=== PATIENT | male | born 1960 | race African-American/Black ===

== ENCOUNTER 2016-08-13 09:54 | Observation (INO) ==
[2016-08-13] MEDS ORDERED: NITROGLYCERIN 2% OINT 1 INCH/GM PACK TOP STA (10:11)
[2016-08-13] MEDS ORDERED: ASPIRIN 325 MG TABLET PO STA (10:11)
[2016-08-13] MEDS ORDERED: METOPROLOL TARTRATE 25 MG TABLET PO STA (10:11)
[2016-08-13] MEDS ORDERED: ONDANSETRON 4 MG/2 ML VIAL IV STA ×2 (10:11→11:43)
[2016-08-13] MEDS ORDERED: ALUM/MAG/SIMETH/LIDO VISC 1:1 30 ML BOTTLE PO STA (10:11)
[2016-08-13] MEDS ORDERED: METOCLOPRAMIDE 10 MG/2 ML VIAL IV STA (10:11)
--- NOTE | 2016-08-13 10:18 | Emergency Department Note ---
Arrival - Arrival Chief Complaint: Chest Pain Stated Complaint: CHEST PAIN, SOB ED Nursing Triage Note: reports pain in center of chest that radiates down left arm that started this morning about 0800 after he had an echo and was headed home. reports feels sob and dizzy. reports has also had some heartburn. Mode of Arrival: Ambulatory Limitations: No Limitations Source: Patient Time Seen by Provider: 08/13/16 10:11 - History of Present Illness HPI Narrative: This 55-year-old black male with extensive coronary artery disease with WI and stents, presents after having an echo this morning per his medical biller Dr. Grajeda when on the way home he began to have central chest pain that radiated down his left arm. This was associated with shortness of breath and dizziness as well as some low-grade nausea and significant heartburn and water brash symptoms. He states he still has some slight nausea and minimal pain. Currently he appears medically stable and in no acute distress. Onset (ago): hour(s) (Onset of pain 2 hours ago) Allergies/Adverse Reactions: Allergies Allergy/AdvReac Type Severity Reaction Status Date / Time Iodinated Contrast Media - AdvReac ITCHING Verified 10/28/14 12:31 Oral and [Iodinated Contrast Media - IV Dye] Sulfa (Sulfonamide AdvReac ITCHING Verified 10/28/14 12:30 Antibiotics) sulfamethoxazole AdvReac ITCHING Verified 10/28/14 12:30 [From Bactrim] trimethoprim [From Bactrim] AdvReac ITCHING Verified 10/28/14 12:30 Home Medications: Home Medications Medication Instructions Recorded Confirmed Type Aspirin [Ecotrin] 81 mg PO DAILY 10/28/14 10/28/14 History Atorvastatin [Lipitor] 40 mg PO BEDTIME 10/28/14 10/28/14 History HYDROcodone/ACETAMIN 10-325 [Battiest 1 tablet PO Q6H 10/28/14 10/28/14 History 10-325] Isosorbide Mononitrate [Isosorbide 30 mg PO DAILY 10/28/14 10/28/14 History Mononitrate ER] Isosorbide Mononitrate [Isosorbide 60 mg PO DAILY 10/28/14 10/28/14 History Mononitrate ER] Losartan [Cozaar] 25 mg PO DAILY 10/28/14 10/28/14 History Metoprolol Tartrate 25 mg PO BID 10/28/14 10/28/14 History Pantoprazole Tab [Protonix Tab] 40 mg PO BID 10/28/14 10/28/14 History Prasugrel [Effient] 10 mg PO DIRECTED 10/28/14 10/28/14 History Promethazine Tab [Phenergan Tab] 25 mg PO Q6H PRN 10/28/14 10/28/14 History Review of System - Review of System 12 point system: reviewed and no additional remarkable complaints except as stated - Review of System Constitutional: Present: as per HPI Respiratory: Present: as per HPI Cardiovascular: Present: as per HPI Gastrointestinal: Present: as per HPI Medical,Surgical,& Family Hx - Medical History Cardio: History of: CAD (June 2012: PCI-proximal RCA with CHIQUI. Repeat [facility] June 2012 - stent open ) Neurology: No history of: Seizures, TIA Endocrine: History of: Dyslipidemia No history of: Diabetes Mellitus (NIDDM) Gastrointestinal: History of: GI Problems (1 month ago - BRB from rectum once. On toilet paper) - Surgical History Cardiac Surgeries: Sugical HX of: Cardiac Catheterization (STENT July 01, 2012 - STEMI with PCI-proximal RCA. Repeat [facility] stent patent) Thoracic Surgeries: Patient denies;: Organ Transplant Neurologic Surgeries: Patient denies: Neurologic Surgery - Family History Family History: Reports;: Family Diabetes (MOTHER, SISTERSx2), Family Heart Disease (MOTHER, FATHER), Family Hypertension (MOTHER, FATHER) - Social History Smoking Status: Light tobacco smoker Exam Physical Examination: GENERAL: Well developed, well nourished black male in no acute distress. HEENT: Normocephalic. No trauma. Moist mucous membranes. EOMI. PERRLA. ENT NML NECK: Supple. No adenopathy. CARDIAC: Regular. No murmurs. Heart rate 72 CHEST: Clear to auscultation. No respiratory distress. O2 sat 99% ABDOMEN: Soft. Nontender. Active bowel sounds. EXTREMITIES: No trauma. Normal ROM. No pedal edema. SKIN: No diaphoresis. No rash. NEURO: Alert. Neuro intact. No focal deficits. Vital Signs: Vital Signs Temperature 98.6 F 08/13/16 10:11 Pulse Rate 67 08/13/16 10:45 Respiratory Rate 24 08/13/16 10:45 Blood Pressure 143/81 08/13/16 10:45 O2 Sat by Pulse Oximetry 100 08/13/16 10:45 Course - Reevaluation(s) Reevaluation #1: As patient continues to have chest pain we will seek admission. - Consultations Consultation #1: Discussed with Dr. Sauceda who will admit for further evaluation treatment. Results - Labs CBC & BMP: 08/13/16 10:21 08/13/16 10:21 Labs: I reviewed the laboratory noted the negative cardiac's - Impressions EKG: Sinus rhythm at 88 with normal [place] interval and QRS duration. Lateral and inferior ST flattening with T inversion consistent with ischemia. No acute injury pattern noted. - Diagnostic Findings Procedure: Chest x-ray: image reviewed by me, report reviewed by me (Normal chest) Disposition Clinical Impression: Angina, Coronary artery disease/s/p stents Case discussed with: patient, patient's family Disposition: Still a Patient Condition: Guarded Time of Disposition: 12:06
[2016-08-13 10:38] LABS: Basophils % 0.2 % (0.0-0.8); Eosinophils # 0.1 10*3/uL (0.0-0.87); Eosinophils % 1.3 % (0.00-10.9); Hematocrit 42.1 VOL% (42.0-52.0); Immature Granulocytes % 0.4 %; Immature Granulocytes Absolute 0.02 #; Lymphocytes # 1.8 10*3/uL (1.4-4.0); Lymphocytes % 40.1 % (21.2-54.2); Mean Corpuscular HGB Conc 33.3 GM/DL (32-36); Mean Corpuscular Hemoglobin 24 PG (27-34); Mean Corpuscular Volume 72.6 FL (87-102); Mean Platelet Volume 10.7 FL (9.6-12.0); Monocytes # 0.6 10*3/uL (0.11-0.8); Monocytes % 13.4 % (1.7-12.7); Neutrophils % 44.6 % (38.7-73.9); Platelet Count 230 T/CUMM (130-400); Red Cell Distribution Width 14.7 % (9.3-17.3); White Blood Count 4.5 T/CUMM (4-12)
[2016-08-13 10:40] LABS: Apearance,Urine CLEAR (Clear); Bilirubin,Urine Negative (Negative); Blood, Urine Negative (Negative); Glucose,Urine (UA) Negative (Negative); Ketones,Urine Negative (Negative); Mucus,Urine Occasional /LPF (Occasional); Nitrite,Urine Negative (Negative); Protein,Urine Negative; RBC,Urine 1 /HPF (0-4); Urine Color Yellow (Yellow); Urine Specific Gravity 1.014 (1.001-1.035); Urine Urobilinogen < 2.0 EU/DL (0.2-1.0); WBC,Urine <1 /HPF (0-6)
[2016-08-13 10:47] LABS: PT Patient Result 10.7 SECS; Partial Thromboplastin Time 28.7 SECS (0-40)
[2016-08-13] MEDS ORDERED: NITROGLYCERIN 2% OINT 1 INCH/GM PACK TOP ONE (10:47)
[2016-08-13] MEDS ORDERED: METOCLOPRAMIDE 10 MG/2 ML VIAL ONE (10:47)
[2016-08-13] MEDS ORDERED: METOPROLOL TARTRATE 25 MG TABLET ONE (10:47)
[2016-08-13] MEDS ORDERED: ONDANSETRON 4 MG/2 ML VIAL ONE ×2 (10:48→11:43)
[2016-08-13] MEDS ORDERED: ALUM/MAG/SIMETH/LIDO VISC 1:1 30 ML BOTTLE PO ONE (10:48)
[2016-08-13] MEDS ORDERED: ASPIRIN 325 MG TABLET ONE (10:48)
[2016-08-13 11:08] LABS: Barbiturates Screen,Urine Negative (Negative); Benzodiazepines Screen,Urine Negative (Negative); Cannabinoid Screen,Urine Negative (Negative); Opiate Screen,Urine Negative (Negative); Phencyclidine Screen,Urine Negative (Negative)
[2016-08-13 11:12] LABS: Alanine Aminotransferase 29 U/L (16-61); Albumin 3.7 G/DL (3.4-5.0); Alkaline Phosphatase 97 U/L (45-117); Aspartate Amino Transferase 16 U/L (0-37); Bilirubin,Total < 0.39 MG/DL (0.2-1.0); Blood Urea Nitrogen 11 MG/DL (7-18); Calcium 9.1 MG/DL (8.5-10.1); Glucose 79 MG/DL (74-106); Osmolality,Calculated 272.7 MOS/KG (273-304); Potassium 4.5 MMOL/L (3.5-5.1); Sodium 138 MMOL/L (136-145); Total Protein 7.2 G/DL (6.4-8.3); Troponin I Only < 0.015 NG/ML (0.00-0.045)
[2016-08-13] MEDS ORDERED: ACETAMINOPHEN 325 MG TABLET ONE (11:43)
[2016-08-13] MEDS ORDERED: ACETAMINOPHEN 325 MG TABLET PO ONE (11:43)
[2016-08-13] MEDS ORDERED: MORPHINE 2 MG/1 ML SYRINGE IV STA (11:43)
[2016-08-13] MEDS ORDERED: MORPHINE 2 MG/1 ML SYRINGE ONE (11:44)
--- NOTE | 2016-08-13 11:49 | XRay Report ---
XR chest 2V Indication: Chest pain. Comparison: Chest x-ray 10/28/2014 Technique: PA and lateral chest x-ray was performed. Findings: Heart size, mediastinal contour, and hilar structures demonstrate no significant abnormalities. The lung parenchyma is clear. Bones and soft tissues demonstrate no significant abnormalities. Impression: 1. No active cardiopulmonary disease. 08/13/2016 11:47 AM PROCEDURE INTERPRETED AT [facility] DEPARTMENT OF RADIOLOGY Final Report Signed by: Dr. Damion Montgomery
--- NOTE | 2016-08-13 13:22 | Cardiology History & Physical ---
Assessment and Plan - Time spent with patient Time spent with patient: Greater than 30 minutes (due to assessment, plan, and documentation) Time spent discussing smoking cessation with patient: 3 to 10 minutes (1) Chest pain Status: Acute Assessment and plan: See plan of care listed below. Current Visit: No (2) Coronary artery disease Status: Chronic Assessment and plan: See plan of care listed below. Current Visit: No (3) Hypertension Status: Chronic Assessment and plan: See plan of care listed below. Current Visit: No (4) Hyperlipidemia Status: Chronic Assessment and plan: See plan of care listed below. Current Visit: No (5) Tobacco use Status: Chronic Assessment and plan: See plan of care listed below. 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 Mr. Amato is a 55 year old male with a history of coronary artery disease (non-STEMI requiring PCI to RCA with resolute integrity June 2012) . He also has a history of hypertension, hyperlipidemia, and tobacco use. His most recent heart catheterization was 03/29/14 demonstrating patent stent. He has a history of post-cath rash suspected to be secondary to IV contrast or possibly Plavix. Additional history includes gastritis, esophagitis, and abnormal CT of the chest. Echocardiogram on 08/13/16 revealed EF 55%, grade 1 diastolic dysfunction, mild LVH, mildly increased left atrial diameter, mild TR. He presented to the emergency room today with complaints of chest pain ongoing for the past week. He was seen in clinic by Dr. Grajeda yesterday for the same complaints. He describes this as a sharp midsternal/epigastric pain that lasts approximately 4-5 minutes and goes away on its own. He has been having this pain for approximately 1 week. He reports it radiates down his left arm. It is nonreproducible with movement, palpation, or deep breath. There is no association with rest or exertion. He has associated symptoms of shortness of breath and dizziness. His left arm pain occurs with his chest pain and radiates further down his arm, not the shoulder pain he had before (which he was cathed for). He also complains of frequent heartburn despite using a PPI. He reports whenever he gets up to do something such as yard work and exerts himself, he develops a burning sensation in his chest. He reports it will resolve with rest but then come back later at rest. Sometimes this worsens with his eating, and sometimes he avoids eating because of this. Upon arrival, he was noted to have negative cardiac biomarkers. EKG shows sinus rhythm, with moderate T-wave abnormality inferolaterally. After discussing with Dr. Knapp, will admit Mr. Amato to cardiology service and keep him n.p.o. for nuclear stress testing this afternoon. ASSESSMENT/PLAN: 1. CHEST PAIN - Will admit patient to cardiology service and keep him n.p.o. for nuclear stress testing this afternoon. Will continue to cycle cardiac biomarkers and EKGs. 2. CORONARY ARTERY DISEASE - He has a history of coronary artery disease (non- STEMI requiring PCI to RCA with resolute integrity June 2012). His most recent heart catheterization was 03/29/14 demonstrating patent stent. He has a history of post-cath rash suspected to be secondary to IV contrast or possibly Plavix. 3. HYPERTENSION - Currently well controlled. We will continue to monitor and adjust medications accordingly. 4. HYPERLIPIDEMIA - Continue lipid-lowering agent. Will recheck lipid panel in a.m. 5. TOBACCO USE - Spent greater than 5 minutes discussing the harmful effects of tobacco use and urged him to quit smoking. Home Medications Medication Instructions Recorded Confirmed Type Aspirin [Ecotrin] 81 mg PO DAILY 10/28/14 08/13/16 History Losartan [Cozaar] 25 mg PO DAILY 10/28/14 08/13/16 History Carvedilol [Coreg] 6.25 mg PO BID 08/13/16 08/13/16 History Omeprazole [Prilosec] 20 mg PO DAILY 08/13/16 08/13/16 History Allergies Allergy/AdvReac Type Severity Reaction Status Date / Time Iodinated Contrast Media - AdvReac ITCHING Verified 10/28/14 12:31 Oral and [Iodinated Contrast Media - IV Dye] Sulfa (Sulfonamide AdvReac ITCHING Verified 10/28/14 12:30 Antibiotics) sulfamethoxazole AdvReac ITCHING Verified 10/28/14 12:30 [From Bactrim] trimethoprim [From Bactrim] AdvReac ITCHING Verified 10/28/14 12:30 Review of systems: - Constitutional: Present: As per HPI. Absent: anorexia, chills, daytime sleepiness, excessive sweating, fever(s), frequent falls, headache(s), increased appetite, lethargy, malaise, night sweats, stops breathing during sleep, weakness, weight gain, weight loss, fatigue. - EENT Eyes: Present: As per HPI. Absent: blurry vision, diplopia, loss of vision Ears: Present: As per HPI. Absent: decreased hearing, ear discharge, ear pain Nose, mouth and throat: Present: As per HPI. Absent: dysphagia, epistaxis, headache(s), hoarseness, lip swelling, nasal congestion, neck mass, neck pain, sinus pressure, sore throat, throat swelling, tongue swelling, vertigo - Cardiovascular: Present: chest pain at rest, chest pain with activity, dyspnea , dyspnea on exertion, as per HPI. Absent: edema, claudication, diaphoresis, radiating jaw, neck or arm pain, lightheadedness, orthopnea, palpitations, PND - Respiratory: Present: as per HPI. Absent: dyspnea, dyspnea on exertion, cough , hemoptysis, wheezing, snoring, pain on inspiration - Gastrointestinal: Present: heartburn,As per HPI. Absent: abdominal pain, bloating, change in bowel habits, constipation, diarrhea, hematemesis, hematochezia, loose stools, melena, nausea, vomiting - Genitourinary: Present: As per HPI. Absent: difficulty urinating, dysuria, flank pain, hematuria, nocturia, urinary frequency, urinary incontinence - Musculoskeletal: Present: As per HPI. Absent: arthralgias, back pain, joint swelling, limited range of motion, muscle cramps, muscle weakness, myalgias - Neurological: Present: dizziness, As per HPI. Absent: abnormal gait, abnormal speech, behavioral changes, confusion, convulsions, disequilibrium, focal weakness, frequent falls, headache(s), memory loss, numbness, paresthesias, radicular pain, syncope, tremor(s) - Psychiatric: Present: As per HPI. Absent: anxiety, confusion, depression, panic attacks - Endocrine: Present: As per HPI. Absent: cold intolerance, fatigue, heat intolerance, polydipsia, polyphagia - Hematologic/Lymphatic: Present: As per HPI. Absent: easy bleeding, easy bruising, lymphadenopathy Medical,Surgical,& Family Hx - Medical History Cardio: History of: CAD (June 2012: PCI-proximal RCA with CHIQUI. Repeat [facility] June 2012 - stent open ), Hypertension, ID Neurology: No history of: Seizures, TIA Endocrine: History of: Dyslipidemia No history of: Diabetes Mellitus (NIDDM) Gastrointestinal: History of: GERD, GI Problems (1 month ago - BRB from rectum once. On toilet paper) - Surgical History Cardiac Surgeries: Sugical HX of: Cardiac Catheterization (STENT July 01, 2012 - STEMI with PCI-proximal RCA. Repeat [facility] stent patent) Thoracic Surgeries: Patient denies;: Organ Transplant Neurologic Surgeries: Patient denies: Neurologic Surgery - Family History Family History: Reports;: Family Diabetes (MOTHER, SISTERSx2), Family Heart Disease (MOTHER, FATHER), Family Hypertension (MOTHER, FATHER) - Social History Smoking Status: Light tobacco smoker Frequency of Alcohol Use: None Type of Drug Use: None Marital Status: Single Lives With:: Alone Functional capacity: independent ambulation Cardiology Physical Exam - Constitutional Vitals: Vital Signs Temp Pulse Resp BP Pulse Ox 98.6 F 55 L 26 H 115/77 100 08/13/16 10:11 08/13/16 13:00 08/13/16 13:00 08/13/16 13:00 08/13/16 13:00 Intake and Output 08/12/16 08/13/16 08/13/16 22:59 06:59 14:59 Other: Weight 176 lb Patient Weight 08/14/16 06:59 Weight 176 lb Exam: General appearance: Pleasant and cooperative. Overweight, no acute distress. - Head Head exam: Present: normal inspection, normocephalic, atraumatic. Absent: hematoma, laceration - Eye Eye exam: Present: EOMI. Absent: conjunctival injection, nystagmus, periorbital swelling, scleral icterus, laceration to eyelids Pupils: Present: PERRL. Absent: constricted, dilated, fixed, irregular, unequal - ENT ENT exam: Present: normal exam, normal external ear exam - Neck Neck exam: Present: normal inspection. Absent: lymphadenopathy, meningismus, tenderness, thyromegaly - Respiratory Respiratory exam: Present: clear to auscultation bilaterally. Absent: accessory muscle use, chest wall tenderness - Cardiovascular Cardiovascular exam: Present: regular rate and rhythm. Absent: carotid bruit, gallop, JVD, rubs, murmur - GI/Abdominal GI/Abdominal exam: Present: normal bowel sounds, soft. Absent: distended, firm , guarding, hernia, mass, tenderness, rebound. - Extremities Exam Extremities exam: Present: normal inspection, normal capillary refill. Upper extremity pulses 2+. Lower extremity pulses 2+. Absent: calf tenderness, edema -Musculoskeletal Exam Musculoskeletal: Present: No Fluid Collection, No Pain, Normal Range of Motion - Back Exam Back exam: Present: normal inspection. Absent: muscle spasm, vertebral tenderness - Neurological Exam Neurological exam: Present: alert, oriented X3, grossly intact without resting or essential tremor - Psychiatric Psychiatric exam: Present: normal affect, normal mood - Skin Skin exam: Present: normal color, warm, dry, intact. Absent: cyanosis, diaphoretic, rash, urticaria Result/EKG - Labs CBC & BMP: 08/13/16 10:21 08/13/16 10:21 Lab Results: I have reviewed the past 24 hour labs Labs: Laboratory Results - last 24 hr 08/13/16 08/13/16 08/13/16 10:11 10:21 10:21 WBC RBC Hgb Hct MCV MCH MCHC RDW Plt Count MPV Neut % (Auto) Lymph % (Auto) Ware % (Auto) Eos % (Auto) Baso % (Auto) Neut # (Auto) Lymph # (Auto) Ware # (Auto) Eos # (Auto) Baso # (Auto) Immature Gran % Nucleated RBC % Immature Gran # Nucleated RBCs # INR 1.0 PT Patient/Control Mix 10.7 Circ Anticoag PTT 28.7 Sodium 138 Potassium 4.5 Chloride 105 Carbon Dioxide 24 Anion Gap 13.5 BUN 11 Creatinine 0.80 GFR Calculation 126 BUN/Creatinine Ratio 13.00 Glucose 79 Calculated Osmolality 272.7 L Calcium 9.1 Total Bilirubin < 0.39 AST 16 ALT 29 Alkaline Phosphatase 97 Total Creatine Kinase 175 CK-MB (CK-2) 2.0 Troponin I < 0.015 B-Natriuretic Peptide Total Protein 7.2 Albumin 3.7 Globulin 3.5 Albumin/Globulin Ratio 1.0 L Lipase 210.0 Urine Color Yellow Urine Appearance Clear Urine pH 6.0 Ur Specific [place] 1.014 Urine Protein Negative Urine Glucose (UA) Negative Urine Ketones Negative Urine Blood Negative Urine Nitrate Negative Urine Bilirubin Negative Urine Urobilinogen < 2.0 H Urine Leukocytes Negative Urine RBC 1 Urine WBC <1 Urine Mucus Occasional Ur Culture Indicated? Not indicated Urine Opiates Screen Ur Barbiturates Screen Ur Phencyclidine Scrn U Amphetamine/Methamph U Benzodiazepines Scrn U Cocaine Metab Screen U Cannabinoids Screen 08/13/16 08/13/16 08/13/16 10:21 10:21 10:21 WBC 4.5 RBC 5.80 H Hgb 14.0 Hct 42.1 MCV 72.6 L MCH 24 L MCHC 33.3 RDW 14.7 Plt Count 230 MPV 10.7 Neut % (Auto) 44.6 Lymph % (Auto) 40.1 Ware % (Auto) 13.4 H Eos % (Auto) 1.3 Baso % (Auto) 0.2 Neut # (Auto) 2.0 Lymph # (Auto) 1.8 Ware # (Auto) 0.6 Eos # (Auto) 0.1 Baso # (Auto) 0.0 Immature Gran % 0.4 Nucleated RBC % 0.0 Immature Gran # 0.02 Nucleated RBCs # 0.00 INR PT Patient/Control Mix Circ Anticoag PTT Sodium Potassium Chloride Carbon Dioxide Anion Gap BUN Creatinine GFR Calculation BUN/Creatinine Ratio Glucose Calculated Osmolality Calcium Total Bilirubin AST ALT Alkaline Phosphatase Total Creatine Kinase CK-MB (CK-2) Troponin I B-Natriuretic Peptide 22 Total Protein Albumin Globulin Albumin/Globulin Ratio Lipase Urine Color Urine Appearance Urine pH Ur Specific [place] Urine Protein Urine Glucose (UA) Urine Ketones Urine Blood Urine Nitrate Urine Bilirubin Urine Urobilinogen Urine Leukocytes Urine RBC Urine WBC Urine Mucus Ur Culture Indicated? Urine Opiates Screen Negative Ur Barbiturates Screen Negative Ur Phencyclidine Scrn Negative U Amphetamine/Methamph Negative U Benzodiazepines Scrn Negative U Cocaine Metab Screen Negative U Cannabinoids Screen Negative 08/13/16 10:21 WBC RBC Hgb Hct MCV MCH MCHC RDW Plt Count MPV Neut % (Auto) Lymph % (Auto) Ware % (Auto) Eos % (Auto) Baso % (Auto) Neut # (Auto) Lymph # (Auto) Ware # (Auto) Eos # (Auto) Baso # (Auto) Immature Gran % Nucleated RBC % Immature Gran # Nucleated RBCs # INR PT Patient/Control Mix Circ Anticoag PTT Sodium Potassium Chloride Carbon Dioxide Anion Gap BUN Creatinine GFR Calculation BUN/Creatinine Ratio Glucose Calculated Osmolality Calcium Total Bilirubin AST ALT Alkaline Phosphatase Total Creatine Kinase CK-MB (CK-2) Troponin I < 0.015 B-Natriuretic Peptide Total Protein Albumin Globulin Albumin/Globulin Ratio Lipase Urine Color Urine Appearance Urine pH Ur Specific [place] Urine Protein Urine Glucose (UA) Urine Ketones Urine Blood Urine Nitrate Urine Bilirubin Urine Urobilinogen Urine Leukocytes Urine RBC Urine WBC Urine Mucus Ur Culture Indicated? Urine Opiates Screen Ur Barbiturates Screen Ur Phencyclidine Scrn U Amphetamine/Methamph U Benzodiazepines Scrn U Cocaine Metab Screen U Cannabinoids Screen - EKG EKG results: interpreted by me, sinus rhythm
--- NOTE | 2016-08-13 15:08 | Event Note ---
Mr. Amato presented with chest pain and AKBAR and underwent nuclear stress testing. In stage II of Devyn protocol, patient had moderate dyspnea and extreme fatigue. He was transitioned to Lexiscan for completion. At completion of test, pt had a burning sensation in his chest, dizziness, dyspnea, and fatigue. Patient had inferolateral T-wave inversion on initial EKG. No significant EKG changes were noted. Blood pressure responded appropriately. Patient now to nuclear medicine for final scan. Dr. Knapp to read, interpret, and advise.
[2016-08-13] MEDS ORDERED: REGADENOSON 0.4 MG/5 ML SYRINGE IV ONE (16:56)
[2016-08-13] MEDS: ALUMINUM/MAGNES/SIMETH MAX STR 30 ML UDCUP PO PRN (20:43)
[2016-08-13] MEDS: CARVEDILOL 6.25 MG TABLET PO SCH (20:43)
--- NOTE | 2016-08-13 20:57 | Nuclear Medicine Report ---
EXERCISE STRESS TEST TEST WAS INTERPRETED BY: Dr. Pascual Knapp. INDICATION: Shortness of breath, chest tightness. PROCEDURE: At rest, 10 mCi of 99-technetium with sestamibi was injected and rest images were obtained. The patient then exercised according to the Devyn Treadmill Stress Protocol. Due to inability to reach peak heart rate, at peak stress, 0.4 mg IV Lexiscan was injected, then 50 mCi of 99-technetium with sestamibi was injected and post stress images were obtained. FINDINGS: At rest, sinus bradycardia 53 beats per minute, blood pressure 116/ 52 mmHg. There are inferior Q waves with T-wave inversion in II, III, aVF, V5 and V6. The patient exercised for 6 minutes 9 seconds on the treadmill, achieving the peak heart rate of 106 beats per minute, 65% of the maximum, age- predicted heart rate, at 5.8 METs. The blood pressure melvin to 120/80 mmHg. There was no significant change in the repolarization at this test compared to baseline. The patient had dyspnea on exertion and dizziness, chest burning and fatigue. Gated and perfusion at rest and post-stress images were reviewed. There are motion artifacts on both sets of images. At rest, the end-diastolic volume is 160 cc, the end-systolic volume is 60 cc, the calculated ejection fraction of 51%. There is decreased thickening of the posterior segment, with normal thickening in the remaining areas. The average volume was 66 cc at rest increased to 78 cc post stress. Perfusion images show a moderate sized area in the posterior/mid inferior region of moderate to severe decreased activity both at rest and post stress, suggestive of old myocardial disease. In addition, there is a small area of moderately decreased activity post stress, which is only mildly decreased at rest, suggestive of myocardial ischemia. CONCLUSION: 1. CLINICALLY AND ELECTRICALLY INCONCLUSIVE EXERCISE STRESS TEST, POOR EXERCISE TOLERANCE. YUNG TREADMILL TEST SCORE IS 2. 2. NORMAL LEFT VENTRICULAR SIZE, PRESERVED LEFT VENTRICULAR EJECTION FRACTION OF 51%, WITH POSTERIOR WALL HYPOKINESIS. MYOCARDIAL ISCHEMIA IN THE INFERIOR/ APICAL REGION. 3. THERE IS TRANSIENT LEFT VENTRICULAR DILATATION AT STRESS. THIS FINDING IS NONSPECIFIC, CAN IMPLY DECONDITIONING OR GLOBAL ISCHEMIA. 4. THIS IS A MODERATE RISK TEST. Procedure performed and interpreted at [facility] Department of Radiology. [facility]
[2016-08-14 05:49] LABS: Basophils % 0.2 % (0.0-0.8); Eosinophils # 0.1 10*3/uL (0.0-0.87); Eosinophils % 1.6 % (0.00-10.9); Hematocrit 41.1 VOL% (42.0-52.0); Hemoglobin 13.2 GM/DL (14.0-18.0); Immature Granulocytes % 0.4 %; Immature Granulocytes Absolute 0.02 #; Lymphocytes # 2.6 10*3/uL (1.4-4.0); Lymphocytes % 45.7 % (21.2-54.2); Mean Corpuscular HGB Conc 32.1 GM/DL (32-36); Mean Corpuscular Hemoglobin 24 PG (27-34); Mean Corpuscular Volume 73.4 FL (87-102); Mean Platelet Volume 11.6 FL (9.6-12.0); Monocytes # 0.7 10*3/uL (0.11-0.8); Monocytes % 11.6 % (1.7-12.7); Neutrophils # 2.3 10*3/uL (1.4-7.4); Neutrophils % 40.5 % (38.7-73.9); Platelet Count 231 T/CUMM (130-400); Red Cell Distribution Width 14.7 % (9.3-17.3); White Blood Count 5.6 T/CUMM (4-12)
[2016-08-14 06:21] LABS: Magnesium 2.4 MG/DL (1.8-2.4); Osmolality,Calculated 277.5 MOS/KG (273-304); Potassium 4.5 MMOL/L (3.5-5.1); Risk Ratio 7.5; VLDL CHOLESTEROL 81.8 MG/DL
--- NOTE | 2016-08-14 07:08 | EKG Report ---
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
[2016-08-14] MEDS: ASPIRIN EC 81 MG TABLET PO SCH (08:54)
[2016-08-14] MEDS: ISOSORBIDE MONONITRATE 30 MG TABLET PO SCH (08:54)
[2016-08-14] MEDS: LOSARTAN 25 MG TABLET PO SCH (08:54)
[2016-08-14] MEDS: CARVEDILOL 6.25 MG TABLET PO SCH ×2 (08:54→22:50)
[2016-08-14] MEDS: PANTOPRAZOLE 40 MG TABLET PO SCH (08:54)
[2016-08-14] MEDS ORDERED: NITROGLYCERIN SL 0.4 MG TABLET SL PRN (11:28)
--- NOTE | 2016-08-14 11:32 | Cardiology Progress Note ---
Assessment and Plan (1) Unstable angina pectoris Status: Acute Assessment and plan: 55-year-old black male, history of CAD, RCA PCI, presenting with chest/LUE discomfort, atypical for angina, however, similar to her prior symptoms with CAD. Also has intermittent abdominal discomfort, not responding to PPI. Normal cardiac biomarkers. Stress test suggestive of mild ischemia in the inferior/apical region. 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 -Aspirin, Coreg, statin. BP, HR well controlled -Started Imdur 30 mg daily. Add NTG prn -Keep on telemetry -Presentation is not typical for ACS, UA, however, her prior symptoms when he had severe CAD prior to PCI, were also atypical. Stress test was quite inconclusive. I am going to obtain interventional consult, he may be a candidate for invasive evaluation. -No evidence of myocardial injury. I would hold off full anticoagulation and dual antiplatelets at this time -If symptoms are not due CAD, we can pursue GI evaluation later on. 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 Stress test was inconclusive. He may have some mild ischemia, in the area that was intervened upon years ago. Exam (Progress Note) - Constitutional Vitals: Period Temp Pulse Resp BP Sys/Webster Pulse Ox Last 24 Hr 96.9 F-98 F 52-69 15-26 102-133/61-92 95-100 General appearance: no acute distress, over weight - Head Head exam: Present: normal inspection, normocephalic - Eye Eye exam: Absent: conjunctival injection, scleral icterus Pupils: Absent: dilated - ENT ENT exam: Present: normal external ear exam - Neck Neck exam: Present: normal inspection - Respiratory Respiratory exam: Present: clear to auscultation bilaterally. Absent: chest wall tenderness - Cardiovascular Cardiovascular exam: Present: regular rate and rhythm. Absent: JVD, systolic murmur - GI/Abdominal GI/Abdominal exam: Present: normal bowel sounds. Absent: distended - Extremities Exam Extremities exam: Present: normal inspection, normal capillary refill. Absent: edema - Back Exam Back exam: Present: normal inspection - Neurological Exam Neurological exam: Present: alert, oriented X3 - Psychiatric Psychiatric exam: Present: normal affect, normal mood - Skin Skin exam: Present: normal color, warm. Absent: cyanosis Result/EKG - Labs CBC & BMP: 08/14/16 04:33 08/14/16 04:33 Lab Results: I have reviewed the past 24 hour labs Labs: Laboratory Results - last 24 hr 08/14/16 08/14/16 04:33 04:33 WBC 5.6 RBC 5.60 H Hgb 13.2 L Hct 41.1 L MCV 73.4 L MCH 24 L MCHC 32.1 RDW 14.7 Plt Count 231 MPV 11.6 Neut % (Auto) 40.5 Lymph % (Auto) 45.7 [place] % (Auto) 11.6 Eos % (Auto) 1.6 Baso % (Auto) 0.2 Neut # (Auto) 2.3 Lymph # (Auto) 2.6 [place] # (Auto) 0.7 Eos # (Auto) 0.1 Baso # (Auto) 0.0 Immature Gran % 0.4 Nucleated RBC % 0.0 Immature Gran # 0.02 Nucleated RBCs # 0.00 Sodium 139 Potassium 4.5 Chloride 103 Carbon Dioxide 29 Anion Gap 11.5 BUN 14 Creatinine 0.90 GFR Calculation 119 BUN/Creatinine Ratio 15.00 Glucose 93 Calculated Osmolality 277.5 Calcium 9.0 Magnesium 2.4 Triglycerides 409 H Cholesterol 240 H LDL Cholesterol 130.0 VLDL Cholesterol 81.8 HDL Cholesterol 32 L Heart Disease Risk Ratio 7.50 - EKG EKG results: interpreted by me
--- NOTE | 2016-08-14 17:55 | Event Note ---
The chart was reviewed. I discussed the heart cath with the patient and his girlfriend. They are okay with proceeding on Tuesday. It will be for around 10: 30 AM or so. I will premedicate for his history of contrast reaction. Thank you for this interventional consult.
[2016-08-14] MEDS ORDERED: FAMOTIDINE 20 MG TABLET PO SCH (17:58)
[2016-08-14] MEDS: ENOXAPARIN 40 MG/0.4 ML SYRINGE SUBCUT SCH (18:27)
[2016-08-14] MEDS: FAMOTIDINE 20 MG TABLET PO SCH (18:27)
[2016-08-14] MEDS: ROSUVASTATIN 10 MG TABLET PO SCH (22:49)
[2016-08-14] MEDS: ALUMINUM/MAGNES/SIMETH MAX STR 30 ML UDCUP PO PRN (22:50)
[2016-08-15 05:57] LABS: Basophils % 0.6 % (0.0-0.8); Eosinophils # 0.1 10*3/uL (0.0-0.87); Eosinophils % 1.8 % (0.00-10.9); Hematocrit 40.4 VOL% (42.0-52.0); Hemoglobin 13.3 GM/DL (14.0-18.0); Immature Granulocytes % 0.2 %; Immature Granulocytes Absolute 0.01 #; Lymphocytes # 2.6 10*3/uL (1.4-4.0); Mean Corpuscular HGB Conc 32.9 GM/DL (32-36); Mean Corpuscular Hemoglobin 24 PG (27-34); Mean Corpuscular Volume 72.9 FL (87-102); Mean Platelet Volume 11.2 FL (9.6-12.0); Monocytes # 0.6 10*3/uL (0.11-0.8); Monocytes % 12.9 % (1.7-12.7); Neutrophils # 1.5 10*3/uL (1.4-7.4); Neutrophils % 30.5 % (38.7-73.9); Platelet Count 220 T/CUMM (130-400); Red Blood Count 5.54 MC/CUMM (3.8-5.5); Red Cell Distribution Width 14.5 % (9.3-17.3); White Blood Count 4.9 T/CUMM (4-12)
[2016-08-15 06:27] LABS: Calcium 8.7 MG/DL (8.5-10.1); Magnesium 2.5 MG/DL (1.8-2.4); Osmolality,Calculated 274.7 MOS/KG (273-304); Potassium 4.4 MMOL/L (3.5-5.1)
[2016-08-15 07:54] LABS: Band Neutrophils 1 % (0-10); Eosinophils 3 % (0-10); Hypochromasia Slight; Lymphocytes 59 % (20-55); Platelet Estimate Adequate; Segmented Neutrophils 28 % (50-85); Total Cells Counted 100
[2016-08-15] MEDS: ISOSORBIDE MONONITRATE 30 MG TABLET PO SCH (08:47)
[2016-08-15] MEDS: CARVEDILOL 6.25 MG TABLET PO SCH ×2 (08:47→22:08)
[2016-08-15] MEDS: FAMOTIDINE 20 MG TABLET PO SCH ×2 (08:47→22:08)
[2016-08-15] MEDS: ASPIRIN EC 81 MG TABLET PO SCH (08:47)
[2016-08-15] MEDS: LOSARTAN 25 MG TABLET PO SCH (08:47)
[2016-08-15] MEDS: PANTOPRAZOLE 40 MG TABLET PO SCH (08:47)
[2016-08-15] MEDS ORDERED: MORPHINE 2 MG/1 ML SYRINGE IV PRN (10:05)
[2016-08-15] MEDS ORDERED: ALUM/MAG/SIMETH/LIDO VISC 1:1 30 ML BOTTLE PO ONE (10:05)
[2016-08-15] MEDS ORDERED: LORATADINE 10 MG TABLET PO SCH ×2 (10:05→17:57)
[2016-08-15] MEDS ORDERED: ASPIRIN CHEW 81 MG TABLET PO ONE ×2 (10:05→17:56)
[2016-08-15] MEDS: LORATADINE 10 MG TABLET PO SCH (10:56)
--- NOTE | 2016-08-15 11:58 | Cardiology Progress Note ---
Assessment and Plan (1) Unstable angina pectoris Status: Acute Assessment and plan: 55-year-old black male, history of CAD, RCA PCI, presenting with chest/LUE discomfort, atypical for angina, however, similar to her prior symptoms with CAD. Also has intermittent abdominal discomfort, not responding to PPI. Normal cardiac biomarkers. Stress test suggestive of mild ischemia in the inferior/apical region. 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 -Aspirin, Coreg, statin. BP, HR well controlled -Cont Imdur 30 mg daily. NTG prn -Keep on telemetry -Presentation is not typical for ACS, UA, however, her prior symptoms when he had severe CAD prior to PCI, were also atypical. Stress test was quite inconclusive. Appreciate interventional input, plan for cardiac catheterization tomorrow. -No evidence of myocardial injury. I would hold off full anticoagulation and dual antiplatelets at this time -If symptoms are not due CAD, we can pursue GI evaluation later on. 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 Cardiac biomarkers were negative, EKG does not show new changes. Blood pressure , heart rate well controlled. Exam (Progress Note) - Constitutional Vitals: Period Temp Pulse Resp BP Sys/Webster Pulse Ox Last 24 Hr 97 F-98 F 63-71 16-20 101-130/56-60 97-99 General appearance: no acute distress, over weight - Head Head exam: Present: normal inspection, normocephalic - Eye Eye exam: Absent: conjunctival injection, scleral icterus Pupils: Absent: dilated - ENT ENT exam: Present: normal external ear exam - Neck Neck exam: Present: normal inspection - Respiratory Respiratory exam: Present: clear to auscultation bilaterally. Absent: wheezes - Cardiovascular Cardiovascular exam: Present: regular rate and rhythm. Absent: JVD - GI/Abdominal GI/Abdominal exam: Present: normal bowel sounds. Absent: distended - Extremities Exam Extremities exam: Present: normal inspection, normal capillary refill. Absent: edema - Back Exam Back exam: Present: normal inspection - Neurological Exam Neurological exam: Present: alert, oriented X3 - Psychiatric Psychiatric exam: Present: normal affect, normal mood - Skin Skin exam: Present: normal color, warm. Absent: cyanosis Result/EKG - Labs CBC & BMP: 08/15/16 04:28 08/15/16 04:28 Lab Results: I have reviewed the past 24 hour labs Labs: Laboratory Results - last 24 hr 08/15/16 08/15/16 04:28 04:28 WBC 4.9 RBC 5.54 H Hgb 13.3 L Hct 40.4 L MCV 72.9 L MCH 24 L MCHC 32.9 RDW 14.5 Plt Count 220 MPV 11.2 Neut % (Auto) 30.5 L Lymph % (Auto) 54.0 [place] % (Auto) 12.9 H Eos % (Auto) 1.8 Baso % (Auto) 0.6 Neut # (Auto) 1.5 Lymph # (Auto) 2.6 [place] # (Auto) 0.6 Eos # (Auto) 0.1 Baso # (Auto) 0.0 Total Counted 100 Immature Gran % 0.2 Nucleated RBC % 0.0 Immature Gran # 0.01 Segmented Neutrophils 28 L Band Neutrophils 1 Lymphocytes 59 H Monocytes 9 Eosinophils 3 Nucleated RBCs # 0.00 Platelet Estimate Adequate Hypochromasia Slight Sodium 138 Potassium 4.4 Chloride 103 Carbon Dioxide 26 Anion Gap 13.4 BUN 13 Creatinine 0.80 GFR Calculation 125 BUN/Creatinine Ratio 16.00 Glucose 99 Calculated Osmolality 274.7 Calcium 8.7 Magnesium 2.5 H - EKG EKG results: interpreted by me
[2016-08-15] MEDS: ENOXAPARIN 40 MG/0.4 ML SYRINGE SUBCUT SCH (18:34)
--- NOTE | 2016-08-15 18:34 | History and Physical Update ---
Sedation H&P Update - History and Physical H&P was reviewed, the patient examined and there: are no changes in the patients condition since last H&P was completed. - Dictation Physical: refer to H&P completed by admitting physician (I'm pretreating for a history of contrast reaction.) - Physical Exam Mental Status: alert and oriented Heart: regular rate and rhythm Lung: clear to auscultation Abdomen: within normal limits Vitals: within normal limits - Sedation Plan for Sedation: minimal Patient Consent: Procedure disscussed with patient and patinet has consented., Risks and benefits were discussed with patient,including infection,, bleeding, injury to surrounding structures, seizure, temporary nerve, Patient understands and accepts potential risks/benefits and agrees to, proceed. ASA Class: II Airway Assessment: Class III: Soft palate, base of uvula visible
[2016-08-15] MEDS: predniSONE 50 MG TABLET PO SCH ×2 (18:35→22:07)
[2016-08-15] MEDS ORDERED: DIAZEPAM 5 MG TABLET PO ONE (21:02)
[2016-08-15] MEDS ORDERED: diphenhydrAMINE CAP 25 MG CAPSULE PO ONE (21:02)
[2016-08-15] MEDS ORDERED: MAGNESIUM SULF RIDER 2 GM in PREMIX 1 EACH IV PRN (21:02)
[2016-08-15] MEDS ORDERED: POTASSIUM CHLORIDE RIDER 10 MEQ in PREMIX 1 EACH IV PRN (21:02)
[2016-08-15] MEDS: ROSUVASTATIN 10 MG TABLET PO SCH (22:07)
[2016-08-15] MEDS: SODIUM CHLORIDE 0.9% 1,000 ML IV SCH (23:06)
[2016-08-15] MEDS ORDERED: ZALEPLON 5 MG CAPSULE PO ONE (23:16)
[2016-08-16 05:45] LABS: Hematocrit 43.4 VOL% (42.0-52.0); Immature Granulocytes % 0.5 %; Immature Granulocytes Absolute 0.02 #; Lymphocytes # 0.8 10*3/uL (1.4-4.0); Mean Corpuscular HGB Conc 32.3 GM/DL (32-36); Mean Corpuscular Hemoglobin 24 PG (27-34); Mean Corpuscular Volume 73.2 FL (87-102); Mean Platelet Volume 11.2 FL (9.6-12.0); Monocytes # 0.1 10*3/uL (0.11-0.8); Monocytes % 2.1 % (1.7-12.7); Neutrophils # 2.8 10*3/uL (1.4-7.4); Neutrophils % 75.4 % (38.7-73.9); Platelet Count 237 T/CUMM (130-400); Red Blood Count 5.93 MC/CUMM (3.8-5.5); Red Cell Distribution Width 14.3 % (9.3-17.3); White Blood Count 3.7 T/CUMM (4-12)
[2016-08-16 06:15] LABS: Calcium 9.2 MG/DL (8.5-10.1); Osmolality,Calculated 273.1 MOS/KG (273-304); Potassium 4.5 MMOL/L (3.5-5.1)
[2016-08-16 06:35] LABS: Calcium 9.5 MG/DL (8.5-10.1); Magnesium 2.2 MG/DL (1.8-2.4); Osmolality,Calculated 273.1 MOS/KG (273-304); Potassium 4.5 MMOL/L (3.5-5.1)
[2016-08-16] MEDS ORDERED: DIAZEPAM 5 MG TABLET ONE (08:04)
[2016-08-16] MEDS ORDERED: diphenhydrAMINE CAP 25 MG CAPSULE ONE (08:05)
[2016-08-16] MEDS: FAMOTIDINE 20 MG TABLET PO SCH ×2 (08:06→21:20)
[2016-08-16] MEDS: PANTOPRAZOLE 40 MG TABLET PO SCH (08:07)
[2016-08-16] MEDS: ISOSORBIDE MONONITRATE 30 MG TABLET PO SCH (08:07)
[2016-08-16] MEDS: LORATADINE 10 MG TABLET PO SCH (08:07)
[2016-08-16] MEDS: predniSONE 50 MG TABLET PO SCH ×2 (08:07→13:14)
[2016-08-16] MEDS: CARVEDILOL 6.25 MG TABLET PO SCH ×2 (08:07→21:18)
[2016-08-16] MEDS: ASPIRIN EC 81 MG TABLET PO SCH (08:08)
[2016-08-16] MEDS: LOSARTAN 25 MG TABLET PO SCH (08:08)
[2016-08-16] MEDS: SODIUM CHLORIDE 0.9% 1,000 ML IV SCH (08:09)
[2016-08-16] MEDS ORDERED: diphenhydrAMINE CAP 25 MG CAPSULE PO ONE (08:32)
[2016-08-16] MEDS ORDERED: DIAZEPAM 5 MG TABLET PO ONE (08:33)
[2016-08-16] MEDS ORDERED: HEPARIN 5,000 UNIT/1 ML VIAL ONE (08:56)
[2016-08-16] MEDS ORDERED: MEPERIDINE 25 MG/1 ML VIAL ONE (08:56)
[2016-08-16] MEDS ORDERED: MIDAZOLAM 2 MG/2 ML VIAL ONE (08:56)
[2016-08-16] MEDS ORDERED: LIDOCAINE 1% 20 ML VIAL ONE (08:56)
--- NOTE | 2016-08-16 09:58 | Operative Note ---
Date of procedure: 08/16/16 Procedure Preformed: Left heart cath Coronary angiography Left ventriculography Angiogram of the right femoral artery--via follow-through from the LV gram Angio-Seal of the right femoral artery-successful Surgeon / Physician: Roddy Ramirez Sql Consultant: Veronica Lira Post-op diagnosis: same (Progressive chest pain, concerning for angina, known coronary disease, history of prior coronary stent, smoker) Findings: Impression: No significant coronary disease in major vessels -multiple areas of moderate disease throughout all 3 vessels Widely patent right coronary stent Mild global left ventricular systolic dysfunction, overall ejection fraction 45% Inferobasal severe hypokinesis and inferior hypokinesis Moderate elevation of LVEDP, 20 mmHg Angiogram the right femoral artery-via follow-through from the LV gram Angio-Seal of the right femoral artery-successful Plan/recommendations: Based on this study, the patient's chest pain, happening at rest, is almost certainly not due to CAD. There is a small RV marginal with possibly significant narrowing in the ostium, but that may be a Mach effect. Whatever the case, it is for medical therapy. I will defer to Dr. Sauceda and right the [facility] team as to whether further GI or muscle skeletal evaluation or therapy is needed or reassurance with follow-up. I will asked the patient about stopping his cigarette smoking. The patient will have risk factors optimized. The patient will be on antiplatelet medications to include aspirin indefinitely possibly and Plavix or Brilinta. Follow-up will be scheduled. Addenda: I saw the patient post-cath. the groin puncture site and distal pulse are stable. vital signs are stable and the patient will be observed closely overnight. Specimens: none sent Estimated blood loss: minimal Condition: stable Anesthesia: local, conscious sedation Disposition: floor
--- NOTE | 2016-08-16 10:08 | Cardiology Operative Report ---
Date of Procedure:: 08/16/16 Post-op diagnosis: same (Progressive chest pain, concerning for angina, known coronary disease, history of prior coronary stent, smoker) Procedure: Immediate Operative Note Patient Name: Brad Amato Date of : 1960 Patient Status: Observation Attending Provider: Pascual Knapp Date: 08/16/16 09:50 Initialization Date: 08/16/16 09:50 Date of procedure: 08/16/16 Procedure Preformed: Left heart cath Coronary angiography Left ventriculography Angiogram of the right femoral artery--via follow-through from the LV gram Angio-Seal of the right femoral artery-successful Surgeon / Physician: Roddy Ramirez Prize Coordinator: Veronica Lira Post-op diagnosis: same (Progressive chest pain, concerning for angina, known coronary disease, history of prior coronary stent, smoker) procedure: The patient was prepped and draped in usual manner. Entered the right femoral artery via the Seldinger technique. I used a sheath and then used a JL4 and engaged left coronary. Multiple views were taken. I then exchanged for a JR4. Multiple views of the right coronary were taken. I then exchanged for an angled pigtail. I crossed the valve. Left ventricular end-diastolic pressures measured. Left ventriculography was done. Left ventricle pullback was done. The catheters were then removed from the patient. Angiogram of the right femoral artery was done either from the follow-through from the LV gram or a separate injection in the right femoral artery. Angio-Seal was done and it was successful. Please see the cath data sheets for the details of catheters used. Complications: None Hemodynamic data: LVEDP was 40 mmHg. Angiographic data: The left main coronary was large and had minimal luminal irregularities. The left anterior descending artery was 9large and had minimal luminal regularities within it. The first and second diagonal has some disease. The first diagonal, there was a transient narrowing. The breasts could because some of thez The left circumflex system was moderate to large The right coronary artery was large in size, dominant vessel with the PDA. AYALA left ventriculography revealed normal global/regional left ventricular systolic function. Overall ejection fraction was at least 55%. There is no significant mitral regurgitation. Angiogram of the right femoral artery revealed the puncture site to be in a large vessel, above the bifurcation. It was suitable for Angio-Seal. Impression: No significant coronary disease in major vessels -multiple areas of moderate disease throughout all 3 vessels Widely patent right coronary stent Mild global left ventricular systolic dysfunction, overall ejection fraction 45% Inferobasal severe hypokinesis and inferior hypokinesis Moderate elevation of LVEDP, 20 mmHg Angiogram the right femoral artery-via follow-through from the LV gram Angio-Seal of the right femoral artery-successful Plan/recommendations: Based on this study, the patient's chest pain, happening at rest, is almost certainly not due to CAD. There is a small RV marginal with possibly significant narrowing in the ostium, but that may be a Mach effect. Whatever the case, it is for medical therapy. I will defer to Dr. Sauceda and right the [facility] team as to whether further GI or muscle skeletal evaluation or therapy is needed or reassurance with follow-up. I will asked the patient about stopping his cigarette smoking. The patient will have risk factors optimized. The patient will be on antiplatelet medications to include aspirin indefinitely possibly and Plavix or Brilinta. Follow-up will be scheduled. Addenda: I saw the patient post-cath. the groin puncture site and distal pulse are stable. vital signs are stable and the patient will be observed closely overnight. Specimens: none sent Estimated blood loss: minimal Condition: stable Anesthesia: local, conscious sedation Disposition: floor Additional CC's: Kate Grajeda Anesthesia: local, minimal conscious sedation Surgeon / Physician: Roddy Ramirez Estimated blood loss: minimal Specimens: none sent Condition: stable Disposition: floor
[2016-08-16] MEDS ORDERED: NAPROXEN 250 MG TABLET PO ONE (10:11)
[2016-08-16] MEDS: traMADol 50 MG TABLET PO SCH ×2 (11:46→21:19)
[2016-08-16] MEDS: GABAPENTIN 100 MG CAPSULE PO SCH ×3 (11:46→21:18)
[2016-08-16] MEDS: ACETAMINOPHEN 325 MG TABLET PO SCH ×2 (11:47→21:19)
[2016-08-16] MEDS: diphenhydrAMINE CAP 25 MG CAPSULE PO PRN ×2 (14:39→21:19)
[2016-08-16] MEDS: ROSUVASTATIN 10 MG TABLET PO SCH (21:19)
[2016-08-16] MEDS ORDERED: HydrOXYzine PAMOATE 25 MG CAPSULE PO ONE (22:33)
[2016-08-16] MEDS ORDERED: hydrOXYzine HCL 25 MG TABLET PO ONE (22:39)
[2016-08-17] MEDS: diphenhydrAMINE CAP 25 MG CAPSULE PO PRN ×2 (03:11→09:18)
[2016-08-17 05:54] LABS: Basophils % 0.1 % (0.0-0.8); Hematocrit 41.2 VOL% (42.0-52.0); Hemoglobin 13.5 GM/DL (14.0-18.0); Immature Granulocytes % 0.5 %; Immature Granulocytes Absolute 0.09 #; Lymphocytes # 2.6 10*3/uL (1.4-4.0); Lymphocytes % 13.8 % (21.2-54.2); Mean Corpuscular HGB Conc 32.8 GM/DL (32-36); Mean Corpuscular Hemoglobin 24 PG (27-34); Mean Corpuscular Volume 72.8 FL (87-102); Mean Platelet Volume 11.3 FL (9.6-12.0); Monocytes # 1.5 10*3/uL (0.11-0.8); Monocytes % 7.8 % (1.7-12.7); Neutrophils # 14.7 10*3/uL (1.4-7.4); Neutrophils % 77.8 % (38.7-73.9); Platelet Count 232 T/CUMM (130-400); Red Blood Count 5.66 MC/CUMM (3.8-5.5); Red Cell Distribution Width 14.6 % (9.3-17.3); White Blood Count 18.8 T/CUMM (4-12)
[2016-08-17 06:25] LABS: Calcium 8.7 MG/DL (8.5-10.1); Osmolality,Calculated 274.7 MOS/KG (273-304); Potassium 4.3 MMOL/L (3.5-5.1)
[2016-08-17 06:28] LABS: Calcium 9.3 MG/DL (8.5-10.1); Magnesium 2.2 MG/DL (1.8-2.4); Osmolality,Calculated 272.8 MOS/KG (273-304); Potassium 4.2 MMOL/L (3.5-5.1)
[2016-08-17] MEDS: ACETAMINOPHEN 325 MG TABLET PO SCH (09:16)
[2016-08-17] MEDS: CARVEDILOL 6.25 MG TABLET PO SCH (09:17)
[2016-08-17] MEDS: ISOSORBIDE MONONITRATE 30 MG TABLET PO SCH (09:17)
[2016-08-17] MEDS: LOSARTAN 25 MG TABLET PO SCH (09:18)
[2016-08-17] MEDS: traMADol 50 MG TABLET PO SCH (09:18)
[2016-08-17] MEDS: ASPIRIN EC 81 MG TABLET PO SCH (09:19)
[2016-08-17] MEDS: FAMOTIDINE 20 MG TABLET PO SCH (09:19)
[2016-08-17] MEDS: GABAPENTIN 100 MG CAPSULE PO SCH (09:19)
[2016-08-17] MEDS: PANTOPRAZOLE 40 MG TABLET PO SCH (09:19)
[2016-08-17] MEDS: LORATADINE 10 MG TABLET PO SCH (09:20)
[2016-08-17 11:57] VITALS: BP 141/71
--- NOTE | 2016-08-17 11:57 | Discharge Summary ---
Hospital Course - Hospital Course Hospital Course: Service Line Layer: Dr. Grajeda Mr. Amato is a 55 year old male with a history of coronary artery disease (non-STEMI requiring PCI to RCA with resolute integrity June 2012) . He also has a history of hypertension, hyperlipidemia, and tobacco use. His most recent heart catheterization was 03/29/14 demonstrating patent stent. He has a history of post-cath rash suspected to be secondary to IV contrast or possibly Plavix. Additional history includes gastritis, esophagitis, and abnormal CT of the chest. Echo on 08/13/16 revealed EF 55%, grade 1 diastolic dysfunction, mild LVH, mildly increased left atrial diameter, mild TR. Patient presented to [facility] with complaints of atypical chest pain. He underwent nuclear cardiac stress test which was inconclusive. Subsequently, after being premedicated for contrast reaction, patient underwent heart catheterization August 16, [address] Roddy Ramirez with the following impressions and recommendations noted: Impression: No significant coronary disease in major vessels -multiple areas of moderate disease throughout all 3 vessels Widely patent right coronary stent Mild global left ventricular systolic dysfunction, overall ejection fraction 45% Inferobasal severe hypokinesis and inferior hypokinesis Moderate elevation of LVEDP, 20 mmHg Angiogram the right femoral artery-via follow-through from the LV gram Angio-Seal of the right femoral artery-successful Recommendations: Based on this study, the patient's chest pain, happening at rest, is almost certainly not due to CAD. There is a small RV marginal with possibly significant narrowing in the ostium which is for medical therapy. The patient will have risk factors optimized. The patient will be on antiplatelet medications to include aspirin indefinitely. Follow-up will be scheduled. Post catheterization patient was transported back to the telemetry unit in stable condition. He tolerated procedure well without major complications. Even after being premedicated for his contrast reaction, he developed itching. He was treated appropriately and this has now resolved. White blood cell count is elevated which is thought to be secondary to steroid therapy. Patient will be discharged home with Pepcid and Claritin in order to complete his treatment of IV dye allergy. Blood pressure has been suboptimally controlled. Therefore , his medication regimen was adjusted this hospitalization. Blood pressure now stable. Patient also had a component of chest wall pain. He will be discharged home on gabapentin and tramadol for treatment of his musculoskeletal pain. Right groin is soft without bleeding, hematoma and bruit. Distal pulses 2+. Patient has ambulated around the room without difficulty. Right groin has remained stable post ambulation. Right groin precautions have been reviewed with the patient. He verbalizes understanding. Patient was given the option between inpatient or outpatient GI evaluation for his noncardiac chest pain as his symptoms have improved. He has opted for outpatient evaluation. He will be given an appointment with Dr. Solorzano within 1 week. He will be discharged home with Protonix and Mylanta. He will also be given an appointment with Dr. Grajeda in approximately 2 weeks with EKG. He is anxious for discharge home. Having felt that he has met maximal medical therapy, he will be discharged home in stable condition. 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 Solorzano for evaluation of noncardiac chest pain.) Kate Grajeda MD [Physician] - 2 Weeks (Patient will need appointment with Dr. Griffith in 2 weeks with EKG.) Discharge Plan - Discharge Data Disposition: Disch To Home/Self Care Condition at Discharge: Stable Discharge Diet: heart healthy Activity: no lifting (Avoid heavy lifting and squatting 1 week), other (Post cath expectations) Hygiene: other (Post cath expectations) Weight Bearing at Discharge: other (Post cath expectations) Driving: other (Post cath expectations) Contact your physician if you experience:: fever over 101, Difficulty voiding, Redness or swelling, Nausea/Vomiting, Shortness of breath, Bleeding, pain uncontrolled by pain medications - Discharge Medications New Famotidine Tab [Pepcid Tab] 20 mg PO BID #6 tablet Gabapentin Cap/Tab [Neurontin Cap/Tab] 100 mg PO TID #90 capsule Loratadine Tab [Claritin Tab] 10 mg PO DAILY #1 tablet Losartan [Cozaar] 50 mg PO DAILY #30 tablet Nitroglycerin Sl Tab [Nitrostat] 0.4 mg SL Q5M PRN #1 bottle PRN Reason: Chest Pain Pantoprazole Tab [Protonix Tab] 40 mg PO BID #60 tablet traMADol TAB [Ultram] 50 mg PO BID tablet Alum/Mag/Simeth Max Str Liquid [Mylanta Max Strength Liquid] 30 ml PO Q4H PRN #1 bottle PRN Reason: Dyspepsia Isosorbide Mononitrate [Imdur] 30 mg PO DAILY #30 tablet Rosuvastatin [Crestor] 10 mg PO BEDTIME #30 tablet Continue Aspirin [Ecotrin] 81 mg PO DAILY Carvedilol [Coreg] 6.25 mg PO BID Discontinued Losartan [Cozaar] 25 mg PO DAILY Omeprazole [Prilosec] 20 mg PO DAILY - Follow Up or Referral Follow Up: Kate Grajeda MD [Physician] - 2 Weeks (Patient will need appointment with Dr. Griffith in 2 weeks with EKG.) Vik Solorzano MD [Physician] - 1 Week (Please get patient first available appointment with Dr. Solorzano for evaluation of noncardiac chest pain.) - Forms/Instructions Instructions: Coronary Artery Disease (GEN), Left Heart Catheterization (DC), How to Stop Smoking (GEN), Heart Healthy Diet (GEN), Cigarette Smoking and Your Health (GEN) Exam - Constitutional Vitals: Period Temp Pulse Resp BP Sys/Webster Pulse Ox Last 24 Hr 97 F-97.9 F 62-111 18-22 118-161/64-93 96-99 Exam: General: Appears well with no apparent distress. Pleasant and cooperative. Appears comfortable. HEENT: PERRL, normocephalic, atraumatic. Mucous membranes moist. No jaundice noted. Conjunctiva moist and clear, sclerae anicteric Neck: No JVD/HJR, no thyromegaly or lymphadenopathy noted. No carotid bruit appreciated Cardiac: Regular rate and rhythm. No murmur rub or gallop. Lungs: Clear to auscultation without accessory muscle use to assist the respiratory pattern. Not requiring oxygen. Abdomen: Soft, bowel sounds normoactive. Nontender and nondistended. No abdominal bruit or thrill noted. No masses noted. Extremities: No clubbing, cyanosis noted. No edema noted. Upper extremity pulses 2+. Lower extremity pulses 2+. Capillary refill less than 3 seconds. Right groin is soft without bleeding, hematoma and bruit. Distal pulses present. Skin: No unusual lesions or rashes. No skin breakdown appreciated. Neuro: Awake, alert and oriented 3. Moves all extremities well without hemiparesis or paralysis. No essential tremor is appreciated. Discharge Results Labs on day of discharge: Labs from last 24 hours 08/17/16 08/17/16 08/17/16 05:10 05:10 05:10 WBC 18.8 H D RBC 5.66 H Hgb 13.5 L Hct 41.2 L MCV 72.8 L MCH 24 L MCHC 32.8 RDW 14.6 Plt Count 232 MPV 11.3 Neut % (Auto) 77.8 H Lymph % (Auto) 13.8 L [place] % (Auto) 7.8 Eos % (Auto) 0.0 Baso % (Auto) 0.1 Neut # (Auto) 14.7 H Lymph # (Auto) 2.6 [place] # (Auto) 1.5 H Eos # (Auto) 0.0 Baso # (Auto) 0.0 Immature Gran % 0.5 Nucleated RBC % 0.0 Immature Gran # 0.09 Nucleated RBCs # 0.00 Sodium 137 138 Potassium 4.2 4.3 Chloride 103 103 Carbon Dioxide 26 25 Anion Gap 12.2 14.3 BUN 12 12 Creatinine 0.80 0.80 GFR Calculation 125 125 BUN/Creatinine Ratio 15.00 15.00 Glucose 96 98 Calculated Osmolality 272.8 L 274.7 Calcium 9.3 8.7 Magnesium 2.2 - Imaging and Cardiology Cardiology Procedure: report reviewed by me DS: Provider Date of admission: 08/13/16 17:01 Primary care physician: . No PCP Attending physician on admission: Pascual Knapp MD Consults: 08/16/16 10:12 Consult to Cardiac Rehabilitation [CONS] Routine Reason for Cardiac Rehabilitation: Risk Factor Modification Home Exercise Program/Kenny Appt Out Pt Cardiac Rehab Smoking Cessation Tube Knitter Discharging clinician: Irasema Bradshaw NP Expected date of discharge: 08/17/16
[2016-08-18] MEDS ORDERED: LOSARTAN 50 MG TABLET PO SCH (09:00)
== END 2016-08-17 15:57 | disposition home or self-care (01) ==
LOC: N.EDINP 09:54 → N.ED 09:54 → N.TELEN 19:25
PROVIDERS: ADMIT Internal Medicine Clinical Cardiac Electrophysiology; ATTEND Internal Medicine Clinical Cardiac Electrophysiology
PROC: CLCCHCL (ICD-10-PCS; 2016-08-16 09:15)

== ENCOUNTER 2016-10-24 12:03 | Inpatient (IN) ==
[2016-10-24] MEDS ORDERED: MORPHINE 2 MG/1 ML SYRINGE IV PRN (12:15)
[2016-10-24] MEDS ORDERED: ONDANSETRON 4 MG/2 ML VIAL IV PRN (12:15)
[2016-10-24] MEDS ORDERED: ENOXAPARIN 100 MG/ML SYRINGE SUBCUT STA (12:15)
[2016-10-24] MEDS ORDERED: ASPIRIN 325 MG TABLET PO STA (12:15)
[2016-10-24] MEDS ORDERED: NITROGLYCERIN SL 0.4 MG TABLET SL PRN (12:19)
[2016-10-24] MEDS ORDERED: NITROGLYCERIN 2% OINT 1 INCH/GM PACK TOP STA (12:19)
--- NOTE | 2016-10-24 12:19 | EKG Report ---
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
--- NOTE | 2016-10-24 12:29 | Emergency Department Note ---
Allyssa Westbrook Mantricia, am scribing for, and in the presence of, Luiz Cordero MD 12:25. Consuelo Westbrook James D, MD, personally performed the services described in this documentation, ascribed by Jeny Spivey in my presence, and it is both accurate and complete . Arrival - Arrival Chief Complaint: Chest Pain Stated Complaint: chest pain ED Nursing Triage Note: reports started having chest pain in center of chest that radiates down left arm and into left jaw that started last night when he laid down. had similar episode last week. reports diaphoresis last night when pain started. Mode of Arrival: Ambulatory Limitations: No Limitations Source: Patient - History of Present Illness HPI Narrative: Pt is a 55 y/o black male ambulating to ED with c/o chest pain that onset last night. He states that he was laying down when he felt the sharp pain in the left side of his chest. Pt reports that he became diaphoretic and SOB when the pain hit him. He also confirms radiation of the pain on the left side of his neck and down his left arm. The pain worsened this morning, which prompted pt to come to ED. Pt states that the sharp pain is present during exam. He also reports that he has noticed small amounts of blood in his bowel but not large amounts. Pt has a cardiovascular PMHx of [place] and stent placement in 2014. His taffy puller is Dr. Grajeda. At time of exam, pt's heart rate is 76 with a blood pressure of 144/82. He admits to smoking occasionally. No other complaints were reported to ED. Onset (ago): hour(s) Consistency: constant Severity: moderate Allergies/Adverse Reactions: Allergies Allergy/AdvReac Type Severity Reaction Status Date / Time zaleplon [From Sonata] Allergy ITCHING Verified 08/16/16 08:26 Iodinated Contrast Media - AdvReac ITCHING Verified 10/28/14 12:31 Oral and [Iodinated Contrast Media - IV Dye] Sulfa (Sulfonamide AdvReac ITCHING Verified 10/28/14 12:30 Antibiotics) sulfamethoxazole AdvReac ITCHING Verified 10/28/14 12:30 [From Bactrim] trimethoprim [From Bactrim] AdvReac ITCHING Verified 10/28/14 12:30 Home Medications: Home Medications Medication Instructions Recorded Confirmed Type Aspirin [Ecotrin] 81 mg PO DAILY 10/28/14 10/24/16 History Carvedilol [Coreg] 6.25 mg PO BID 08/13/16 10/24/16 History Alum/Mag/Simeth Max Str Liquid 30 ml PO Q4H PRN #1 bottle 08/17/16 10/24/16 Rx [Mylanta Max Strength Liquid] Gabapentin Cap/Tab [Neurontin 100 mg PO TID #90 capsule 08/17/16 10/24/16 Rx Cap/Tab] Isosorbide Mononitrate [Imdur] 30 mg PO DAILY #30 tablet 08/17/16 10/24/16 Rx Losartan [Cozaar] 50 mg PO DAILY #30 tablet 08/17/16 10/24/16 Rx Nitroglycerin Sl Tab [Nitrostat] 0.4 mg SL Q5M PRN #1 bottle 08/17/16 10/24/16 Rx Pantoprazole Tab [Protonix Tab] 40 mg PO BID #60 tablet 08/17/16 10/24/16 Rx Rosuvastatin [Crestor] 10 mg PO BEDTIME #30 tablet 08/17/16 10/24/16 Rx traMADol TAB [Ultram] 50 mg PO BID tablet 08/17/16 10/24/16 Rx Review of System - Review of System Constitutional: Present: diaphoresis. Absent: chills Head/Ears/Nose/Throat: Absent: earache Respiratory: Absent: cough Cardiovascular: Present: chest pain Gastrointestinal: Absent: abdominal pain, nausea, vomiting, diarrhea Medical,Surgical,& Family Hx - Medical History Cardio: History of: CAD (June 2012: PCI-proximal RCA with CHIQUI. Repeat [facility] June 2012 - stent open ), Hypertension, [place] Neurology: No history of: Seizures, TIA Endocrine: History of: Dyslipidemia No history of: Diabetes Mellitus (NIDDM) Gastrointestinal: History of: GERD, GI Problems (1 month ago - BRB from rectum once. On toilet paper) - Surgical History Cardiac Surgeries: Sugical HX of: Cardiac Catheterization (STENT July 01, 2012 - STEMI with PCI-proximal RCA. Repeat [facility] stent patent) Thoracic Surgeries: Patient denies;: Organ Transplant Neurologic Surgeries: Patient denies: Neurologic Surgery - Family History Family History: Reports;: Family Diabetes (MOTHER, SISTERSx2), Family Heart Disease (MOTHER, FATHER), Family Hypertension (MOTHER, FATHER) - Social History Smoking Status: Light tobacco smoker Exam Vital Signs: Vital Signs Temperature 97.1 F L 10/24/16 12:08 Pulse Rate 78 10/24/16 12:08 Respiratory Rate 20 10/24/16 12:08 Blood Pressure 139/74 10/24/16 12:08 O2 Sat by Pulse Oximetry 99 10/24/16 12:08 Course - Consultations Consultation #1: Discussed with hospitalist. Patient will be admitted to their service. Time: 13:06 Results - Labs CBC & BMP: 10/24/16 12:23 10/24/16 12:23 Lab Results: I have reviewed the patients labs Labs: Laboratory Tests 10/24/16 12:23 Troponin I < 0.015 - EKG EKG results: interpreted by ERMD - Impressions EKG: Normal sinus rhythm with a rate of 69, T-wave inversion laterally. - Diagnostic Findings Procedure: Chest x-ray: image reviewed by me (No infiltrates, no pleural effusions.) Disposition Clinical Impression: Chest pain, Coronary artery disease Case discussed with: patient Disposition: Still a Patient Condition: Stable Time of Disposition: 13:06
[2016-10-24] MEDS ORDERED: ENOXAPARIN 80 MG/0.8 ML SYRINGE SUBCUT ONE (12:31)
[2016-10-24] MEDS ORDERED: ASPIRIN 325 MG TABLET ONE (12:31)
[2016-10-24] MEDS ORDERED: NITROGLYCERIN 2% OINT 1 INCH/GM PACK TOP ONE (12:31)
[2016-10-24 12:34] LABS: Basophils % 0.2 % (0.0-0.8); Eosinophils # 0.1 10*3/uL (0.0-0.87); Hematocrit 41.1 VOL% (42.0-52.0); Hemoglobin 13.6 GM/DL (14.0-18.0); Immature Granulocytes % 0.2 %; Immature Granulocytes Absolute 0.01 #; Lymphocytes # 2.6 10*3/uL (1.4-4.0); Lymphocytes % 50.4 % (21.2-54.2); Mean Corpuscular HGB Conc 33.1 GM/DL (32-36); Mean Corpuscular Hemoglobin 24 PG (27-34); Mean Corpuscular Volume 73.1 FL (87-102); Mean Platelet Volume 10.4 FL (9.6-12.0); Monocytes # 0.6 10*3/uL (0.11-0.8); Monocytes % 11.5 % (1.7-12.7); Neutrophils # 1.9 10*3/uL (1.4-7.4); Neutrophils % 36.7 % (38.7-73.9); Platelet Count 212 T/CUMM (130-400); Red Blood Count 5.62 MC/CUMM (3.8-5.5); Red Cell Distribution Width 14.6 % (9.3-17.3); White Blood Count 5.1 T/CUMM (4-12)
[2016-10-24] MEDS ORDERED: MORPHINE 2 MG/1 ML SYRINGE ONE (12:34)
[2016-10-24] MEDS ORDERED: ONDANSETRON 4 MG/2 ML VIAL ONE (12:34)
[2016-10-24] MEDS ORDERED: NITROGLYCERIN SL 0.4 MG TABLET SL ONE (12:35)
--- NOTE | 2016-10-24 12:41 | XRay Report ---
Portable chest. Indication: Chest pain. Comparison: August 13, 2016. The heart and mediastinal contours are unremarkable. The pulmonary vasculature is normal. There is no consolidation, pneumothorax, or pleural effusion. The osseous structures are unremarkable. Impression: No abnormality is seen. PROCEDURE INTERPRETED AT [facility] DEPARTMENT OF RADIOLOGY Final Report Signed by: Dr. Irasema Pichardo
[2016-10-24 12:44] LABS: Partial Thromboplastin Time 30.5 SECS (0-40)
[2016-10-24 12:55] LABS: Albumin 3.9 G/DL (3.4-5.0); Bilirubin,Total 0.4 MG/DL (0.2-1.0); Calcium 9.2 MG/DL (8.5-10.1); Osmolality,Calculated 283.1 MOS/KG (273-304); Potassium 3.7 MMOL/L (3.5-5.1); Total Protein 7.3 G/DL (6.4-8.3)
[2016-10-24 13:47] LABS: Hypochromasia Slight; Microcytosis 1+; Platelet Estimate Normal
--- NOTE | 2016-10-24 14:33 | Hospitalist History & Physical ---
Assessment and Plan (1) Chest pain Status: Acute Assessment and plan: Admit to monitored bed. Serial ekgs and troponins. Consult cardiology. Order echo. Supplemental O2. Current Visit: Yes (2) Coronary artery disease Status: Chronic Assessment and plan: Chronic. Current Visit: Yes (3) Hyperlipidemia Status: Chronic Assessment and plan: Restart home meds. Current Visit: No (4) Hypertension Status: Chronic Assessment and plan: Restart home meds. Monitor. Current Visit: No (5) Tobacco use Status: Chronic Assessment and plan: Smoking cessation offered. Current Visit: Yes History of Present Illness Chief complaint: Chest pain History of present illness: Mr. Amato is a 55 year old male with a history of GERD, hypertension, diabetes , CAD, [place] with stent placement presents to the ED with chest pain. Patient states that the chest pain he had an onset of yesterday around 3 PM. Patient states that the time he was working in his yard. He stated that he also had accompanying shortness of breath associated with chest pain. Later the patient stated he went to lay down around 7 and the pain returned. He describes the pain as sharp and located in the mid sternal area. He reported that the pain radiated down his arm and into his neck. Pt. states that the pain worsened this morning. Pt. reports that he had a heart attack in 2012 and this feeling is similar. 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 Grajeda. On evaluation in the ED, patient's cardiac enzymes are negative. EKG showed t-wave inversion. Pt's case has been discussed with ER physician and Dr. Barth. Pt will be admitted to the hospitalist service for further evaluation and treatment. Home Medications Medication Instructions Recorded Confirmed Type Aspirin [Ecotrin] 81 mg PO DAILY 10/28/14 10/24/16 History Carvedilol [Coreg] 6.25 mg PO BID 08/13/16 10/24/16 History Alum/Mag/Simeth Max Str Liquid 30 ml PO Q4H PRN #1 bottle 08/17/16 10/24/16 Rx [Mylanta Max Strength Liquid] Gabapentin Cap/Tab [Neurontin 100 mg PO TID #90 capsule 08/17/16 10/24/16 Rx Cap/Tab] Isosorbide Mononitrate [Imdur] 30 mg PO DAILY #30 tablet 08/17/16 10/24/16 Rx Losartan [Cozaar] 50 mg PO DAILY #30 tablet 08/17/16 10/24/16 Rx Nitroglycerin Sl Tab [Nitrostat] 0.4 mg SL Q5M PRN #1 bottle 08/17/16 10/24/16 Rx Pantoprazole Tab [Protonix Tab] 40 mg PO BID #60 tablet 08/17/16 10/24/16 Rx Rosuvastatin [Crestor] 10 mg PO BEDTIME #30 tablet 08/17/16 10/24/16 Rx traMADol TAB [Ultram] 50 mg PO BID tablet 08/17/16 10/24/16 Rx Allergies Allergy/AdvReac Type Severity Reaction Status Date / Time zaleplon [From Sonata] Allergy ITCHING Verified 08/16/16 08:26 Iodinated Contrast Media - AdvReac ITCHING Verified 10/28/14 12:31 Oral and [Iodinated Contrast Media - IV Dye] Sulfa (Sulfonamide AdvReac ITCHING Verified 10/28/14 12:30 Antibiotics) sulfamethoxazole AdvReac ITCHING Verified 10/28/14 12:30 [From Bactrim] trimethoprim [From Bactrim] AdvReac ITCHING Verified 10/28/14 12:30 Medical,Surgical,& Family Hx - Medical History Cardio: History of: CAD (June 2012: PCI-proximal RCA with CHIQUI. Repeat [facility] June 2012 - stent open ), Hypertension, [place] Neurology: No history of: Seizures, TIA Endocrine: History of: Dyslipidemia No history of: Diabetes Mellitus (NIDDM) Gastrointestinal: History of: GERD, GI Problems (1 month ago - BRB from rectum once. On toilet paper) - Surgical History Cardiac Surgeries: Sugical HX of: Cardiac Catheterization (STENT July 01, 2012 - STEMI with PCI-proximal RCA. Repeat [facility] stent patent) Thoracic Surgeries: Patient denies;: Organ Transplant Neurologic Surgeries: Patient denies: Neurologic Surgery - Family History Family History: Reports;: Family Diabetes (MOTHER, SISTERSx2), Family Heart Disease (MOTHER, FATHER), Family Hypertension (MOTHER, FATHER), Family Stroke - Social History Smoking Status: Light tobacco smoker Time spent discussing smoking cessation with patient: 3 to 10 minutes Frequency of Alcohol Use: None Type of Drug Use: None Marital Status: Single Lives With:: Parent Functional capacity: independent ambulation 12 point system: reviewed and no additional remarkable complaints except as stated Exam - Constitutional Vitals: Period Temp Pulse Resp BP Sys/Webster Pulse Ox Last 24 Hr 97.1 F 78 16-20 139/74 99 General appearance: normal weight, no acute distress - Head Head exam: Present: normal inspection, normocephalic - Eye Eye exam: Present: EOMI Pupils: Present: LEYDA - ENT ENT exam: Present: normal exam - Neck Neck exam: Present: normal inspection - Respiratory Respiratory exam: Present: clear to auscultation bilaterally. Absent: wheezes - Cardiovascular Cardiovascular exam: Present: regular rate and rhythm - GI/Abdominal GI/Abdominal exam: Present: normal bowel sounds, soft. Absent: tenderness - Extremities Exam Extremities exam: Present: normal capillary refill, full ROM. Absent: edema - Neurological Exam Neurological exam: Present: alert, oriented X3 - Psychiatric Psychiatric exam: Present: normal affect, normal mood - Skin Skin exam: Present: normal color, warm, dry Results - Labs CBC & BMP: 10/24/16 12:23 10/24/16 12:23 Lab Results: I have reviewed the past 24 hour labs
--- NOTE | 2016-10-24 15:11 | EKG Report ---
Stationary ECG Study [facility] ER Test Date: 10/24/2016 3:09:59 PM Pat Name: SIMON SIMON Department: Room: EDWAIT Gender: M Purchase Price Analyst: : 1960 Requested by: Luiz Caal Order Number: [id number] Reading MD: SHO BRADLEY Intervals [place] Rate: 53 P: 50 SC: 146 QRS: 71 QRSD: 86 T: -42 QT: 432 QTc: 414 Interpretive Statements SINUS BRADYCARDIA POSSIBLE RIGHT VENTRICULAR CONDUCTION DELAY PROBABLE INFERIOR MYOCARDIAL INFARCTION, OF INDETERMINATE AGE MODERATE T-WAVE ABNORMALITY, CONSIDER LATERAL ISCHEMIA Electronically Signed On 10-24-16 18:23:05 CDT by SHO BRADLEY [email or web address]
[2016-10-24] MEDS: GABAPENTIN 100 MG CAPSULE PO SCH ×2 (17:19→21:06)
--- NOTE | 2016-10-24 17:42 | EKG Report ---
Stationary ECG Study [facility] Test Date: 10/24/2016 5:41 PM Pat Name: SIMON SIMON Department: Room: 286 Gender: M Client Application Support Specialist: : 1960 Requested by: Luiz Caal Order Number: [id number] Reading MD: SHO BRADLEY Intervals [place] Rate: 55 P: 44 [place]: 153 QRS: 62 QRSD: 84 T: -47 QT: 417 QTc: 407 Interpretive Statements SINUS RHYTHM LEFT VENTRICULAR HYPERTROPHY AND ST-T CHANGE PROBABLE INFERIOR MYOCARDIAL INFARCTION, OF INDETERMINATE AGE Electronically Signed On 10-24-16 18:24:30 CDT by SHO BRADLEY [email or web address]
[2016-10-24] MEDS ORDERED: ROSUVASTATIN 10 MG TABLET PO SCH (21:00)
[2016-10-24] MEDS: CARVEDILOL 6.25 MG TABLET PO SCH (21:06)
[2016-10-24] MEDS: PANTOPRAZOLE 40 MG TABLET PO SCH (21:06)
[2016-10-25 06:44] LABS: Troponin I Only < 0.015 NG/ML (0.00-0.045)
--- NOTE | 2016-10-25 09:25 | Cardiology Consult Note ---
Assessment and Plan - Time spent with patient Time spent with patient: Greater than 30 minutes (1) Atypical chest pain Status: Acute Assessment and plan: SEE PLAN OF CARE LISTED BELOW. Current Visit: No (2) Coronary artery disease Status: Chronic Assessment and plan: SEE PLAN OF CARE LISTED BELOW. Current Visit: Yes (3) Tobacco use Status: Chronic Assessment and plan: SEE PLAN OF CARE LISTED BELOW. 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 Current Visit: No (5) Dyslipidemia Status: Chronic Assessment and plan: SEE PLAN OF CARE LISTED BELOW. Current Visit: Yes (6) Hypertension Status: Chronic Assessment and plan: SEE PLAN OF CARE LISTED BELOW. Current Visit: No (7) Anemia Status: Acute Assessment and plan: SEE PLAN OF CARE LISTED BELOW. 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 Amato is a 55 year old male with a history of coronary artery disease (non-STEMI requiring PCI to RCA June 2012). He also has a history of hypertension, hyperlipidemia, family history of premature CAD (father, mother and brother) and tobacco abuse. Echocardiogram on 08/13/16 revealed EF 55 % grade 1 diastolic dysfunction, mild LVH, mildly increased left atrial diameter and mild TR. Nuclear stress test, 08/13/16, revealed moderate risk and was inconclusive. Therefore patient underwent LHC per Dr. Ramirez 08/16/16 demonstrating widely patent right coronary stent, moderate coronary disease, ejection fraction 45%. Small RV marginal with possible significant stenosis in the ostium was treated medically. He was referred to GI for outpatient evaluation post discharge. However, he reports he has not had this referral/ appointment yet. He has a history of post-cath rash suspected to be secondary to IV contrast or possibly Plavix. Additional history includes gastritis, esophagitis, gout, PUD and abnormal CT of the chest. patient was last seen in the cardiology clinic August 25, 2016. Patient presented to [facility] yesterday evening with complaints of atypical chest pain. He describes this pain as a sharp/burning pain located midsternally. This onset Tuesday night while lying in bed. He did experience some radiation to his left arm. This only lasted a couple of minutes and resolved on its own. He then drifted to sleep. Tuesday morning when he awoke he continued to be chest pain-free. However, several hours later he did develop the same sharp/burning pain in his midsternal area that radiated to his neck and left arm which began while he was sitting on the couch watching television. Associated with shortness of breath, nausea diaphoresis. No exertional component. No association with meals. Worse with deep breath. No associated abdominal pain. His discomfort is actually made better with walking. His discomfort continued. After approximately 3 hours, he felt that he should be further evaluated in the emergency department. In the ER, he received morphine and nitroglycerin. He reports that this did not resolve his pain. It did make it slightly better. Patient has been admitted under hospital medicine's service. Housed in the telemetry unit. Cardiology has been consulted to further evaluate his atypical chest pain. Patient seen and examined on the telemetry unit. He is currently without complaints of chest pain, heaviness or tightness. He has ruled out for ME with negative cardiac biomarkers 4. EKG is abnormal and reveals T-wave inversion in leads II, III, aVF, V5 and V6. Lateral ischemia could be considered. Now chest pain-free. Negative cardiac markers 4. Abnormal EKG demonstrating worsening T-wave inversion in leads II, III, aVF, V5 and V6. He did receive therapeutic dose of Lovenox in the emergency department. Continue beta-blockade , nitrates, aspirin and ARB. Just recently underwent heart catheterization was 08/16/16 demonstrating patent RCA stent and moderate coronary disease. At this point, we will keep him n.p.o. further discuss with Dr. Graham regarding the need for further cardiac workup, invasive versus noninvasive. Preserved EF per echocardiogram August 13, 2016, 55%. Further plan and addendum to follow. IMPRESSION AND PLAN: 1. ATYPICAL CHEST PAIN - Patient's chest pain is atypical in nature. Sounds GI. Patient does have history of gastritis and esophagitis. Has not followed up for outpatient GI evaluation as instructed. Continue PPI. Now chest pain- free. Negative cardiac markers 4. Abnormal EKG demonstrating T-wave inversion in leads II, III, aVF, V5 and V6. Patient has chronic ST deviation and T-wave abnormality in these leads. Cycle EKGs. He did receive therapeutic dose of Lovenox in the emergency department. Continue beta-blockade, nitrates, aspirin and ARB. At this point, we will keep him n.p.o. further discuss with Dr. Graham regarding the need for further cardiac workup, invasive versus noninvasive. Further plan and addendum to follow. 2. CORONARY ARTERY DISEASE - He has a history of coronary artery disease (non- STEMI requiring PCI to RCA with resolute integrity June 2012). His most recent heart catheterization was 08/16/16 demonstrating patent RCA stent and moderate coronary disease. He has a history of post-cath rash suspected to be secondary to IV contrast or possibly Plavix. Preserved EF per echocardiogram August 13, 2016 , 55%. 3. HYPERTENSION - Currently well controlled. We will continue to monitor and adjust medications accordingly. 4. HYPERLIPIDEMIA - Continue lipid-lowering agent. Will recheck lipid panel in a.m. 5. TOBACCO USE - Spent greater than 5 minutes discussing the harmful effects of tobacco use and urged him to quit smoking. 6. ANEMIA - Daily CBC. Anemia profile check stools for occult blood. History of gastritis and esophagitis. Continue PPI. Consider GI consultation. CC: Devyn Gonzalez MD - Home Medications and Allergies Home Medications: Home Medications Medication Instructions Recorded Confirmed Type Aspirin [Ecotrin] 81 mg PO DAILY 10/28/14 10/24/16 History Carvedilol [Coreg] 6.25 mg PO BID 08/13/16 10/24/16 History Alum/Mag/Simeth Max Str Liquid 30 ml PO Q4H PRN #1 bottle 08/17/16 10/24/16 Rx [Mylanta Max Strength Liquid] Gabapentin Cap/Tab [Neurontin 100 mg PO TID #90 capsule 08/17/16 10/24/16 Rx Cap/Tab] Isosorbide Mononitrate [Imdur] 30 mg PO DAILY #30 tablet 08/17/16 10/24/16 Rx Losartan [Cozaar] 50 mg PO DAILY #30 tablet 08/17/16 10/24/16 Rx Nitroglycerin Sl Tab [Nitrostat] 0.4 mg SL Q5M PRN #1 bottle 08/17/16 10/24/16 Rx Pantoprazole Tab [Protonix Tab] 40 mg PO BID #60 tablet 08/17/16 10/24/16 Rx Rosuvastatin [Crestor] 10 mg PO BEDTIME #30 tablet 08/17/16 10/24/16 Rx traMADol TAB [Ultram] 50 mg PO BID tablet 08/17/16 10/24/16 Rx Allergies/Adverse Reactions: Allergies Allergy/AdvReac Type Severity Reaction Status Date / Time zaleplon [From Sonata] Allergy ITCHING Verified 08/16/16 08:26 Iodinated Contrast Media - AdvReac ITCHING Verified 10/28/14 12:31 Oral and [Iodinated Contrast Media - IV Dye] Sulfa (Sulfonamide AdvReac ITCHING Verified 10/28/14 12:30 Antibiotics) sulfamethoxazole AdvReac ITCHING Verified 10/28/14 12:30 [From Bactrim] trimethoprim [From Bactrim] AdvReac ITCHING Verified 10/28/14 12:30 - Constitutional Constitutional: Present: as per HPI, fatigue, malaise, weakness. Absent: chills , fever(s), frequent falls, headache(s), weight gain, weight loss - Cardiovascular Cardiovascular: Present: as per HPI, chest pain at rest, diaphoresis, dyspnea, dyspnea on exertion, radiating jaw, neck or arm pain. Absent: edema, lightheadedness, orthopnea, palpitations, PND - Respiratory Respiratory: Present: as per HPI, cough, dyspnea, dyspnea on exertion, pain on inspiration. Absent: hemoptysis, wheezing, snoring, change in phlegm color - Gastrointestinal Gastrointestinal: Present: as per HPI, heartburn, nausea. Absent: abdominal pain, change in bowel habits, coffee ground emesis, cramping, hematemesis, melena, vomiting - Neurological Neurological: Present: as per HPI. Absent: abnormal gait, abnormal speech, behavioral changes, dizziness, focal weakness, frequent falls, syncope Medical,Surgical,& Family Hx - Medical History Cardio: History of: CAD (June 2012: PCI-proximal RCA with CHIQUI. Repeat [facility] June 2012 - stent open ), Hypertension, ME Neurology: No history of: Seizures, TIA Endocrine: History of: Dyslipidemia No history of: Diabetes Mellitus (NIDDM) Rheumatology: History of;: Gout Gastrointestinal: History of: GERD, GI Problems (Gastritis, esophagitis) Musculoskeletal: History of: Back/Neck Problems, Musculoskeletal Problems ( carpul tunnel) - Surgical History Cardiac Surgeries: Sugical HX of: Cardiac Catheterization (STENT July 01, 2012 - STEMI with PCI-proximal RCA. Repeat LHC stent patent) Thoracic Surgeries: Patient denies;: Organ Transplant Neurologic Surgeries: Patient denies: Neurologic Surgery - Family History Family History: Reports;: Family Cancer (mother-colon), Family Diabetes (MOTHER , SISTERSx2), Family Heart Disease (MOTHER, FATHER), Family Hypertension (MOTHER , FATHER), Family Stroke (sister) - Social History Smoking Status: Light tobacco smoker Frequency of Alcohol Use: None Type of Drug Use: None Marital Status: Single Lives With:: Alone Functional capacity: independent ambulation Physical Examination Vital Signs Temp Pulse Resp BP Pulse Ox 97.1 F L 78 20 139/74 99 10/24/16 12:08 10/24/16 12:08 10/24/16 12:08 10/24/16 12:08 10/24/16 12:08 Exam: General: Appears well with no apparent distress. Pleasant and cooperative. Appears comfortable. HEENT: PERRL, normocephalic, atraumatic. Mucous membranes moist. No jaundice noted. Conjunctiva moist and clear, sclerae anicteric Neck: No JVD/HJR, no thyromegaly or lymphadenopathy noted. No carotid bruit appreciated Cardiac: Regular rate and rhythm. No murmur rub or gallop. Lungs: Clear to auscultation without accessory muscle use to assist the respiratory pattern. Not requiring oxygen. Abdomen: Soft, bowel sounds normoactive. Nontender and nondistended. No abdominal bruit or thrill noted. No masses noted. Extremities: No clubbing, cyanosis noted. No edema noted. Upper and lower extremity pulses 2+. Capillary refill less than 3 seconds. Skin: No unusual lesions or rashes. No skin breakdown appreciated. Neuro: Awake, alert and oriented 3. Moves all extremities well without hemiparesis or paralysis. No essential tremor is appreciated. Result/EKG - Labs CBC & BMP: 10/25/16 05:49 10/24/16 12:23 Lab Results: I have reviewed the past 24 hour labs Labs: Laboratory Results - last 24 hr 10/24/16 10/24/16 10/24/16 12:15 12:23 12:23 WBC 5.1 RBC 5.62 H Hgb 13.6 L Hct 41.1 L MCV 73.1 L MCH 24 L MCHC 33.1 RDW 14.6 Plt Count 212 MPV 10.4 Neut % (Auto) 36.7 L Lymph % (Auto) 50.4 Menard % (Auto) 11.5 Eos % (Auto) 1.0 Baso % (Auto) 0.2 Neut # (Auto) 1.9 Lymph # (Auto) 2.6 [place]ard # (Auto) 0.6 Eos # (Auto) 0.1 Baso # (Auto) 0.0 Immature Gran % 0.2 Nucleated RBC % 0.0 Immature Gran # 0.01 Nucleated RBCs # 0.00 Platelet Estimate Normal Immature Plt Fraction 0.0 Hypochromasia Slight Microcytosis 1+ INR 1.0 PT Patient/Control Mix 11.0 Circ Anticoag PTT 30.5 Sodium 142 Potassium 3.7 Chloride 108 H Carbon Dioxide 26 Anion Gap 11.7 BUN 14 Creatinine 0.80 GFR Calculation 130 BUN/Creatinine Ratio 17.00 Glucose 97 Calculated Osmolality 283.1 Calcium 9.2 Magnesium 2.0 Total Bilirubin 0.40 AST 20 ALT 41 Alkaline Phosphatase 97 Total Creatine Kinase CK-MB (CK-2) Troponin I Total Protein 7.3 Albumin 3.9 Globulin 3.4 Albumin/Globulin Ratio 1.1 10/24/16 10/24/16 10/24/16 12:23 15:03 18:10 WBC RBC Hgb Hct MCV MCH MCHC RDW Plt Count MPV Neut % (Auto) Lymph % (Auto) Menard % (Auto) Eos % (Auto) Baso % (Auto) Neut # (Auto) Lymph # (Auto) Menard # (Auto) Eos # (Auto) Baso # (Auto) Immature Gran % Nucleated RBC % Immature Gran # Nucleated RBCs # Platelet Estimate Immature Plt Fraction Hypochromasia Microcytosis INR PT Patient/Control Mix Circ Anticoag PTT Sodium Potassium Chloride Carbon Dioxide Anion Gap BUN Creatinine GFR Calculation BUN/Creatinine Ratio Glucose Calculated Osmolality Calcium Magnesium Total Bilirubin AST ALT Alkaline Phosphatase Total Creatine Kinase CK-MB (CK-2) Troponin I < 0.015 < 0.015 < 0.015 Total Protein Albumin Globulin Albumin/Globulin Ratio 10/25/16 05:49 WBC RBC Hgb Hct MCV MCH MCHC RDW Plt Count MPV Neut % (Auto) Lymph % (Auto) [place]ard % (Auto) Eos % (Auto) Baso % (Auto) Neut # (Auto) Lymph # (Auto) [place]ard # (Auto) Eos # (Auto) Baso # (Auto) Immature Gran % Nucleated RBC % Immature Gran # Nucleated RBCs # Platelet Estimate Immature Plt Fraction Hypochromasia Microcytosis INR PT Patient/Control Mix Circ Anticoag PTT Sodium Potassium Chloride Carbon Dioxide Anion Gap BUN Creatinine GFR Calculation BUN/Creatinine Ratio Glucose Calculated Osmolality Calcium Magnesium Total Bilirubin AST ALT Alkaline Phosphatase Total Creatine Kinase 163 CK-MB (CK-2) 1.5 Troponin I < 0.015 Total Protein Albumin Globulin Albumin/Globulin Ratio
[2016-10-25 09:54] LABS: Basophils % 0.4 % (0.0-0.8); Eosinophils # 0.1 10*3/uL (0.0-0.87); Eosinophils % 1.7 % (0.00-10.9); Hematocrit 40.9 VOL% (42.0-52.0); Hemoglobin 13.3 GM/DL (14.0-18.0); Immature Granulocytes % 0.2 %; Immature Granulocytes Absolute 0.01 #; Lymphocytes # 2.5 10*3/uL (1.4-4.0); Lymphocytes % 51.6 % (21.2-54.2); Mean Corpuscular HGB Conc 32.5 GM/DL (32-36); Mean Corpuscular Hemoglobin 24 PG (27-34); Mean Platelet Volume 11.8 FL (9.6-12.0); Monocytes # 0.7 10*3/uL (0.11-0.8); Monocytes % 13.7 % (1.7-12.7); Neutrophils # 1.6 10*3/uL (1.4-7.4); Neutrophils % 32.4 % (38.7-73.9); Platelet Count 201 T/CUMM (130-400); Red Blood Count 5.53 MC/CUMM (3.8-5.5); Red Cell Distribution Width 14.9 % (9.3-17.3); White Blood Count 4.8 T/CUMM (4-12)
[2016-10-25 10:34] LABS: Folate 15.1 NG/ML (5.4-24.0); Vitamin B12 282 PG/ML (211-911)
[2016-10-25 10:55] LABS: Eosinophils 2 % (0-10); Hypochromasia 1+; Lymphocytes 61 % (20-55); Microcytosis 1+; Segmented Neutrophils 30 % (50-85); Total Cells Counted 100
[2016-10-25 10:56] LABS: Platelet Estimate Normal
[2016-10-25 11:04] LABS: Sedimentation Rate-Westergren 19 MM/HR (0-20)
--- NOTE | 2016-10-25 12:19 | EKG Report ---
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
--- NOTE | 2016-10-25 12:45 | Hospitalist Progress Note ---
Assessment and Plan (1) Chest pain Status: Acute Assessment and plan: Await final cardiology recommendations. Current Visit: No (2) Coronary artery disease Status: Chronic Current Visit: No (3) Hypertension Status: Chronic Current Visit: No Hospitalist: Subjective Interval history: Mr. Huff is admitted to the hospital with chest discomfort. He has a history of coronary artery disease and previous ejection fraction of 55%. The patient states that he began having a smothering feeling in his chest about 3 days prior to hospitalization. The patient states the residual smothering discomfort remains. The patient's symptom is mild to moderate, continuous, and worsens with exertion. Exam - Constitutional Vitals: Period Temp Pulse Resp BP Sys/[place] Pulse Ox Last 24 Hr 97 F-98.3 F 52-67 10-20 94-158/52-88 94-100 Exam: Constitutional System: Mild distress. No tremulousness. Head: Normocephalic, atraumatic. Ears, Nose and Throat System: No evidence of Otitis or Mastoiditis. No epistaxis or discharge Eyes System: Pupils equal, round, and reactive. Extraocular muscles intact. Neck: Supple, without adenopathy, No jugular venous distention. No thyromegaly , neck mass, or prior surgery apparent. Respiratory System: Chest clear to auscultation. Cardiovascular System: Heart with regular rate and rhythm. No murmur. GI System: Abdomen soft, nontender. Normo active bowel sounds present. Musculoskeletal System: limbs with no pedal edema. Full distal pulses. Neurological System: No discernable sensory deficit. No aphasia Psychiatric System: Conversation is rational Results - Labs CBC & BMP: 10/25/16 05:49 10/24/16 12:23 Lab Results: I have reviewed the past 24 hour labs
--- NOTE | 2016-10-25 16:35 | EKG Report ---
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
[2016-10-25] MEDS: CARVEDILOL 6.25 MG TABLET PO SCH ×2 (17:42→22:14)
[2016-10-25] MEDS: PANTOPRAZOLE 40 MG TABLET PO SCH ×2 (17:42→22:14)
[2016-10-25] MEDS: GABAPENTIN 100 MG CAPSULE PO SCH ×3 (17:42→22:15)
--- NOTE | 2016-10-25 17:52 | ECHO Report ---
Brad Amato Exam Date: 10/25/2016 14:01 Referring Physician: Technologist: roshni Goodwin ARDMS, RVT Age: 55 Ht (in): 69 Wt (lb): 176 Gender: M Exam Location: [facility] Echo Indications: Essential (primary) hypertension, Chest pain, unspecified, Hyperlipidemia, Tobacco abuse BP: 132 / 72 HR: 58 Rhythm: Sinus Technical Quality: average IMPRESSIONS Left ventricular ejection fraction is estimated at 60 %. No RWMA Grade 2 diastolic dysfunction. Tricuspid regurgitation velocities suggest a RVSP of 22 mmHg plus the right atrial pressure. Trace pulmonary valve regurgitation. MEASUREMENTS (Male / Female) Normal Values 2D ECHO LV Diastolic Diameter PLAX 4.2 cm 4.2 - 5.9 / 3.9 - 5.3 cm LV Systolic Diameter PLAX 2.8 cm LV Fractional Shortening PLAX 33.0 % IVS Diastolic Thickness 1.3 cm 0.6 - 1.0 / 0.6 - 0.9 cm LVPW Diastolic Thickness 1.3 cm 0.6 - 1.0 / 0.6 - 0.9 cm RV Internal Dim ED PLAX 2.5 cm Aortic Root Diameter 3.4 cm LA Systolic Diameter LX 4.2 cm 3.0 - 4.0 / 2.7 - 3.8 cm DOPPLER TR Peak Velocity 236.0 cm/s TR Peak Gradient 22.3 mmHg FINDINGS Left Ventricle Normal left ventricular cavity size. Mild left ventricular hypertrophy. Left ventricular ejection fraction is estimated at 60 %. Grade 2 diastolic dysfunction. Right Ventricle The right ventricle is normal in size and function. Right Atrium The right atrium is mildly enlarged. Left Atrium The left atrium is mildly enlarged. Mitral Valve Morphologically normal mitral valve without significant stenosis or prolapse. There is no mitral regurgitation. Aortic Valve Morphologically normal aortic valve without significant sclerosis or stenosis. There is no aortic regurgitation. Tricuspid Valve Morphologically normal tricuspid valve. Trace tricuspid valve regurgitation. Tricuspid regurgitation velocities suggest a RVSP of 22 mmHg plus the right atrial pressure.. Pulmonic Valve Morphologically normal pulmonic valve. Trace pulmonary valve regurgitation. Pericardium Normal pericardium without effusion. Aorta Normal ascending aorta dimension. Gracia Danielson (Electronically Signed) Final Date: 25 October 2016 17:51
[2016-10-25] MEDS: LOSARTAN 50 MG TABLET PO SCH (17:57)
[2016-10-25] MEDS: ASPIRIN EC 81 MG TABLET PO SCH (17:57)
[2016-10-25] MEDS: ONDANSETRON 4 MG/2 ML VIAL IV PRN ×2 (17:57→22:16)
[2016-10-25] MEDS: ISOSORBIDE MONONITRATE 30 MG TABLET PO SCH (18:00)
[2016-10-25] MEDS: ROSUVASTATIN 20 MG TABLET PO SCH (22:14)
[2016-10-26 06:03] LABS: Basophils % 0.2 % (0.0-0.8); Eosinophils # 0.1 10*3/uL (0.0-0.87); Eosinophils % 1.2 % (0.00-10.9); Hematocrit 40.3 VOL% (42.0-52.0); Hemoglobin 13.2 GM/DL (14.0-18.0); Immature Granulocytes % 0.2 %; Immature Granulocytes Absolute 0.01 #; Lymphocytes # 2.3 10*3/uL (1.4-4.0); Mean Corpuscular HGB Conc 32.8 GM/DL (32-36); Mean Corpuscular Hemoglobin 24 PG (27-34); Mean Corpuscular Volume 73.1 FL (87-102); Mean Platelet Volume 10.8 FL (9.6-12.0); Monocytes # 0.6 10*3/uL (0.11-0.8); Monocytes % 11.2 % (1.7-12.7); Neutrophils # 2.1 10*3/uL (1.4-7.4); Neutrophils % 41.2 % (38.7-73.9); Platelet Count 206 T/CUMM (130-400); Red Blood Count 5.51 MC/CUMM (3.8-5.5); Red Cell Distribution Width 14.6 % (9.3-17.3)
[2016-10-26 06:31] LABS: Calcium 8.6 MG/DL (8.5-10.1); Magnesium 2.2 MG/DL (1.8-2.4); Osmolality,Calculated 280.4 MOS/KG (273-304); Potassium 4.2 MMOL/L (3.5-5.1)
[2016-10-26 06:34] LABS: Risk Ratio 4.57
[2016-10-26] MEDS: ONDANSETRON 4 MG/2 ML VIAL IV PRN ×3 (06:54→22:08)
[2016-10-26 06:55] LABS: Hemoglobin A1 (Alkaline) 97.5 % (96.5-98.5); Hemoglobin A2 (Alkaline) 2.5 % (1.5-3.5)
[2016-10-26] MEDS: PANTOPRAZOLE 40 MG TABLET PO SCH ×2 (09:21→21:57)
[2016-10-26] MEDS: LOSARTAN 50 MG TABLET PO SCH (09:21)
[2016-10-26] MEDS: CARVEDILOL 6.25 MG TABLET PO SCH ×2 (09:21→21:55)
[2016-10-26] MEDS: ASPIRIN EC 81 MG TABLET PO SCH (09:22)
[2016-10-26] MEDS: ISOSORBIDE MONONITRATE 30 MG TABLET PO SCH (09:22)
[2016-10-26] MEDS: GABAPENTIN 100 MG CAPSULE PO SCH ×3 (09:22→21:56)
--- NOTE | 2016-10-26 10:55 | Cardiology Progress Note ---
Assessment and Plan (1) Atypical chest pain Status: Acute Assessment and plan: SEE PLAN OF CARE LISTED BELOW. Current Visit: No (2) Coronary artery disease Status: Chronic Assessment and plan: SEE PLAN OF CARE LISTED BELOW. Current Visit: Yes (3) Tobacco use Status: Chronic Assessment and plan: SEE PLAN OF CARE LISTED BELOW. 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 Current Visit: No (5) Dyslipidemia Status: Chronic Assessment and plan: SEE PLAN OF CARE LISTED BELOW. Current Visit: Yes (6) Hypertension Status: Chronic Assessment and plan: SEE PLAN OF CARE LISTED BELOW. Current Visit: No (7) Anemia Status: Acute Assessment and plan: SEE PLAN OF CARE LISTED BELOW. Current Visit: Yes (8) Dyspnea on exertion Status: Chronic Assessment and plan: SEE PLAN OF CARE LISTED BELOW. Current Visit: Yes (9) Diastolic dysfunction Status: Chronic Assessment and plan: SEE PLAN OF CARE LISTED BELOW. 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 Amato is a 55 year old male with a history of coronary artery disease (non-STEMI requiring PCI to RCA June 2012). He also has a history of hypertension, hyperlipidemia, family history of premature CAD (father, mother and brother) and tobacco abuse. Echocardiogram on 08/13/16 revealed EF 55 % grade 1 diastolic dysfunction, mild LVH. Nuclear stress test, 08/13/16, revealed moderate risk and was inconclusive. Therefore patient underwent LHC per Dr. Ramirez 08/16/16 demonstrating widely patent right coronary stent, moderate coronary disease, ejection fraction 45%. Small RV marginal with possible significant stenosis in the ostium was treated medically. He was referred to GI for outpatient evaluation post discharge. However, he reports he has not had this referral/appointment yet. He has a history of post-cath rash suspected to be secondary to IV contrast or possibly Plavix. Additional history includes gastritis, esophagitis, gout, and PUD. Patient presented to [facility] yesterday evening with complaints of atypical chest pain. Patient ruled out for myocardial infarction with negative cardiac biomarkers 4. EKG without changes when compared to previous report EKGs. At this point, it is not felt that patient needs further cardiac workup as he just recently underwent cardiac catheterization August 16, 2016 which showed widely patent RCA stent and intermediate circumflex disease. Echocardiogram was performed this admission which revealed preserved ejection fraction of 60%. No regional wall motion abnormality. Patient's chest pain is atypical in nature. Sounds GI. GI evaluation could be considered. 2016 Patient seen and examined on the telemetry unit. He reports that he did have recurrent chest pain last night while lying down in bed. He describes it as a burning type pain. Only lasted a couple of minutes. EKG unchanged. He has ruled out for MA. Chest pain is very atypical and does not sound cardiac. Could consider GI evaluation. Defer this to hospital medicine. Hemodynamically stable. Labs reviewed. Lipid panel reveals LDL of 96. Statin increased to high intensity. Continue beta-blockade, nitrates, statin, aspirin and ARB for risk stratification. No further recommendations at this time. Will discuss with Dr. Graham and await his additional recommendations. IMPRESSION AND PLAN: 1. ATYPICAL CHEST PAIN - Ruled out for myocardial infarction with negative cardiac biomarkers 4. EKG without changes when compared to previous recorded EKGs. At this point, it is not felt that patient needs further cardiac workup as he just recently underwent cardiac catheterization August 16, 2016 which showed widely patent RCA stent and intermediate circumflex disease. Echocardiogram was performed this admission which revealed preserved ejection fraction of 60%. No regional wall motion abnormality. Atypical in nature. Sounds GI. Patient does have history of gastritis and esophagitis. Has not followed up for outpatient GI evaluation as instructed. Continue PPI. Consider GI evaluation. Defer to hospital medicine. Continue beta-blockade, nitrates, statin, aspirin and ARB for risk stratification. 2. CORONARY ARTERY DISEASE - He has a history of coronary artery disease (non- STEMI requiring PCI to RCA with resolute integrity June 2012). His most recent heart catheterization was 08/16/16 demonstrating patent RCA stent and moderate coronary disease. He has a history of post-cath rash suspected to be secondary to IV contrast or possibly Plavix. Preserved EF per echocardiogram, 60% 3. HYPERTENSION - Currently well controlled. We will continue to monitor and adjust medications accordingly. 4. HYPERLIPIDEMIA - Lipid panel reviewed. LDL 96. Statin increased to high intensity dosage. 5. TOBACCO USE - Spent greater than 5 minutes discussing the harmful effects of tobacco use and urged him to quit smoking. 6. ANEMIA - Stable. Daily CBC. History of gastritis and esophagitis. Continue PPI. Consider GI consultation. 7. DYSPNEA ON EXERTION - This is chronic. Negative d-dimer. Most likely related to COPD from his many years of smoking. Normal LV function, 60% 8. DIASTOLIC DYSFUNCTION - Echocardiogram reveals grade 2 diastolic dysfunction. No overt heart failure. Exam (Progress Note) - Constitutional Vitals: Period Temp Pulse Resp BP Sys/Webster Pulse Ox Last 24 Hr 96.7 F-97.7 F 52-62 12-20 112-158/58-79 97-99 Exam: General: Appears well with no apparent distress. Pleasant and cooperative. Appears comfortable. HEENT: PERRL, normocephalic, atraumatic. Mucous membranes moist. No jaundice noted. Conjunctiva moist and clear, sclerae anicteric Neck: No JVD/HJR, no thyromegaly or lymphadenopathy noted. No carotid bruit appreciated Cardiac: Regular rate and rhythm. No murmur rub or gallop. Lungs: Clear to auscultation without accessory muscle use to assist the respiratory pattern. Not requiring oxygen. Abdomen: Soft, bowel sounds normoactive. Nontender and nondistended. No abdominal bruit or thrill noted. No masses noted. Extremities: No clubbing, cyanosis noted. No edema noted. Upper and lower extremity pulses 2+. Capillary refill less than 3 seconds. Skin: No unusual lesions or rashes. No skin breakdown appreciated. Neuro: Awake, alert and oriented 3. Moves all extremities well without hemiparesis or paralysis. No essential tremor is appreciated. Result/EKG - Labs CBC & BMP: 10/26/16 05:42 10/26/16 05:42 Lab Results: I have reviewed the past 24 hour labs Labs: Laboratory Results - last 24 hr 10/25/16 10/25/16 10/25/16 05:49 05:49 05:49 WBC RBC Hgb Hct MCV MCH MCHC RDW Plt Count MPV Neut % (Auto) Lymph % (Auto) Campbell % (Auto) Eos % (Auto) Baso % (Auto) Neut # (Auto) Lymph # (Auto) Campbell # (Auto) Eos # (Auto) Baso # (Auto) Total Counted 100 Immature Gran % Nucleated RBC % Immature Gran # Segmented Neutrophils 30 L Lymphocytes 61 H Monocytes 7 Eosinophils 2 Nucleated RBCs # Anemia Panel Interp See comment Platelet Estimate Normal Immature Plt Fraction Hypochromasia 1+ Microcytosis 1+ Morphology Comment ESR Westergren 19 Hemoglobin A1 97.5 Hemoglobin A2 2.5 Hemoglobin C Not Reportable Hemoglobin D Not Reportable Hemoglobin E Not Reportable Hemoglobin F (ELP) Not Reportable Hemoglobin G Not Reportable Hemoglobin S Not Reportable Hgb ELP Interp See comment D-Dimer, Quantitative Sodium Potassium Chloride Carbon Dioxide Anion Gap BUN Creatinine GFR Calculation BUN/Creatinine Ratio Glucose Calculated Osmolality Calcium Magnesium Triglycerides Cholesterol LDL Cholesterol VLDL Cholesterol HDL Cholesterol Heart Disease Risk Ratio BRAULIO (IgG-AHG) Negative BRAULIO, Polyspecific Negative 10/25/16 10/26/16 10/26/16 10:50 05:42 05:42 WBC 5.0 RBC 5.51 H Hgb 13.2 L Hct 40.3 L MCV 73.1 L MCH 24 L MCHC 32.8 RDW 14.6 Plt Count 206 MPV 10.8 Neut % (Auto) 41.2 Lymph % (Auto) 46.0 Campbell % (Auto) 11.2 Eos % (Auto) 1.2 Baso % (Auto) 0.2 Neut # (Auto) 2.1 Lymph # (Auto) 2.3 Campbell # (Auto) 0.6 Eos # (Auto) 0.1 Baso # (Auto) 0.0 Total Counted Immature Gran % 0.2 Nucleated RBC % 0.0 Immature Gran # 0.01 Segmented Neutrophils Lymphocytes Monocytes Eosinophils Nucleated RBCs # 0.00 Anemia Panel Interp Platelet Estimate Immature Plt Fraction 0.0 Hypochromasia Microcytosis Morphology Comment ESR Westergren Hemoglobin A1 Hemoglobin A2 Hemoglobin C Hemoglobin D Hemoglobin E Hemoglobin F (ELP) Hemoglobin G Hemoglobin S Hgb ELP Interp D-Dimer, Quantitative <= 0.5 Sodium 140 Potassium 4.2 Chloride 108 H Carbon Dioxide 27 Anion Gap 9.2 BUN 17 Creatinine 0.90 GFR Calculation 121 BUN/Creatinine Ratio 18.00 Glucose 97 Calculated Osmolality 280.4 Calcium 8.6 Magnesium 2.2 Triglycerides Cholesterol LDL Cholesterol VLDL Cholesterol HDL Cholesterol Heart Disease Risk Ratio BRAULIO (IgG-AHG) BRAULIO, Polyspecific 10/26/16 05:42 WBC RBC Hgb Hct MCV MCH MCHC RDW Plt Count MPV Neut % (Auto) Lymph % (Auto) Campbell % (Auto) Eos % (Auto) Baso % (Auto) Neut # (Auto) Lymph # (Auto) Campbell # (Auto) Eos # (Auto) Baso # (Auto) Total Counted Immature Gran % Nucleated RBC % Immature Gran # Segmented Neutrophils Lymphocytes Monocytes Eosinophils Nucleated RBCs # Anemia Panel Interp Platelet Estimate Immature Plt Fraction Hypochromasia Microcytosis Morphology Comment ESR Westergren Hemoglobin A1 Hemoglobin A2 Hemoglobin C Hemoglobin D Hemoglobin E Hemoglobin F (ELP) Hemoglobin G Hemoglobin S Hgb ELP Interp D-Dimer, Quantitative Sodium Potassium Chloride Carbon Dioxide Anion Gap BUN Creatinine GFR Calculation BUN/Creatinine Ratio Glucose Calculated Osmolality Calcium Magnesium Triglycerides 175 H Cholesterol 160 LDL Cholesterol 96.0 VLDL Cholesterol 35.0 HDL Cholesterol 35 L Heart Disease Risk Ratio 4.57 BRAULIO (IgG-AHG) BRAULIO, Polyspecific
--- NOTE | 2016-10-26 17:25 | Hospitalist Progress Note ---
Assessment and Plan (1) Chest pain Status: Acute Assessment and plan: The patient does not have active coronary disease. I am going to obtain right upper quadrant ultrasound and GI consultation to further evaluate the chest discomfort. Current Visit: No (2) Coronary artery disease Status: Chronic Current Visit: No (3) Hypertension Status: Chronic Current Visit: No Hospitalist: Subjective Interval history: Mr. Huff remains with right upper quadrant crampy discomfort and difficulty with nausea following meals. The patient is concerned that his gallbladder may be the fault. The patient has a previous history of antral gastritis while taking nonsteroidal anti-inflammatory medications. Exam - Constitutional Vitals: Period Temp Pulse Resp BP Sys/Webster Pulse Ox Last 24 Hr 96.3 F-97.7 F 55-62 12-20 112-127/58-70 95-99 Exam: Constitutional System: Mild distress. No tremulousness. Head: Normocephalic, atraumatic. Ears, Nose and Throat System: No evidence of Otitis or Mastoiditis. No epistaxis or discharge Eyes System: Pupils equal, round, and reactive. Extraocular muscles intact. Neck: Supple, without adenopathy, No jugular venous distention. No thyromegaly , neck mass, or prior surgery apparent. Respiratory System: Chest clear to auscultation. Cardiovascular System: Heart with regular rate and rhythm. No murmur. GI System: Abdomen soft, nontender. Normo active bowel sounds present. Musculoskeletal System: limbs with no pedal edema. Full distal pulses. Neurological System: No discernable sensory deficit. No aphasia Psychiatric System: Conversation is rational Results - Labs CBC & BMP: 10/26/16 05:42 10/26/16 05:42 Lab Results: I have reviewed the past 24 hour labs
[2016-10-26] MEDS: ROSUVASTATIN 20 MG TABLET PO SCH (21:56)
[2016-10-27 06:08] LABS: Basophils % 0.2 % (0.0-0.8); Eosinophils # 0.1 10*3/uL (0.0-0.87); Eosinophils % 1.8 % (0.00-10.9); Hematocrit 40.8 VOL% (42.0-52.0); Hemoglobin 13.5 GM/DL (14.0-18.0); Immature Granulocytes % 0.4 %; Immature Granulocytes Absolute 0.02 #; Lymphocytes # 2.2 10*3/uL (1.4-4.0); Lymphocytes % 43.4 % (21.2-54.2); Mean Corpuscular HGB Conc 33.1 GM/DL (32-36); Mean Corpuscular Hemoglobin 24 PG (27-34); Mean Corpuscular Volume 72.7 FL (87-102); Mean Platelet Volume 11.2 FL (9.6-12.0); Monocytes # 0.6 10*3/uL (0.11-0.8); Neutrophils # 2.1 10*3/uL (1.4-7.4); Neutrophils % 42.2 % (38.7-73.9); Platelet Count 188 T/CUMM (130-400); Red Blood Count 5.61 MC/CUMM (3.8-5.5); Red Cell Distribution Width 14.6 % (9.3-17.3)
[2016-10-27 06:39] LABS: Magnesium 2.2 MG/DL (1.8-2.4); Osmolality,Calculated 280.4 MOS/KG (273-304)
--- NOTE | 2016-10-27 08:29 | Ultrasound Report ---
Right upper quadrant ultrasound Indication: Abdominal Pain Comparison: 30 October 2014 Findings: The liver is normal in size and echogenicity. The gallbladder is fluid-filled without evidence of stones or sludge. The gallbladder wall thickness is 1.6 mm . The common bile duct measures 5.0 mm. The visualized portion of the pancreas appear within normal limits The right kidney is normal in size and echogenicity and measures 10.1 cm . No free fluid or free air seen. Impression: No evidence of abnormality demonstrated. Ultrasound images stored and captured. PROCEDURE INTERPRETED AT [facility] DEPARTMENT OF RADIOLOGY Final Report Signed by: Dr. Mike Parikh
--- NOTE | 2016-10-27 08:51 | Gastrointestinal Consult Note ---
Assessment and Plan (1) Right upper quadrant abdominal pain Status: Acute Assessment and plan: This patient has previous ultrasounds sort of stones or sludge, this recent ultrasound confirms this. HIDA scan is being done at this time to look for evidence of decreased gallbladder ejection fraction that might be consistent with chronic cholecystitis. Patient may need his gallbladder resected if he continues to have nausea and pain. We will be performing upper endoscopy to look for evidence of duodenitis and to do a dilation of the esophagus in addition for evaluation for retained food and fluid that might be consistent with gastroparesis. He will not be rebiopsied as the patient's last biopsies failed to show Helicobacter pylori back in 2014. He is unlikely to develop Helicobacter pylori in the interim. Current Visit: Yes (2) Gastritis Status: Acute Assessment and plan: Discovered on this patient's upper endoscopy with erosions on 10/30/14. Biopsies were reportedly obtained --I cannot seem to find the pathology report and calling out pathology they do not have a specimen on record. This may have been not obtained due to the Eliquis being used at the time. I will make sure to obtain a specimen tomorrow. Again the main reason for performing the endoscopy is to help dilate the patient as he was never dilated previously and look for gastroparesis and see why it is that he is having recurrent symptoms while on Protonix twice daily. Current Visit: Yes (3) Dysphagia, pharyngoesophageal Status: Acute Assessment and plan: Again will perform dilation tomorrow to 57 Belgian by single pass Savary dilator given the symptoms he was previously having back in October of 2014 and since then. Current Visit: Yes (4) Bloating symptom Status: Acute Assessment and plan: The patient is having some bloating symptoms and early satiety, this is certainly suspicious for gastroparesis. He did have some retained fluid on his previous upper endoscopy done back in 2014, we may need to perform gastric emptying study to document this further in the hospital stay depending on findings at upper endoscopy tomorrow. Current Visit: Yes History of Present Illness Chief complaint: Epigastric/right upper quadrant pain, atypical chest pain. History of present illness: Mr. Amato is a 55 year old male who is known to me from previous GI workup done back in 10/30/14 when the patient was admitted but ended up having treatment for his coronary artery disease including Effient which was preventing us from doing a esophageal dilation. It is likely that he had esophageal spasm. Upper endoscopy at that time did not appear to demonstrate any further stricturing or esophagitis to account for the patient's atypical chest pain he did have some retained fluid in the stomach suspicious for gastroparesis. We decided to put him on Protonix and see later if he had further evidence of gastroparesis but to my knowledge she has never had a gastric emptying study. Patient has done well in the interim after discontinuing his Mobic that he had been taking and being on Protonix. He is referred again with dysphagia and food getting stuck in his mid to lower esophagus as well as some epigastric and some prominent right upper quadrant pain. He is being worked up for gallbladder disease as he previously had had a gallbladder ultrasound back in 2014 and is now having another one done today as well as a HIDA scan. He is mildly nauseous and does have some GI sounding atypical type chest pain which is burning in nature. He also has some early satiety and may have a component of gastroparesis as well. We will arrange for repeat upper endoscopy tomorrow and dilation off aspirin. Gallbladder ultrasound shows no sludge or stones, common bile duct is 5 mm in size and gallbladder wall thickness is normal at 1.6 mm. We are checking to see what his gallbladder ejection fraction is with HIDA scan with CCK at this time. He is continued to take his pantoprazole 40 mg twice daily since his last visit, 2 years ago. Home Medications Medication Instructions Recorded Confirmed Type Aspirin [Ecotrin] 81 mg PO DAILY 10/28/14 10/24/16 History Carvedilol [Coreg] 6.25 mg PO BID 08/13/16 10/24/16 History Alum/Mag/Simeth Max Str Liquid 30 ml PO Q4H PRN #1 bottle 08/17/16 10/24/16 Rx [Mylanta Max Strength Liquid] Gabapentin Cap/Tab [Neurontin 100 mg PO TID #90 capsule 08/17/16 10/24/16 Rx Cap/Tab] Isosorbide Mononitrate [Imdur] 30 mg PO DAILY #30 tablet 08/17/16 10/24/16 Rx Losartan [Cozaar] 50 mg PO DAILY #30 tablet 08/17/16 10/24/16 Rx Nitroglycerin Sl Tab [Nitrostat] 0.4 mg SL Q5M PRN #1 bottle 08/17/16 10/24/16 Rx Pantoprazole Tab [Protonix Tab] 40 mg PO BID #60 tablet 08/17/16 10/24/16 Rx Rosuvastatin [Crestor] 10 mg PO BEDTIME #30 tablet 08/17/16 10/24/16 Rx traMADol TAB [Ultram] 50 mg PO BID tablet 08/17/16 10/24/16 Rx Allergies Allergy/AdvReac Type Severity Reaction Status Date / Time zaleplon [From Sonata] Allergy ITCHING Verified 08/16/16 08:26 Iodinated Contrast Media - AdvReac ITCHING Verified 10/28/14 12:31 Oral and [Iodinated Contrast Media - IV Dye] Sulfa (Sulfonamide AdvReac ITCHING Verified 10/28/14 12:30 Antibiotics) sulfamethoxazole AdvReac ITCHING Verified 10/28/14 12:30 [From Bactrim] trimethoprim [From Bactrim] AdvReac ITCHING Verified 10/28/14 12:30 Medical,Surgical,& Family Hx - Medical History Cardio: History of: CAD (June 2012: PCI-proximal RCA with CHIQUI. Repeat [facility] June 2012 - stent open ), Hypertension, [place] Neurology: No history of: Seizures, TIA Endocrine: History of: Dyslipidemia No history of: Diabetes Mellitus (NIDDM) Rheumatology: History of;: Gout Gastrointestinal: History of: GERD, GI Problems (Gastritis, esophagitis) Musculoskeletal: History of: Back/Neck Problems, Musculoskeletal Problems ( carpul tunnel) - Surgical History Cardiac Surgeries: Sugical HX of: Cardiac Catheterization (STENT July 01, 2012 - STEMI with PCI-proximal RCA. Repeat [facility] stent patent) Thoracic Surgeries: Patient denies;: Organ Transplant Neurologic Surgeries: Patient denies: Neurologic Surgery Abdominal Surgeries: Surgical HX of: EGD - Family History Family History: Reports;: Family Cancer (mother-colon), Family Diabetes (MOTHER , SISTERSx2), Family Heart Disease (MOTHER, FATHER), Family Hypertension (MOTHER , FATHER), Family Stroke (sister) - Social History Smoking Status: Light tobacco smoker Frequency of Alcohol Use: None Type of Drug Use: None Review of systems: Constitutional: Denies fever, chills, but positive for nausea, and vomiting Eyes: Denies dry eyes, and scleral icterus HENT: Occasional headaches Cardiovascular: Admits to some but no acute chest pain and claudication Respiratory: Denies shortness of breath, wheezing, and difficulty breathing, denies cough Gastrointestinal: As noted in the HPI Genitourinary: Denies dysuria and hematuria Neurologic: Denies vision loss, and loss of sensation Musculoskeletal: Denies joint swelling, but does have some joint stiffness, and muscular weakness Psychiatric: Denies depression and josé symptoms Heme-Lymph: Denies easy bruising, lymph node enlargement or tenderness, night sweats, excessive bleeding Allergies-immunologic: Denies pruritus and rhinorrhea Exam - Constitutional Vitals: Period Temp Pulse Resp BP Sys/Webster Pulse Ox Last 24 Hr 96.3 F-98.1 F 56-68 18-20 109-128/52-70 95-99 General appearance: mild distress - Head Head exam: Present: normocephalic - Eye Eye exam: Present: EOMI Pupils: Present: LEYDA - ENT ENT exam: Present: normal oropharynx - Neck Neck exam: Present: normal inspection. Absent: thyromegaly - Respiratory Respiratory exam: Present: clear to auscultation bilaterally. Absent: rales, rhonchi, wheezes - Cardiovascular Cardiovascular exam: Present: regular rate and rhythm - GI/Abdominal GI/Abdominal exam: Present: normal bowel sounds, tenderness (Mild to moderate in the epigastric and right upper quadrant), soft. Absent: distended, guarding , rebound - Extremities Exam Extremities exam: Absent: edema - Neurological Exam Neurological exam: Present: alert, oriented X3, CN II-XII intact. Absent: motor sensory deficit - Psychiatric Psychiatric exam: Present: normal affect, normal mood - Skin Skin exam: Present: warm Results - Labs CBC & BMP: 10/27/16 05:47 10/27/16 05:47
--- NOTE | 2016-10-27 09:29 | Nuclear Medicine Report ---
NM hepatobiliary Indication: Right upper quadrant pain Comparison: None Radiopharmaceutical: 5 mCi technetium 99m Choletec IV. Technique: Anterior dynamic images were acquired over the upper abdomen for a period of 1 hour following intravenous administration of the radiopharmaceutical. Subsequently, 8 ounces of Ensure was administered orally with additional images of the upper abdomen acquired for 30 minutes. Gallbladder ejection fraction was calculated. Findings: Review of the images demonstrate prompt clearance of the radiopharmaceutical from the blood pool into the liver parenchyma. There is prompt progression of the isotope from the liver into the intrahepatic biliary ducts, common bile duct, and the gallbladder. Radiotracer is noted in the small bowel at the end of 60 minutes. Following administration of the gallbladder stimulating substance, calculated gallbladder ejection fraction was 82 % (normal > 35%). There was further radiotracer accumulation in the small bowel. IMPRESSION: Unremarkable nuclear medicine hepatobiliary imaging study. PROCEDURE INTERPRETED AT [facility] DEPARTMENT OF RADIOLOGY Final Report Signed by: Dr Neil Hopper
[2016-10-27] MEDS: ONDANSETRON 4 MG/2 ML VIAL IV PRN ×2 (09:58→20:14)
[2016-10-27] MEDS: GABAPENTIN 100 MG CAPSULE PO SCH ×3 (09:58→20:14)
[2016-10-27] MEDS: LOSARTAN 50 MG TABLET PO SCH (09:58)
[2016-10-27] MEDS: CARVEDILOL 6.25 MG TABLET PO SCH ×2 (09:58→20:14)
[2016-10-27] MEDS: PANTOPRAZOLE 40 MG TABLET PO SCH ×2 (09:58→20:14)
[2016-10-27] MEDS: ISOSORBIDE MONONITRATE 30 MG TABLET PO SCH (09:58)
--- NOTE | 2016-10-27 14:32 | Hospitalist Progress Note ---
Assessment and Plan (1) Chest pain Status: Acute Assessment and plan: The patient does not have active coronary disease. Gallbladder ultrasound and hepatobiliary scan seen within normal limits. I am going to add [place] for abdominal pain. Current Visit: No (2) Coronary artery disease Status: Chronic Current Visit: No (3) Hypertension Status: Chronic Current Visit: No Hospitalist: Subjective Interval history: The patient was admitted to hospital with epigastric and right upper quadrant pain. Gallbladder ultrasound revealed minor abnormalities. Hepatobiliary scan reveals normal ejection fraction. The patient continues with abdominal pain boring to the back. [place] seems to help some. Exam - Constitutional Vitals: Period Temp Pulse Resp BP Sys/Webster Pulse Ox Last 24 Hr 97.2 F-98.1 F 58-68 18-20 109-135/52-98 95-100 Exam: Constitutional System: Mild distress. No tremulousness. Head: Normocephalic, atraumatic. Ears, Nose and Throat System: No evidence of Otitis or Mastoiditis. No epistaxis or discharge Eyes System: Pupils equal, round, and reactive. Extraocular muscles intact. Neck: Supple, without adenopathy, No jugular venous distention. No thyromegaly , neck mass, or prior surgery apparent. Respiratory System: Chest clear to auscultation. Cardiovascular System: Heart with regular rate and rhythm. No murmur. GI System: Abdomen soft, nontender. Normo active bowel sounds present. Musculoskeletal System: limbs with no pedal edema. Full distal pulses. Neurological System: No discernable sensory deficit. No aphasia Psychiatric System: Conversation is rational Results - Labs CBC & BMP: 10/27/16 05:47 10/27/16 05:47 Lab Results: I have reviewed the past 24 hour labs
[2016-10-27] MEDS: ROSUVASTATIN 20 MG TABLET PO SCH (20:14)
[2016-10-28 05:56] LABS: Basophils % 0.4 % (0.0-0.8); Eosinophils # 0.1 10*3/uL (0.0-0.87); Eosinophils % 1.8 % (0.00-10.9); Hematocrit 40.4 VOL% (42.0-52.0); Hemoglobin 13.3 GM/DL (14.0-18.0); Immature Granulocytes % 0.2 %; Immature Granulocytes Absolute 0.01 #; Lymphocytes # 3.1 10*3/uL (1.4-4.0); Lymphocytes % 55.3 % (21.2-54.2); Mean Corpuscular HGB Conc 32.9 GM/DL (32-36); Mean Corpuscular Hemoglobin 24 PG (27-34); Mean Corpuscular Volume 73.2 FL (87-102); Mean Platelet Volume 10.6 FL (9.6-12.0); Monocytes # 0.7 10*3/uL (0.11-0.8); Monocytes % 11.8 % (1.7-12.7); Neutrophils # 1.7 10*3/uL (1.4-7.4); Neutrophils % 30.5 % (38.7-73.9); Platelet Count 196 T/CUMM (130-400); Red Blood Count 5.52 MC/CUMM (3.8-5.5); Red Cell Distribution Width 14.4 % (9.3-17.3); White Blood Count 5.5 T/CUMM (4-12)
[2016-10-28 06:34] LABS: Calcium 8.9 MG/DL (8.5-10.1); Osmolality,Calculated 280.3 MOS/KG (273-304); Potassium 4.2 MMOL/L (3.5-5.1)
[2016-10-28 06:41] LABS: Eosinophils 1 % (0-10); Giant Platelets Few; Hypochromasia 1+; Lymphocytes 63 % (20-55); Ovalocytes Slight; Platelet Estimate Normal; Segmented Neutrophils 29 % (50-85); Total Cells Counted 100
[2016-10-28 06:42] LABS: Microcytosis Slight
[2016-10-28] MEDS ORDERED: PROPOFOL 200 MG/20 ML VIAL IV ONE (08:10)
[2016-10-28] MEDS ORDERED: LIDOCAINE 2% 5 ML VIAL ONE (08:10)
--- NOTE | 2016-10-28 08:32 | Operative Note ---
Date of procedure: 10/28/16 Pre-op diagnosis: Right upper quadrant pain, bloating, dysphagia, epigastric pain Post-op diagnosis: other (This is a patient who has a history of dysphagia, epigastric and right upper quadrant pain who had some linear gastritis on upper endoscopy, no gross evidence of stricturing was dilated to 57 Polish by single pass Savary dilator to see if this will help out with his symptoms of dysphagia. Biopsies are pending in the stomach to see if Helicobacter pylori is present, duodenum appeared relatively normal. Ultrasound and HIDA scan are negative with a gallbladder ejection fraction of 82%.) Procedure: PROCEDURE: Esophagogastroduodenoscopy (EGD) with cold biopsy for pathology and dilation to 57 Polish by single pass Savary dilator REFERRING PHYSICIAN: Devyn Gonzalez MD INDICATIONS: Dysphagia, GERD, bloating, right upper quadrant pain with a negative HIDA scan and negative ultrasound the prior H&P was reviewed and interrim changes are as noted: No change from GI consultation yesterday ENDOSCOPIST: Vik Solorzano MD ENDOSCOPE: Olympus Video 100 System upper endoscope ASA CLASS: 3 EXAM: CV: regular rate and rhythm respiratory: Clear without wheezes abdominal: active bowel sounds MEDICATION: Per nursing anesthesia protocol, see their notes PROCEDURE: After discussion of the potential risks and benefits of upper endoscopy, the informed consent was obtained. The patient was then placed in the left lateral decubitus position where sedation was achieved as noted above. Esophageal intubation was performed without difficulty, and the endoscope was advanced through the esophagus, stomach and duodenum. A slow withdrawal was then performed with retroflexion in the stomach for careful inspection of the incisura angularis, fundus and cardia. The scope was then returned to a neutral position and withdrawn through the esophagus. The patient tolerated the procedure well and without complication. BIOPSIES: Gastric antrum/body PHOTOGRAPHS: Obtained FINDINGS: Hypopharynx and Larynx: Normal Esohagoscopy Upper and middle thirds: Normal Lower third normal Esophogastric junctions: No gross evidence of esophagitis or Lazar's, the esophagus was stretched to 57 Polish by single pass Savary dilator at the end of the case Gastroscopy: Cardia/Fundus: 1 cm hiatal hernia Body: Mild linear gastritis, biopsy Antrum and pylorus mild linear gastritis with a few erosions, biopsy, wire advanced into the fundus in order to support Savary dilation noted above. Duodenoscopy: Bulb normal Second and third portions: Normal IMPRESSION: This is a patient who has a history of dysphagia, epigastric and right upper quadrant pain who had some linear gastritis on upper endoscopy, no gross evidence of stricturing was dilated to 57 Polish by single pass Savary dilator to see if this will help out with his symptoms of dysphagia. Biopsies are pending in the stomach to see if Helicobacter pylori is present, duodenum appeared relatively normal. Ultrasound and HIDA scan are negative with a gallbladder ejection fraction of 82%. RECOMMENDATIONS: Follow up for biopsy results in 1-2 weeks by phone [phone] Continue anti-gastroesophageal reflux measures (avoid carbonated and acidic beverages, avoid eating within 2 hours of bedtime, avoid tight fitting clothing , and elevate the front bed posts 6 inches prior to sleeping. Continue pantoprazole 40 mg twice daily for the present time, observe swallowing post dilation. Repeat dilation in 6-18 months depending on response to this initial dilation. After month pantoprazole can likely be cut back to once a day prior to supper. Vik Solorzano MD COPY TO: Devyn Gonzalez MD Anesthesia: MAC Surgeon / Physician: Vik Solorzano Estimated blood loss: minimal Specimens: other (Gastric antrum/body) Condition: stable Disposition: post procedure unit ([facility]) Results - Labs CBC & BMP: 10/28/16 05:40 10/28/16 05:40 Discharge Plan - Discharge Medications No Action Aspirin [Ecotrin] 81 mg PO DAILY Carvedilol [Coreg] 6.25 mg PO BID Gabapentin Cap/Tab [Neurontin Cap/Tab] 100 mg PO TID #90 capsule Losartan [Cozaar] 50 mg PO DAILY #30 tablet Nitroglycerin Sl Tab [Nitrostat] 0.4 mg SL Q5M PRN #1 bottle PRN Reason: Chest Pain Pantoprazole Tab [Protonix Tab] 40 mg PO BID #60 tablet traMADol TAB [Ultram] 50 mg PO BID tablet Alum/Mag/Simeth Max Str Liquid [Mylanta Max Strength Liquid] 30 ml PO Q4H PRN #1 bottle PRN Reason: Dyspepsia Isosorbide Mononitrate [Imdur] 30 mg PO DAILY #30 tablet Rosuvastatin [Crestor] 10 mg PO BEDTIME #30 tablet - Follow Up or Referral - Forms/Instructions
--- NOTE | 2016-10-28 08:40 | Gastrointestinal Progress Note ---
Assessment and Plan (1) Right upper quadrant abdominal pain Status: Acute Assessment and plan: This patient has previous ultrasounds sort of stones or sludge, this recent ultrasound confirms this. HIDA scan is being done at this time to look for evidence of decreased gallbladder ejection fraction that might be consistent with chronic cholecystitis. Patient may need his gallbladder resected if he continues to have nausea and pain. We will be performing upper endoscopy to look for evidence of duodenitis and to do a dilation of the esophagus in addition for evaluation for retained food and fluid that might be consistent with gastroparesis. He will not be rebiopsied as the patient's last biopsies failed to show Helicobacter pylori back in 2014. He is unlikely to develop Helicobacter pylori in the interim. 10/28/16--See the segment on epigastric pain. HIDA scan and ultrasound were basically negative for gallbladder disease. The pain is likely due to the linear gastritis in the stomach. This should respond to the pantoprazole twice daily for the next month, biopsies are pending to look for Helicobacter pylori. The patient has been dilated at this point and will see how he swallows. Current Visit: Yes (2) Gastritis Status: Acute Assessment and plan: Discovered on this patient's upper endoscopy with erosions on 10/30/14. Biopsies were reportedly obtained --I cannot seem to find the pathology report and calling out pathology they do not have a specimen on record. This may have been not obtained due to the Eliquis being used at the time. I will make sure to obtain a specimen tomorrow. Again the main reason for performing the endoscopy is to help dilate the patient as he was never dilated previously and look for gastroparesis and see why it is that he is having recurrent symptoms while on Protonix twice daily. 10/28/16--The findings of upper endoscopy are as follows: This is a patient who has a history of dysphagia, epigastric and right upper quadrant pain who had some linear gastritis on upper endoscopy, no gross evidence of stricturing was dilated to 57 Estonian by single pass Savary dilator to see if this will help out with his symptoms of dysphagia. Biopsies are pending in the stomach to see if Helicobacter pylori is present, duodenum appeared relatively normal. Ultrasound and HIDA scan are negative with a gallbladder ejection fraction of 82 %. Current Visit: Yes (3) Dysphagia, pharyngoesophageal Status: Acute Assessment and plan: Again will perform dilation tomorrow to 57 Estonian by single pass Savary dilator given the symptoms he was previously having back in October of 2014 and since then. 10/28/16--As noted above. We will check and see how the patient does with a dilation done today. Current Visit: Yes (4) Bloating symptom Status: Acute Assessment and plan: The patient is having some bloating symptoms and early satiety, this is certainly suspicious for gastroparesis. He did have some retained fluid on his previous upper endoscopy done back in 2014, we may need to perform gastric emptying study to document this further in the hospital stay depending on findings at upper endoscopy tomorrow. 10/28/16--Although there was some previous fluid noted in the patient's stomach on endoscopy none was noted today, if he continues to have problems we may consider a gastric emptying study but without retained food or fluid on today's exam I do not consider this a priority for this admission. Current Visit: Yes Gastroenterology - PN: Subj Interval history: Patient feels slightly better. Less epigastric tenderness. HIDA scan yesterday showed an ejection fraction of 82% and negative ultrasound, this is not gallbladder disease. Exam (Progress Note) - Constitutional Vitals: Period Temp Pulse Resp BP Sys/Webster Pulse Ox Last 24 Hr 97.2 F-98 F 55-66 18-20 113-139/56-98 96-100 General appearance: no acute distress - Head Head exam: Present: normocephalic - Eye Eye exam: Present: EOMI Pupils: Present: LEYDA - Respiratory Respiratory exam: Present: clear to auscultation bilaterally. Absent: rhonchi, wheezes - Cardiovascular Cardiovascular exam: Present: regular rate and rhythm - GI/Abdominal GI/Abdominal exam: Present: normal bowel sounds, tenderness (Mild epigastric tenderness), soft. Absent: ascites, distended, guarding, rebound - Extremities Exam Extremities exam: Absent: edema - Psychiatric Psychiatric exam: Present: normal affect, normal mood Results - Labs CBC & BMP: 10/28/16 05:40 10/28/16 05:40
[2016-10-28] MEDS: PANTOPRAZOLE 40 MG TABLET PO SCH ×2 (11:00→20:45)
[2016-10-28] MEDS: CARVEDILOL 6.25 MG TABLET PO SCH ×2 (11:00→20:45)
[2016-10-28] MEDS: ISOSORBIDE MONONITRATE 30 MG TABLET PO SCH (11:00)
[2016-10-28] MEDS: LOSARTAN 50 MG TABLET PO SCH (11:00)
[2016-10-28] MEDS: GABAPENTIN 100 MG CAPSULE PO SCH ×4 (11:00→23:56)
[2016-10-28] MEDS: ONDANSETRON 4 MG/2 ML VIAL IV PRN ×3 (11:02→20:00)
--- NOTE | 2016-10-28 11:05 | Anesthesia Post-Op ---
Anesthesia Post OP - Post Ansesthetic Evaluation Patient seen in post op: Yes Resp: within normal limits CV: within normal limits Mental: within normal limits Temp: within normal limits [id number]: within normal limits Nausea and Vomiting: within normal limits Pain: within normal limits
--- NOTE | 2016-10-28 14:34 | Hospitalist Progress Note ---
Assessment and Plan (1) Chest pain Status: Acute Assessment and plan: The patient does not have active coronary disease. Gallbladder ultrasound and hepatobiliary scan seen within normal limits. I am going to add [place] for abdominal pain. I anticipate discharge home in the morning on proton pump inhibitor twice daily. Current Visit: No (2) Coronary artery disease Status: Chronic Current Visit: No (3) Hypertension Status: Chronic Current Visit: No Hospitalist: Subjective Interval history: Mr. Huff remains with some abdominal pain. Esophagogastroduodenoscopy with esophageal dilation was well tolerated. The patient continues on antiacid regimen. Exam - Constitutional Vitals: Period Temp Pulse Resp BP Sys/Webster Pulse Ox Last 24 Hr 97 F-98 F 55-67 16-20 113-162/56-87 92-100 Exam: Constitutional System: Mild distress. No tremulousness. Head: Normocephalic, atraumatic. Ears, Nose and Throat System: No evidence of Otitis or Mastoiditis. No epistaxis or discharge Eyes System: Pupils equal, round, and reactive. Extraocular muscles intact. Neck: Supple, without adenopathy, No jugular venous distention. No thyromegaly , neck mass, or prior surgery apparent. Respiratory System: Chest clear to auscultation. Cardiovascular System: Heart with regular rate and rhythm. No murmur. GI System: Abdomen soft, nontender. Normo active bowel sounds present. Musculoskeletal System: limbs with no pedal edema. Full distal pulses. Neurological System: No discernable sensory deficit. No aphasia Psychiatric System: Conversation is rational Results - Labs CBC & BMP: 10/28/16 05:40 10/28/16 05:40 Lab Results: I have reviewed the past 24 hour labs
[2016-10-28] MEDS ORDERED: MAGNESIUM HYDROXIDE SUSP 30 ML UDCUP PO PRN (14:42)
[2016-10-28] MEDS: ROSUVASTATIN 20 MG TABLET PO SCH (20:45)
[2016-10-29] MEDS: ONDANSETRON 4 MG/2 ML VIAL IV PRN (00:02)
[2016-10-29 04:46] LABS: Basophils % 0.3 % (0.0-0.8); Eosinophils # 0.1 10*3/uL (0.0-0.87); Eosinophils % 1.7 % (0.00-10.9); Hematocrit 41.1 VOL% (42.0-52.0); Hemoglobin 13.3 GM/DL (14.0-18.0); Immature Granulocytes % 0.2 %; Immature Granulocytes Absolute 0.01 #; Lymphocytes % 49.5 % (21.2-54.2); Mean Corpuscular HGB Conc 32.4 GM/DL (32-36); Mean Corpuscular Hemoglobin 24 PG (27-34); Mean Corpuscular Volume 74.2 FL (87-102); Mean Platelet Volume 10.9 FL (9.6-12.0); Monocytes # 0.7 10*3/uL (0.11-0.8); Monocytes % 11.5 % (1.7-12.7); Neutrophils # 2.2 10*3/uL (1.4-7.4); Neutrophils % 36.8 % (38.7-73.9); Platelet Count 209 T/CUMM (130-400); Red Blood Count 5.54 MC/CUMM (3.8-5.5); Red Cell Distribution Width 14.6 % (9.3-17.3)
[2016-10-29 05:19] LABS: Calcium 9.1 MG/DL (8.5-10.1); Magnesium 2.3 MG/DL (1.8-2.4); Osmolality,Calculated 275.5 MOS/KG (273-304); Potassium 4.6 MMOL/L (3.5-5.1)
[2016-10-29 05:25] LABS: Band Neutrophils 1 % (0-10); Eosinophils 3 % (0-10); Lymphocytes 48 % (20-55); Platelet Estimate Normal; Segmented Neutrophils 37 % (50-85); Total Cells Counted 100
[2016-10-29] MEDS: LOSARTAN 50 MG TABLET PO SCH (08:14)
[2016-10-29] MEDS: ISOSORBIDE MONONITRATE 30 MG TABLET PO SCH (08:14)
[2016-10-29] MEDS: CARVEDILOL 6.25 MG TABLET PO SCH (08:14)
[2016-10-29] MEDS: GABAPENTIN 100 MG CAPSULE PO SCH (08:14)
[2016-10-29] MEDS: PANTOPRAZOLE 40 MG TABLET PO SCH (08:16)
--- NOTE | 2016-10-29 09:17 | Gastrointestinal Progress Note ---
Assessment and Plan (1) Right upper quadrant abdominal pain Status: Acute Assessment and plan: This patient has previous ultrasounds sort of stones or sludge, this recent ultrasound confirms this. HIDA scan is being done at this time to look for evidence of decreased gallbladder ejection fraction that might be consistent with chronic cholecystitis. Patient may need his gallbladder resected if he continues to have nausea and pain. We will be performing upper endoscopy to look for evidence of duodenitis and to do a dilation of the esophagus in addition for evaluation for retained food and fluid that might be consistent with gastroparesis. He will not be rebiopsied as the patient's last biopsies failed to show Helicobacter pylori back in 2014. He is unlikely to develop Helicobacter pylori in the interim. 10/28/16--See the segment on epigastric pain. HIDA scan and ultrasound were basically negative for gallbladder disease. The pain is likely due to the linear gastritis in the stomach. This should respond to the pantoprazole twice daily for the next month, biopsies are pending to look for Helicobacter pylori. The patient has been dilated at this point and will see how he swallows. 10/29/16--Mild linear gastritis, stable hematocrit--needs to take some pantoprazole twice daily. Prescription written. He can come back to me as an outpatient if desired to further workup is gastroparesis if needed. We will not make him a follow-up appointment yet, he has a copy of my card, to schedule this if desired. Current Visit: Yes (2) Gastritis Status: Acute Assessment and plan: Discovered on this patient's upper endoscopy with erosions on 10/30/14. Biopsies were reportedly obtained --I cannot seem to find the pathology report and calling out pathology they do not have a specimen on record. This may have been not obtained due to the Eliquis being used at the time. I will make sure to obtain a specimen tomorrow. Again the main reason for performing the endoscopy is to help dilate the patient as he was never dilated previously and look for gastroparesis and see why it is that he is having recurrent symptoms while on Protonix twice daily. 10/28/16--The findings of upper endoscopy are as follows: This is a patient who has a history of dysphagia, epigastric and right upper quadrant pain who had some linear gastritis on upper endoscopy, no gross evidence of stricturing was dilated to 57 Jordanian by single pass Savary dilator to see if this will help out with his symptoms of dysphagia. Biopsies are pending in the stomach to see if Helicobacter pylori is present, duodenum appeared relatively normal. Ultrasound and HIDA scan are negative with a gallbladder ejection fraction of 82 %. 10/29/16--As noted above. Current Visit: Yes (3) Dysphagia, pharyngoesophageal Status: Acute Assessment and plan: Again will perform dilation tomorrow to 57 Jordanian by single pass Savary dilator given the symptoms he was previously having back in October of 2014 and since then. 10/28/16--As noted above. We will check and see how the patient does with a dilation done today. 10/29/16--He is doing well with his dilation, no difficulty with swallowing at this point. Ready for discharge in my opinion. Current Visit: Yes (4) Bloating symptom Status: Acute Assessment and plan: The patient is having some bloating symptoms and early satiety, this is certainly suspicious for gastroparesis. He did have some retained fluid on his previous upper endoscopy done back in 2014, we may need to perform gastric emptying study to document this further in the hospital stay depending on findings at upper endoscopy tomorrow. 10/28/16--Although there was some previous fluid noted in the patient's stomach on endoscopy none was noted today, if he continues to have problems we may consider a gastric emptying study but without retained food or fluid on today's exam I do not consider this a priority for this admission. 10/29/16--This will be worked up further as an outpatient if necessary. Current Visit: Yes Gastroenterology - PN: Subj Interval history: Patient does complain of some back pain but when queried about his constipation this seems to be under control and he is not wanting to treat it more aggressively. His reflux seems to be under control as well he is having a little bit of belly pain with bloating that may be underlying gastroparesis but for the present time we are going to hold off on doing a gastric emptying study. We can certainly proceed with this as an outpatient later on if this becomes more of an issue. I did advise him on what to look for (i.e., bloating and early satiety issues). Exam (Progress Note) - Constitutional Vitals: Period Temp Pulse Resp BP Sys/Webster Pulse Ox Last 24 Hr 96.9 F-98.0 F 53-70 17-20 107-162/54-78 95-100 General appearance: no acute distress - Head Head exam: Present: normocephalic, atraumatic - Eye Eye exam: Present: EOMI Pupils: Present: LEYDA - Respiratory Respiratory exam: Present: clear to auscultation bilaterally - Cardiovascular Cardiovascular exam: Present: regular rate and rhythm - GI/Abdominal GI/Abdominal exam: Present: normal bowel sounds, distended, soft. Absent: guarding, tenderness, rebound - Neurological Exam Neurological exam: Present: alert, oriented X3, CN II-XII intact - Psychiatric Psychiatric exam: Present: normal affect, normal mood - Skin Skin exam: Present: warm Results - Labs CBC & BMP: 10/29/16 04:18 10/29/16 04:18
--- NOTE | 2016-10-29 09:17 | Discharge Summary ---
Hospital Course - Hospital Course Hospital Course: The patient was admitted to the hospital with chest discomfort which was atypical. The patient had cardiology consultation and despite his history of coronary artery disease there was no evidence of exacerbation of the obstructive disease. The patient had GI consultation as the pain migrated from the left chest to the right upper quadrant. Gallbladder ultrasound did not reveal any stones or abnormality. A gallbladder emptying study with nuclear medicine revealed normal ejection fraction. Esophagogastroduodenoscopy was utilized to provide a esophageal dilation and inspection of the gastric mucosa. Linear ulcerations were found and Dr. Solorzano recommends a course of treatment with twice daily proton pump inhibitor. The patient then began to complain of some back pain and obstipation symptoms. We are going to treat this with Fleet enema and asked him to have outpatient evaluation of the back complaint. On the date of discharge, chest is clear and abdomen soft. Heart has regular rate and rhythm. Patient medications were reconciled upon admission, and again at the time of discharge. The patient was screened for tobacco use and found to be a occasional smoker. The patient was given 4 minutes of tobacco avoidance education. The patient's medical decsion maker is themself, and when asked, they asked to be Full code. Discharge Time was 32 minutes, including final examination, evaluation and planning, education, reconciliation of medications, writing prescriptions, coordinating care with registered nurse hh case manager, and preparing discharge documentation. Diagnosis - Discharge Diagnosis (1) Chest pain Status: Acute (2) Coronary artery disease Status: Chronic (3) Hypertension Status: Chronic Discharge Plan - Discharge Data Disposition: Disch To Home/Self Care Condition at Discharge: Stable Activity: resume usual activities as tolerated - Discharge Medications New Hydrocodone/Acetaminophen [[place] 10-325 Tablet] 1 each PO BID #24 tablet Continue Aspirin [Ecotrin] 81 mg PO DAILY Carvedilol [Coreg] 6.25 mg PO BID Gabapentin Cap/Tab [Neurontin Cap/Tab] 100 mg PO TID #90 capsule Losartan [Cozaar] 50 mg PO DAILY #30 tablet Nitroglycerin Sl Tab [Nitrostat] 0.4 mg SL Q5M PRN #1 bottle PRN Reason: Chest Pain traMADol TAB [Ultram] 50 mg PO BID tablet Pantoprazole Tab [Protonix Tab] 40 mg PO BID #60 tablet Alum/Mag/Simeth Max Str Liquid [Mylanta Max Strength Liquid] 30 ml PO Q4H PRN #1 bottle PRN Reason: Dyspepsia Isosorbide Mononitrate [Imdur] 30 mg PO DAILY #30 tablet Rosuvastatin [Crestor] 10 mg PO BEDTIME #30 tablet - Follow Up or Referral Follow Up: Your,PCP [Other] - Forms/Instructions Exam - Constitutional Vitals: Period Temp Pulse Resp BP Sys/Webster Pulse Ox Last 24 Hr 96.9 F-98.0 F 53-70 17-20 107-162/54-78 95-100 Discharge Results Procedures and tests throughout hospitalization: Pending Orders 10/25/16 09:42 Occult Blood, Stool Routine Labs on day of discharge: Labs from last 24 hours 10/29/16 10/29/16 04:18 04:18 WBC 6.0 RBC 5.54 H Hgb 13.3 L Hct 41.1 L MCV 74.2 L MCH 24 L MCHC 32.4 RDW 14.6 Plt Count 209 MPV 10.9 Neut % (Auto) 36.8 L Lymph % (Auto) 49.5 [place] % (Auto) 11.5 Eos % (Auto) 1.7 Baso % (Auto) 0.3 Neut # (Auto) 2.2 Lymph # (Auto) 3.0 [place] # (Auto) 0.7 Eos # (Auto) 0.1 Baso # (Auto) 0.0 Total Counted 100 Immature Gran % 0.2 Nucleated RBC % 0.0 Immature Gran # 0.01 Segmented Neutrophils 37 L Band Neutrophils 1 Lymphocytes 48 Monocytes 11 Eosinophils 3 Nucleated RBCs # 0.00 Platelet Estimate Normal Immature Plt Fraction 0.0 Sodium 139 Potassium 4.6 Chloride 104 Carbon Dioxide 31 Anion Gap 8.6 BUN 11 Creatinine 0.90 GFR Calculation 121 BUN/Creatinine Ratio 12.00 Glucose 91 Calculated Osmolality 275.5 Calcium 9.1 Magnesium 2.3 DS: Provider Date of admission: 10/24/16 13:46 Primary care physician: . No PCP Attending physician on admission: Geronimo Barth MD Consults: 10/26/16 17:23 Consult to Physician [CONS] Routine Comment: right upper quadrant pain, history of antral gastr Consulting Provider: Vik Solorzano Person Notified: Ekta Date Notified: 10/27/16 Time Notified: 08:55 10/27/16 08:50 Consult to Anesthesiology [CONS] Routine Consulting Provider: Reason for Anesthesiology: Pre-op Clearance Discharging clinician: Devyn Gonzalez MD
[2016-10-29] MEDS ORDERED: SODIUM PHOSPHATE ENEMA 133 ML BOTTLE RECTAL ONE (09:25)
[2016-10-29 11:40] VITALS: BP 109/56
--- NOTE | 2016-10-29 12:21 | Pathology Report from [facility] ---
[facility] ACCESSION # : [id number] PATIENT NAME : Brad Amato ORDERING DR : Vik Solorzano MD CLINICAL HX: Abdominal pain - Dysphagia POST-OP DX: BRENNON SPECIMEN INFO: BRENNON GROSS DESCRIPTION: The specimen is received in formalin labeled with the patients name and consists of an aggregate of pink-baker mucosal tissue collectively measuring 0.4 x 0.4 cm. Submitted in one cassette. DIAGNOSIS FOR BRAD AMATO: GASTRIC ANTRAL BIOPSY: Mild chronic gastritis. No evidence of malignancy. H. pylori not seen on H&E or special stain with appropriate control. COLLECTED DATE: 10/28/2016 [facility] REPORT DATE: 10/29/2016 ELECTRONICALLY SIGNED BY: Wily Hoffman III, M.D. 10/29/2016 - 9:42:37 MTDTen
== END 2016-10-29 11:52 | disposition home or self-care (01) | DRG 392 ==
LOC: N.EDINP 12:03 → N.ED 12:03 → SUATTDRO 13:46 → OBSVTOIN 13:46 → N.TELEN 16:50
PROVIDERS: ADMIT Internal Medicine Infectious Disease; ATTEND Internal Medicine

== ENCOUNTER 2017-02-09 07:57 | Observation (INO) ==
[2017-02-09] MEDS ORDERED: ENOXAPARIN 100 MG/ML SYRINGE SUBCUT STA (08:17)
[2017-02-09] MEDS ORDERED: NITROGLYCERIN SL 0.4 MG TABLET SL ONE ×2 (08:29→09:34)
[2017-02-09] MEDS ORDERED: ENOXAPARIN 80 MG/0.8 ML SYRINGE SUBCUT ONE (08:29)
[2017-02-09] MEDS: NITROGLYCERIN SL 0.4 MG TABLET SL PRN ×2 (08:30→09:41)
[2017-02-09] MEDS ORDERED: ONDANSETRON 4 MG/2 ML VIAL ONE (08:32)
[2017-02-09] MEDS ORDERED: ONDANSETRON 4 MG/2 ML VIAL IV STA (08:34)
[2017-02-09 08:57] LABS: Basophils % 0.2 % (0.0-0.8); Eosinophils # 0.1 10*3/uL (0.0-0.87); Eosinophils % 1.9 % (0.00-10.9); Hematocrit 41.9 VOL% (42.0-52.0); Hemoglobin 13.2 GM/DL (14.0-18.0); Immature Granulocytes % 0.2 %; Immature Granulocytes Absolute 0.01 #; Lymphocytes # 2.1 10*3/uL (1.4-4.0); Lymphocytes % 45.9 % (21.2-54.2); Mean Corpuscular HGB Conc 31.5 GM/DL (32-36); Mean Corpuscular Hemoglobin 24 PG (27-34); Mean Corpuscular Volume 75.5 FL (87-102); Mean Platelet Volume 11.4 FL (9.6-12.0); Monocytes # 0.5 10*3/uL (0.11-0.8); Monocytes % 10.9 % (1.7-12.7); Neutrophils # 1.9 10*3/uL (1.4-7.4); Neutrophils % 40.9 % (38.7-73.9); Platelet Count 197 T/CUMM (130-400); Red Blood Count 5.55 MC/CUMM (3.8-5.5); Red Cell Distribution Width 14.6 % (9.3-17.3); White Blood Count 4.7 T/CUMM (4-12)
[2017-02-09 09:30] LABS: Albumin 3.9 G/DL (3.4-5.0); Bilirubin,Total 0.7 MG/DL (0.2-1.0); Calcium 9.1 MG/DL (8.5-10.1); Magnesium 1.9 MG/DL (1.8-2.4); Total Protein 7.2 G/DL (6.4-8.3)
[2017-02-09] MEDS ORDERED: ACETAMINOPHEN 500 MG TABLET ONE (09:34)
[2017-02-09] MEDS ORDERED: ACETAMINOPHEN 500 MG TABLET PO STA (09:40)
[2017-02-09] MEDS ORDERED: ALUM/MAG/SIMETH/LIDO VISC 1:1 30 ML BOTTLE PO STA (13:08)
[2017-02-09] MEDS ORDERED: ALUM/MAG/SIMETH/LIDO VISC 1:1 30 ML BOTTLE PO ONE (15:23)
[2017-02-09] MEDS ORDERED: ACETAMINOPHEN 325 MG TABLET PO PRN (16:04)
[2017-02-09] MEDS ORDERED: ONDANSETRON 4 MG/2 ML VIAL IV PRN (16:04)
[2017-02-09] MEDS: PANTOPRAZOLE 40 MG TABLET PO SCH (21:22)
[2017-02-10 03:34] LABS: Basophils % 0.5 % (0.0-0.8); Eosinophils # 0.1 10*3/uL (0.0-0.87); Eosinophils % 2.3 % (0.00-10.9); Hematocrit 39.4 VOL% (42.0-52.0); Hemoglobin 12.8 GM/DL (14.0-18.0); Immature Granulocytes % 0.2 %; Immature Granulocytes Absolute 0.01 #; Lymphocytes # 2.2 10*3/uL (1.4-4.0); Mean Corpuscular HGB Conc 32.5 GM/DL (32-36); Mean Corpuscular Hemoglobin 24 PG (27-34); Mean Corpuscular Volume 74.1 FL (87-102); Monocytes # 0.6 10*3/uL (0.11-0.8); Monocytes % 13.6 % (1.7-12.7); Neutrophils # 1.5 10*3/uL (1.4-7.4); Neutrophils % 33.4 % (38.7-73.9); Platelet Count 188 T/CUMM (130-400); Red Blood Count 5.32 MC/CUMM (3.8-5.5); Red Cell Distribution Width 14.6 % (9.3-17.3); White Blood Count 4.4 T/CUMM (4-12)
[2017-02-10 04:19] LABS: Calcium 8.3 MG/DL (8.5-10.1); Osmolality,Calculated 278.4 MOS/KG (273-304)
[2017-02-10 04:52] LABS: Eosinophils 4 % (0-10); Lymphocytes 67 % (20-55); Segmented Neutrophils 23 % (50-85); Total Cells Counted 100
[2017-02-10 04:54] LABS: Giant Platelets Few; Hypochromasia Slight; Platelet Estimate Normal; Target Cells Few
[2017-02-10] MEDS: PANTOPRAZOLE 40 MG TABLET PO SCH ×2 (09:42→22:07)
[2017-02-10] MEDS: ISOSORBIDE MONONITRATE 30 MG TABLET PO SCH (09:42)
[2017-02-10] MEDS: CARVEDILOL 6.25 MG TABLET PO SCH ×2 (09:42→22:07)
[2017-02-10] MEDS: GABAPENTIN 100 MG CAPSULE PO SCH ×3 (09:42→22:07)
[2017-02-10] MEDS: LOSARTAN 50 MG TABLET PO SCH (09:42)
[2017-02-10] MEDS: ROSUVASTATIN 10 MG TABLET PO SCH (22:07)
[2017-02-11] MEDS ORDERED: LIDOCAINE 2% 5 ML VIAL ONE (10:52)
[2017-02-11] MEDS ORDERED: PROPOFOL 200 MG/20 ML VIAL IV ONE (10:52)
[2017-02-11] MEDS: GABAPENTIN 100 MG CAPSULE PO SCH ×3 (12:13→22:54)
[2017-02-11] MEDS: CARVEDILOL 6.25 MG TABLET PO SCH ×2 (12:13→22:51)
[2017-02-11] MEDS: ISOSORBIDE MONONITRATE 30 MG TABLET PO SCH (12:13)
[2017-02-11] MEDS: LOSARTAN 50 MG TABLET PO SCH (12:13)
[2017-02-11] MEDS: PANTOPRAZOLE 40 MG TABLET PO SCH ×2 (12:13→22:51)
[2017-02-11 13:14] LABS: Blood Urea Nitrogen 12 MG/DL (7-18); Calcium 8.5 MG/DL (8.5-10.1); Glucose 110 MG/DL (74-106); Magnesium 1.9 MG/DL (1.8-2.4); Osmolality,Calculated 283.1 MOS/KG (273-304); Potassium 4.2 MMOL/L (3.5-5.1); Sodium 142 MMOL/L (136-145); Troponin I Only < 0.015 NG/ML (0.00-0.045)
[2017-02-11] MEDS ORDERED: guaiFENesin/DM ER 600-30 MG TABLET PO PRN (19:53)
[2017-02-11] MEDS ORDERED: traMADol 50 MG TABLET PO SCH (21:00)
[2017-02-11] MEDS: ROSUVASTATIN 10 MG TABLET PO SCH (22:54)
[2017-02-12 05:06] LABS: Basophils % 0.4 % (0.0-0.8); Eosinophils # 0.1 10*3/uL (0.0-0.87); Eosinophils % 2.2 % (0.00-10.9); Hematocrit 41.2 VOL% (42.0-52.0); Hemoglobin 13.4 GM/DL (14.0-18.0); Immature Granulocytes % 0.2 %; Immature Granulocytes Absolute 0.01 #; Lymphocytes # 1.8 10*3/uL (1.4-4.0); Lymphocytes % 39.8 % (21.2-54.2); Mean Corpuscular HGB Conc 32.5 GM/DL (32-36); Mean Corpuscular Hemoglobin 24 PG (27-34); Mean Corpuscular Volume 74.1 FL (87-102); Mean Platelet Volume 12.1 FL (9.6-12.0); Monocytes # 0.6 10*3/uL (0.11-0.8); Monocytes % 13.7 % (1.7-12.7); Neutrophils % 43.7 % (38.7-73.9); Platelet Count 200 T/CUMM (130-400); Red Blood Count 5.56 MC/CUMM (3.8-5.5); Red Cell Distribution Width 14.4 % (9.3-17.3); White Blood Count 4.5 T/CUMM (4-12)
[2017-02-12 05:35] LABS: Osmolality,Calculated 277.5 MOS/KG (273-304); Potassium 4.3 MMOL/L (3.5-5.1)
[2017-02-12] MEDS: CARVEDILOL 6.25 MG TABLET PO SCH (09:18)
[2017-02-12] MEDS: LOSARTAN 50 MG TABLET PO SCH (09:18)
[2017-02-12] MEDS: ISOSORBIDE MONONITRATE 30 MG TABLET PO SCH (09:19)
[2017-02-12] MEDS: PANTOPRAZOLE 40 MG TABLET PO SCH (09:19)
[2017-02-12] MEDS: GABAPENTIN 100 MG CAPSULE PO SCH (10:36)
[2017-02-12] MEDS ORDERED: KETOROLAC 30 MG/1 ML VIAL IV ONE (11:13)
[2017-02-12 12:48] VITALS: BP 143/70
== END 2017-02-12 12:30 | disposition home or self-care (01) ==
LOC: N.EDINP 07:57 → N.ED 07:57 → SUATTDRO 11:49 → N.TELEN 17:30
PROVIDERS: ADMIT Internal Medicine; ATTEND Internal Medicine

== ENCOUNTER 2017-02-25 12:42 | Inpatient (IN) ==
[2017-02-25] MEDS ORDERED: ASPIRIN 325 MG TABLET PO STA (16:39)
[2017-02-25] MEDS ORDERED: ENOXAPARIN 100 MG/ML SYRINGE SUBCUT STA (16:39)
[2017-02-25] MEDS ORDERED: NITROGLYCERIN SL 0.4 MG TABLET SL PRN ×2 (16:39→18:49)
[2017-02-25] MEDS ORDERED: ENOXAPARIN 80 MG/0.8 ML SYRINGE SUBCUT ONE (16:47)
[2017-02-25] MEDS ORDERED: ASPIRIN 325 MG TABLET ONE (16:48)
[2017-02-25] MEDS ORDERED: NITROGLYCERIN SL 0.4 MG TABLET SL ONE (16:48)
[2017-02-25 17:04] LABS: Basophils % 0.5 % (0.0-0.8); Eosinophils # 0.1 10*3/uL (0.0-0.87); Eosinophils % 1.4 % (0.00-10.9); Hematocrit 40.1 VOL% (42.0-52.0); Hemoglobin 12.5 GM/DL (14.0-18.0); Immature Granulocytes % 0.2 %; Immature Granulocytes Absolute 0.01 #; Lymphocytes # 2.7 10*3/uL (1.4-4.0); Lymphocytes % 48.1 % (21.2-54.2); Mean Corpuscular HGB Conc 31.2 GM/DL (32-36); Mean Corpuscular Hemoglobin 24 PG (27-34); Mean Corpuscular Volume 76.1 FL (87-102); Mean Platelet Volume 11.3 FL (9.6-12.0); Monocytes # 0.6 10*3/uL (0.11-0.8); Monocytes % 9.9 % (1.7-12.7); Neutrophils # 2.3 10*3/uL (1.4-7.4); Neutrophils % 39.9 % (38.7-73.9); Platelet Count 188 T/CUMM (130-400); Red Blood Count 5.27 MC/CUMM (3.8-5.5); Red Cell Distribution Width 14.5 % (9.3-17.3); White Blood Count 5.7 T/CUMM (4-12)
[2017-02-25 17:27] LABS: Alanine Aminotransferase 37 U/L (16-61); Albumin 3.8 G/DL (3.4-5.0); Alkaline Phosphatase 81 U/L (45-117); Aspartate Amino Transferase 16 U/L (0-37); Bilirubin,Total < 0.39 MG/DL (0.2-1.0); Blood Urea Nitrogen 11 MG/DL (7-18); Calcium 8.6 MG/DL (8.5-10.1); Glucose 86 MG/DL (74-106); Osmolality,Calculated 280.1 MOS/KG (273-304); Potassium 3.5 MMOL/L (3.5-5.1); Sodium 142 MMOL/L (136-145); Total Protein 7.7 G/DL (6.4-8.3)
[2017-02-25] MEDS ORDERED: ONDANSETRON 4 MG/2 ML VIAL IV PRN (18:11)
[2017-02-25] MEDS ORDERED: ACETAMINOPHEN 325 MG TABLET PO PRN (18:11)
[2017-02-25] MEDS ORDERED: MORPHINE 10 MG/1 ML VIAL IV PRN (18:11)
[2017-02-25] MEDS ORDERED: PNEUMOCOCCAL VACCINE (23 VALENT) 0.5 ML VIAL IM ONE (19:00)
[2017-02-25] MEDS: GABAPENTIN 100 MG CAPSULE PO SCH (20:37)
[2017-02-25] MEDS: traZODone 50 MG TABLET PO SCH (20:37)
[2017-02-25] MEDS: CARVEDILOL 6.25 MG TABLET PO SCH (20:37)
[2017-02-25] MEDS: METOPROLOL TARTRATE 25 MG TABLET PO SCH (20:37)
[2017-02-25] MEDS: ROSUVASTATIN 10 MG TABLET PO SCH (20:39)
[2017-02-25 20:52] LABS: PT Patient Result 10.8 SECS
[2017-02-25] MEDS: FLUTICASONE 50 MCG NASAL SPRAY 16 GM BOTTLE BOTH NARES SCH (22:55)
[2017-02-26 06:11] LABS: Basophils % 0.5 % (0.0-0.8); Eosinophils # 0.1 10*3/uL (0.0-0.87); Eosinophils % 2.1 % (0.00-10.9); Hematocrit 39.2 VOL% (42.0-52.0); Hemoglobin 12.3 GM/DL (14.0-18.0); Immature Granulocytes % 0.2 %; Immature Granulocytes Absolute 0.01 #; Lymphocytes # 2.1 10*3/uL (1.4-4.0); Lymphocytes % 49.4 % (21.2-54.2); Mean Corpuscular HGB Conc 31.4 GM/DL (32-36); Mean Corpuscular Hemoglobin 24 PG (27-34); Mean Corpuscular Volume 75.8 FL (87-102); Monocytes # 0.6 10*3/uL (0.11-0.8); Monocytes % 13.5 % (1.7-12.7); Neutrophils # 1.5 10*3/uL (1.4-7.4); Neutrophils % 34.3 % (38.7-73.9); Platelet Count 165 T/CUMM (130-400); Red Blood Count 5.17 MC/CUMM (3.8-5.5); White Blood Count 4.3 T/CUMM (4-12)
[2017-02-26 06:46] LABS: Calcium 8.7 MG/DL (8.5-10.1); Osmolality,Calculated 282.1 MOS/KG (273-304); Potassium 3.9 MMOL/L (3.5-5.1)
[2017-02-26 07:11] LABS: Band Neutrophils 1 % (0-10); Eosinophils 2 % (0-10); Hypochromasia 1+; Lymphocytes 54 % (20-55); Microcytosis 1+; Segmented Neutrophils 35 % (50-85); Total Cells Counted 100
[2017-02-26 07:12] LABS: Platelet Estimate Adequate
[2017-02-26] MEDS: LOSARTAN 50 MG TABLET PO SCH (08:26)
[2017-02-26] MEDS: GABAPENTIN 100 MG CAPSULE PO SCH ×3 (08:26→20:24)
[2017-02-26] MEDS: ISOSORBIDE MONONITRATE 30 MG TABLET PO SCH (08:26)
[2017-02-26] MEDS: CARVEDILOL 6.25 MG TABLET PO SCH ×2 (08:27→16:07)
[2017-02-26] MEDS: PANTOPRAZOLE 40 MG TABLET PO SCH (08:27)
[2017-02-26] MEDS: METOPROLOL TARTRATE 25 MG TABLET PO SCH ×2 (08:27→20:24)
[2017-02-26] MEDS: FLUTICASONE 50 MCG NASAL SPRAY 16 GM BOTTLE BOTH NARES SCH ×2 (08:27→20:24)
[2017-02-26] MEDS: amLODIPine 5 MG TABLET PO SCH (11:25)
[2017-02-26] MEDS: traMADol 50 MG TABLET PO PRN (11:41)
[2017-02-26] MEDS ORDERED: ALUM/MAG/SIMETH/LIDO VISC 1:1 30 ML BOTTLE PO ONE (11:52)
[2017-02-26] MEDS: ENOXAPARIN 40 MG/0.4 ML SYRINGE SUBCUT SCH (16:07)
[2017-02-26] MEDS: ROSUVASTATIN 10 MG TABLET PO SCH (20:24)
[2017-02-26] MEDS: traZODone 50 MG TABLET PO SCH (20:24)
[2017-02-27] MEDS: amLODIPine 5 MG TABLET PO SCH (08:37)
[2017-02-27] MEDS: LOSARTAN 50 MG TABLET PO SCH (08:37)
[2017-02-27] MEDS: ISOSORBIDE MONONITRATE 30 MG TABLET PO SCH (08:37)
[2017-02-27] MEDS: GABAPENTIN 100 MG CAPSULE PO SCH ×3 (08:37→21:30)
[2017-02-27] MEDS: METOPROLOL TARTRATE 25 MG TABLET PO SCH ×2 (08:38→21:30)
[2017-02-27] MEDS: PANTOPRAZOLE 40 MG TABLET PO SCH (08:38)
[2017-02-27] MEDS: traMADol 50 MG TABLET PO PRN ×3 (08:38→21:36)
[2017-02-27] MEDS: CARVEDILOL 6.25 MG TABLET PO SCH ×2 (08:38→16:33)
[2017-02-27] MEDS: FLUTICASONE 50 MCG NASAL SPRAY 16 GM BOTTLE BOTH NARES SCH ×2 (08:40→21:30)
[2017-02-27] MEDS: NICOTINE 14 MG/24 HR PATCH TRANSDERM SCH (11:10)
[2017-02-27] MEDS: ENOXAPARIN 40 MG/0.4 ML SYRINGE SUBCUT SCH (16:33)
[2017-02-27] MEDS: traZODone 50 MG TABLET PO SCH (21:30)
[2017-02-27] MEDS: ROSUVASTATIN 10 MG TABLET PO SCH (21:30)
[2017-02-28] MEDS: traMADol 50 MG TABLET PO PRN (04:46)
[2017-02-28] MEDS: NICOTINE 14 MG/24 HR PATCH TRANSDERM SCH (09:40)
[2017-02-28] MEDS: GABAPENTIN 100 MG CAPSULE PO SCH ×3 (09:41→21:11)
[2017-02-28] MEDS: METOPROLOL TARTRATE 25 MG TABLET PO SCH ×2 (09:41→21:11)
[2017-02-28] MEDS: amLODIPine 5 MG TABLET PO SCH (09:41)
[2017-02-28] MEDS: PANTOPRAZOLE 40 MG TABLET PO SCH (09:41)
[2017-02-28] MEDS: CARVEDILOL 6.25 MG TABLET PO SCH (09:42)
[2017-02-28] MEDS: LOSARTAN 50 MG TABLET PO SCH (09:42)
[2017-02-28] MEDS: FLUTICASONE 50 MCG NASAL SPRAY 16 GM BOTTLE BOTH NARES SCH ×2 (09:42→21:11)
[2017-02-28] MEDS: ISOSORBIDE MONONITRATE 30 MG TABLET PO SCH (09:42)
[2017-02-28] MEDS: FUROSEMIDE 20 MG/2 ML VIAL IV SCH ×2 (11:11→16:07)
[2017-02-28] MEDS ORDERED: ALUM/MAG/SIMETH/LIDO VISC 1:1 30 ML BOTTLE PO ONE (14:30)
[2017-02-28] MEDS: ISOSORBIDE MONONITRATE 60 MG TABLET PO SCH (16:06)
[2017-02-28] MEDS: RANOLAZINE 500 MG TABLET PO SCH ×2 (16:06→21:10)
[2017-02-28] MEDS: ENOXAPARIN 40 MG/0.4 ML SYRINGE SUBCUT SCH (16:07)
[2017-02-28] MEDS: ASPIRIN EC 81 MG TABLET PO SCH (16:07)
[2017-02-28] MEDS: traMADol 50 MG TABLET PO SCH ×2 (16:07→21:11)
[2017-02-28] MEDS ORDERED: MAGNESIUM HYDROXIDE SUSP 30 ML UDCUP PO PRN (20:12)
[2017-02-28] MEDS ORDERED: TICAGRELOR 90 MG TABLET PO SCH (21:00)
[2017-02-28] MEDS ORDERED: DILTIAZEM CD 120 MG CAPSULE PO SCH (21:00)
[2017-02-28] MEDS: ROSUVASTATIN 10 MG TABLET PO SCH (21:10)
[2017-02-28] MEDS: traZODone 50 MG TABLET PO SCH (21:11)
[2017-03-01 04:41] LABS: Basophils % 0.2 % (0.0-0.8); Eosinophils # 0.1 10*3/uL (0.0-0.87); Eosinophils % 1.4 % (0.00-10.9); Hematocrit 38.5 VOL% (42.0-52.0); Hemoglobin 11.9 GM/DL (14.0-18.0); Immature Granulocytes % 0.5 %; Immature Granulocytes Absolute 0.02 #; Lymphocytes % 46.7 % (21.2-54.2); Mean Corpuscular HGB Conc 30.9 GM/DL (32-36); Mean Corpuscular Hemoglobin 24 PG (27-34); Mean Corpuscular Volume 76.2 FL (87-102); Mean Platelet Volume 12.2 FL (9.6-12.0); Monocytes # 0.7 10*3/uL (0.11-0.8); Monocytes % 15.4 % (1.7-12.7); Neutrophils # 1.5 10*3/uL (1.4-7.4); Neutrophils % 35.8 % (38.7-73.9); Platelet Count 174 T/CUMM (130-400); Red Blood Count 5.05 MC/CUMM (3.8-5.5); Red Cell Distribution Width 14.1 % (9.3-17.3); White Blood Count 4.3 T/CUMM (4-12)
[2017-03-01 05:27] LABS: Calcium 8.4 MG/DL (8.5-10.1); Osmolality,Calculated 279.4 MOS/KG (273-304); Potassium 4.3 MMOL/L (3.5-5.1)
[2017-03-01 06:54] LABS: Eosinophils 1 % (0-10); Lymphocytes 52 % (20-55); Platelet Estimate Normal; Segmented Neutrophils 31 % (50-85); Total Cells Counted 100
[2017-03-01 06:55] LABS: Giant Platelets Few; Hypochromasia 1+; Microcytosis Slight
[2017-03-01] MEDS ORDERED: PROPOFOL 200 MG/20 ML VIAL IV ONE (08:26)
[2017-03-01] MEDS ORDERED: LIDOCAINE 2% 5 ML VIAL ONE (08:26)
[2017-03-01] MEDS: FUROSEMIDE 20 MG/2 ML VIAL IV SCH (08:52)
[2017-03-01] MEDS: GABAPENTIN 100 MG CAPSULE PO SCH (08:53)
[2017-03-01] MEDS: RANOLAZINE 500 MG TABLET PO SCH (08:53)
[2017-03-01] MEDS: FLUTICASONE 50 MCG NASAL SPRAY 16 GM BOTTLE BOTH NARES SCH (08:53)
[2017-03-01] MEDS: METOPROLOL TARTRATE 25 MG TABLET PO SCH (08:53)
[2017-03-01] MEDS: traMADol 50 MG TABLET PO SCH (08:53)
[2017-03-01] MEDS: ASPIRIN EC 81 MG TABLET PO SCH (10:38)
[2017-03-01] MEDS: LOSARTAN 50 MG TABLET PO SCH (10:38)
[2017-03-01] MEDS: PANTOPRAZOLE 40 MG TABLET PO SCH (10:38)
[2017-03-01] MEDS: ISOSORBIDE MONONITRATE 60 MG TABLET PO SCH (10:38)
[2017-03-01] MEDS: NICOTINE 14 MG/24 HR PATCH TRANSDERM SCH (10:42)
[2017-03-01 12:19] VITALS: BP 128/66
== END 2017-03-01 14:35 | disposition home or self-care (01) | DRG 313 ==
LOC: N.ED 12:42 → N.EDINP 12:42 → SUATTDRO 17:49 → N.TELES 18:06
PROVIDERS: ADMIT Internal Medicine Infectious Disease; ATTEND Internal Medicine Geriatric Medicine

== ENCOUNTER 2017-04-18 14:14 | Observation (INO) ==
[2017-04-18] MEDS ORDERED: ENOXAPARIN 100 MG/ML SYRINGE SUBCUT STA (14:51)
[2017-04-18] MEDS ORDERED: ENOXAPARIN 100 MG/ML SYRINGE SUBCUT ONE (14:58)
[2017-04-18 15:03] LABS: Basophils % 0.3 % (0.0-0.8); Eosinophils # 0.1 10*3/uL (0.0-0.87); Hematocrit 42.2 VOL% (42.0-52.0); Hemoglobin 13.6 GM/DL (14.0-18.0); Immature Granulocytes % 0.3 %; Immature Granulocytes Absolute 0.02 #; Lymphocytes # 2.7 10*3/uL (1.4-4.0); Lymphocytes % 47.1 % (21.2-54.2); Mean Corpuscular HGB Conc 32.2 GM/DL (32-36); Mean Corpuscular Hemoglobin 24 PG (27-34); Mean Corpuscular Volume 74.2 FL (87-102); Mean Platelet Volume 11.6 FL (9.6-12.0); Monocytes # 0.7 10*3/uL (0.11-0.8); Monocytes % 11.9 % (1.7-12.7); Neutrophils # 2.3 10*3/uL (1.4-7.4); Neutrophils % 39.4 % (38.7-73.9); Platelet Count 231 T/CUMM (130-400); Red Blood Count 5.69 MC/CUMM (3.8-5.5); Red Cell Distribution Width 14.5 % (9.3-17.3); White Blood Count 5.8 T/CUMM (4-12)
[2017-04-18] MEDS ORDERED: NITROGLYCERIN SL 0.4 MG TABLET SL ONE (15:04)
[2017-04-18] MEDS: NITROGLYCERIN SL 0.4 MG TABLET SL PRN ×2 (15:05→15:19)
[2017-04-18 15:16] LABS: Alanine Aminotransferase 43 U/L (16-61); Albumin 3.9 G/DL (3.4-5.0); Alkaline Phosphatase 92 U/L (45-117); Aspartate Amino Transferase 25 U/L (0-37); Bilirubin,Total < 0.39 MG/DL (0.2-1.0); Blood Urea Nitrogen 13 MG/DL (7-18); Calcium 9.1 MG/DL (8.5-10.1); Glucose 75 MG/DL (74-106); Osmolality,Calculated 275.5 MOS/KG (273-304); Potassium 4.1 MMOL/L (3.5-5.1); Sodium 139 MMOL/L (136-145); Total Protein 7.7 G/DL (6.4-8.3)
[2017-04-18] MEDS ORDERED: ACETAMINOPHEN 325 MG TABLET PO PRN (17:35)
[2017-04-18] MEDS ORDERED: MORPHINE 2 MG/1 ML SYRINGE IV PRN (17:35)
[2017-04-18] MEDS ORDERED: ZALEPLON 5 MG CAPSULE PO PRN (17:35)
[2017-04-18] MEDS ORDERED: POTASSIUM CHLORIDE RIDER 10 MEQ in PREMIX 1 EACH IV PRN (17:35)
[2017-04-18] MEDS ORDERED: MAGNESIUM SULF RIDER 2 GM in PREMIX 1 EACH IV PRN (17:35)
[2017-04-18] MEDS ORDERED: DOCUSATE SODIUM 100 MG CAPSULE PO PRN (17:35)
[2017-04-18] MEDS ORDERED: ONDANSETRON 4 MG/2 ML VIAL IV PRN (17:35)
[2017-04-18] MEDS ORDERED: POTASSIUM CHLORIDE 20 MEQ TABLET PO PRN (17:49)
[2017-04-18] MEDS ORDERED: CYCLOBENZAPRINE 10 MG TABLET PO PRN (19:19)
[2017-04-18] MEDS: RANOLAZINE 500 MG TABLET PO SCH (20:06)
[2017-04-18] MEDS: METOPROLOL TARTRATE 25 MG TABLET PO SCH (20:06)
[2017-04-18] MEDS: traZODone 50 MG TABLET PO SCH (20:06)
[2017-04-18] MEDS: ROSUVASTATIN 10 MG TABLET PO SCH (20:06)
[2017-04-18] MEDS: PANTOPRAZOLE 40 MG TABLET PO SCH (20:06)
[2017-04-18] MEDS ORDERED: ENOXAPARIN 40 MG/0.4 ML SYRINGE SUBCUT SCH (21:00)
[2017-04-19 05:02] LABS: Basophils % 0.2 % (0.0-0.8); Eosinophils # 0.1 10*3/uL (0.0-0.87); Eosinophils % 0.9 % (0.00-10.9); Hematocrit 40.6 VOL% (42.0-52.0); Immature Granulocytes % 0.2 %; Immature Granulocytes Absolute 0.01 #; Lymphocytes # 3.2 10*3/uL (1.4-4.0); Lymphocytes % 60.6 % (21.2-54.2); Mean Corpuscular Hemoglobin 24 PG (27-34); Mean Corpuscular Volume 73.3 FL (87-102); Mean Platelet Volume 10.7 FL (9.6-12.0); Monocytes # 0.6 10*3/uL (0.11-0.8); Monocytes % 10.8 % (1.7-12.7); Neutrophils # 1.5 10*3/uL (1.4-7.4); Neutrophils % 27.3 % (38.7-73.9); Platelet Count 212 T/CUMM (130-400); Red Blood Count 5.54 MC/CUMM (3.8-5.5); Red Cell Distribution Width 14.3 % (9.3-17.3); White Blood Count 5.3 T/CUMM (4-12)
[2017-04-19 05:31] LABS: Eosinophils 1 % (0-10); Giant Platelets Few; Hypochromasia 1+; Lymphocytes 66 % (20-55); Microcytosis Slight; Platelet Estimate Adequate; Segmented Neutrophils 26 % (50-85); Total Cells Counted 100
[2017-04-19 05:33] LABS: Calcium 8.7 MG/DL (8.5-10.1); Osmolality,Calculated 281.1 MOS/KG (273-304); Potassium 3.8 MMOL/L (3.5-5.1); Risk Ratio 4.23; VLDL CHOLESTEROL 41.2 MG/DL
[2017-04-19] MEDS ORDERED: PANTOPRAZOLE 40 MG TABLET PO SCH (09:00)
[2017-04-19] MEDS: RANOLAZINE 500 MG TABLET PO SCH ×2 (09:09→20:46)
[2017-04-19] MEDS: METOPROLOL TARTRATE 25 MG TABLET PO SCH (09:10)
[2017-04-19] MEDS: ASPIRIN EC 81 MG TABLET PO SCH (09:10)
[2017-04-19] MEDS: LOSARTAN 50 MG TABLET PO SCH (09:10)
[2017-04-19] MEDS: ISOSORBIDE MONONITRATE 60 MG TABLET PO SCH (09:10)
[2017-04-19] MEDS: PANTOPRAZOLE 40 MG TABLET PO SCH ×2 (09:15→20:47)
[2017-04-19] MEDS: METOPROLOL SUCCINATE XL 25 MG TABLET PO SCH (09:44)
[2017-04-19] MEDS ORDERED: diphenhydrAMINE CAP 25 MG CAPSULE PO ONE (09:45)
[2017-04-19] MEDS ORDERED: MAGNESIUM SULF RIDER 2 GM in PREMIX 1 EACH IV PRN (09:45)
[2017-04-19] MEDS ORDERED: DIAZEPAM 5 MG TABLET PO ONE (09:45)
[2017-04-19] MEDS ORDERED: POTASSIUM CHLORIDE RIDER 10 MEQ in PREMIX 1 EACH IV PRN (09:45)
[2017-04-19] MEDS ORDERED: LIDOCAINE 1% 20 ML VIAL ONE ×3 (10:02→13:09)
[2017-04-19] MEDS ORDERED: HEPARIN/NACL 0.9% 2 UNITS/ML 2,000 ML IV ONE ×2 (10:02→13:09)
[2017-04-19] MEDS: SODIUM CHLORIDE 0.45% 1,000 ML IV SCH ×2 (10:24→23:42)
[2017-04-19] MEDS ORDERED: diphenhydrAMINE 50 MG/1 ML VIAL IV ONE (12:44)
[2017-04-19] MEDS: methylPREDNISolone SOD SUC 40 MG/1 ML VIAL IV SCH (13:01)
[2017-04-19] MEDS ORDERED: MIDAZOLAM 2 MG/2 ML VIAL ONE (13:08)
[2017-04-19] MEDS ORDERED: HYDROmorphone 2 MG/1 ML VIAL ONE (13:08)
[2017-04-19] MEDS ORDERED: FAMOTIDINE 20 MG/2 ML VIAL IV ONE (13:19)
[2017-04-19] MEDS ORDERED: BIVALIRUDIN 250 MG VIAL IV ONE (13:41)
[2017-04-19] MEDS ORDERED: ADENOSINE 90 MG/30 ML VIAL IV ONE (14:00)
[2017-04-19] MEDS ORDERED: TICAGRELOR 90 MG TABLET ONE (14:39)
[2017-04-19] MEDS ORDERED: ZALEPLON 5 MG CAPSULE PO PRN (14:48)
[2017-04-19] MEDS: FAMOTIDINE INJ 40 MG in SODIUM CHLORIDE 0.9% 100 ML IV SCH (15:23)
[2017-04-19] MEDS: ROSUVASTATIN 10 MG TABLET PO SCH (20:46)
[2017-04-19] MEDS: TICAGRELOR 90 MG TABLET PO SCH (20:47)
[2017-04-19] MEDS: traZODone 50 MG TABLET PO SCH (20:47)
[2017-04-19] MEDS: NICOTINE 21 MG/24 HR PATCH TRANSDERM SCH (23:41)
[2017-04-20] MEDS: methylPREDNISolone SOD SUC 40 MG/1 ML VIAL IV SCH ×2 (02:20→14:11)
[2017-04-20] MEDS: FAMOTIDINE INJ 40 MG in SODIUM CHLORIDE 0.9% 100 ML IV SCH ×2 (02:33→14:11)
[2017-04-20 04:55] LABS: Basophils % 0.1 % (0.0-0.8); Eosinophils % 0.1 % (0.00-10.9); Hematocrit 39.2 VOL% (42.0-52.0); Hemoglobin 12.3 GM/DL (14.0-18.0); Immature Granulocytes % 0.6 %; Immature Granulocytes Absolute 0.08 #; Lymphocytes # 0.9 10*3/uL (1.4-4.0); Lymphocytes % 6.3 % (21.2-54.2); Mean Corpuscular HGB Conc 31.4 GM/DL (32-36); Mean Corpuscular Hemoglobin 24 PG (27-34); Mean Corpuscular Volume 74.8 FL (87-102); Mean Platelet Volume 11.3 FL (9.6-12.0); Monocytes # 0.4 10*3/uL (0.11-0.8); Monocytes % 2.6 % (1.7-12.7); Neutrophils # 12.9 10*3/uL (1.4-7.4); Neutrophils % 90.3 % (38.7-73.9); Platelet Count 200 T/CUMM (130-400); Red Blood Count 5.24 MC/CUMM (3.8-5.5); Red Cell Distribution Width 14.4 % (9.3-17.3); White Blood Count 14.3 T/CUMM (4-12)
[2017-04-20 05:31] LABS: Blood Urea Nitrogen 14 MG/DL (7-18); Calcium 8.8 MG/DL (8.5-10.1); Glucose 185 MG/DL (74-106); Osmolality,Calculated 280.7 MOS/KG (273-304); Potassium 4.3 MMOL/L (3.5-5.1); Sodium 138 MMOL/L (136-145)
[2017-04-20 05:42] LABS: Troponin I Only 0.156 NG/ML (0.00-0.045)
[2017-04-20] MEDS: NICOTINE 21 MG/24 HR PATCH TRANSDERM SCH (08:52)
[2017-04-20] MEDS: TICAGRELOR 90 MG TABLET PO SCH (08:53)
[2017-04-20] MEDS: LOSARTAN 50 MG TABLET PO SCH (08:53)
[2017-04-20] MEDS: PANTOPRAZOLE 40 MG TABLET PO SCH ×2 (08:53→21:17)
[2017-04-20] MEDS: METOPROLOL SUCCINATE XL 25 MG TABLET PO SCH (08:53)
[2017-04-20] MEDS: ASPIRIN EC 81 MG TABLET PO SCH (08:53)
[2017-04-20] MEDS: ISOSORBIDE MONONITRATE 60 MG TABLET PO SCH (08:53)
[2017-04-20] MEDS: RANOLAZINE 500 MG TABLET PO SCH ×2 (08:59→21:17)
[2017-04-20] MEDS ORDERED: BISACODYL 5 MG TABLET PO PRN (13:24)
[2017-04-20] MEDS ORDERED: CLOPIDOGREL 300 MG TABLET PO ONE (14:50)
[2017-04-20] MEDS: CETIRIZINE 10 MG TABLET PO SCH (16:58)
[2017-04-20] MEDS: PRASUGREL 10 MG TABLET PO SCH (16:58)
[2017-04-20] MEDS: traZODone 50 MG TABLET PO SCH (21:17)
[2017-04-20] MEDS: ROSUVASTATIN 10 MG TABLET PO SCH (21:17)
[2017-04-21] MEDS ORDERED: LINACLOTIDE 145 MCG CAPSULE PO SCH (07:30)
[2017-04-21] MEDS ORDERED: CLOPIDOGREL 75 MG TABLET PO SCH (09:00)
[2017-04-21] MEDS: PRASUGREL 10 MG TABLET PO SCH (09:08)
[2017-04-21] MEDS: RANOLAZINE 500 MG TABLET PO SCH (09:08)
[2017-04-21] MEDS: LOSARTAN 50 MG TABLET PO SCH (09:08)
[2017-04-21] MEDS: CETIRIZINE 10 MG TABLET PO SCH (09:08)
[2017-04-21] MEDS: ASPIRIN EC 81 MG TABLET PO SCH (09:08)
[2017-04-21] MEDS: PANTOPRAZOLE 40 MG TABLET PO SCH (09:08)
[2017-04-21] MEDS: ISOSORBIDE MONONITRATE 60 MG TABLET PO SCH (09:08)
[2017-04-21] MEDS: NICOTINE 21 MG/24 HR PATCH TRANSDERM SCH (09:09)
[2017-04-21] MEDS ORDERED: SUCRALFATE 1 GM TABLET PO SCH (12:00)
[2017-04-21 12:04] VITALS: BP 147/70
[2017-04-21] MEDS ORDERED: ISOSORBIDE MONONITRATE 60 MG TABLET PO SCH (13:00)
== END 2017-04-21 14:13 | disposition home or self-care (01) ==
LOC: N.ED 14:14 → N.EDINP 14:14 → N.TELES 17:44
PROVIDERS: ADMIT Internal Medicine Cardiovascular Disease; ATTEND Internal Medicine Cardiovascular Disease
PROC: CLCCHCL (ICD-10-PCS; 2017-04-19 11:45)

== ENCOUNTER 2017-08-28 11:06 | Inpatient (IN) ==
[2017-08-28] MEDS ORDERED: NITROGLYCERIN 2% OINT 1 INCH/GM PACK TOP STA (11:38)
[2017-08-28] MEDS ORDERED: ALUM/MAG/SIMETH/LIDO VISC 1:1 30 ML BOTTLE PO STA (11:38)
[2017-08-28] MEDS ORDERED: ASPIRIN 325 MG TABLET PO STA (11:38)
[2017-08-28] MEDS ORDERED: ONDANSETRON 4 MG/2 ML VIAL IV STA (11:38)
[2017-08-28] MEDS ORDERED: MORPHINE 4 MG/1 ML VIAL IV STA (11:38)
[2017-08-28 11:43] LABS: Basophils % 0.4 % (0.0-0.8); Eosinophils # 0.1 10*3/uL (0.0-0.87); Eosinophils % 1.6 % (0.00-10.9); Hematocrit 41.8 VOL% (42.0-52.0); Hemoglobin 13.4 GM/DL (14.0-18.0); Immature Granulocytes % 0.4 %; Immature Granulocytes Absolute 0.02 #; Lymphocytes # 2.3 10*3/uL (1.4-4.0); Lymphocytes % 45.4 % (21.2-54.2); Mean Corpuscular HGB Conc 32.1 GM/DL (32-36); Mean Corpuscular Hemoglobin 24 PG (27-34); Mean Corpuscular Volume 73.9 FL (87-102); Mean Platelet Volume 10.8 FL (9.6-12.0); Monocytes # 0.6 10*3/uL (0.11-0.8); Monocytes % 11.7 % (1.7-12.7); Neutrophils # 2.1 10*3/uL (1.4-7.4); Neutrophils % 40.5 % (38.7-73.9); Platelet Count 194 T/CUMM (130-400); Red Blood Count 5.66 MC/CUMM (3.8-5.5); Red Cell Distribution Width 14.7 % (9.3-17.3); White Blood Count 5.2 T/CUMM (4-12)
[2017-08-28 11:47] LABS: PT Patient Result 10.7 SECS
[2017-08-28 12:20] LABS: Alanine Aminotransferase 35 U/L (16-61); Albumin 3.6 G/DL (3.4-5.0); Alkaline Phosphatase 79 U/L (45-117); Aspartate Amino Transferase 24 U/L (0-37); Bilirubin,Total < 0.39 MG/DL (0.2-1.0); Blood Urea Nitrogen 14 MG/DL (7-18); Calcium 8.9 MG/DL (8.5-10.1); Glucose 103 MG/DL (74-106); Osmolality,Calculated 283.1 MOS/KG (273-304); Potassium 3.9 MMOL/L (3.5-5.1); Sodium 142 MMOL/L (136-145); Total Protein 7.3 G/DL (6.4-8.3)
[2017-08-28] MEDS ORDERED: GLUCAGON 1 MG VIAL IM PRN (14:08)
[2017-08-28] MEDS ORDERED: NITROGLYCERIN SL 0.4 MG TABLET SL PRN (14:08)
[2017-08-28] MEDS ORDERED: POTASSIUM CHLORIDE 20 MEQ TABLET PO PRN (14:08)
[2017-08-28] MEDS ORDERED: MAGNESIUM SULF RIDER 4 GM in PREMIX 1 EACH IV PRN (14:08)
[2017-08-28] MEDS ORDERED: CYCLOBENZAPRINE 10 MG TABLET PO PRN (14:08)
[2017-08-28] MEDS ORDERED: ONDANSETRON 4 MG/2 ML VIAL IV PRN (14:08)
[2017-08-28] MEDS ORDERED: DEXTROSE 50% 25 GM/50 ML VIAL IV PRN (14:08)
[2017-08-28] MEDS ORDERED: MORPHINE 4 MG/1 ML VIAL IV PRN (14:08)
[2017-08-28] MEDS ORDERED: MAGNESIUM SULF RIDER 2 GM in PREMIX 1 EACH IV PRN (14:08)
[2017-08-28] MEDS ORDERED: PNEUMOCOCCAL VACCINE (23 VALENT) 0.5 ML VIAL IM ONE (14:16)
[2017-08-28] MEDS: SODIUM CHLORIDE 0.9% 1,000 ML IV SCH (14:24)
[2017-08-28] MEDS: ENOXAPARIN 80 MG/0.8 ML SYRINGE SUBCUT SCH (14:48)
[2017-08-28] MEDS: INSULIN REGULAR 100 UNIT/ML SUBCUT SCH ×2 (16:19→21:36)
[2017-08-28] MEDS: SUCRALFATE 1 GM TABLET PO SCH (17:10)
[2017-08-28] MEDS: NITROGLYCERIN 2% OINT 1 INCH/GM PACK TOP SCH (17:13)
[2017-08-28] MEDS: RANOLAZINE 500 MG TABLET PO SCH (22:15)
[2017-08-28] MEDS: traZODone 50 MG TABLET PO SCH (22:15)
[2017-08-28] MEDS: ROSUVASTATIN 10 MG TABLET PO SCH (22:15)
[2017-08-28] MEDS: FLUTICASONE 50 MCG NASAL SPRAY 16 GM BOTTLE BOTH NARES SCH (22:15)
[2017-08-28] MEDS: PANTOPRAZOLE 40 MG TABLET PO SCH (22:15)
[2017-08-29] MEDS: NITROGLYCERIN 2% OINT 1 INCH/GM PACK TOP SCH ×4 (00:49→17:46)
[2017-08-29] MEDS: SUCRALFATE 1 GM TABLET PO SCH ×4 (00:49→17:46)
[2017-08-29] MEDS: ENOXAPARIN 80 MG/0.8 ML SYRINGE SUBCUT SCH ×2 (00:49→12:57)
[2017-08-29 04:57] LABS: Basophils % 0.2 % (0.0-0.8); Eosinophils # 0.1 10*3/uL (0.0-0.87); Eosinophils % 1.2 % (0.00-10.9); Hematocrit 40.6 VOL% (42.0-52.0); Immature Granulocytes % 0.2 %; Immature Granulocytes Absolute 0.01 #; Lymphocytes # 2.8 10*3/uL (1.4-4.0); Mean Corpuscular Hemoglobin 23 PG (27-34); Mean Corpuscular Volume 73.2 FL (87-102); Monocytes # 0.6 10*3/uL (0.11-0.8); Monocytes % 13.1 % (1.7-12.7); Neutrophils # 1.3 10*3/uL (1.4-7.4); Neutrophils % 27.3 % (38.7-73.9); Platelet Count 183 T/CUMM (130-400); Red Blood Count 5.55 MC/CUMM (3.8-5.5); White Blood Count 4.8 T/CUMM (4-12)
[2017-08-29 05:17] LABS: Albumin 3.3 G/DL (3.4-5.0); Bilirubin,Total 0.4 MG/DL (0.2-1.0); Osmolality,Calculated 276.5 MOS/KG (273-304); Potassium 3.7 MMOL/L (3.5-5.1); Total Protein 7.1 G/DL (6.4-8.3); VLDL CHOLESTEROL 120.4 MG/DL
[2017-08-29 05:18] LABS: Risk Ratio 5.52
[2017-08-29 05:24] LABS: Lymphocytes 63 % (20-55); Microcytosis 2+; Platelet Estimate Normal; Segmented Neutrophils 37 % (50-85); Total Cells Counted 100
[2017-08-29] MEDS ORDERED: LORATADINE 10 MG TABLET PO ONE (09:00)
[2017-08-29] MEDS ORDERED: PANTOPRAZOLE 40 MG TABLET PO SCH (09:00)
[2017-08-29] MEDS ORDERED: ASPIRIN EC 81 MG TABLET PO SCH (09:00)
[2017-08-29] MEDS: INSULIN REGULAR 100 UNIT/ML SUBCUT SCH ×4 (09:08→21:47)
[2017-08-29] MEDS: LOSARTAN 50 MG TABLET PO SCH (10:52)
[2017-08-29] MEDS: ASPIRIN EC 325 MG TABLET PO SCH ×2 (10:52→15:08)
[2017-08-29] MEDS: FLUTICASONE 50 MCG NASAL SPRAY 16 GM BOTTLE BOTH NARES SCH ×2 (10:52→21:47)
[2017-08-29] MEDS: ISOSORBIDE MONONITRATE 60 MG TABLET PO SCH (10:52)
[2017-08-29] MEDS: PANTOPRAZOLE 40 MG TABLET PO SCH ×2 (10:53→21:47)
[2017-08-29] MEDS: RANOLAZINE 500 MG TABLET PO SCH ×2 (10:53→21:46)
[2017-08-29] MEDS: CLOPIDOGREL 75 MG TABLET PO SCH ×2 (10:53→15:05)
[2017-08-29] MEDS: SODIUM CHLORIDE 0.9% 1,000 ML IV SCH (11:07)
[2017-08-29] MEDS ORDERED: DIAZEPAM 5 MG TABLET PO ONE (14:27)
[2017-08-29] MEDS ORDERED: MAGNESIUM SULF RIDER 2 GM in PREMIX 1 EACH IV PRN (14:27)
[2017-08-29] MEDS ORDERED: POTASSIUM CHLORIDE RIDER 10 MEQ in PREMIX 1 EACH IV PRN (14:27)
[2017-08-29] MEDS ORDERED: diphenhydrAMINE CAP 25 MG CAPSULE PO ONE (14:27)
[2017-08-29] MEDS ORDERED: SODIUM CHLORIDE 0.9% 1,000 ML IV SCH (14:29)
[2017-08-29] MEDS ORDERED: diphenhydrAMINE 50 MG/1 ML VIAL IV ONE (14:55)
[2017-08-29] MEDS ORDERED: FAMOTIDINE 20 MG/2 ML VIAL IV ONE (14:55)
[2017-08-29] MEDS ORDERED: methylPREDNISolone SOD SUC 125 MG/2 ML VIAL IV ONE (15:00)
[2017-08-29] MEDS ORDERED: MIDAZOLAM 2 MG/2 ML VIAL ONE (15:42)
[2017-08-29] MEDS ORDERED: fentaNYL 100 MCG/2 ML VIAL ONE (15:43)
[2017-08-29] MEDS ORDERED: LIDOCAINE 1% 20 ML VIAL ONE (15:46)
[2017-08-29] MEDS ORDERED: FUROSEMIDE 20 MG/2 ML VIAL IV ONE (16:59)
[2017-08-29] MEDS: ACETAMINOPHEN 325 MG TABLET PO SCH ×2 (17:46→21:46)
[2017-08-29] MEDS: GABAPENTIN 100 MG CAPSULE PO SCH ×2 (17:46→21:46)
[2017-08-29] MEDS: ROSUVASTATIN 10 MG TABLET PO SCH (21:46)
[2017-08-29] MEDS: FAMOTIDINE 20 MG TABLET PO SCH (21:46)
[2017-08-29] MEDS: traZODone 50 MG TABLET PO SCH (21:47)
[2017-08-29] MEDS: predniSONE 50 MG TABLET PO SCH (21:53)
[2017-08-30] MEDS: SUCRALFATE 1 GM TABLET PO SCH ×3 (00:45→12:46)
[2017-08-30] MEDS: NITROGLYCERIN 2% OINT 1 INCH/GM PACK TOP SCH ×3 (00:48→12:47)
[2017-08-30 05:41] LABS: Basophils % 0.1 % (0.0-0.8); Hematocrit 41.9 VOL% (42.0-52.0); Hemoglobin 13.7 GM/DL (14.0-18.0); Immature Granulocytes % 0.3 %; Immature Granulocytes Absolute 0.04 #; Lymphocytes % 8.6 % (21.2-54.2); Mean Corpuscular HGB Conc 32.7 GM/DL (32-36); Mean Corpuscular Hemoglobin 24 PG (27-34); Mean Corpuscular Volume 72.4 FL (87-102); Mean Platelet Volume 12.6 FL (9.6-12.0); Monocytes # 0.3 10*3/uL (0.11-0.8); Monocytes % 2.5 % (1.7-12.7); Neutrophils # 10.6 10*3/uL (1.4-7.4); Neutrophils % 88.5 % (38.7-73.9); Platelet Count 196 T/CUMM (130-400); Red Blood Count 5.79 MC/CUMM (3.8-5.5); Red Cell Distribution Width 14.9 % (9.3-17.3)
[2017-08-30 05:59] LABS: Osmolality,Calculated 277.8 MOS/KG (273-304); Potassium 3.9 MMOL/L (3.5-5.1)
[2017-08-30] MEDS: INSULIN REGULAR 100 UNIT/ML SUBCUT SCH ×2 (08:01→12:46)
[2017-08-30] MEDS ORDERED: FUROSEMIDE 20 MG TABLET PO SCH (09:00)
[2017-08-30] MEDS: LOSARTAN 50 MG TABLET PO SCH (09:12)
[2017-08-30] MEDS: ISOSORBIDE MONONITRATE 60 MG TABLET PO SCH (09:12)
[2017-08-30] MEDS: FLUTICASONE 50 MCG NASAL SPRAY 16 GM BOTTLE BOTH NARES SCH (09:12)
[2017-08-30] MEDS: FAMOTIDINE 20 MG TABLET PO SCH (09:13)
[2017-08-30] MEDS: ACETAMINOPHEN 325 MG TABLET PO SCH (09:13)
[2017-08-30] MEDS: RANOLAZINE 500 MG TABLET PO SCH (09:13)
[2017-08-30] MEDS: ASPIRIN EC 325 MG TABLET PO SCH (09:14)
[2017-08-30] MEDS: CLOPIDOGREL 75 MG TABLET PO SCH (09:14)
[2017-08-30] MEDS: GABAPENTIN 100 MG CAPSULE PO SCH (09:14)
[2017-08-30] MEDS: PANTOPRAZOLE 40 MG TABLET PO SCH (09:14)
[2017-08-30] MEDS: predniSONE 50 MG TABLET PO SCH (09:24)
[2017-08-30 11:43] VITALS: BP 143/72
== END 2017-08-30 14:05 | disposition home or self-care (01) | DRG 192 ==
LOC: N.ED 11:06 → N.EDINP 12:47 → N.TELES 13:56
PROVIDERS: ADMIT Internal Medicine Cardiovascular Disease; ATTEND Internal Medicine Cardiovascular Disease
PROC: CLCCHCL (ICD-10-PCS; 2017-08-29 16:15)

== ENCOUNTER 2017-11-02 10:13 | Inpatient (IN) ==
[2017-11-02 10:43] LABS: Basophils % 0.4 % (0.0-0.8); Eosinophils # 0.1 10*3/uL (0.0-0.87); Eosinophils % 1.5 % (0.00-10.9); Hemoglobin 13.4 GM/DL (14.0-18.0); Immature Granulocytes % 0.2 %; Immature Granulocytes Absolute 0.01 #; Lymphocytes # 1.9 10*3/uL (1.4-4.0); Lymphocytes % 42.4 % (21.2-54.2); Mean Corpuscular HGB Conc 32.7 GM/DL (32-36); Mean Corpuscular Hemoglobin 24 PG (27-34); Mean Platelet Volume 11.6 FL (9.6-12.0); Monocytes # 0.6 10*3/uL (0.11-0.8); Monocytes % 12.4 % (1.7-12.7); Neutrophils % 43.1 % (38.7-73.9); Platelet Count 174 T/CUMM (130-400); Red Blood Count 5.62 MC/CUMM (3.8-5.5); Red Cell Distribution Width 15.5 % (9.3-17.3); White Blood Count 4.5 T/CUMM (4-12)
[2017-11-02] MEDS ORDERED: ONDANSETRON 4 MG/2 ML VIAL IV STA (10:44)
[2017-11-02] MEDS ORDERED: NITROGLYCERIN 2% OINT 1 INCH/GM PACK TOP STA (10:44)
[2017-11-02] MEDS ORDERED: ENOXAPARIN 80 MG/0.8 ML SYRINGE SUBCUT STA (10:44)
[2017-11-02] MEDS ORDERED: MORPHINE 4 MG/1 ML VIAL IV STA (10:44)
[2017-11-02 10:53] LABS: Partial Thromboplastin Time 29.3 SECS (0-40)
[2017-11-02 11:06] LABS: Alanine Aminotransferase 38 U/L (16-61); Albumin 3.7 G/DL (3.4-5.0); Alkaline Phosphatase 78 U/L (45-117); Aspartate Amino Transferase 22 U/L (0-37); Bilirubin,Total < 0.39 MG/DL (0.2-1.0); Blood Urea Nitrogen 13 MG/DL (7-18); Calcium 8.8 MG/DL (8.5-10.1); Glucose 106 MG/DL (74-106); Potassium 3.8 MMOL/L (3.5-5.1); Sodium 143 MMOL/L (136-145); Total Protein 7.4 G/DL (6.4-8.3)
[2017-11-02] MEDS ORDERED: ONDANSETRON 4 MG/2 ML VIAL IV PRN (12:08)
[2017-11-02] MEDS ORDERED: DOCUSATE SODIUM 100 MG CAPSULE PO PRN (12:08)
[2017-11-02] MEDS ORDERED: PROMETHAZINE 25 MG TABLET PO PRN (12:08)
[2017-11-02] MEDS ORDERED: ACETAMINOPHEN 325 MG TABLET PO PRN (12:08)
[2017-11-02] MEDS ORDERED: diphenhydrAMINE CAP 25 MG CAPSULE PO PRN (12:08)
[2017-11-02] MEDS ORDERED: BISACODYL 5 MG TABLET PO PRN (12:08)
[2017-11-02] MEDS ORDERED: MAGNESIUM SULF RIDER 2 GM in PREMIX 1 EACH IV PRN (12:08)
[2017-11-02] MEDS ORDERED: guaiFENesin/DM ER 600-30 MG TABLET PO PRN (12:08)
[2017-11-02] MEDS ORDERED: MAGNESIUM SULF RIDER 4 GM in PREMIX 1 EACH IV PRN (12:08)
[2017-11-02] MEDS ORDERED: NITROGLYCERIN SL 0.4 MG TABLET SL PRN (12:11)
[2017-11-02] MEDS ORDERED: CYCLOBENZAPRINE 10 MG TABLET PO PRN (12:11)
[2017-11-02] MEDS ORDERED: GABAPENTIN 300 MG CAPSULE PO PRN (12:11)
[2017-11-02] MEDS ORDERED: PNEUMOCOCCAL VACCINE (13 VALENT) 0.5 ML SYRINGE IM ONE (13:08)
[2017-11-02 16:14] LABS: Apearance,Urine CLEAR (Clear); Bilirubin,Urine Negative (Negative); Blood, Urine Negative (Negative); Calcium Oxalate Crystals,Urine Occasional /HPF (Few); Glucose,Urine (UA) Negative (Negative); Ketones,Urine Negative (Negative); Mucus,Urine Occasional /LPF (Occasional); Nitrite,Urine Negative (Negative); Protein,Urine Negative; RBC,Urine 2 /HPF (0-4); Urine Color Yellow (Yellow); Urine Specific Gravity 1.023 (1.001-1.035); WBC,Urine <1 /HPF (0-6)
[2017-11-02] MEDS ORDERED: MAGNESIUM HYDROXIDE SUSP 30 ML UDCUP PO PRN (16:56)
[2017-11-02] MEDS ORDERED: ALUM/MAG/SIMETH/LIDO VISC 1:1 30 ML BOTTLE PO PRN (16:56)
[2017-11-02] MEDS: ZALEPLON 5 MG CAPSULE PO PRN (20:59)
[2017-11-02] MEDS: ROSUVASTATIN 10 MG TABLET PO SCH (20:59)
[2017-11-02] MEDS: CARVEDILOL 25 MG TABLET PO SCH (21:32)
[2017-11-02] MEDS: FLUTICASONE 50 MCG NASAL SPRAY 16 GM BOTTLE BOTH NARES SCH (21:34)
[2017-11-03 04:53] LABS: Basophils % 0.2 % (0.0-0.8); Eosinophils # 0.1 10*3/uL (0.0-0.87); Eosinophils % 1.9 % (0.00-10.9); Hematocrit 39.1 VOL% (42.0-52.0); Hemoglobin 12.4 GM/DL (14.0-18.0); Immature Granulocytes % 0.2 %; Immature Granulocytes Absolute 0.01 #; Lymphocytes # 2.5 10*3/uL (1.4-4.0); Lymphocytes % 58.5 % (21.2-54.2); Mean Corpuscular HGB Conc 31.7 GM/DL (32-36); Mean Corpuscular Hemoglobin 23 PG (27-34); Mean Corpuscular Volume 73.4 FL (87-102); Mean Platelet Volume 11.5 FL (9.6-12.0); Monocytes # 0.5 10*3/uL (0.11-0.8); Monocytes % 12.7 % (1.7-12.7); Neutrophils # 1.1 10*3/uL (1.4-7.4); Neutrophils % 26.5 % (38.7-73.9); Platelet Count 182 T/CUMM (130-400); Red Blood Count 5.33 MC/CUMM (3.8-5.5); Red Cell Distribution Width 15.5 % (9.3-17.3); White Blood Count 4.2 T/CUMM (4-12)
[2017-11-03 05:17] LABS: Atypical Lymphocytes Few; Eosinophils 1 % (0-10); Lymphocytes 67 % (20-55); Segmented Neutrophils 22 % (50-85); Total Cells Counted 100
[2017-11-03 05:18] LABS: Hypochromasia 1+; Microcytosis 1+
[2017-11-03 05:19] LABS: Platelet Estimate Adequate
[2017-11-03 05:20] LABS: Calcium 8.3 MG/DL (8.5-10.1); Osmolality,Calculated 281.3 MOS/KG (273-304); Potassium 3.8 MMOL/L (3.5-5.1); Risk Ratio 6.72; VLDL CHOLESTEROL 79.2 MG/DL
[2017-11-03] MEDS ORDERED: PANTOPRAZOLE 40 MG TABLET PO SCH (09:00)
[2017-11-03] MEDS: FLUTICASONE 50 MCG NASAL SPRAY 16 GM BOTTLE BOTH NARES SCH ×2 (09:48→21:14)
[2017-11-03] MEDS ORDERED: REGADENOSON 0.4 MG/5 ML SYRINGE IV ONE (12:41)
[2017-11-03] MEDS: CARVEDILOL 25 MG TABLET PO SCH ×2 (14:22→18:18)
[2017-11-03] MEDS: FUROSEMIDE 20 MG TABLET PO SCH (14:23)
[2017-11-03] MEDS: ISOSORBIDE MONONITRATE 60 MG TABLET PO SCH (14:23)
[2017-11-03] MEDS: LOSARTAN 50 MG TABLET PO SCH (14:27)
[2017-11-03] MEDS: ASPIRIN EC 81 MG TABLET PO SCH (14:27)
[2017-11-03] MEDS: CLOPIDOGREL 75 MG TABLET PO SCH (14:27)
[2017-11-03] MEDS: ZALEPLON 5 MG CAPSULE PO PRN (21:14)
[2017-11-03] MEDS: OMEGA 3 ACID ETHYL ESTERS 1 GM CAPSULE PO SCH (21:14)
[2017-11-03] MEDS: ROSUVASTATIN 10 MG TABLET PO SCH (21:14)
[2017-11-03] MEDS: PANTOPRAZOLE 40 MG TABLET PO SCH (21:14)
[2017-11-04] MEDS: PANTOPRAZOLE 40 MG TABLET PO SCH ×2 (10:52→21:08)
[2017-11-04] MEDS: ASPIRIN EC 81 MG TABLET PO SCH (10:52)
[2017-11-04] MEDS: LOSARTAN 50 MG TABLET PO SCH (10:53)
[2017-11-04] MEDS: OMEGA 3 ACID ETHYL ESTERS 1 GM CAPSULE PO SCH ×2 (10:53→21:08)
[2017-11-04] MEDS: CARVEDILOL 25 MG TABLET PO SCH ×2 (10:53→17:26)
[2017-11-04] MEDS: FUROSEMIDE 20 MG TABLET PO SCH (10:53)
[2017-11-04] MEDS: ISOSORBIDE MONONITRATE 60 MG TABLET PO SCH (10:53)
[2017-11-04] MEDS: CLOPIDOGREL 75 MG TABLET PO SCH (10:54)
[2017-11-04] MEDS: FLUTICASONE 50 MCG NASAL SPRAY 16 GM BOTTLE BOTH NARES SCH ×2 (10:55→21:08)
[2017-11-04] MEDS: LOSARTAN 25 MG TABLET PO SCH (14:30)
[2017-11-04] MEDS: ROSUVASTATIN 10 MG TABLET PO SCH (21:08)
[2017-11-05 05:14] LABS: Basophils % 0.2 % (0.0-0.8); Eosinophils # 0.1 10*3/uL (0.0-0.87); Eosinophils % 1.6 % (0.00-10.9); Hematocrit 39.8 VOL% (42.0-52.0); Hemoglobin 12.7 GM/DL (14.0-18.0); Immature Granulocytes % 0.4 %; Immature Granulocytes Absolute 0.02 #; Lymphocytes % 38.9 % (21.2-54.2); Mean Corpuscular HGB Conc 31.9 GM/DL (32-36); Mean Corpuscular Hemoglobin 24 PG (27-34); Mean Corpuscular Volume 74.1 FL (87-102); Mean Platelet Volume 10.9 FL (9.6-12.0); Monocytes # 0.6 10*3/uL (0.11-0.8); Monocytes % 11.5 % (1.7-12.7); Neutrophils # 2.4 10*3/uL (1.4-7.4); Neutrophils % 47.4 % (38.7-73.9); Platelet Count 189 T/CUMM (130-400); Red Blood Count 5.37 MC/CUMM (3.8-5.5); Red Cell Distribution Width 14.9 % (9.3-17.3); White Blood Count 5.1 T/CUMM (4-12)
[2017-11-05 05:31] LABS: Osmolality,Calculated 278.4 MOS/KG (273-304); Potassium 3.5 MMOL/L (3.5-5.1)
[2017-11-05] MEDS: CLOPIDOGREL 75 MG TABLET PO SCH (08:32)
[2017-11-05] MEDS: FLUTICASONE 50 MCG NASAL SPRAY 16 GM BOTTLE BOTH NARES SCH ×2 (08:32→20:44)
[2017-11-05] MEDS: ISOSORBIDE MONONITRATE 60 MG TABLET PO SCH (08:32)
[2017-11-05] MEDS: OMEGA 3 ACID ETHYL ESTERS 1 GM CAPSULE PO SCH ×2 (08:33→20:44)
[2017-11-05] MEDS: ASPIRIN EC 81 MG TABLET PO SCH (08:33)
[2017-11-05] MEDS: CARVEDILOL 25 MG TABLET PO SCH ×2 (08:33→16:15)
[2017-11-05] MEDS: FUROSEMIDE 20 MG TABLET PO SCH (08:33)
[2017-11-05] MEDS: PANTOPRAZOLE 40 MG TABLET PO SCH ×2 (08:33→20:44)
[2017-11-05] MEDS: LOSARTAN 25 MG TABLET PO SCH (08:33)
[2017-11-05] MEDS: ROSUVASTATIN 10 MG TABLET PO SCH (20:44)
[2017-11-06] MEDS: ISOSORBIDE MONONITRATE 60 MG TABLET PO SCH (09:04)
[2017-11-06] MEDS: FUROSEMIDE 20 MG TABLET PO SCH (09:04)
[2017-11-06] MEDS: CARVEDILOL 25 MG TABLET PO SCH ×2 (09:04→16:11)
[2017-11-06] MEDS: LOSARTAN 25 MG TABLET PO SCH (09:05)
[2017-11-06] MEDS: OMEGA 3 ACID ETHYL ESTERS 1 GM CAPSULE PO SCH ×2 (09:05→20:44)
[2017-11-06] MEDS: CLOPIDOGREL 75 MG TABLET PO SCH (09:05)
[2017-11-06] MEDS: ASPIRIN EC 81 MG TABLET PO SCH (09:05)
[2017-11-06] MEDS: PANTOPRAZOLE 40 MG TABLET PO SCH ×2 (09:05→20:44)
[2017-11-06] MEDS: FLUTICASONE 50 MCG NASAL SPRAY 16 GM BOTTLE BOTH NARES SCH ×2 (09:06→20:45)
[2017-11-06] MEDS ORDERED: POTASSIUM CHLORIDE RIDER 10 MEQ in PREMIX 1 EACH IV PRN (11:33)
[2017-11-06] MEDS: FAMOTIDINE 20 MG TABLET PO SCH ×2 (12:21→20:44)
[2017-11-06] MEDS: predniSONE 20 MG TABLET PO SCH ×2 (16:11→20:44)
[2017-11-06] MEDS: diphenhydrAMINE CAP 50 MG CAPSULE PO SCH (20:44)
[2017-11-06] MEDS: ROSUVASTATIN 10 MG TABLET PO SCH (20:44)
[2017-11-07 05:10] LABS: Basophils % 0.1 % (0.0-0.8); Hematocrit 43.5 VOL% (42.0-52.0); Hemoglobin 13.8 GM/DL (14.0-18.0); Immature Granulocytes % 0.5 %; Immature Granulocytes Absolute 0.06 #; Lymphocytes # 0.6 10*3/uL (1.4-4.0); Lymphocytes % 4.2 % (21.2-54.2); Mean Corpuscular HGB Conc 31.7 GM/DL (32-36); Mean Corpuscular Hemoglobin 23 PG (27-34); Mean Corpuscular Volume 73.9 FL (87-102); Mean Platelet Volume 11.6 FL (9.6-12.0); Monocytes # 0.5 10*3/uL (0.11-0.8); Monocytes % 3.6 % (1.7-12.7); Neutrophils # 12.1 10*3/uL (1.4-7.4); Neutrophils % 91.6 % (38.7-73.9); Platelet Count 191 T/CUMM (130-400); Red Blood Count 5.89 MC/CUMM (3.8-5.5); Red Cell Distribution Width 14.9 % (9.3-17.3); White Blood Count 13.2 T/CUMM (4-12)
[2017-11-07 05:41] LABS: Calcium 9.4 MG/DL (8.5-10.1); Osmolality,Calculated 276.8 MOS/KG (273-304); Potassium 4.1 MMOL/L (3.5-5.1)
[2017-11-07 05:50] LABS: Band Neutrophils 2 % (0-10); Hypochromasia 1+; Lymphocytes 6 % (20-55); Microcytosis Slight; Platelet Estimate Adequate; Segmented Neutrophils 89 % (50-85); Total Cells Counted 100
[2017-11-07] MEDS ORDERED: SODIUM CHLORIDE 0.45% 1,000 ML IV SCH (06:00)
[2017-11-07] MEDS ORDERED: DIAZEPAM 5 MG TABLET PO ONE (06:30)
[2017-11-07] MEDS ORDERED: diphenhydrAMINE CAP 25 MG CAPSULE PO ONE (06:30)
[2017-11-07] MEDS: predniSONE 20 MG TABLET PO SCH ×2 (09:15→15:15)
[2017-11-07] MEDS: diphenhydrAMINE CAP 50 MG CAPSULE PO SCH (09:15)
[2017-11-07] MEDS: OMEGA 3 ACID ETHYL ESTERS 1 GM CAPSULE PO SCH (10:01)
[2017-11-07] MEDS: FAMOTIDINE 20 MG TABLET PO SCH (10:01)
[2017-11-07] MEDS: FLUTICASONE 50 MCG NASAL SPRAY 16 GM BOTTLE BOTH NARES SCH (10:01)
[2017-11-07] MEDS: FUROSEMIDE 20 MG TABLET PO SCH (10:01)
[2017-11-07] MEDS: ISOSORBIDE MONONITRATE 60 MG TABLET PO SCH (10:01)
[2017-11-07] MEDS: LOSARTAN 25 MG TABLET PO SCH (12:29)
[2017-11-07] MEDS: CARVEDILOL 25 MG TABLET PO SCH ×2 (12:30→16:44)
[2017-11-07] MEDS: ASPIRIN EC 81 MG TABLET PO SCH (12:30)
[2017-11-07] MEDS: PANTOPRAZOLE 40 MG TABLET PO SCH (12:30)
[2017-11-07] MEDS: CLOPIDOGREL 75 MG TABLET PO SCH (12:30)
[2017-11-07] MEDS ORDERED: HEPARIN/NACL 0.9% 2 UNITS/ML 1,000 ML IV ONE (12:58)
[2017-11-07] MEDS ORDERED: LIDOCAINE 1% 20 ML VIAL ONE (12:58)
[2017-11-07] MEDS ORDERED: MIDAZOLAM 2 MG/2 ML VIAL ONE ×2 (13:00→13:28)
[2017-11-07] MEDS ORDERED: fentaNYL 100 MCG/2 ML VIAL ONE (13:00)
[2017-11-07] MEDS ORDERED: ACETAMINOPHEN/CODEINE 300-30 MG TABLET PO PRN (14:24)
[2017-11-07] MEDS ORDERED: MORPHINE 4 MG/1 ML VIAL IV PRN (14:24)
[2017-11-07 17:18] VITALS: BP 142/88
== END 2017-11-07 19:01 | disposition home or self-care (01) | DRG 192 ==
LOC: N.EDINP 10:13 → N.ED 10:13 → N.2W 12:47 → N.TELEN 16:54
PROVIDERS: ADMIT Internal Medicine Cardiovascular Disease; ATTEND Internal Medicine Cardiovascular Disease
PROC: CLCCHCL (ICD-10-PCS; 2017-11-07 13:45)

== ENCOUNTER 2017-11-28 16:28 | Observation (INO) ==
[2017-11-28] MEDS ORDERED: MORPHINE 4 MG/1 ML VIAL IV STA (17:08)
[2017-11-28] MEDS ORDERED: NITROGLYCERIN 2% OINT 1 INCH/GM PACK TOP STA (17:08)
[2017-11-28] MEDS ORDERED: ASPIRIN 325 MG TABLET PO STA (17:08)
[2017-11-28] MEDS ORDERED: ONDANSETRON 4 MG/2 ML VIAL IV STA (17:08)
[2017-11-28 17:40] LABS: Basophils % 0.4 % (0.0-0.8); Eosinophils # 0.1 10*3/uL (0.0-0.87); Eosinophils % 1.6 % (0.00-10.9); Hematocrit 38.7 VOL% (42.0-52.0); Hemoglobin 12.4 GM/DL (14.0-18.0); Immature Granulocytes % 0.2 %; Immature Granulocytes Absolute 0.01 #; Lymphocytes # 2.3 10*3/uL (1.4-4.0); Lymphocytes % 44.6 % (21.2-54.2); Mean Corpuscular Hemoglobin 24 PG (27-34); Mean Corpuscular Volume 74.1 FL (87-102); Mean Platelet Volume 10.4 FL (9.6-12.0); Monocytes # 0.6 10*3/uL (0.11-0.8); Monocytes % 11.5 % (1.7-12.7); Neutrophils # 2.1 10*3/uL (1.4-7.4); Neutrophils % 41.7 % (38.7-73.9); Platelet Count 214 T/CUMM (130-400); Red Blood Count 5.22 MC/CUMM (3.8-5.5); Red Cell Distribution Width 15.1 % (9.3-17.3); White Blood Count 5.1 T/CUMM (4-12)
[2017-11-28 17:52] LABS: PT Patient Result 10.6 SECS
[2017-11-28 18:06] LABS: Alanine Aminotransferase 32 U/L (16-61); Albumin 3.8 G/DL (3.4-5.0); Alkaline Phosphatase 82 U/L (45-117); Aspartate Amino Transferase 15 U/L (0-37); Bilirubin,Total < 0.39 MG/DL (0.2-1.0); Blood Urea Nitrogen 15 MG/DL (7-18); Calcium 8.4 MG/DL (8.5-10.1); Glucose 101 MG/DL (74-106); Osmolality,Calculated 281.3 MOS/KG (273-304); Potassium 3.7 MMOL/L (3.5-5.1); Sodium 141 MMOL/L (136-145); Total Protein 7.3 G/DL (6.4-8.3); Uric Acid 4.6 MG/DL (3.5-7.2)
[2017-11-28 18:46] LABS: Barbiturates Screen,Urine Negative (Negative); Benzodiazepines Screen,Urine Negative (Negative); Cannabinoid Screen,Urine Negative (Negative); Opiate Screen,Urine Positive (Negative); Phencyclidine Screen,Urine Negative (Negative)
[2017-11-28 18:48] LABS: Apearance,Urine CLEAR (Clear); Bilirubin,Urine Negative (Negative); Blood, Urine Negative (Negative); Glucose,Urine (UA) Negative (Negative); Hyaline Casts,Urine 1 /LPF (0-3); Ketones,Urine Negative (Negative); Mucus,Urine Moderate /LPF (Occasional); Nitrite,Urine Negative (Negative); Protein,Urine Negative; RBC,Urine 1 /HPF (0-4); Urine Color Yellow (Yellow); Urine Specific Gravity 1.021 (1.001-1.035); WBC,Urine 1 /HPF (0-6)
[2017-11-28] MEDS ORDERED: traZODone 50 MG TABLET PO PRN (19:00)
[2017-11-28] MEDS ORDERED: PROMETHAZINE 25 MG/1 ML VIAL IM PRN (19:00)
[2017-11-28] MEDS ORDERED: ACETAMINOPHEN 325 MG TABLET PO PRN (19:00)
[2017-11-28] MEDS ORDERED: GABAPENTIN 300 MG CAPSULE PO PRN (19:04)
[2017-11-28] MEDS ORDERED: NITROGLYCERIN SL 0.4 MG TABLET SL PRN (19:04)
[2017-11-28] MEDS ORDERED: CYCLOBENZAPRINE 10 MG TABLET PO PRN (19:04)
[2017-11-28] MEDS ORDERED: ENOXAPARIN 40 MG/0.4 ML SYRINGE SUBCUT SCH (21:00)
[2017-11-28] MEDS ORDERED: ROSUVASTATIN 10 MG TABLET PO SCH (21:00)
[2017-11-28] MEDS: PANTOPRAZOLE 40 MG TABLET PO SCH (21:48)
[2017-11-28] MEDS: CARVEDILOL 12.5 MG TABLET PO SCH (21:48)
[2017-11-28] MEDS: FLUTICASONE 50 MCG NASAL SPRAY 16 GM BOTTLE BOTH NARES SCH (21:50)
[2017-11-29 03:25] LABS: Basophils % 0.2 % (0.0-0.8); Eosinophils # 0.1 10*3/uL (0.0-0.87); Eosinophils % 2.2 % (0.00-10.9); Hematocrit 36.5 VOL% (42.0-52.0); Hemoglobin 11.3 GM/DL (14.0-18.0); Immature Granulocytes % 0.2 %; Immature Granulocytes Absolute 0.01 #; Lymphocytes % 45.2 % (21.2-54.2); Mean Corpuscular Hemoglobin 23 PG (27-34); Mean Corpuscular Volume 74.9 FL (87-102); Mean Platelet Volume 11.3 FL (9.6-12.0); Monocytes # 0.6 10*3/uL (0.11-0.8); Monocytes % 13.2 % (1.7-12.7); Neutrophils # 1.7 10*3/uL (1.4-7.4); Platelet Count 191 T/CUMM (130-400); Red Blood Count 4.87 MC/CUMM (3.8-5.5); Red Cell Distribution Width 14.9 % (9.3-17.3); White Blood Count 4.5 T/CUMM (4-12)
[2017-11-29 03:50] LABS: Albumin 3.2 G/DL (3.4-5.0); Bilirubin,Total 0.8 MG/DL (0.2-1.0); Calcium 8.6 MG/DL (8.5-10.1); Osmolality,Calculated 284.3 MOS/KG (273-304); Potassium 3.4 MMOL/L (3.5-5.1); Risk Ratio 5.31; Thyroid Stimulating Hormone 0.438 uIU/ml (0.358-3.74); Total Protein 6.7 G/DL (6.4-8.3)
[2017-11-29] MEDS ORDERED: LOSARTAN 50 MG TABLET PO SCH (09:00)
[2017-11-29] MEDS ORDERED: CLOPIDOGREL 75 MG TABLET PO SCH (09:00)
[2017-11-29] MEDS ORDERED: ISOSORBIDE MONONITRATE 60 MG TABLET PO SCH (09:00)
[2017-11-29] MEDS ORDERED: ASPIRIN EC 81 MG TABLET PO SCH (09:00)
[2017-11-29] MEDS ORDERED: FUROSEMIDE 20 MG TABLET PO SCH (09:00)
[2017-11-29] MEDS: PANTOPRAZOLE 40 MG TABLET PO SCH (09:40)
[2017-11-29] MEDS: FLUTICASONE 50 MCG NASAL SPRAY 16 GM BOTTLE BOTH NARES SCH (09:41)
[2017-11-29] MEDS: CARVEDILOL 12.5 MG TABLET PO SCH (09:41)
[2017-11-29] MEDS ORDERED: FENOFIBRATE 145 MG TABLET PO SCH (11:00)
[2017-11-29 15:33] VITALS: BP 126/70
== END 2017-11-29 15:35 | disposition home or self-care (01) ==
LOC: EDUNIT# → EDBD → N.EDINP 16:28 → N.ED 16:28 → N.4E 20:00
PROVIDERS: ADMIT Internal Medicine; ATTEND Internal Medicine

== ENCOUNTER 2018-01-25 21:54 | Observation (INO) ==
[2018-01-25] MEDS ORDERED: methylPREDNISolone SOD SUC 125 MG/2 ML VIAL IV STA (22:24)
[2018-01-25] MEDS ORDERED: NITROGLYCERIN 2% OINT 1 INCH/GM PACK TOP STA (22:24)
[2018-01-25] MEDS ORDERED: ALUM/MAG/SIMETH/LIDO VISC 1:1 30 ML BOTTLE PO STA (22:24)
[2018-01-25] MEDS ORDERED: ASPIRIN 325 MG TABLET PO STA (22:24)
[2018-01-25] MEDS ORDERED: ONDANSETRON 4 MG/2 ML VIAL IV STA (22:24)
[2018-01-25] MEDS ORDERED: ALBUTEROL/IPRATROPIUM 3 ML NEB RESP TX STA (22:24)
[2018-01-25] MEDS ORDERED: MORPHINE 4 MG/1 ML VIAL IV STA (22:24)
[2018-01-25 22:48] LABS: Basophils % 0.2 % (0.0-0.8); Eosinophils # 0.1 10*3/uL (0.0-0.87); Eosinophils % 1.2 % (0.00-10.9); Hematocrit 38.7 VOL% (42.0-52.0); Hemoglobin 12.2 GM/DL (14.0-18.0); Immature Granulocytes % 0.3 %; Immature Granulocytes Absolute 0.02 #; Lymphocytes # 2.6 10*3/uL (1.4-4.0); Lymphocytes % 43.5 % (21.2-54.2); Mean Corpuscular HGB Conc 31.5 GM/DL (32-36); Mean Corpuscular Hemoglobin 24 PG (27-34); Mean Corpuscular Volume 74.9 FL (87-102); Mean Platelet Volume 10.7 FL (9.6-12.0); Monocytes # 0.6 10*3/uL (0.11-0.8); Monocytes % 9.5 % (1.7-12.7); Neutrophils # 2.7 10*3/uL (1.4-7.4); Neutrophils % 45.3 % (38.7-73.9); Platelet Count 199 T/CUMM (130-400); Red Blood Count 5.17 MC/CUMM (3.8-5.5); Red Cell Distribution Width 15.2 % (9.3-17.3)
[2018-01-25 22:58] LABS: PT Patient Result 10.4 SECS
[2018-01-25 23:08] LABS: Alanine Aminotransferase 28 U/L (16-61); Albumin 3.4 G/DL (3.4-5.0); Alkaline Phosphatase 79 U/L (45-117); Aspartate Amino Transferase 20 U/L (0-37); Bilirubin,Total < 0.39 MG/DL (0.2-1.0); Blood Urea Nitrogen 12 MG/DL (7-18); Calcium 8.6 MG/DL (8.5-10.1); Glucose 123 MG/DL (74-106); Osmolality,Calculated 286.8 MOS/KG (273-304); Potassium 3.8 MMOL/L (3.5-5.1); Sodium 144 MMOL/L (136-145); Total Protein 7.1 G/DL (6.4-8.3)
[2018-01-25 23:44] LABS: Apearance,Urine CLEAR (Clear); Bilirubin,Urine Negative (Negative); Blood, Urine Negative (Negative); Glucose,Urine (UA) Negative (Negative); Ketones,Urine Negative (Negative); Mucus,Urine Few /LPF (Occasional); Nitrite,Urine Negative (Negative); Protein,Urine Negative; RBC,Urine 5 /HPF (0-4); Urine Color Yellow (Yellow); Urine Specific Gravity 1.025 (1.001-1.035); WBC,Urine 1 /HPF (0-6)
[2018-01-25] MEDS ORDERED: ENOXAPARIN 100 MG/ML SYRINGE SUBCUT STA (23:57)
[2018-01-26] MEDS ORDERED: NITROGLYCERIN SL 0.4 MG TABLET SL PRN (01:24)
[2018-01-26] MEDS ORDERED: ONDANSETRON 4 MG/2 ML VIAL IV PRN (01:24)
[2018-01-26] MEDS ORDERED: MORPHINE 4 MG/1 ML VIAL IV PRN (01:24)
[2018-01-26 04:06] LABS: Basophils % 0.2 % (0.0-0.8); Eosinophils % 0.5 % (0.00-10.9); Hematocrit 39.4 VOL% (42.0-52.0); Hemoglobin 11.9 GM/DL (14.0-18.0); Immature Granulocytes % 0.2 %; Immature Granulocytes Absolute 0.01 #; Lymphocytes # 1.2 10*3/uL (1.4-4.0); Lymphocytes % 29.4 % (21.2-54.2); Mean Corpuscular HGB Conc 30.2 GM/DL (32-36); Mean Corpuscular Hemoglobin 23 PG (27-34); Mean Corpuscular Volume 75.3 FL (87-102); Mean Platelet Volume 11.8 FL (9.6-12.0); Monocytes # 0.2 10*3/uL (0.11-0.8); Monocytes % 3.9 % (1.7-12.7); Neutrophils # 2.7 10*3/uL (1.4-7.4); Neutrophils % 65.8 % (38.7-73.9); Platelet Count 211 T/CUMM (130-400); Red Blood Count 5.23 MC/CUMM (3.8-5.5); Red Cell Distribution Width 14.9 % (9.3-17.3); White Blood Count 4.1 T/CUMM (4-12)
[2018-01-26 04:24] LABS: Calcium 8.9 MG/DL (8.5-10.1); Osmolality,Calculated 282.3 MOS/KG (273-304); Potassium 4.1 MMOL/L (3.5-5.1)
[2018-01-26 04:29] LABS: Risk Ratio 5.34
[2018-01-26] MEDS ORDERED: GABAPENTIN 300 MG CAPSULE PO PRN (08:29)
[2018-01-26] MEDS ORDERED: CYCLOBENZAPRINE 10 MG TABLET PO PRN (08:29)
[2018-01-26] MEDS ORDERED: PANTOPRAZOLE 40 MG TABLET PO SCH ×2 (09:00→11:00)
[2018-01-26] MEDS ORDERED: FLUTICASONE 50 MCG NASAL SPRAY 16 GM BOTTLE BOTH NARES SCH (09:00)
[2018-01-26] MEDS ORDERED: FUROSEMIDE 20 MG TABLET PO SCH (09:00)
[2018-01-26] MEDS ORDERED: ISOSORBIDE MONONITRATE 60 MG TABLET PO SCH (09:00)
[2018-01-26] MEDS ORDERED: LOSARTAN 50 MG TABLET PO SCH (09:00)
[2018-01-26] MEDS ORDERED: CLOPIDOGREL 75 MG TABLET PO SCH (09:00)
[2018-01-26] MEDS ORDERED: CARVEDILOL 12.5 MG TABLET PO SCH (09:00)
[2018-01-26] MEDS ORDERED: ASPIRIN EC 81 MG TABLET PO SCH (09:00)
[2018-01-26] MEDS ORDERED: INFLUENZA VIRUS VACCINE 0.5 ML SYRINGE IM ONE (09:00)
[2018-01-26] MEDS ORDERED: SUCRALFATE 1 GM/10 ML UDCUP PO SCH (11:30)
[2018-01-26] MEDS ORDERED: ENOXAPARIN 100 MG/ML SYRINGE SUBCUT SCH (12:00)
[2018-01-26] MEDS ORDERED: ACETAMINOPHEN 325 MG TABLET ONE (14:25)
[2018-01-26] MEDS ORDERED: ACETAMINOPHEN 325 MG TABLET PO PRN (14:27)
[2018-01-26 16:05] VITALS: BP 125/74
[2018-01-26] MEDS ORDERED: ROSUVASTATIN 20 MG TABLET PO SCH (21:00)
== END 2018-01-26 18:15 | disposition home or self-care (01) ==
LOC: EDUNIT# → EDBD → N.ED 21:54 → N.EDINP 21:54 → N.TELES 01-26 01:35
PROVIDERS: ADMIT Internal Medicine; ATTEND Internal Medicine

== ENCOUNTER 2018-03-13 10:05 | Inpatient (IN) ==
[2018-03-13] MEDS ORDERED: NITROGLYCERIN 2% OINT 1 INCH/GM PACK TOP STA (10:26)
[2018-03-13] MEDS ORDERED: ASPIRIN 325 MG TABLET PO STA (10:26)
[2018-03-13] MEDS ORDERED: ONDANSETRON 4 MG/2 ML VIAL IV STA (10:26)
[2018-03-13] MEDS ORDERED: ALUM/MAG/SIMETH/LIDO VISC 1:1 30 ML BOTTLE PO STA (10:26)
[2018-03-13] MEDS ORDERED: PANTOPRAZOLE 40 MG VIAL IV STA (10:26)
[2018-03-13] MEDS ORDERED: MORPHINE 4 MG/1 ML VIAL IV STA (10:26)
[2018-03-13 10:56] LABS: Basophils % 0.5 % (0.0-0.8); Eosinophils % 0.7 % (0.00-10.9); Hemoglobin 12.4 GM/DL (14.0-18.0); Immature Granulocytes % 0.2 %; Immature Granulocytes Absolute 0.01 #; Lymphocytes # 2.3 10*3/uL (1.4-4.0); Lymphocytes % 41.4 % (21.2-54.2); Mean Corpuscular Hemoglobin 23 PG (27-34); Mean Corpuscular Volume 74.9 FL (87-102); Mean Platelet Volume 11.2 FL (9.6-12.0); Monocytes # 0.7 10*3/uL (0.11-0.8); Monocytes % 12.1 % (1.7-12.7); Neutrophils # 2.5 10*3/uL (1.4-7.4); Neutrophils % 45.1 % (38.7-73.9); Platelet Count 201 T/CUMM (130-400); Red Blood Count 5.34 MC/CUMM (3.8-5.5); Red Cell Distribution Width 14.6 % (9.3-17.3); White Blood Count 5.6 T/CUMM (4-12)
[2018-03-13 10:58] LABS: Apearance,Urine CLEAR (Clear); Bilirubin,Urine Negative (Negative); Blood, Urine Negative (Negative); Glucose,Urine (UA) Negative (Negative); Ketones,Urine Negative (Negative); Nitrite,Urine Negative (Negative); Protein,Urine Negative; Urine Color Yellow (Yellow); Urine Specific Gravity 1.013 (1.001-1.035); Urine Urobilinogen < 2.0 EU/DL (0.2-1.0)
[2018-03-13 11:03] LABS: PT Patient Result 10.8 SECS
[2018-03-13 11:11] LABS: Bacteria,Urine Rare /HPF (Few)
[2018-03-13 11:22] LABS: Albumin 3.6 G/DL (3.4-5.0); Bilirubin,Total 0.5 MG/DL (0.2-1.0); Calcium 8.7 MG/DL (8.5-10.1); Osmolality,Calculated 279.3 MOS/KG (273-304); Potassium 3.8 MMOL/L (3.5-5.1); Total Protein 6.9 G/DL (6.4-8.3)
[2018-03-13] MEDS ORDERED: ACETAMINOPHEN 325 MG TABLET PO PRN (12:12)
[2018-03-13] MEDS ORDERED: ONDANSETRON 4 MG/2 ML VIAL IV PRN (12:12)
[2018-03-13] MEDS ORDERED: NITROGLYCERIN SL 0.4 MG TABLET SL PRN (12:17)
[2018-03-13] MEDS ORDERED: ENOXAPARIN 40 MG/0.4 ML SYRINGE SUBCUT SCH (12:30)
[2018-03-13 12:31] LABS: Barbiturates Screen,Urine Negative (Negative); Benzodiazepines Screen,Urine Negative (Negative); Cannabinoid Screen,Urine Negative (Negative); Opiate Screen,Urine Negative (Negative); Phencyclidine Screen,Urine Negative (Negative)
[2018-03-13] MEDS ORDERED: PNEUMOCOCCAL VACCINE (23 VALENT) 0.5 ML VIAL IM ONE (13:54)
[2018-03-13] MEDS ORDERED: INFLUENZA VIRUS VACCINE 0.5 ML SYRINGE IM ONE (13:54)
[2018-03-13] MEDS: NICOTINE 7 MG/24 HR PATCH TRANSDERM SCH (14:35)
[2018-03-13 14:36] LABS: Troponin I 0.037 NG/ML (0.00-0.045)
[2018-03-13] MEDS: PANTOPRAZOLE 40 MG TABLET PO SCH (14:37)
[2018-03-13] MEDS: ISOSORBIDE MONONITRATE 30 MG TABLET PO SCH (14:38)
[2018-03-13] MEDS: CLOPIDOGREL 75 MG TABLET PO SCH (14:39)
[2018-03-13] MEDS: CARVEDILOL 3.125 MG TABLET PO SCH (14:39)
[2018-03-13] MEDS: GABAPENTIN 400 MG CAPSULE PO SCH (14:40)
[2018-03-13] MEDS: NITROGLYCERIN 0.2 MG/HR PATCH TRANSDERM SCH (14:45)
[2018-03-13] MEDS: predniSONE 20 MG TABLET PO SCH (17:41)
[2018-03-13] MEDS: SUCRALFATE 1 GM TABLET PO SCH (17:41)
[2018-03-14] MEDS: ROSUVASTATIN 20 MG TABLET PO SCH ×2 (00:01→23:02)
[2018-03-14] MEDS: predniSONE 20 MG TABLET PO SCH ×5 (00:02→23:03)
[2018-03-14] MEDS: SUCRALFATE 1 GM TABLET PO SCH ×5 (00:02→23:01)
[2018-03-14] MEDS: GABAPENTIN 400 MG CAPSULE PO SCH ×4 (00:02→23:02)
[2018-03-14] MEDS: CARVEDILOL 3.125 MG TABLET PO SCH ×3 (00:02→23:02)
[2018-03-14] MEDS: ENOXAPARIN 100 MG/ML SYRINGE SUBCUT SCH ×2 (00:05→09:35)
[2018-03-14] MEDS: FAMOTIDINE 20 MG/2 ML VIAL IV SCH ×3 (00:06→23:02)
[2018-03-14] MEDS: diphenhydrAMINE 50 MG/1 ML VIAL IV SCH ×4 (00:10→21:20)
[2018-03-14] MEDS ORDERED: predniSONE 10 MG TABLET ONE (05:33)
[2018-03-14 05:35] LABS: Basophils % 0.2 % (0.0-0.8); Hematocrit 41.4 VOL% (42.0-52.0); Hemoglobin 12.6 GM/DL (14.0-18.0); Immature Granulocytes % 0.2 %; Immature Granulocytes Absolute 0.01 #; Lymphocytes % 20.6 % (21.2-54.2); Mean Corpuscular HGB Conc 30.4 GM/DL (32-36); Mean Corpuscular Hemoglobin 23 PG (27-34); Mean Corpuscular Volume 75.4 FL (87-102); Mean Platelet Volume 11.1 FL (9.6-12.0); Monocytes # 0.2 10*3/uL (0.11-0.8); Monocytes % 3.3 % (1.7-12.7); Neutrophils # 3.6 10*3/uL (1.4-7.4); Neutrophils % 75.7 % (38.7-73.9); Platelet Count 200 T/CUMM (130-400); Red Blood Count 5.49 MC/CUMM (3.8-5.5); Red Cell Distribution Width 14.6 % (9.3-17.3); White Blood Count 4.8 T/CUMM (4-12)
[2018-03-14 05:44] LABS: Osmolality,Calculated 274.8 MOS/KG (273-304); Potassium 4.3 MMOL/L (3.5-5.1)
[2018-03-14] MEDS: SODIUM CHLORIDE 0.45% 1,000 ML IV SCH ×3 (09:20→18:12)
[2018-03-14] MEDS: CLOPIDOGREL 75 MG TABLET PO SCH (09:21)
[2018-03-14] MEDS: ISOSORBIDE MONONITRATE 30 MG TABLET PO SCH (09:21)
[2018-03-14] MEDS: PANTOPRAZOLE 40 MG TABLET PO SCH (09:21)
[2018-03-14] MEDS: NITROGLYCERIN 0.2 MG/HR PATCH TRANSDERM SCH (09:24)
[2018-03-14] MEDS: ASPIRIN EC 81 MG TABLET PO SCH (09:36)
[2018-03-14] MEDS: LOSARTAN 50 MG TABLET PO SCH (09:36)
[2018-03-14] MEDS: NICOTINE 7 MG/24 HR PATCH TRANSDERM SCH (10:03)
[2018-03-14] MEDS ORDERED: DIAZEPAM 5 MG TABLET PO ONE (12:00)
[2018-03-14 14:06] LABS: Risk Ratio 4.91; VLDL CHOLESTEROL 23.2 MG/DL
[2018-03-14] MEDS ORDERED: HEPARIN/NACL 0.9% 2 UNITS/ML 1,000 ML IV ONE (14:45)
[2018-03-14] MEDS ORDERED: LIDOCAINE 1% 20 ML VIAL ONE (14:45)
[2018-03-14] MEDS ORDERED: SODIUM BICARBONATE 2.4 MEQ/5 ML VIAL ONE (14:49)
[2018-03-14] MEDS ORDERED: MIDAZOLAM 2 MG/2 ML VIAL ONE ×2 (15:00→15:26)
[2018-03-14] MEDS ORDERED: fentaNYL 100 MCG/2 ML VIAL ONE (15:00)
[2018-03-14] MEDS ORDERED: ADENOSINE 90 MG/30 ML VIAL IV ONE (15:25)
[2018-03-14] MEDS ORDERED: diphenhydrAMINE 50 MG/1 ML VIAL IV ONE (23:09)
[2018-03-15] MEDS: SODIUM CHLORIDE 0.45% 1,000 ML IV SCH ×2 (03:57→12:07)
[2018-03-15 04:33] LABS: Basophils % 0.1 % (0.0-0.8); Hematocrit 37.5 VOL% (42.0-52.0); Hemoglobin 11.7 GM/DL (14.0-18.0); Immature Granulocytes % 0.5 %; Immature Granulocytes Absolute 0.07 #; Lymphocytes # 1.4 10*3/uL (1.4-4.0); Lymphocytes % 10.1 % (21.2-54.2); Mean Corpuscular HGB Conc 31.2 GM/DL (32-36); Mean Corpuscular Hemoglobin 24 PG (27-34); Mean Corpuscular Volume 75.5 FL (87-102); Mean Platelet Volume 11.8 FL (9.6-12.0); Monocytes # 0.6 10*3/uL (0.11-0.8); Monocytes % 4.7 % (1.7-12.7); Neutrophils # 11.4 10*3/uL (1.4-7.4); Neutrophils % 84.6 % (38.7-73.9); Platelet Count 200 T/CUMM (130-400); Red Blood Count 4.97 MC/CUMM (3.8-5.5); Red Cell Distribution Width 14.7 % (9.3-17.3); White Blood Count 13.5 T/CUMM (4-12)
[2018-03-15 04:47] LABS: Calcium 8.5 MG/DL (8.5-10.1); Osmolality,Calculated 279.7 MOS/KG (273-304); Potassium 4.1 MMOL/L (3.5-5.1)
[2018-03-15] MEDS: predniSONE 20 MG TABLET PO SCH ×2 (05:55→12:19)
[2018-03-15] MEDS: PANTOPRAZOLE 40 MG TABLET PO SCH (08:40)
[2018-03-15] MEDS: CARVEDILOL 3.125 MG TABLET PO SCH ×2 (08:40→21:41)
[2018-03-15] MEDS: ISOSORBIDE MONONITRATE 30 MG TABLET PO SCH (08:40)
[2018-03-15] MEDS: SUCRALFATE 1 GM TABLET PO SCH ×4 (08:41→21:41)
[2018-03-15] MEDS: ASPIRIN EC 81 MG TABLET PO SCH (08:41)
[2018-03-15] MEDS: LOSARTAN 50 MG TABLET PO SCH (08:41)
[2018-03-15] MEDS: NITROGLYCERIN 0.2 MG/HR PATCH TRANSDERM SCH (08:42)
[2018-03-15] MEDS: GABAPENTIN 400 MG CAPSULE PO SCH ×3 (08:42→21:41)
[2018-03-15] MEDS: FAMOTIDINE 20 MG/2 ML VIAL IV SCH (08:45)
[2018-03-15] MEDS: NICOTINE 7 MG/24 HR PATCH TRANSDERM SCH (08:49)
[2018-03-15] MEDS: ENOXAPARIN 100 MG/ML SYRINGE SUBCUT SCH ×2 (09:04→21:41)
[2018-03-15] MEDS: ROSUVASTATIN 20 MG TABLET PO SCH (21:41)
[2018-03-16 08:17] LABS: Basophils % 0.1 % (0.0-0.8); Eosinophils % 0.1 % (0.00-10.9); Hematocrit 40.2 VOL% (42.0-52.0); Hemoglobin 12.4 GM/DL (14.0-18.0); Immature Granulocytes % 0.4 %; Immature Granulocytes Absolute 0.05 #; Lymphocytes # 4.1 10*3/uL (1.4-4.0); Lymphocytes % 28.9 % (21.2-54.2); Mean Corpuscular HGB Conc 30.8 GM/DL (32-36); Mean Corpuscular Hemoglobin 23 PG (27-34); Mean Platelet Volume 12.3 FL (9.6-12.0); Monocytes # 1.1 10*3/uL (0.11-0.8); Neutrophils # 8.8 10*3/uL (1.4-7.4); Neutrophils % 62.5 % (38.7-73.9); Platelet Count 156 T/CUMM (130-400); Red Blood Count 5.29 MC/CUMM (3.8-5.5); White Blood Count 14.1 T/CUMM (4-12)
[2018-03-16 08:35] LABS: Calcium 8.6 MG/DL (8.5-10.1); Osmolality,Calculated 280.3 MOS/KG (273-304); Potassium 4.1 MMOL/L (3.5-5.1)
[2018-03-16] MEDS: ISOSORBIDE MONONITRATE 30 MG TABLET PO SCH (09:50)
[2018-03-16] MEDS: ASPIRIN EC 81 MG TABLET PO SCH (09:50)
[2018-03-16] MEDS: PANTOPRAZOLE 40 MG TABLET PO SCH (09:51)
[2018-03-16] MEDS: GABAPENTIN 400 MG CAPSULE PO SCH ×3 (09:51→21:04)
[2018-03-16] MEDS: CARVEDILOL 3.125 MG TABLET PO SCH ×2 (09:51→21:05)
[2018-03-16] MEDS: LOSARTAN 50 MG TABLET PO SCH (09:51)
[2018-03-16] MEDS: ENOXAPARIN 100 MG/ML SYRINGE SUBCUT SCH ×2 (09:51→21:04)
[2018-03-16] MEDS: SUCRALFATE 1 GM TABLET PO SCH ×4 (09:51→21:04)
[2018-03-16] MEDS: NICOTINE 7 MG/24 HR PATCH TRANSDERM SCH (09:52)
[2018-03-16] MEDS: NITROGLYCERIN 0.2 MG/HR PATCH TRANSDERM SCH (09:52)
[2018-03-16] MEDS: ROSUVASTATIN 20 MG TABLET PO SCH (21:05)
[2018-03-17 03:58] LABS: Basophils % 0.4 % (0.0-0.8); Eosinophils # 0.1 10*3/uL (0.0-0.87); Eosinophils % 0.6 % (0.00-10.9); Hematocrit 37.2 VOL% (42.0-52.0); Hemoglobin 11.4 GM/DL (14.0-18.0); Immature Granulocytes % 0.8 %; Immature Granulocytes Absolute 0.07 #; Lymphocytes # 4.5 10*3/uL (1.4-4.0); Mean Corpuscular HGB Conc 30.6 GM/DL (32-36); Mean Corpuscular Hemoglobin 23 PG (27-34); Mean Corpuscular Volume 75.6 FL (87-102); Monocytes % 10.7 % (1.7-12.7); Neutrophils # 3.4 10*3/uL (1.4-7.4); Neutrophils % 37.5 % (38.7-73.9); Platelet Count 201 T/CUMM (130-400); Red Blood Count 4.92 MC/CUMM (3.8-5.5); Red Cell Distribution Width 14.6 % (9.3-17.3); White Blood Count 8.9 T/CUMM (4-12)
[2018-03-17 04:19] LABS: Calcium 8.4 MG/DL (8.5-10.1); Osmolality,Calculated 282.4 MOS/KG (273-304); Potassium 3.7 MMOL/L (3.5-5.1)
[2018-03-17 04:52] LABS: Band Neutrophils 1 % (0-10); Eosinophils 1 % (0-10); Lymphocytes 51 % (20-55); Platelet Estimate Normal; Segmented Neutrophils 36 % (50-85); Total Cells Counted 100
[2018-03-17] MEDS: ISOSORBIDE MONONITRATE 30 MG TABLET PO SCH ×2 (08:41→21:13)
[2018-03-17] MEDS: GABAPENTIN 400 MG CAPSULE PO SCH ×3 (08:42→21:13)
[2018-03-17] MEDS: SUCRALFATE 1 GM TABLET PO SCH ×4 (08:42→21:13)
[2018-03-17] MEDS: DOCUSATE SODIUM 100 MG CAPSULE PO PRN (08:42)
[2018-03-17] MEDS: ASPIRIN EC 81 MG TABLET PO SCH (08:42)
[2018-03-17] MEDS: CARVEDILOL 3.125 MG TABLET PO SCH ×2 (08:42→21:13)
[2018-03-17] MEDS: NITROGLYCERIN 0.2 MG/HR PATCH TRANSDERM SCH (08:43)
[2018-03-17] MEDS: LOSARTAN 50 MG TABLET PO SCH (08:44)
[2018-03-17] MEDS: PANTOPRAZOLE 40 MG TABLET PO SCH (08:44)
[2018-03-17] MEDS: ENOXAPARIN 100 MG/ML SYRINGE SUBCUT SCH ×2 (08:44→21:16)
[2018-03-17] MEDS: NICOTINE 7 MG/24 HR PATCH TRANSDERM SCH (13:24)
[2018-03-17] MEDS: PRILOSEC 20 MG PO SCH (21:12)
[2018-03-17] MEDS: ROSUVASTATIN 20 MG TABLET PO SCH (21:13)
[2018-03-18 03:15] LABS: Calcium 8.1 MG/DL (8.5-10.1); Osmolality,Calculated 277.5 MOS/KG (273-304); Potassium 3.9 MMOL/L (3.5-5.1)
[2018-03-18 03:17] LABS: Basophils % 0.3 % (0.0-0.8); Eosinophils # 0.1 10*3/uL (0.0-0.87); Eosinophils % 1.1 % (0.00-10.9); Hemoglobin 11.8 GM/DL (14.0-18.0); Immature Granulocytes % 0.7 %; Immature Granulocytes Absolute 0.05 #; Lymphocytes # 3.6 10*3/uL (1.4-4.0); Lymphocytes % 48.6 % (21.2-54.2); Mean Corpuscular HGB Conc 31.1 GM/DL (32-36); Mean Corpuscular Hemoglobin 23 PG (27-34); Mean Corpuscular Volume 75.1 FL (87-102); Mean Platelet Volume 11.4 FL (9.6-12.0); Monocytes # 0.7 10*3/uL (0.11-0.8); Monocytes % 9.9 % (1.7-12.7); Neutrophils # 2.9 10*3/uL (1.4-7.4); Neutrophils % 39.4 % (38.7-73.9); Platelet Count 183 T/CUMM (130-400); Red Blood Count 5.06 MC/CUMM (3.8-5.5); Red Cell Distribution Width 14.7 % (9.3-17.3); White Blood Count 7.4 T/CUMM (4-12)
[2018-03-18] MEDS: ENOXAPARIN 100 MG/ML SYRINGE SUBCUT SCH ×2 (09:03→20:19)
[2018-03-18] MEDS: ISOSORBIDE MONONITRATE 30 MG TABLET PO SCH ×2 (09:04→20:20)
[2018-03-18] MEDS: LOSARTAN 50 MG TABLET PO SCH (09:04)
[2018-03-18] MEDS: CARVEDILOL 3.125 MG TABLET PO SCH ×2 (09:04→20:20)
[2018-03-18] MEDS: SUCRALFATE 1 GM TABLET PO SCH ×4 (09:04→20:20)
[2018-03-18] MEDS: ASPIRIN EC 81 MG TABLET PO SCH (09:04)
[2018-03-18] MEDS: GABAPENTIN 400 MG CAPSULE PO SCH ×3 (09:05→20:20)
[2018-03-18] MEDS: NICOTINE 7 MG/24 HR PATCH TRANSDERM SCH (09:05)
[2018-03-18] MEDS: PRILOSEC 20 MG PO SCH ×2 (09:06→20:22)
[2018-03-18] MEDS: POTASSIUM CHLORIDE 20 MEQ TABLET PO PRN (15:03)
[2018-03-18] MEDS: ROSUVASTATIN 20 MG TABLET PO SCH (20:20)
[2018-03-18] MEDS: DOCUSATE SODIUM 100 MG CAPSULE PO PRN (20:21)
[2018-03-18] MEDS: ZALEPLON 5 MG CAPSULE PO PRN (21:39)
[2018-03-19 05:12] LABS: Basophils % 0.3 % (0.0-0.8); Eosinophils # 0.1 10*3/uL (0.0-0.87); Eosinophils % 1.8 % (0.00-10.9); Hemoglobin 11.5 GM/DL (14.0-18.0); Immature Granulocytes % 0.8 %; Immature Granulocytes Absolute 0.05 #; Lymphocytes # 2.8 10*3/uL (1.4-4.0); Lymphocytes % 46.7 % (21.2-54.2); Mean Corpuscular HGB Conc 31.1 GM/DL (32-36); Mean Corpuscular Hemoglobin 23 PG (27-34); Mean Corpuscular Volume 74.9 FL (87-102); Mean Platelet Volume 11.8 FL (9.6-12.0); Monocytes # 0.7 10*3/uL (0.11-0.8); Monocytes % 10.7 % (1.7-12.7); Neutrophils # 2.4 10*3/uL (1.4-7.4); Neutrophils % 39.7 % (38.7-73.9); Platelet Count 193 T/CUMM (130-400); Red Blood Count 4.94 MC/CUMM (3.8-5.5); Red Cell Distribution Width 14.6 % (9.3-17.3); White Blood Count 6.1 T/CUMM (4-12)
[2018-03-19 05:22] LABS: Calcium 8.4 MG/DL (8.5-10.1); Osmolality,Calculated 275.5 MOS/KG (273-304); Potassium 3.7 MMOL/L (3.5-5.1)
[2018-03-19] MEDS ORDERED: MAGNESIUM HYDROXIDE SUSP 30 ML UDCUP PO PRN (08:17)
[2018-03-19] MEDS: ENOXAPARIN 100 MG/ML SYRINGE SUBCUT SCH ×2 (08:50→20:28)
[2018-03-19] MEDS: SUCRALFATE 1 GM TABLET PO SCH ×4 (08:51→20:28)
[2018-03-19] MEDS: ASPIRIN EC 81 MG TABLET PO SCH (08:51)
[2018-03-19] MEDS: ISOSORBIDE MONONITRATE 30 MG TABLET PO SCH ×2 (08:51→20:26)
[2018-03-19] MEDS: GABAPENTIN 400 MG CAPSULE PO SCH ×3 (08:51→20:28)
[2018-03-19] MEDS: POTASSIUM CHLORIDE 20 MEQ TABLET PO PRN (08:51)
[2018-03-19] MEDS: DOCUSATE SODIUM 100 MG CAPSULE PO PRN ×2 (08:51→20:28)
[2018-03-19] MEDS: LOSARTAN 50 MG TABLET PO SCH (08:51)
[2018-03-19] MEDS: NICOTINE 7 MG/24 HR PATCH TRANSDERM SCH (08:52)
[2018-03-19] MEDS: CARVEDILOL 3.125 MG TABLET PO SCH ×2 (08:52→20:28)
[2018-03-19] MEDS: PRILOSEC 20 MG PO SCH ×2 (08:53→20:30)
[2018-03-19] MEDS: ROSUVASTATIN 20 MG TABLET PO SCH (20:26)
[2018-03-20] MEDS: ALBUTEROL/IPRATROPIUM 3 ML NEB RESP TX SCH ×4 (00:25→19:16)
[2018-03-20 04:11] LABS: Basophils % 0.3 % (0.0-0.8); Eosinophils # 0.1 10*3/uL (0.0-0.87); Eosinophils % 1.3 % (0.00-10.9); Hematocrit 38.1 VOL% (42.0-52.0); Hemoglobin 11.8 GM/DL (14.0-18.0); Immature Granulocytes % 0.8 %; Immature Granulocytes Absolute 0.05 #; Lymphocytes # 2.9 10*3/uL (1.4-4.0); Lymphocytes % 46.8 % (21.2-54.2); Mean Corpuscular Hemoglobin 23 PG (27-34); Mean Corpuscular Volume 75.6 FL (87-102); Mean Platelet Volume 11.8 FL (9.6-12.0); Monocytes # 0.8 10*3/uL (0.11-0.8); Monocytes % 11.9 % (1.7-12.7); Neutrophils # 2.4 10*3/uL (1.4-7.4); Neutrophils % 38.9 % (38.7-73.9); Platelet Count 212 T/CUMM (130-400); Red Blood Count 5.04 MC/CUMM (3.8-5.5); Red Cell Distribution Width 14.8 % (9.3-17.3); White Blood Count 6.3 T/CUMM (4-12)
[2018-03-20 04:25] LABS: Calcium 8.9 MG/DL (8.5-10.1); Osmolality,Calculated 274.7 MOS/KG (273-304); Potassium 4.1 MMOL/L (3.5-5.1)
[2018-03-20] MEDS: SUCRALFATE 1 GM TABLET PO SCH ×4 (09:31→21:37)
[2018-03-20] MEDS: ASPIRIN EC 81 MG TABLET PO SCH (09:31)
[2018-03-20] MEDS: CARVEDILOL 3.125 MG TABLET PO SCH ×2 (09:31→21:37)
[2018-03-20] MEDS: GABAPENTIN 400 MG CAPSULE PO SCH ×3 (09:31→21:37)
[2018-03-20] MEDS: LOSARTAN 50 MG TABLET PO SCH (09:31)
[2018-03-20] MEDS: ISOSORBIDE MONONITRATE 30 MG TABLET PO SCH ×2 (09:31→21:37)
[2018-03-20] MEDS: NICOTINE 7 MG/24 HR PATCH TRANSDERM SCH (09:31)
[2018-03-20] MEDS: PRILOSEC 20 MG PO SCH ×2 (09:32→21:37)
[2018-03-20] MEDS: MORPHINE 4 MG/1 ML VIAL IV PRN (11:55)
[2018-03-20] MEDS: NITROGLYCERIN 2% OINT 1 INCH/GM PACK TOP SCH ×2 (11:56→18:26)
[2018-03-20] MEDS: ENOXAPARIN 100 MG/ML SYRINGE SUBCUT SCH (13:00)
[2018-03-20] MEDS: ROSUVASTATIN 20 MG TABLET PO SCH (21:37)
[2018-03-20] MEDS: ZALEPLON 5 MG CAPSULE PO PRN (21:37)
[2018-03-21] MEDS: ALBUTEROL/IPRATROPIUM 3 ML NEB RESP TX SCH ×4 (00:56→19:07)
[2018-03-21 04:14] LABS: Basophils % 0.2 % (0.0-0.8); Eosinophils # 0.1 10*3/uL (0.0-0.87); Eosinophils % 1.6 % (0.00-10.9); Hematocrit 35.8 VOL% (42.0-52.0); Hemoglobin 11.1 GM/DL (14.0-18.0); Immature Granulocytes Absolute 0.06 #; Lymphocytes # 2.5 10*3/uL (1.4-4.0); Mean Corpuscular Hemoglobin 24 PG (27-34); Mean Corpuscular Volume 76.5 FL (87-102); Mean Platelet Volume 11.4 FL (9.6-12.0); Monocytes % 15.5 % (1.7-12.7); Neutrophils # 2.5 10*3/uL (1.4-7.4); Neutrophils % 40.7 % (38.7-73.9); Platelet Count 183 T/CUMM (130-400); Red Blood Count 4.68 MC/CUMM (3.8-5.5); White Blood Count 6.2 T/CUMM (4-12)
[2018-03-21 04:33] LABS: Osmolality,Calculated 278.5 MOS/KG (273-304); Potassium 4.1 MMOL/L (3.5-5.1)
[2018-03-21] MEDS: NITROGLYCERIN 2% OINT 1 INCH/GM PACK TOP SCH ×4 (06:09→19:03)
[2018-03-21] MEDS: GABAPENTIN 400 MG CAPSULE PO SCH ×3 (08:49→23:10)
[2018-03-21] MEDS: CARVEDILOL 3.125 MG TABLET PO SCH ×2 (08:49→23:09)
[2018-03-21] MEDS: ASPIRIN EC 81 MG TABLET PO SCH (08:49)
[2018-03-21] MEDS: LOSARTAN 50 MG TABLET PO SCH (08:49)
[2018-03-21] MEDS: ISOSORBIDE MONONITRATE 30 MG TABLET PO SCH ×2 (08:49→23:10)
[2018-03-21] MEDS: SUCRALFATE 1 GM TABLET PO SCH ×4 (08:49→23:09)
[2018-03-21] MEDS: NICOTINE 7 MG/24 HR PATCH TRANSDERM SCH (08:49)
[2018-03-21] MEDS: PRILOSEC 20 MG PO SCH ×2 (08:50→23:11)
[2018-03-21] MEDS ORDERED: CLORAZEPATE 3.75 MG TABLET PO PRN (10:16)
[2018-03-21] MEDS ORDERED: OXYMETAZOLINE 0.05% NASAL SPRAY 15 ML BOTTLE BOTH NARES PRN (10:16)
[2018-03-21] MEDS: CHLORHEXIDINE 4% SOLN 118 ML BOTTLE TOP SCH ×3 (13:50→23:09)
[2018-03-21] MEDS ORDERED: ALUMINUM/MAGNES/SIMETH MAX STR 30 ML UDCUP PO PRN (17:55)
[2018-03-21] MEDS: ROSUVASTATIN 20 MG TABLET PO SCH (23:09)
[2018-03-21] MEDS: MORPHINE 4 MG/1 ML VIAL IV PRN (23:30)
[2018-03-21] MEDS: CHLORHEXIDINE 0.12% ORAL RINSE 60 ML BOTTLE SWISH/SPIT SCH (23:31)
[2018-03-22] MEDS: ALBUTEROL/IPRATROPIUM 3 ML NEB RESP TX SCH ×2 (00:16→07:51)
[2018-03-22 03:43] LABS: Basophils % 0.2 % (0.0-0.8); Eosinophils # 0.1 10*3/uL (0.0-0.87); Eosinophils % 1.7 % (0.00-10.9); Hematocrit 37.5 VOL% (42.0-52.0); Hemoglobin 11.5 GM/DL (14.0-18.0); Immature Granulocytes % 0.5 %; Immature Granulocytes Absolute 0.03 #; Lymphocytes # 2.3 10*3/uL (1.4-4.0); Lymphocytes % 37.9 % (21.2-54.2); Mean Corpuscular HGB Conc 30.7 GM/DL (32-36); Mean Corpuscular Hemoglobin 23 PG (27-34); Mean Corpuscular Volume 75.5 FL (87-102); Mean Platelet Volume 11.1 FL (9.6-12.0); Monocytes # 0.9 10*3/uL (0.11-0.8); Neutrophils # 2.7 10*3/uL (1.4-7.4); Neutrophils % 44.7 % (38.7-73.9); Platelet Count 197 T/CUMM (130-400); Red Blood Count 4.97 MC/CUMM (3.8-5.5); Red Cell Distribution Width 14.8 % (9.3-17.3); White Blood Count 5.9 T/CUMM (4-12)
[2018-03-22 03:59] LABS: Osmolality,Calculated 275.7 MOS/KG (273-304)
[2018-03-22] MEDS: NITROGLYCERIN 2% OINT 1 INCH/GM PACK TOP SCH ×3 (04:01→12:00)
[2018-03-22] MEDS ORDERED: PAPAVERINE 60 MG/2 ML VIAL ONE (04:24)
[2018-03-22] MEDS ORDERED: TISSUE ADHESIVE 1 EACH APPLICATOR TOP ONE (04:24)
[2018-03-22] MEDS ORDERED: VANCOMYCIN 1,000 MG VIAL ONE (04:25)
[2018-03-22] MEDS: CHLORHEXIDINE 4% SOLN 118 ML BOTTLE TOP SCH ×2 (05:07→09:00)
[2018-03-22] MEDS ORDERED: ALBUTEROL/IPRATROPIUM 3 ML NEB RESP TX ONE (05:30)
[2018-03-22] MEDS: ISOSORBIDE MONONITRATE 30 MG TABLET PO SCH ×2 (05:40→09:00)
[2018-03-22] MEDS: CHLORHEXIDINE 0.12% ORAL RINSE 60 ML BOTTLE SWISH/SPIT SCH ×3 (05:40→20:31)
[2018-03-22] MEDS: CARVEDILOL 3.125 MG TABLET PO SCH ×2 (05:40→09:00)
[2018-03-22] MEDS: LOSARTAN 50 MG TABLET PO SCH ×2 (05:40→09:00)
[2018-03-22] MEDS ORDERED: CEFUROXIME INJ 1,500 MG in SYRINGE 1 EACH IV ONE (06:00)
[2018-03-22] MEDS ORDERED: DIAZEPAM 5 MG TABLET PO ONE (06:00)
[2018-03-22] MEDS ORDERED: FAMOTIDINE 20 MG TABLET PO ONE (06:00)
[2018-03-22] MEDS: SUCRALFATE 1 GM TABLET PO SCH ×2 (07:30→11:30)
[2018-03-22 07:45] LABS: ABG Base Excess 1.3 MMOL/L (-2.5-2.5); ABG HCO3 25.6 MMOL/L (20-26); ABG PCO2 42.3 MM HG (35-48); ABG PH 7.401 (7.35-7.45); ABG TCO2 23.5 MMOL/L (23-27); Glucose Heart Surgery 119 MG/DL (74-106); Hemoglobin Heart Surgery 11.4 G/DL (14.0-18.0); Ionized Calcium Arterial 1.19 MMOL/L (1.21-1.46); PCO2 Patient Temp Arterial 42.3 MMHG; PH Patient Temp Arterial 7.401; Patient Temperature 37 CELCIUS; Potassium Heart/CVR 4.3 MMOL/L (3.5-5.1); Sodium Heart/CVR 138 MMOL/L (135-145)
[2018-03-22 07:54] LABS: Apearance,Urine CLEAR (Clear); Bilirubin,Urine Negative (Negative); Blood, Urine Negative (Negative); Glucose,Urine (UA) Negative (Negative); Ketones,Urine Negative (Negative); Nitrite,Urine Negative (Negative); Protein,Urine 30 MG/DL; RBC,Urine 2 /HPF (0-4); Squamous Epithelial Cell,Urine Occasional /HPF (0-10); Urine Color Yellow (Yellow); Urine Specific Gravity 1.018 (1.001-1.035); Urine Urobilinogen < 2.0 EU/DL (0.2-1.0)
[2018-03-22] MEDS: GABAPENTIN 400 MG CAPSULE PO SCH (09:00)
[2018-03-22] MEDS: PRILOSEC 20 MG PO SCH (09:00)
[2018-03-22] MEDS: ASPIRIN EC 81 MG TABLET PO SCH (09:00)
[2018-03-22] MEDS: NICOTINE 7 MG/24 HR PATCH TRANSDERM SCH (09:00)
[2018-03-22 09:58] LABS: Hematocrit Heart Surgery 26.2 PERCENT (42-52); Hemoglobin Heart Surgery 8.4 G/DL (14.0-18.0); PCO2 Patient Temp Venous 42.6 MM HG; PH Patient Temp Venous 7.401; PO2 Patient Temp Venous 41.6 MM HG; Potassium Heart/CVR 5.9 MMOL/L (3.5-5.1); VBG Base Excess 1.6 MEQ/L (0-4); VBG HCO3 25.6 MEQ/L (24-28); VBG Oxygen Saturation 79.1 %; VBG PCO2 44.7 MMHG (41-51); VBG PH 7.387; VBG PO2 44.6 MMHG (17-40)
[2018-03-22] MEDS ORDERED: PHENYLEPHRINE DRIP 20 MG/250 ML PREMIX IV ONE (10:01)
[2018-03-22] MEDS ORDERED: HEPARIN/NACL 0.9% 2 UNITS/ML 500 ML IV ONE (10:01)
[2018-03-22] MEDS ORDERED: MIDAZOLAM 10 MG/2 ML VIAL ONE (10:02)
[2018-03-22] MEDS ORDERED: VECURONIUM 10 MG VIAL IV ONE (10:02)
[2018-03-22] MEDS ORDERED: NITROGLYCERIN DRIP 50 MG/250 ML BOTTLE IV ONE ×2 (10:03→13:53)
[2018-03-22 10:25] LABS: Hematocrit Heart Surgery 23.4 PERCENT (42-52); Hemoglobin Heart Surgery 7.5 G/DL (14.0-18.0); PH Patient Temp Venous 7.434; PO2 Patient Temp Venous 37.5 MM HG; VBG Base Excess 1.4 MEQ/L (0-4); VBG HCO3 25.4 MEQ/L (24-28); VBG Oxygen Saturation 76.2 %; VBG PCO2 39.9 MMHG (41-51); VBG PH 7.419; VBG PO2 40.2 MMHG (17-40)
[2018-03-22 10:26] LABS: Potassium Heart/CVR 6.5 MMOL/L (3.5-5.1)
[2018-03-22] MEDS ORDERED: CALCIUM CHLORIDE 1,000 MG/10 ML SYRINGE IV ONE (11:06)
[2018-03-22] MEDS ORDERED: SODIUM BICARBONATE 50 MEQ/50 ML SYRINGE IV ONE ×2 (11:06→11:11)
[2018-03-22] MEDS ORDERED: EPINEPHrine 1 MG/10 ML SYRINGE ONE (11:07)
[2018-03-22] MEDS ORDERED: methylPREDNISolone SOD SUC 1,000 MG/8 ML VIAL ONE (11:11)
[2018-03-22] MEDS ORDERED: MANNITOL 100 GM/500 ML BAG IV ONE (11:11)
[2018-03-22] MEDS ORDERED: HEPARIN 10,000 UNIT/10 ML VIAL ONE (11:11)
[2018-03-22] MEDS ORDERED: DEXTROSE 5% KCL 20 MEQ 20 MEQ/1,000 ML BAG IV ONE (11:11)
[2018-03-22] MEDS ORDERED: ALBUMIN 25% 25 GM/100 ML VIAL IV ONE (11:11)
[2018-03-22] MEDS ORDERED: FUROSEMIDE 20 MG/2 ML VIAL ONE (11:11)
[2018-03-22] MEDS ORDERED: PROTAMINE SULFATE 250 MG/25 ML VIAL IV ONE (11:11)
[2018-03-22] MEDS ORDERED: MAGNESIUM SULFATE 10 GM/20 ML VIAL IV ONE (11:11)
[2018-03-22 11:25] LABS: ABG Base Excess -4.1 MMOL/L (-2.5-2.5); ABG Oxygen Saturation 99.8 % (95-100); ABG PH 7.315 (7.35-7.45); ABG TCO2 20.3 MMOL/L (23-27); Glucose Heart Surgery 252 MG/DL (74-106); Hematocrit Heart Surgery 28.5 PERCENT (42-52); Hemoglobin Heart Surgery 9.2 G/DL (14.0-18.0); Ionized Calcium Arterial 1.25 MMOL/L (1.21-1.46); PH Patient Temp Arterial 7.315; Patient Temperature 37 CELCIUS; Potassium Heart/CVR 4.9 MMOL/L (3.5-5.1); Sodium Heart/CVR 131 MMOL/L (135-145)
[2018-03-22] MEDS ORDERED: PHENYLEPHRINE DRIP 40 MG/250 ML PREMIX IV ONE (11:55)
[2018-03-22] MEDS: SODIUM CHLORIDE 0.45% 1,000 ML IV SCH ×2 (12:15)
[2018-03-22] MEDS ORDERED: SODIUM CHLORIDE 0.9% 250 ML IV PRN (12:22)
[2018-03-22] MEDS ORDERED: CHLORHEXIDINE 4% SOLN 118 ML BOTTLE TOP PRN (12:22)
[2018-03-22] MEDS ORDERED: POTASSIUM CHLORIDE RIDER 10 MEQ in PREMIX 1 EACH IV PRN (12:22)
[2018-03-22] MEDS ORDERED: ACETAMINOPHEN 650 MG SUPP RECTAL PRN (12:22)
[2018-03-22] MEDS ORDERED: INSULIN REGULAR 100 UNIT/ML IV PRN (12:22)
[2018-03-22] MEDS ORDERED: MAGNESIUM SULF RIDER 4 GM in PREMIX 1 EACH IV PRN (12:22)
[2018-03-22] MEDS ORDERED: DEXTROSE 50% 25 GM/50 ML SYRINGE IV PRN ×2 (12:22)
[2018-03-22] MEDS ORDERED: MAGNESIUM SULF RIDER 2 GM in PREMIX 1 EACH IV PRN (12:22)
[2018-03-22] MEDS ORDERED: CALCIUM CHLORIDE 1,000 MG/10 ML SYRINGE IV PRN (12:22)
[2018-03-22] MEDS ORDERED: PHENYLEPHRINE DRIP 40 MG/250 ML PREMIX IV PRN (12:30)
[2018-03-22] MEDS: MIDAZOLAM 2 MG/2 ML VIAL IV PRN ×4 (12:40→14:50)
[2018-03-22] MEDS ORDERED: ASPIRIN 300 MG SUPP RECTAL ONE ×2 (12:53→13:00)
[2018-03-22] MEDS ORDERED: NITROGLYCERIN DRIP 50 MG/250 ML BOTTLE IV PRN (13:00)
[2018-03-22] MEDS ORDERED: SEVOFLURANE 1 UNIT/15 MINUTE INH ONE (13:07)
[2018-03-22] MEDS ORDERED: CALCIUM CHLORIDE 1,000 MG/10 ML VIAL IV ONE (13:07)
[2018-03-22] MEDS ORDERED: SODIUM CHLORIDE 0.9% 500 ML IV ONE (13:07)
[2018-03-22] MEDS ORDERED: LACTATED RINGERS 1,000 ML IV ONE (13:07)
[2018-03-22] MEDS ORDERED: SODIUM CHLORIDE 0.9% 1,000 ML IV ONE (13:07)
[2018-03-22] MEDS ORDERED: EPINEPHrine 1 MG/ML VIAL ONE (13:07)
[2018-03-22] MEDS ORDERED: ETOMIDATE 40 MG/20 ML VIAL IV ONE (13:07)
[2018-03-22] MEDS ORDERED: PHENYLEPHRINE 1 MG/10 ML SYRINGE IV ONE (13:07)
[2018-03-22] MEDS ORDERED: AMINOCAPROIC ACID 5,000 MG/20 ML VIAL ONE (13:07)
[2018-03-22 13:23] LABS: ABG Base Excess -0.1 MMOL/L (-2.5-2.5); ABG HCO3 24.4 MMOL/L (20-26); ABG Oxygen Saturation 98.4 % (95-100); ABG PCO2 42.1 MM HG (35-48); ABG PH 7.382 (7.35-7.45); ABG TCO2 22.8 MMOL/L (23-27); Glucose Heart Surgery 195 MG/DL (74-106); Hematocrit Heart Surgery 31.4 PERCENT (42-52); Hemoglobin Heart Surgery 10.2 G/DL (14.0-18.0); Potassium Heart/CVR 3.7 MMOL/L (3.5-5.1)
[2018-03-22 13:25] LABS: Basophils % 0.2 % (0.0-0.8); Eosinophils % 0.2 % (0.00-10.9); Hemoglobin 10.4 GM/DL (14.0-18.0); Immature Granulocytes % 1.2 %; Immature Granulocytes Absolute 0.15 #; Lymphocytes # 1.1 10*3/uL (1.4-4.0); Lymphocytes % 8.5 % (21.2-54.2); Mean Corpuscular HGB Conc 31.5 GM/DL (32-36); Mean Corpuscular Hemoglobin 24 PG (27-34); Mean Platelet Volume 10.8 FL (9.6-12.0); Monocytes # 0.9 10*3/uL (0.11-0.8); Neutrophils # 10.5 10*3/uL (1.4-7.4); Neutrophils % 82.9 % (38.7-73.9); Platelet Count 159 T/CUMM (130-400); Red Cell Distribution Width 14.8 % (9.3-17.3); White Blood Count 12.7 T/CUMM (4-12)
[2018-03-22] MEDS ORDERED: INSULIN REGULAR DRIP 100 ML IV PRN (13:41)
[2018-03-22 13:54] LABS: Blood Urea Nitrogen 12 MG/DL (7-18); Glucose 183 MG/DL (74-106); Osmolality,Calculated 279.7 MOS/KG (273-304); Potassium 3.9 MMOL/L (3.5-5.1); Sodium 138 MMOL/L (136-145)
[2018-03-22 14:10] LABS: PT Patient Result 10.6 SECS; Partial Thromboplastin Time 26.5 SECS (0-40)
[2018-03-22] MEDS: POTASSIUM CHLORIDE RIDER 20 MEQ in PREMIX 1 EACH IV PRN (14:30)
[2018-03-22] MEDS: DEXMEDETOMIDINE 200 MCG in SODIUM CHLORIDE 0.9% 48 ML IV PRN ×2 (15:13→18:20)
[2018-03-22] MEDS: MORPHINE 4 MG/1 ML VIAL IV PRN ×3 (15:15→23:48)
[2018-03-22] MEDS: ALBUMIN 5% 12.5 GM in PREMIX 1 EACH IV PRN ×4 (15:30→18:20)
[2018-03-22] MEDS: MORPHINE 10 MG/1 ML VIAL IV PRN (19:10)
[2018-03-22] MEDS: CEFUROXIME INJ 1,500 MG in SYRINGE 1 EACH IV SCH (20:31)
[2018-03-22 21:46] LABS: ABG HCO3 23.6 MMOL/L (20-26); ABG Oxygen Saturation 99.2 % (95-100); ABG PCO2 39.1 MM HG (35-48); ABG TCO2 21.8 MMOL/L (23-27); Glucose Heart Surgery 152 MG/DL (74-106); Hematocrit Heart Surgery 28.1 PERCENT (42-52); Hemoglobin Heart Surgery 9.1 G/DL (14.0-18.0); Potassium Heart/CVR 4.1 MMOL/L (3.5-5.1)
[2018-03-22] MEDS: KETOROLAC 15 MG/1 ML VIAL IV PRN (22:19)
[2018-03-23] MEDS: SODIUM CHLORIDE 0.45% 1,000 ML IV SCH ×2 (01:42→08:30)
[2018-03-23] MEDS: MORPHINE 10 MG/1 ML VIAL IV PRN ×2 (02:39→06:16)
[2018-03-23 03:55] LABS: Basophils % 0.1 % (0.0-0.8); Hematocrit 26.6 VOL% (42.0-52.0); Hemoglobin 8.4 GM/DL (14.0-18.0); Immature Granulocytes % 0.7 %; Immature Granulocytes Absolute 0.11 #; Lymphocytes % 6.8 % (21.2-54.2); Mean Corpuscular HGB Conc 31.6 GM/DL (32-36); Mean Corpuscular Hemoglobin 24 PG (27-34); Mean Corpuscular Volume 74.5 FL (87-102); Mean Platelet Volume 10.6 FL (9.6-12.0); Monocytes # 1.4 10*3/uL (0.11-0.8); Monocytes % 9.1 % (1.7-12.7); Neutrophils # 12.3 10*3/uL (1.4-7.4); Neutrophils % 83.3 % (38.7-73.9); Platelet Count 140 T/CUMM (130-400); Red Blood Count 3.57 MC/CUMM (3.8-5.5); Red Cell Distribution Width 14.8 % (9.3-17.3); White Blood Count 14.8 T/CUMM (4-12)
[2018-03-23 04:11] LABS: Calcium 8.4 MG/DL (8.5-10.1); Osmolality,Calculated 277.5 MOS/KG (273-304); Potassium 4.1 MMOL/L (3.5-5.1)
[2018-03-23] MEDS: KETOROLAC 15 MG/1 ML VIAL IV PRN ×3 (06:10→18:11)
[2018-03-23] MEDS: CEFUROXIME INJ 1,500 MG in SYRINGE 1 EACH IV SCH ×2 (08:22→22:07)
[2018-03-23] MEDS ORDERED: FUROSEMIDE 20 MG/2 ML VIAL IV ONE (09:50)
[2018-03-23] MEDS ORDERED: FUROSEMIDE 40 MG/4 ML VIAL IV ONE (10:08)
[2018-03-23] MEDS: PANTOPRAZOLE 40 MG VIAL IV SCH (10:15)
[2018-03-23] MEDS: CARVEDILOL 3.125 MG TABLET PO SCH ×2 (10:20→22:08)
[2018-03-23] MEDS: FUROSEMIDE 40 MG TABLET PO SCH (10:20)
[2018-03-23] MEDS: CLOPIDOGREL 75 MG TABLET PO SCH (10:20)
[2018-03-23] MEDS: ASPIRIN EC 325 MG TABLET PO SCH (10:20)
[2018-03-23] MEDS: CHLORHEXIDINE 0.12% ORAL RINSE 60 ML BOTTLE SWISH/SPIT SCH ×2 (10:25→22:08)
[2018-03-23] MEDS: ONDANSETRON 4 MG/2 ML VIAL IV PRN (10:50)
[2018-03-23] MEDS ORDERED: CEFUROXIME INJ 1,500 MG in SYRINGE 1 EACH IV ONE (11:00)
[2018-03-23] MEDS ORDERED: ACETAMINOPHEN 325 MG TABLET PO PRN (16:11)
[2018-03-23] MEDS: ATORVASTATIN 40 MG TABLET PO SCH (22:08)
[2018-03-24] MEDS: KETOROLAC 15 MG/1 ML VIAL IV PRN (00:05)
[2018-03-24] MEDS: ALBUTEROL/IPRATROPIUM 3 ML NEB RESP TX PRN ×2 (00:23→04:10)
[2018-03-24 05:21] LABS: Hematocrit 26.8 VOL% (42.0-52.0); Hemoglobin 8.3 GM/DL (14.0-18.0); Immature Granulocytes % 0.7 %; Immature Granulocytes Absolute 0.14 #; Lymphocytes # 1.7 10*3/uL (1.4-4.0); Mean Corpuscular Hemoglobin 23 PG (27-34); Mean Corpuscular Volume 74.9 FL (87-102); Mean Platelet Volume 12.3 FL (9.6-12.0); Monocytes # 1.9 10*3/uL (0.11-0.8); Monocytes % 9.1 % (1.7-12.7); Neutrophils # 17.1 10*3/uL (1.4-7.4); Neutrophils % 82.2 % (38.7-73.9); Platelet Count 126 T/CUMM (130-400); Red Blood Count 3.58 MC/CUMM (3.8-5.5); Red Cell Distribution Width 14.9 % (9.3-17.3); White Blood Count 20.8 T/CUMM (4-12)
[2018-03-24 05:37] LABS: Calcium 8.3 MG/DL (8.5-10.1); Osmolality,Calculated 283.5 MOS/KG (273-304); Potassium 4.6 MMOL/L (3.5-5.1)
[2018-03-24] MEDS ORDERED: ROCURONIUM 100 MG/10 ML VIAL IV ONE (06:13)
[2018-03-24] MEDS ORDERED: ETOMIDATE 20 MG/10 ML VIAL IV ONE (06:13)
[2018-03-24 06:15] LABS: Band Neutrophils 1 % (0-10); Hypochromasia 2+; Lymphocytes 4 % (20-55); Platelet Estimate Decreased; Segmented Neutrophils 89 % (50-85); Total Cells Counted 100
[2018-03-24] MEDS ORDERED: METOPROLOL TARTRATE 5 MG/5 ML VIAL IV ONE ×5 (06:17→06:40)
[2018-03-24] MEDS ORDERED: AMIODARONE 450 MG/9 ML VIAL IV ONE (06:24)
[2018-03-24] MEDS ORDERED: MIDAZOLAM 2 MG/2 ML VIAL IV ONE (06:24)
[2018-03-24] MEDS ORDERED: AMIODARONE 150 MG/3 ML VIAL ONE (06:25)
[2018-03-24] MEDS ORDERED: AMIODARONE INJ 150 MG in DEXTROSE 5% 100 ML IV ONE (06:30)
[2018-03-24] MEDS ORDERED: AMIODARONE INJ 450 MG in DEXTROSE 5% 241 ML IV SCH (06:30)
[2018-03-24] MEDS ORDERED: MAGNESIUM SULF RIDER 2 GM in PREMIX 1 EACH IV ONE (06:31)
[2018-03-24 06:36] LABS: ABG Oxygen Saturation 92.7 % (95-100); ABG PCO2 36.4 MM HG (35-48); ABG PH 7.365 (7.35-7.45); ABG PO2 72.1 MM HG (80-95); ABG TCO2 19.2 MMOL/L (23-27); Allen Test Positive; Pt O2 Delivery Device Ventilator
[2018-03-24] MEDS ORDERED: LACTATED RINGERS 500 ML IV ONE ×2 (06:43→08:24)
[2018-03-24] MEDS ORDERED: NITROGLYCERIN DRIP 50 MG/250 ML BOTTLE IV ONE (06:45)
[2018-03-24] MEDS ORDERED: NITROGLYCERIN DRIP 50 MG/250 ML BOTTLE IV PRN (06:46)
[2018-03-24] MEDS ORDERED: PROPOFOL 1,000 MG/100 ML BOTTLE IV ONE (06:47)
[2018-03-24 06:50] LABS: Basophils % 0.1 % (0.0-0.8); Hematocrit 28.4 VOL% (42.0-52.0); Hemoglobin 8.8 GM/DL (14.0-18.0); Immature Granulocytes % 0.8 %; Immature Granulocytes Absolute 0.19 #; Lymphocytes # 2.4 10*3/uL (1.4-4.0); Lymphocytes % 10.3 % (21.2-54.2); Mean Corpuscular Hemoglobin 24 PG (27-34); Mean Corpuscular Volume 76.3 FL (87-102); Mean Platelet Volume 11.9 FL (9.6-12.0); Monocytes # 2.6 10*3/uL (0.11-0.8); Monocytes % 11.1 % (1.7-12.7); Neutrophils % 77.7 % (38.7-73.9); Platelet Count 163 T/CUMM (130-400); Red Blood Count 3.72 MC/CUMM (3.8-5.5); Red Cell Distribution Width 15.2 % (9.3-17.3); White Blood Count 23.2 T/CUMM (4-12)
[2018-03-24] MEDS: PROPOFOL 1,000 MG/100 ML BOTTLE IV SCH ×2 (06:50→16:43)
[2018-03-24 07:09] LABS: Calcium 8.1 MG/DL (8.5-10.1); Osmolality,Calculated 287.5 MOS/KG (273-304); Potassium 4.3 MMOL/L (3.5-5.1)
[2018-03-24 07:10] LABS: Apearance,Urine CLEAR (Clear); Bacteria,Urine Occasional /HPF (Few); Bilirubin,Urine Negative (Negative); Blood, Urine Moderate mg/dL (Negative); Glucose,Urine (UA) 150 mg/dL (Negative); Ketones,Urine Negative (Negative); Mucus,Urine Occasional /LPF (Occasional); Nitrite,Urine Negative (Negative); Protein,Urine >=500 MG/DL; RBC,Urine 33 /HPF (0-4); Urine Color Yellow (Yellow); Urine Specific Gravity 1.011 (1.001-1.035); Urine Urobilinogen < 2.0 EU/DL (0.2-1.0); WBC,Urine 3 /HPF (0-6)
[2018-03-24 07:35] LABS: ABG Base Excess -1.9 MMOL/L (-2.5-2.5); ABG HCO3 22.7 MMOL/L (20-26); ABG Oxygen Saturation 91.5 % (95-100); ABG PCO2 36.6 MM HG (35-48); ABG PH 7.397 (7.35-7.45); ABG PO2 66.9 MM HG (80-95); ABG TCO2 20.6 MMOL/L (23-27); Allen Test Positive; Pt O2 Delivery Device Ventilator
[2018-03-24 07:42] LABS: Band Neutrophils 1 % (0-10); Lymphocytes 9 % (20-55); Segmented Neutrophils 86 % (50-85); Total Cells Counted 100
[2018-03-24] MEDS ORDERED: HEPARIN/NACL 0.9% 2 UNITS/ML 500 ML IV ONE (07:43)
[2018-03-24 07:44] LABS: Anisocytosis 1+; Platelet Estimate Adequate
[2018-03-24] MEDS: MIDAZOLAM 2 MG/2 ML VIAL IV PRN (08:17)
[2018-03-24 08:23] LABS: ABG Base Excess -0.6 MMOL/L (-2.5-2.5); ABG HCO3 23.9 MMOL/L (20-26); ABG Oxygen Saturation 97.8 % (95-100); ABG PCO2 36.6 MM HG (35-48); ABG PH 7.417 (7.35-7.45); ABG TCO2 21.6 MMOL/L (23-27)
[2018-03-24] MEDS ORDERED: CALCIUM CHLORIDE 1,000 MG/10 ML SYRINGE IV ONE (08:24)
[2018-03-24] MEDS ORDERED: ALBUMIN 5% 12.5 GM in PREMIX 1 EACH IV ONE (08:44)
[2018-03-24] MEDS ORDERED: SODIUM CHLORIDE 0.9% 500 ML IV ONE (09:30)
[2018-03-24] MEDS: CLORAZEPATE 3.75 MG TABLET PER TUBE SCH ×3 (09:51→22:08)
[2018-03-24] MEDS: ASPIRIN EC 325 MG TABLET PO SCH ×2 (09:51→09:54)
[2018-03-24] MEDS: CLOPIDOGREL 75 MG TABLET PO SCH (09:51)
[2018-03-24] MEDS: PANTOPRAZOLE 40 MG VIAL IV SCH (09:51)
[2018-03-24] MEDS: CARVEDILOL 3.125 MG TABLET PO SCH ×2 (09:51→22:09)
[2018-03-24] MEDS: ASPIRIN 325 MG TABLET PO SCH (09:56)
[2018-03-24] MEDS: FUROSEMIDE 40 MG TABLET PO SCH (10:16)
[2018-03-24] MEDS: CHLORHEXIDINE 0.12% ORAL RINSE 60 ML BOTTLE SWISH/SPIT SCH ×2 (10:23→21:30)
[2018-03-24 10:36] LABS: ABG Base Excess -0.9 MMOL/L (-2.5-2.5); ABG HCO3 23.7 MMOL/L (20-26); ABG Oxygen Saturation 99.7 % (95-100); ABG PCO2 33.8 MM HG (35-48); ABG PH 7.438 (7.35-7.45); ABG TCO2 21.1 MMOL/L (23-27); Glucose Heart Surgery 180 MG/DL (74-106); Hematocrit Heart Surgery 26.6 PERCENT (42-52); Hemoglobin Heart Surgery 8.6 G/DL (14.0-18.0); Potassium Heart/CVR 4.5 MMOL/L (3.5-5.1)
[2018-03-24] MEDS: HEPARIN/NACL 0.9% 2 UNITS/ML 500 ML IV SCH (11:03)
[2018-03-24] MEDS: MORPHINE 4 MG/1 ML VIAL IV PRN ×2 (11:04→18:37)
[2018-03-24] MEDS: AMIODARONE INJ 450 MG in DEXTROSE 5% 241 ML IV SCH (12:47)
[2018-03-24 16:24] LABS: ABG Base Excess 0.9 MMOL/L (-2.5-2.5); ABG HCO3 25.2 MMOL/L (20-26); ABG Oxygen Saturation 98.5 % (95-100); ABG PCO2 29.9 MM HG (35-48); ABG PH 7.503 (7.35-7.45); ABG TCO2 21.3 MMOL/L (23-27); Glucose Heart Surgery 142 MG/DL (74-106); Hematocrit Heart Surgery 29.6 PERCENT (42-52); Hemoglobin Heart Surgery 9.5 G/DL (14.0-18.0); Potassium Heart/CVR 4.2 MMOL/L (3.5-5.1)
[2018-03-24 21:57] LABS: ABG HCO3 26.2 MMOL/L (20-26); ABG Oxygen Saturation 98.6 % (95-100); ABG PCO2 34.1 MM HG (35-48); ABG TCO2 19.7 MMOL/L (23-27); Glucose Heart Surgery 152 MG/DL (74-106); Hematocrit Heart Surgery 58.2 PERCENT (42-52); Hemoglobin Heart Surgery 19.1 G/DL (14.0-18.0)
[2018-03-24] MEDS: ATORVASTATIN 40 MG TABLET PO SCH (22:09)
[2018-03-24] MEDS: AMIODARONE 200 MG TABLET PO SCH (22:09)
[2018-03-25] MEDS: PROPOFOL 1,000 MG/100 ML BOTTLE IV SCH ×2 (01:00→08:38)
[2018-03-25] MEDS: MORPHINE 4 MG/1 ML VIAL IV PRN ×3 (01:54→20:50)
[2018-03-25] MEDS: CLORAZEPATE 3.75 MG TABLET PER TUBE SCH ×4 (04:18→20:50)
[2018-03-25 04:49] LABS: Basophils % 0.1 % (0.0-0.8); Hematocrit 29.9 VOL% (42.0-52.0); Hemoglobin 9.3 GM/DL (14.0-18.0); Immature Granulocytes % 0.5 %; Immature Granulocytes Absolute 0.09 #; Lymphocytes # 2.4 10*3/uL (1.4-4.0); Lymphocytes % 12.1 % (21.2-54.2); Mean Corpuscular HGB Conc 31.1 GM/DL (32-36); Mean Corpuscular Hemoglobin 24 PG (27-34); Mean Corpuscular Volume 75.9 FL (87-102); Mean Platelet Volume 12.2 FL (9.6-12.0); Monocytes # 1.5 10*3/uL (0.11-0.8); Monocytes % 7.9 % (1.7-12.7); Neutrophils # 15.6 10*3/uL (1.4-7.4); Neutrophils % 79.4 % (38.7-73.9); Platelet Count 146 T/CUMM (130-400); Red Blood Count 3.94 MC/CUMM (3.8-5.5); Red Cell Distribution Width 14.7 % (9.3-17.3); White Blood Count 19.6 T/CUMM (4-12)
[2018-03-25 04:58] LABS: Calcium 8.5 MG/DL (8.5-10.1); Osmolality,Calculated 279.5 MOS/KG (273-304)
[2018-03-25] MEDS: MORPHINE 10 MG/1 ML VIAL IV PRN ×2 (06:15→17:17)
[2018-03-25] MEDS: AMIODARONE INJ 450 MG in DEXTROSE 5% 241 ML IV SCH (06:28)
[2018-03-25 07:23] LABS: ABG Base Excess -0.1 MMOL/L (-2.5-2.5); ABG HCO3 24.3 MMOL/L (20-26); ABG Oxygen Saturation 98.9 % (95-100); ABG PH 7.455 (7.35-7.45); Glucose Heart Surgery 141 MG/DL (74-106); Hematocrit Heart Surgery 31.8 PERCENT (42-52); Hemoglobin Heart Surgery 10.3 G/DL (14.0-18.0)
[2018-03-25] MEDS: DOCUSATE SODIUM 100 MG CAPSULE PO SCH ×2 (09:09→20:50)
[2018-03-25] MEDS: AMIODARONE 200 MG TABLET PO SCH ×2 (09:11→20:50)
[2018-03-25] MEDS: CARVEDILOL 3.125 MG TABLET PO SCH ×2 (09:12→20:50)
[2018-03-25] MEDS: FUROSEMIDE 40 MG TABLET PO SCH (09:19)
[2018-03-25] MEDS: CLOPIDOGREL 75 MG TABLET PO SCH (09:19)
[2018-03-25] MEDS: ASPIRIN 325 MG TABLET PO SCH (09:20)
[2018-03-25] MEDS: CHLORHEXIDINE 0.12% ORAL RINSE 60 ML BOTTLE SWISH/SPIT SCH ×2 (09:21→21:03)
[2018-03-25] MEDS: NICOTINE 21 MG/24 HR PATCH TRANSDERM SCH (09:22)
[2018-03-25] MEDS: PANTOPRAZOLE 40 MG VIAL IV SCH (09:23)
[2018-03-25] MEDS: LEVOFLOXACIN INJ 500 MG in PREMIX 1 EACH IV SCH (10:57)
[2018-03-25 11:40] LABS: ABG Base Excess 0.3 MMOL/L (-2.5-2.5); ABG HCO3 24.7 MMOL/L (20-26); ABG Oxygen Saturation 97.9 % (95-100); ABG PCO2 33.2 MM HG (35-48); ABG PH 7.461 (7.35-7.45); ABG PO2 98.4 MM HG (80-95); ABG TCO2 21.4 MMOL/L (23-27)
[2018-03-25] MEDS: HEPARIN/NACL 0.9% 2 UNITS/ML 500 ML IV SCH (13:34)
[2018-03-25] MEDS: ATORVASTATIN 40 MG TABLET PO SCH (20:50)
[2018-03-26] MEDS: CLORAZEPATE 3.75 MG TABLET PER TUBE SCH ×4 (02:45→21:30)
[2018-03-26] MEDS ORDERED: PANTOPRAZOLE 40 MG TABLET PO SCH (09:00)
[2018-03-26] MEDS: NICOTINE 21 MG/24 HR PATCH TRANSDERM SCH (09:21)
[2018-03-26] MEDS: AMIODARONE 200 MG TABLET PO SCH ×2 (09:21→21:30)
[2018-03-26] MEDS: CARVEDILOL 3.125 MG TABLET PO SCH ×2 (09:22→21:30)
[2018-03-26] MEDS: FUROSEMIDE 40 MG TABLET PO SCH (09:22)
[2018-03-26] MEDS: LEVOFLOXACIN INJ 500 MG in PREMIX 1 EACH IV SCH (09:22)
[2018-03-26] MEDS: CLOPIDOGREL 75 MG TABLET PO SCH (09:22)
[2018-03-26] MEDS: ASPIRIN 325 MG TABLET PO SCH (09:22)
[2018-03-26] MEDS: DOCUSATE SODIUM 100 MG CAPSULE PO SCH ×2 (09:22→21:31)
[2018-03-26] MEDS: CHLORHEXIDINE 0.12% ORAL RINSE 60 ML BOTTLE SWISH/SPIT SCH ×2 (09:29→21:39)
[2018-03-26 10:09] LABS: Basophils % 0.1 % (0.0-0.8); Eosinophils % 0.1 % (0.00-10.9); Hematocrit 32.2 VOL% (42.0-52.0); Hemoglobin 10.2 GM/DL (14.0-18.0); Immature Granulocytes % 0.5 %; Immature Granulocytes Absolute 0.07 #; Lymphocytes # 1.4 10*3/uL (1.4-4.0); Mean Corpuscular HGB Conc 31.7 GM/DL (32-36); Mean Corpuscular Hemoglobin 24 PG (27-34); Mean Corpuscular Volume 76.8 FL (87-102); Mean Platelet Volume 11.1 FL (9.6-12.0); Monocytes # 0.7 10*3/uL (0.11-0.8); Monocytes % 5.2 % (1.7-12.7); Neutrophils # 11.8 10*3/uL (1.4-7.4); Neutrophils % 84.1 % (38.7-73.9); Platelet Count 182 T/CUMM (130-400); Red Blood Count 4.19 MC/CUMM (3.8-5.5); Red Cell Distribution Width 14.4 % (9.3-17.3)
[2018-03-26] MEDS ORDERED: FUROSEMIDE 40 MG/4 ML VIAL IV ONE (10:30)
[2018-03-26 10:42] LABS: Calcium 8.5 MG/DL (8.5-10.1); Osmolality,Calculated 277.8 MOS/KG (273-304); Potassium 3.4 MMOL/L (3.5-5.1)
[2018-03-26] MEDS: HEPARIN/NACL 0.9% 2 UNITS/ML 500 ML IV SCH (11:10)
[2018-03-26] MEDS: POTASSIUM CHLORIDE RIDER 20 MEQ in PREMIX 1 EACH IV PRN ×2 (11:51→12:27)
[2018-03-26] MEDS: ONDANSETRON 4 MG/2 ML VIAL IV PRN (13:04)
[2018-03-26] MEDS: MORPHINE 10 MG/1 ML VIAL IV PRN ×2 (13:13→19:30)
[2018-03-26] MEDS: ATORVASTATIN 40 MG TABLET PO SCH (21:30)
[2018-03-26] MEDS: PANTOPRAZOLE 40 MG TABLET PO SCH (21:31)
[2018-03-27] MEDS: MORPHINE 10 MG/1 ML VIAL IV PRN (02:20)
[2018-03-27] MEDS: CLORAZEPATE 3.75 MG TABLET PER TUBE SCH ×4 (04:20→22:09)
[2018-03-27 05:12] LABS: Basophils % 0.1 % (0.0-0.8); Eosinophils # 0.1 10*3/uL (0.0-0.87); Eosinophils % 0.6 % (0.00-10.9); Hemoglobin 10.7 GM/DL (14.0-18.0); Immature Granulocytes % 0.7 %; Immature Granulocytes Absolute 0.09 #; Lymphocytes # 2.3 10*3/uL (1.4-4.0); Lymphocytes % 19.1 % (21.2-54.2); Mean Corpuscular HGB Conc 31.5 GM/DL (32-36); Mean Corpuscular Hemoglobin 24 PG (27-34); Mean Corpuscular Volume 75.6 FL (87-102); Mean Platelet Volume 10.9 FL (9.6-12.0); Monocytes # 1.2 10*3/uL (0.11-0.8); Neutrophils # 8.4 10*3/uL (1.4-7.4); Neutrophils % 69.5 % (38.7-73.9); Platelet Count 202 T/CUMM (130-400); Red Cell Distribution Width 14.1 % (9.3-17.3); White Blood Count 12.1 T/CUMM (4-12)
[2018-03-27 05:27] LABS: Calcium 8.5 MG/DL (8.5-10.1); Osmolality,Calculated 278.5 MOS/KG (273-304); Potassium 3.8 MMOL/L (3.5-5.1)
[2018-03-27] MEDS: FUROSEMIDE 40 MG TABLET PO SCH (08:21)
[2018-03-27] MEDS: CARVEDILOL 3.125 MG TABLET PO SCH ×2 (08:21→22:10)
[2018-03-27] MEDS: DOCUSATE SODIUM 100 MG CAPSULE PO SCH ×2 (08:21→22:08)
[2018-03-27] MEDS: PANTOPRAZOLE 40 MG TABLET PO SCH ×2 (08:21→22:09)
[2018-03-27] MEDS: CLOPIDOGREL 75 MG TABLET PO SCH (08:21)
[2018-03-27] MEDS: AMIODARONE 200 MG TABLET PO SCH ×2 (08:21→22:10)
[2018-03-27] MEDS: NICOTINE 21 MG/24 HR PATCH TRANSDERM SCH (08:21)
[2018-03-27] MEDS: ASPIRIN 325 MG TABLET PO SCH (08:22)
[2018-03-27] MEDS: CHLORHEXIDINE 0.12% ORAL RINSE 60 ML BOTTLE SWISH/SPIT SCH ×2 (08:26→22:10)
[2018-03-27] MEDS: LEVOFLOXACIN INJ 500 MG in PREMIX 1 EACH IV SCH (09:09)
[2018-03-27] MEDS: MORPHINE 4 MG/1 ML VIAL IV PRN (17:03)
[2018-03-27] MEDS: ATORVASTATIN 40 MG TABLET PO SCH (22:10)
[2018-03-28 04:50] LABS: Basophils % 0.1 % (0.0-0.8); Eosinophils # 0.1 10*3/uL (0.0-0.87); Eosinophils % 0.4 % (0.00-10.9); Hematocrit 31.5 VOL% (42.0-52.0); Hemoglobin 9.9 GM/DL (14.0-18.0); Immature Granulocytes % 0.8 %; Lymphocytes # 2.8 10*3/uL (1.4-4.0); Lymphocytes % 23.1 % (21.2-54.2); Mean Corpuscular HGB Conc 31.4 GM/DL (32-36); Mean Corpuscular Hemoglobin 24 PG (27-34); Mean Corpuscular Volume 75.2 FL (87-102); Mean Platelet Volume 10.3 FL (9.6-12.0); Monocytes # 1.1 10*3/uL (0.11-0.8); Monocytes % 8.7 % (1.7-12.7); Neutrophils # 8.2 10*3/uL (1.4-7.4); Neutrophils % 66.9 % (38.7-73.9); Platelet Count 256 T/CUMM (130-400); Red Blood Count 4.19 MC/CUMM (3.8-5.5); Red Cell Distribution Width 14.2 % (9.3-17.3); White Blood Count 12.2 T/CUMM (4-12)
[2018-03-28] MEDS: MORPHINE 4 MG/1 ML VIAL IV PRN ×3 (05:01→22:24)
[2018-03-28 05:08] LABS: Calcium 8.6 MG/DL (8.5-10.1); Osmolality,Calculated 275.8 MOS/KG (273-304); Potassium 3.2 MMOL/L (3.5-5.1)
[2018-03-28] MEDS: PANTOPRAZOLE 40 MG TABLET PO SCH ×2 (09:17→21:51)
[2018-03-28] MEDS: ASPIRIN 325 MG TABLET PO SCH (09:17)
[2018-03-28] MEDS: CLORAZEPATE 3.75 MG TABLET PER TUBE SCH ×3 (09:17→21:51)
[2018-03-28] MEDS: NICOTINE 21 MG/24 HR PATCH TRANSDERM SCH (09:17)
[2018-03-28] MEDS: CHLORHEXIDINE 0.12% ORAL RINSE 60 ML BOTTLE SWISH/SPIT SCH ×2 (09:18→21:52)
[2018-03-28] MEDS: DOCUSATE SODIUM 100 MG CAPSULE PO SCH ×2 (09:18→21:54)
[2018-03-28] MEDS: CLOPIDOGREL 75 MG TABLET PO SCH (09:18)
[2018-03-28] MEDS: FUROSEMIDE 40 MG TABLET PO SCH (09:18)
[2018-03-28] MEDS: AMIODARONE 200 MG TABLET PO SCH ×2 (09:18→21:51)
[2018-03-28] MEDS: CARVEDILOL 3.125 MG TABLET PO SCH ×2 (09:18→21:51)
[2018-03-28] MEDS ORDERED: POTASSIUM CHLORIDE RIDER 20 MEQ in PREMIX 1 EACH IV PRN (09:45)
[2018-03-28] MEDS: LEVOFLOXACIN INJ 500 MG in PREMIX 1 EACH IV SCH (10:11)
[2018-03-28] MEDS ORDERED: FUROSEMIDE 40 MG/4 ML VIAL IV ONE (14:54)
[2018-03-28] MEDS: BISACODYL 5 MG TABLET PO PRN ×2 (15:37→21:51)
[2018-03-28] MEDS: ATORVASTATIN 40 MG TABLET PO SCH (21:51)
[2018-03-29] MEDS: MORPHINE 4 MG/1 ML VIAL IV PRN (02:35)
[2018-03-29] MEDS: CLORAZEPATE 3.75 MG TABLET PER TUBE SCH ×2 (04:24→09:54)
[2018-03-29 05:22] LABS: Basophils % 0.1 % (0.0-0.8); Eosinophils % 0.2 % (0.00-10.9); Hematocrit 32.1 VOL% (42.0-52.0); Hemoglobin 10.2 GM/DL (14.0-18.0); Immature Granulocytes % 1.4 %; Immature Granulocytes Absolute 0.19 #; Lymphocytes # 2.4 10*3/uL (1.4-4.0); Lymphocytes % 16.9 % (21.2-54.2); Mean Corpuscular HGB Conc 31.8 GM/DL (32-36); Mean Corpuscular Hemoglobin 24 PG (27-34); Mean Corpuscular Volume 75.2 FL (87-102); Mean Platelet Volume 10.4 FL (9.6-12.0); Monocytes # 1.2 10*3/uL (0.11-0.8); Monocytes % 8.4 % (1.7-12.7); Neutrophils # 10.2 10*3/uL (1.4-7.4); Platelet Count 294 T/CUMM (130-400); Red Blood Count 4.27 MC/CUMM (3.8-5.5); Red Cell Distribution Width 14.3 % (9.3-17.3)
[2018-03-29 05:38] LABS: Calcium 8.7 MG/DL (8.5-10.1); Osmolality,Calculated 275.8 MOS/KG (273-304); Potassium 3.7 MMOL/L (3.5-5.1)
[2018-03-29 09:25] VITALS: BP 132/84
[2018-03-29] MEDS: CLOPIDOGREL 75 MG TABLET PO SCH (09:54)
[2018-03-29] MEDS: CARVEDILOL 3.125 MG TABLET PO SCH (09:54)
[2018-03-29] MEDS: PANTOPRAZOLE 40 MG TABLET PO SCH (09:54)
[2018-03-29] MEDS: DOCUSATE SODIUM 100 MG CAPSULE PO SCH (09:54)
[2018-03-29] MEDS: FUROSEMIDE 40 MG TABLET PO SCH (09:54)
[2018-03-29] MEDS: AMIODARONE 200 MG TABLET PO SCH (09:54)
[2018-03-29] MEDS: ASPIRIN 325 MG TABLET PO SCH (09:54)
[2018-03-29] MEDS: NICOTINE 21 MG/24 HR PATCH TRANSDERM SCH (09:54)
[2018-03-29] MEDS: CHLORHEXIDINE 0.12% ORAL RINSE 60 ML BOTTLE SWISH/SPIT SCH (10:10)
== END 2018-03-29 10:50 | disposition home health service (06) | DRG 166 ==
LOC: N.ED 10:05 → N.EDINP 10:05 → N.TELES 13:14 → N.CVR 03-22 08:00 → N.ICU 03-23 08:38 → N.TELES 03-23 13:54 → N.ICU 03-24 06:19 → N.TELES 03-26 14:30
PROVIDERS: ADMIT Internal Medicine; ATTEND Internal Medicine Cardiovascular Disease

== ENCOUNTER 2018-06-19 17:23 | Inpatient (IN) ==
[2018-06-19] MEDS ORDERED: ONDANSETRON 4 MG/2 ML VIAL IV STA (17:50)
[2018-06-19] MEDS ORDERED: FUROSEMIDE 40 MG/4 ML VIAL IV STA (17:50)
[2018-06-19] MEDS ORDERED: NITROGLYCERIN 2% OINT 1 INCH/GM PACK TOP STA (17:50)
[2018-06-19] MEDS ORDERED: ALUM/MAG/SIMETH/LIDO VISC 1:1 30 ML BOTTLE PO STA (17:50)
[2018-06-19] MEDS ORDERED: ALBUTEROL/IPRATROPIUM 3 ML NEB RESP TX STA (17:50)
[2018-06-19] MEDS ORDERED: ASPIRIN 325 MG TABLET PO STA (17:50)
[2018-06-19] MEDS ORDERED: MORPHINE 4 MG/1 ML VIAL IV STA (17:50)
[2018-06-19 18:30] LABS: Basophils % 0.3 % (0.0-0.8); Eosinophils # 0.1 10*3/uL (0.0-0.87); Eosinophils % 1.6 % (0.00-10.9); Hematocrit 40.8 VOL% (42.0-52.0); Hemoglobin 12.4 GM/DL (14.0-18.0); Immature Granulocytes % 0.5 %; Immature Granulocytes Absolute 0.03 #; Lymphocytes # 2.4 10*3/uL (1.4-4.0); Lymphocytes % 37.9 % (21.2-54.2); Mean Corpuscular HGB Conc 30.4 GM/DL (32-36); Mean Corpuscular Volume 74.6 FL (87-102); Mean Platelet Volume 11.6 FL (9.6-12.0); Monocytes % 9.7 % (1.7-12.7); Platelet Count 225 T/CUMM (130-400); Red Blood Count 5.47 MC/CUMM (3.8-5.5); Red Cell Distribution Width 15.4 % (9.3-17.3); White Blood Count 6.4 T/CUMM (4-12)
[2018-06-19 18:42] LABS: INR 0.9; PT Patient Result 10.1 SECS; Partial Thromboplastin Time 26.5 SECS (0-40)
[2018-06-19 18:57] LABS: Alanine Aminotransferase 45 U/L (16-61); Albumin 3.9 G/DL (3.4-5.0); Alkaline Phosphatase 99 U/L (45-117); Aspartate Amino Transferase 27 U/L (0-37); Bilirubin,Total < 0.39 MG/DL (0.2-1.0); Blood Urea Nitrogen 13 MG/DL (7-18); Glucose 156 MG/DL (74-106); Osmolality,Calculated 277.7 MOS/KG (273-304); Total Protein 8.1 G/DL (6.4-8.3)
[2018-06-19] MEDS ORDERED: MORPHINE 4 MG/1 ML VIAL IV PRN (21:41)
[2018-06-19] MEDS ORDERED: BISACODYL 5 MG TABLET PO PRN (21:41)
[2018-06-19] MEDS ORDERED: NICOTINE 21 MG/24 HR PATCH TRANSDERM PRN (21:41)
[2018-06-19] MEDS ORDERED: NITROGLYCERIN SL 0.4 MG TABLET SL PRN (21:41)
[2018-06-19] MEDS ORDERED: ONDANSETRON 4 MG/2 ML VIAL IV PRN (21:41)
[2018-06-19] MEDS ORDERED: ACETAMINOPHEN 325 MG TABLET PO PRN (21:41)
[2018-06-19] MEDS ORDERED: guaiFENesin/DM ER 600-30 MG TABLET PO PRN (21:41)
[2018-06-19] MEDS ORDERED: DOCUSATE SODIUM 100 MG CAPSULE PO PRN (23:48)
[2018-06-20] MEDS: CARVEDILOL 12.5 MG TABLET PO SCH ×3 (00:55→20:42)
[2018-06-20 05:28] LABS: Basophils % 0.3 % (0.0-0.8); Eosinophils # 0.1 10*3/uL (0.0-0.87); Eosinophils % 1.3 % (0.00-10.9); Hematocrit 40.5 VOL% (42.0-52.0); Hemoglobin 12.5 GM/DL (14.0-18.0); Immature Granulocytes % 0.3 %; Immature Granulocytes Absolute 0.02 #; Lymphocytes # 2.1 10*3/uL (1.4-4.0); Lymphocytes % 34.7 % (21.2-54.2); Mean Corpuscular HGB Conc 30.9 GM/DL (32-36); Mean Corpuscular Volume 73.6 FL (87-102); Mean Platelet Volume 11.6 FL (9.6-12.0); Monocytes % 11.2 % (1.7-12.7); Neutrophils % 52.2 % (38.7-73.9); Platelet Count 211 T/CUMM (130-400); Red Cell Distribution Width 15.2 % (9.3-17.3)
[2018-06-20 05:38] LABS: Alanine Aminotransferase 40 U/L (16-61); Albumin 3.9 G/DL (3.4-5.0); Alkaline Phosphatase 93 U/L (45-117); Aspartate Amino Transferase 17 U/L (0-37); Bilirubin,Total < 0.39 MG/DL (0.2-1.0); Blood Urea Nitrogen 14 MG/DL (7-18); Calcium 8.8 MG/DL (8.5-10.1); Glucose 122 MG/DL (74-106); Osmolality,Calculated 274.8 MOS/KG (273-304); Total Protein 7.6 G/DL (6.4-8.3)
[2018-06-20] MEDS: GABAPENTIN 400 MG CAPSULE PO SCH ×3 (09:56→20:41)
[2018-06-20] MEDS: FUROSEMIDE 40 MG TABLET PO SCH (09:56)
[2018-06-20] MEDS: AMIODARONE 200 MG TABLET PO SCH (09:56)
[2018-06-20] MEDS: PANTOPRAZOLE 40 MG TABLET PO SCH (09:56)
[2018-06-20] MEDS: ASPIRIN EC 81 MG TABLET PO SCH (09:56)
[2018-06-20] MEDS: diphenhydrAMINE CAP 25 MG CAPSULE PO PRN (09:56)
[2018-06-20] MEDS ORDERED: KETOROLAC 30 MG/1 ML VIAL IV ONE (09:58)
[2018-06-20] MEDS ORDERED: ALPRAZolam 0.25 MG TABLET PO PRN (10:04)
[2018-06-20] MEDS: LIDOCAINE 5% PATCH TRANSDERM SCH (13:25)
[2018-06-20] MEDS: ENOXAPARIN 40 MG/0.4 ML SYRINGE SUBCUT SCH (15:04)
[2018-06-20] MEDS: ATORVASTATIN 40 MG TABLET PO SCH (20:42)
[2018-06-21 05:32] LABS: Osmolality,Calculated 278.5 MOS/KG (273-304)
[2018-06-21 05:40] LABS: Basophils % 0.4 % (0.0-0.8); Eosinophils # 0.1 10*3/uL (0.0-0.87); Eosinophils % 1.4 % (0.00-10.9); Hematocrit 40.7 VOL% (42.0-52.0); Hemoglobin 12.3 GM/DL (14.0-18.0); Immature Granulocytes % 0.2 %; Immature Granulocytes Absolute 0.01 #; Lymphocytes # 2.1 10*3/uL (1.4-4.0); Lymphocytes % 41.6 % (21.2-54.2); Mean Corpuscular HGB Conc 30.2 GM/DL (32-36); Mean Corpuscular Volume 75.2 FL (87-102); Mean Platelet Volume 11.8 FL (9.6-12.0); Monocytes % 14.1 % (1.7-12.7); Neutrophils % 42.3 % (38.7-73.9); Platelet Count 216 T/CUMM (130-400); Red Blood Count 5.41 MC/CUMM (3.8-5.5); Red Cell Distribution Width 15.2 % (9.3-17.3)
[2018-06-21] MEDS ORDERED: diphenhydrAMINE 50 MG/1 ML VIAL IV ONE (07:09)
[2018-06-21] MEDS ORDERED: diphenhydrAMINE 50 MG/1 ML VIAL ONE (07:12)
[2018-06-21] MEDS: FUROSEMIDE 40 MG TABLET PO SCH (08:22)
[2018-06-21] MEDS: GABAPENTIN 400 MG CAPSULE PO SCH ×3 (08:22→20:37)
[2018-06-21] MEDS: AMIODARONE 200 MG TABLET PO SCH (08:22)
[2018-06-21] MEDS: PANTOPRAZOLE 40 MG TABLET PO SCH (08:22)
[2018-06-21] MEDS: CARVEDILOL 12.5 MG TABLET PO SCH ×2 (08:22→20:37)
[2018-06-21] MEDS: LIDOCAINE 5% PATCH TRANSDERM SCH (08:23)
[2018-06-21] MEDS ORDERED: LIDOCAINE 1% 20 ML VIAL ONE (10:28)
[2018-06-21] MEDS ORDERED: TISSUE ADHESIVE 1 EACH APPLICATOR TOP ONE (10:29)
[2018-06-21] MEDS ORDERED: VANCOMYCIN 1,000 MG VIAL ONE (11:04)
[2018-06-21] MEDS ORDERED: CEFUROXIME 1,500 MG VIAL ONE (11:14)
[2018-06-21] MEDS ORDERED: ONDANSETRON 4 MG/2 ML VIAL IV PRN (11:50)
[2018-06-21] MEDS ORDERED: HYDROmorphone 2 MG/1 ML VIAL IV PRN (11:50)
[2018-06-21] MEDS ORDERED: PROPOFOL 200 MG/20 ML VIAL IV ONE (11:51)
[2018-06-21] MEDS ORDERED: fentaNYL 100 MCG/2 ML VIAL ONE (11:52)
[2018-06-21] MEDS ORDERED: MIDAZOLAM 2 MG/2 ML VIAL ONE (11:52)
[2018-06-21] MEDS ORDERED: ESMOLOL 100 MG/10 ML VIAL IV ONE (11:52)
[2018-06-21] MEDS ORDERED: LABETALOL 20 MG/4 ML SYRINGE IV ONE (12:16)
[2018-06-21] MEDS: ENOXAPARIN 40 MG/0.4 ML SYRINGE SUBCUT SCH (14:21)
[2018-06-21] MEDS: ASPIRIN EC 81 MG TABLET PO SCH (14:25)
[2018-06-21] MEDS: diphenhydrAMINE CAP 25 MG CAPSULE PO PRN (18:44)
[2018-06-21] MEDS: ATORVASTATIN 40 MG TABLET PO SCH (20:37)
[2018-06-22] MEDS: diphenhydrAMINE CAP 25 MG CAPSULE PO PRN ×3 (02:48→21:35)
[2018-06-22] MEDS: ASPIRIN EC 81 MG TABLET PO SCH (08:21)
[2018-06-22] MEDS: GABAPENTIN 400 MG CAPSULE PO SCH ×3 (08:21→21:11)
[2018-06-22] MEDS: LIDOCAINE 5% PATCH TRANSDERM SCH (08:21)
[2018-06-22] MEDS: CARVEDILOL 12.5 MG TABLET PO SCH ×2 (08:22→21:10)
[2018-06-22] MEDS: AMIODARONE 200 MG TABLET PO SCH (08:22)
[2018-06-22] MEDS: FUROSEMIDE 40 MG TABLET PO SCH (08:22)
[2018-06-22] MEDS: PANTOPRAZOLE 40 MG TABLET PO SCH (08:22)
[2018-06-22] MEDS: ENOXAPARIN 40 MG/0.4 ML SYRINGE SUBCUT SCH (12:09)
[2018-06-22] MEDS: ATORVASTATIN 40 MG TABLET PO SCH (21:11)
[2018-06-23 04:52] LABS: Basophils % 0.3 % (0.0-0.8); Eosinophils # 0.1 10*3/uL (0.0-0.87); Eosinophils % 1.2 % (0.00-10.9); Hematocrit 40.1 VOL% (42.0-52.0); Hemoglobin 12.3 GM/DL (14.0-18.0); Immature Granulocytes % 0.2 %; Immature Granulocytes Absolute 0.01 #; Lymphocytes # 2.4 10*3/uL (1.4-4.0); Lymphocytes % 40.5 % (21.2-54.2); Mean Corpuscular HGB Conc 30.7 GM/DL (32-36); Mean Corpuscular Volume 73.6 FL (87-102); Monocytes % 14.1 % (1.7-12.7); Neutrophils % 43.7 % (38.7-73.9); Platelet Count 216 T/CUMM (130-400); Red Blood Count 5.45 MC/CUMM (3.8-5.5); Red Cell Distribution Width 15.1 % (9.3-17.3); White Blood Count 5.8 T/CUMM (4-12)
[2018-06-23 05:11] LABS: Calcium 8.9 MG/DL (8.5-10.1); Osmolality,Calculated 278.5 MOS/KG (273-304)
[2018-06-23 08:29] VITALS: BP 132/72
[2018-06-23] MEDS: LIDOCAINE 5% PATCH TRANSDERM SCH (08:36)
[2018-06-23] MEDS: PANTOPRAZOLE 40 MG TABLET PO SCH (08:36)
[2018-06-23] MEDS: CARVEDILOL 12.5 MG TABLET PO SCH (08:36)
[2018-06-23] MEDS: FUROSEMIDE 40 MG TABLET PO SCH (08:37)
[2018-06-23] MEDS: AMIODARONE 200 MG TABLET PO SCH (08:37)
[2018-06-23] MEDS: ASPIRIN EC 81 MG TABLET PO SCH (08:37)
[2018-06-23] MEDS: diphenhydrAMINE CAP 25 MG CAPSULE PO PRN (08:37)
[2018-06-23] MEDS: GABAPENTIN 400 MG CAPSULE PO SCH (08:37)
[2018-06-23] MEDS ORDERED: hydrOXYzine HCL 10 MG TABLET PO PRN (11:56)
[2018-06-23] MEDS: ENOXAPARIN 40 MG/0.4 ML SYRINGE SUBCUT SCH (12:10)
== END 2018-06-23 14:16 | disposition home or self-care (01) | DRG 951 ==
LOC: N.ED 17:23 → N.EDINP 17:23 → N.TELES 23:27
PROVIDERS: ADMIT Internal Medicine; ATTEND Internal Medicine

== ENCOUNTER 2018-09-17 17:49 | Inpatient (IN) ==
[2018-09-17 18:47] LABS: Basophils % 0.2 % (0.0-0.8); Eosinophils # 0.1 10*3/uL (0.0-0.87); Eosinophils % 0.9 % (0.00-10.9); Hematocrit 40.4 VOL% (42.0-52.0); Hemoglobin 12.4 GM/DL (14.0-18.0); Immature Granulocytes % 0.3 %; Immature Granulocytes Absolute 0.02 #; Lymphocytes # 2.4 10*3/uL (1.4-4.0); Lymphocytes % 36.4 % (21.2-54.2); Mean Corpuscular HGB Conc 30.7 GM/DL (32-36); Mean Corpuscular Volume 73.6 FL (87-102); Mean Platelet Volume 11.6 FL (9.6-12.0); Monocytes % 10.3 % (1.7-12.7); Neutrophils % 51.9 % (38.7-73.9); Platelet Count 187 T/CUMM (130-400); Red Blood Count 5.49 MC/CUMM (3.8-5.5); Red Cell Distribution Width 16.9 % (9.3-17.3); White Blood Count 6.6 T/CUMM (4-12)
[2018-09-17 18:58] LABS: INR 0.9; PT Patient Result 10.2 SECS; Partial Thromboplastin Time 23.9 SECS (0-40)
[2018-09-17 19:07] LABS: Alanine Aminotransferase 46 U/L (16-61); Albumin 3.8 G/DL (3.4-5.0); Alkaline Phosphatase 96 U/L (45-117); Aspartate Amino Transferase 23 U/L (0-37); Bilirubin,Total < 0.39 MG/DL (0.2-1.0); Blood Urea Nitrogen 13 MG/DL (7-18); Calcium 8.9 MG/DL (8.5-10.1); Glucose 134 MG/DL (74-106); Total Protein 7.7 G/DL (6.4-8.3)
[2018-09-17] MEDS ORDERED: ASPIRIN 325 MG TABLET PO STA (19:18)
[2018-09-17] MEDS ORDERED: NITROGLYCERIN 2% OINT 1 INCH/GM PACK TOP STA (19:33)
[2018-09-17] MEDS ORDERED: ONDANSETRON 4 MG/2 ML VIAL IV PRN (20:32)
[2018-09-17] MEDS ORDERED: ACETAMINOPHEN 325 MG TABLET PO PRN (20:32)
[2018-09-17] MEDS ORDERED: DEXTROSE 10% 250 ML BAG IV PRN (20:32)
[2018-09-17] MEDS ORDERED: GLUCAGON 1 MG VIAL IM PRN (20:32)
[2018-09-17] MEDS ORDERED: DOCUSATE SODIUM 100 MG CAPSULE PO PRN (20:35)
[2018-09-17] MEDS ORDERED: NICOTINE 21 MG/24 HR PATCH TRANSDERM PRN (20:35)
[2018-09-17] MEDS ORDERED: guaiFENesin/DM ER 600-30 MG TABLET PO PRN (20:35)
[2018-09-17] MEDS ORDERED: POTASSIUM CHLORIDE 20 MEQ TABLET PO PRN (20:38)
[2018-09-17] MEDS ORDERED: PNEUMOCOCCAL VACCINE (23 VALENT) 0.5 ML VIAL IM ONE (22:26)
[2018-09-17] MEDS: GABAPENTIN 400 MG CAPSULE PO SCH (23:01)
[2018-09-17] MEDS: ATORVASTATIN 40 MG TABLET PO SCH (23:02)
[2018-09-17] MEDS: CARVEDILOL 12.5 MG TABLET PO SCH (23:02)
[2018-09-17] MEDS: NITROGLYCERIN SL 0.4 MG TABLET SL PRN (23:07)
[2018-09-17] MEDS: FUROSEMIDE 40 MG/4 ML VIAL IV SCH (23:09)
[2018-09-17] MEDS: FLUTICASONE 50 MCG NASAL SPRAY 16 GM BOTTLE BOTH NARES SCH (23:14)
[2018-09-17] MEDS: ENOXAPARIN 40 MG/0.4 ML SYRINGE SUBCUT SCH (23:14)
[2018-09-17] MEDS: INSULIN LISPRO 100 UNIT/ML SUBCUT SCH (23:36)
[2018-09-18] MEDS ORDERED: ALPRAZolam 0.5 MG TABLET PO ONE (00:15)
[2018-09-18 05:49] LABS: Red Blood Count 5.06 MC/CUMM (3.8-5.5); White Blood Count 5.4 T/CUMM (4-12)
[2018-09-18 05:50] LABS: Basophils % 0.4 % (0.0-0.8); Eosinophils # 0.1 10*3/uL (0.0-0.87); Eosinophils % 0.9 % (0.00-10.9); Hematocrit 37.3 VOL% (42.0-52.0); Hemoglobin 11.5 GM/DL (14.0-18.0); Immature Granulocytes % 0.4 %; Immature Granulocytes Absolute 0.02 #; Lymphocytes # 2.1 10*3/uL (1.4-4.0); Lymphocytes % 39.1 % (21.2-54.2); Mean Corpuscular HGB Conc 30.8 GM/DL (32-36); Mean Corpuscular Volume 73.7 FL (87-102); Mean Platelet Volume 12.5 FL (9.6-12.0); Neutrophils % 46.2 % (38.7-73.9); Platelet Count 173 T/CUMM (130-400); Red Cell Distribution Width 16.8 % (9.3-17.3)
[2018-09-18 06:04] LABS: Calcium 9.1 MG/DL (8.5-10.1); Osmolality,Calculated 291.7 MOS/KG (273-304)
[2018-09-18] MEDS: INSULIN LISPRO 100 UNIT/ML SUBCUT SCH ×4 (08:44→21:10)
[2018-09-18] MEDS: FLUTICASONE 50 MCG NASAL SPRAY 16 GM BOTTLE BOTH NARES SCH ×2 (08:47→21:08)
[2018-09-18] MEDS: PANTOPRAZOLE 40 MG TABLET PO SCH (08:48)
[2018-09-18] MEDS: CLOPIDOGREL 75 MG TABLET PO SCH (08:48)
[2018-09-18] MEDS: FUROSEMIDE 40 MG/4 ML VIAL IV SCH ×2 (08:48→15:31)
[2018-09-18] MEDS: ASPIRIN EC 81 MG TABLET PO SCH (08:48)
[2018-09-18] MEDS: CARVEDILOL 12.5 MG TABLET PO SCH (08:48)
[2018-09-18] MEDS: ALPRAZolam 0.25 MG TABLET PO PRN (08:49)
[2018-09-18] MEDS: GABAPENTIN 400 MG CAPSULE PO SCH ×3 (08:49→21:06)
[2018-09-18] MEDS ORDERED: AMIODARONE 200 MG TABLET PO SCH (09:00)
[2018-09-18] MEDS: LIDOCAINE 5% PATCH TRANSDERM SCH (15:31)
[2018-09-18] MEDS: CARVEDILOL 25 MG TABLET PO SCH (17:20)
[2018-09-18] MEDS: ATORVASTATIN 40 MG TABLET PO SCH (21:07)
[2018-09-18] MEDS: ENOXAPARIN 40 MG/0.4 ML SYRINGE SUBCUT SCH (21:07)
[2018-09-19] MEDS: INSULIN LISPRO 100 UNIT/ML SUBCUT SCH ×4 (08:48→22:26)
[2018-09-19] MEDS: FUROSEMIDE 40 MG/4 ML VIAL IV SCH ×2 (08:49→17:09)
[2018-09-19] MEDS: LIDOCAINE 5% PATCH TRANSDERM SCH (08:49)
[2018-09-19] MEDS: AMIODARONE 200 MG TABLET PO SCH (08:50)
[2018-09-19] MEDS: CLOPIDOGREL 75 MG TABLET PO SCH (08:50)
[2018-09-19] MEDS: GABAPENTIN 400 MG CAPSULE PO SCH ×3 (08:50→20:57)
[2018-09-19] MEDS: CARVEDILOL 25 MG TABLET PO SCH ×2 (08:51→17:15)
[2018-09-19] MEDS: ASPIRIN EC 81 MG TABLET PO SCH (08:51)
[2018-09-19] MEDS: PANTOPRAZOLE 40 MG TABLET PO SCH (08:51)
[2018-09-19] MEDS: FLUTICASONE 50 MCG NASAL SPRAY 16 GM BOTTLE BOTH NARES SCH ×2 (08:51→20:58)
[2018-09-19] MEDS ORDERED: POTASSIUM CHLORIDE RIDER 10 MEQ in PREMIX 1 EACH IV PRN (11:03)
[2018-09-19] MEDS ORDERED: MAGNESIUM SULF RIDER 2 GM in PREMIX 1 EACH IV PRN (11:03)
[2018-09-19] MEDS: ATORVASTATIN 40 MG TABLET PO SCH (20:58)
[2018-09-19] MEDS: ENOXAPARIN 40 MG/0.4 ML SYRINGE SUBCUT SCH (22:26)
[2018-09-20] MEDS: NITROGLYCERIN SL 0.4 MG TABLET SL PRN ×3 (02:10→14:35)
[2018-09-20] MEDS ORDERED: ALBUTEROL/IPRATROPIUM 3 ML NEB RESP TX PRN (02:27)
[2018-09-20] MEDS ORDERED: ALBUTEROL/IPRATROPIUM 3 ML NEB RESP TX ONE (02:27)
[2018-09-20 05:33] LABS: Basophils % 0.3 % (0.0-0.8); Eosinophils # 0.1 10*3/uL (0.0-0.87); Eosinophils % 1.1 % (0.00-10.9); Hematocrit 42.6 VOL% (42.0-52.0); Hemoglobin 13.2 GM/DL (14.0-18.0); Immature Granulocytes % 0.8 %; Immature Granulocytes Absolute 0.05 #; Lymphocytes # 1.8 10*3/uL (1.4-4.0); Lymphocytes % 29.4 % (21.2-54.2); Mean Corpuscular Volume 72.6 FL (87-102); Mean Platelet Volume 12.2 FL (9.6-12.0); Monocytes % 12.1 % (1.7-12.7); Neutrophils % 56.3 % (38.7-73.9); Platelet Count 198 T/CUMM (130-400); Red Blood Count 5.87 MC/CUMM (3.8-5.5); Red Cell Distribution Width 16.7 % (9.3-17.3); White Blood Count 6.3 T/CUMM (4-12)
[2018-09-20 05:45] LABS: Calcium 9.2 MG/DL (8.5-10.1); Osmolality,Calculated 279.5 MOS/KG (273-304)
[2018-09-20] MEDS ORDERED: DIAZEPAM 5 MG TABLET PO ONE ×2 (07:00→15:15)
[2018-09-20] MEDS ORDERED: diphenhydrAMINE CAP 25 MG CAPSULE PO ONE ×2 (07:00→15:15)
[2018-09-20] MEDS: SODIUM CHLORIDE 0.45% 1,000 ML IV SCH ×3 (09:31→21:47)
[2018-09-20] MEDS ORDERED: HEPARIN/NACL 0.9% 2 UNITS/ML 1,000 ML IV ONE (09:51)
[2018-09-20] MEDS ORDERED: LIDOCAINE 1%/EPI INJ 20 ML VIAL ONE (09:51)
[2018-09-20] MEDS ORDERED: SODIUM BICARBONATE 2.4 MEQ/5 ML VIAL ONE (09:51)
[2018-09-20] MEDS: INSULIN LISPRO 100 UNIT/ML SUBCUT SCH ×3 (10:05→21:23)
[2018-09-20] MEDS: CARVEDILOL 25 MG TABLET PO SCH ×2 (10:06→18:20)
[2018-09-20] MEDS: GABAPENTIN 400 MG CAPSULE PO SCH ×3 (10:06→21:46)
[2018-09-20] MEDS: CLOPIDOGREL 75 MG TABLET PO SCH (10:07)
[2018-09-20] MEDS ORDERED: MIDAZOLAM 2 MG/2 ML VIAL ONE ×4 (10:55→15:31)
[2018-09-20] MEDS ORDERED: fentaNYL 100 MCG/2 ML VIAL ONE ×3 (10:55→15:31)
[2018-09-20] MEDS ORDERED: CLOPIDOGREL 75 MG TABLET ONE (11:06)
[2018-09-20] MEDS ORDERED: ASPIRIN CHEW 81 MG TABLET PO ONE (11:06)
[2018-09-20] MEDS ORDERED: methylPREDNISolone SOD SUC 125 MG/2 ML VIAL ONE (11:06)
[2018-09-20] MEDS ORDERED: diphenhydrAMINE 50 MG/1 ML VIAL ONE (11:30)
[2018-09-20] MEDS ORDERED: BIVALIRUDIN 250 MG VIAL IV ONE (12:04)
[2018-09-20] MEDS ORDERED: ADENOSINE 90 MG/30 ML VIAL IV ONE (12:14)
[2018-09-20] MEDS ORDERED: TICAGRELOR 90 MG TABLET ONE (12:42)
[2018-09-20] MEDS ORDERED: MORPHINE 10 MG/1 ML VIAL ONE (14:01)
[2018-09-20] MEDS: MORPHINE 4 MG/1 ML VIAL IV PRN ×2 (14:04→23:42)
[2018-09-20] MEDS ORDERED: NITROGLYCERIN SL 0.4 MG TABLET SL ONE (14:21)
[2018-09-20] MEDS ORDERED: ALUM/MAG/SIMETH/LIDO VISC 1:1 30 ML BOTTLE PO ONE ×2 (14:52→14:54)
[2018-09-20] MEDS ORDERED: KETOROLAC 30 MG/1 ML VIAL IV ONE (14:55)
[2018-09-20] MEDS ORDERED: ASPIRIN 325 MG TABLET ONE (15:11)
[2018-09-20] MEDS ORDERED: DIAZEPAM 5 MG TABLET ONE (15:11)
[2018-09-20] MEDS ORDERED: diphenhydrAMINE CAP 25 MG CAPSULE ONE (15:11)
[2018-09-20] MEDS ORDERED: ASPIRIN 325 MG TABLET PO ONE (15:15)
[2018-09-20 15:26] LABS: Troponin I < 0.015 NG/ML (0.00-0.045)
[2018-09-20] MEDS ORDERED: HEPARIN 5,000 UNIT/1 ML VIAL ONE (15:37)
[2018-09-20 17:20] LABS: Troponin I < 0.015 NG/ML (0.00-0.045)
[2018-09-20] MEDS: FUROSEMIDE 40 MG/4 ML VIAL IV SCH (17:45)
[2018-09-20] MEDS: FLUTICASONE 50 MCG NASAL SPRAY 16 GM BOTTLE BOTH NARES SCH ×2 (17:46→21:46)
[2018-09-20] MEDS: diphenhydrAMINE CAP 25 MG CAPSULE PO SCH ×2 (18:17→23:42)
[2018-09-20] MEDS: AMIODARONE 200 MG TABLET PO SCH (18:17)
[2018-09-20] MEDS: LIDOCAINE 5% PATCH TRANSDERM SCH (18:19)
[2018-09-20] MEDS: PANTOPRAZOLE 40 MG TABLET PO SCH (18:20)
[2018-09-20] MEDS: ASPIRIN EC 81 MG TABLET PO SCH (18:21)
[2018-09-20] MEDS ORDERED: predniSONE 20 MG TABLET PO ONE (19:00)
[2018-09-20] MEDS ORDERED: ALUMINUM/MAGNES/SIMETH MAX STR 30 ML UDCUP PO PRN (19:35)
[2018-09-20] MEDS: ALPRAZolam 0.25 MG TABLET PO PRN (19:36)
[2018-09-20] MEDS ORDERED: diphenhydrAMINE 50 MG/1 ML VIAL IV ONE (21:21)
[2018-09-20] MEDS: ATORVASTATIN 40 MG TABLET PO SCH (21:46)
[2018-09-20] MEDS: TICAGRELOR 90 MG TABLET PO SCH (21:46)
[2018-09-20] MEDS: FAMOTIDINE 20 MG TABLET PO SCH (21:46)
[2018-09-21 00:50] LABS: Basophils % 0.1 % (0.0-0.8); Hematocrit 43.7 VOL% (42.0-52.0); Hemoglobin 13.3 GM/DL (14.0-18.0); Immature Granulocytes % 0.5 %; Immature Granulocytes Absolute 0.05 #; Lymphocytes # 1.1 10*3/uL (1.4-4.0); Lymphocytes % 10.7 % (21.2-54.2); Mean Corpuscular HGB Conc 30.4 GM/DL (32-36); Mean Corpuscular Volume 73.6 FL (87-102); Neutrophils % 84.7 % (38.7-73.9); Platelet Count 221 T/CUMM (130-400); Red Blood Count 5.94 MC/CUMM (3.8-5.5); Red Cell Distribution Width 16.7 % (9.3-17.3); White Blood Count 9.8 T/CUMM (4-12)
[2018-09-21 01:11] LABS: Troponin I < 0.015 NG/ML (0.00-0.045)
[2018-09-21 01:23] LABS: Calcium 8.9 MG/DL (8.5-10.1); Osmolality,Calculated 283.4 MOS/KG (273-304)
[2018-09-21] MEDS: MORPHINE 4 MG/1 ML VIAL IV PRN (01:29)
[2018-09-21] MEDS: SODIUM CHLORIDE 0.45% 1,000 ML IV SCH ×2 (05:06→13:00)
[2018-09-21] MEDS: diphenhydrAMINE CAP 25 MG CAPSULE PO SCH ×3 (05:07→18:02)
[2018-09-21] MEDS: INSULIN LISPRO 100 UNIT/ML SUBCUT SCH ×4 (07:49→22:08)
[2018-09-21 08:29] LABS: Troponin I 0.046 NG/ML (0.00-0.045)
[2018-09-21] MEDS ORDERED: ISOSORBIDE MONONITRATE 30 MG TABLET PO SCH (09:00)
[2018-09-21] MEDS: CARVEDILOL 25 MG TABLET PO SCH ×2 (09:01→16:28)
[2018-09-21] MEDS: ISOSORBIDE MONONITRATE 30 MG TABLET PO SCH (09:01)
[2018-09-21] MEDS: ASPIRIN EC 81 MG TABLET PO SCH (09:01)
[2018-09-21] MEDS: FAMOTIDINE 20 MG TABLET PO SCH ×2 (09:01→21:05)
[2018-09-21] MEDS: FUROSEMIDE 40 MG/4 ML VIAL IV SCH (09:01)
[2018-09-21] MEDS: PANTOPRAZOLE 40 MG TABLET PO SCH (09:01)
[2018-09-21] MEDS: AMIODARONE 200 MG TABLET PO SCH (09:01)
[2018-09-21] MEDS: GABAPENTIN 400 MG CAPSULE PO SCH ×3 (09:01→21:05)
[2018-09-21] MEDS: FLUTICASONE 50 MCG NASAL SPRAY 16 GM BOTTLE BOTH NARES SCH ×2 (09:02→21:05)
[2018-09-21] MEDS: TICAGRELOR 90 MG TABLET PO SCH ×2 (09:02→21:05)
[2018-09-21] MEDS: LIDOCAINE 5% PATCH TRANSDERM SCH (09:08)
[2018-09-21] MEDS ORDERED: predniSONE 20 MG TABLET PO ONE ×2 (09:17→17:24)
[2018-09-21] MEDS: hydrOXYzine HCL 25 MG TABLET PO PRN ×3 (10:05→22:08)
[2018-09-21] MEDS: LOSARTAN 25 MG TABLET PO SCH (12:56)
[2018-09-21] MEDS: FUROSEMIDE 40 MG TABLET PO SCH (16:25)
[2018-09-21] MEDS: ATORVASTATIN 40 MG TABLET PO SCH (21:05)
[2018-09-22] MEDS: diphenhydrAMINE CAP 25 MG CAPSULE PO SCH ×3 (00:22→12:23)
[2018-09-22 05:50] LABS: % Iron Saturation 20.6 % (18-50); Ferritin 35.2 ng/ml (26-388)
[2018-09-22] MEDS: INSULIN LISPRO 100 UNIT/ML SUBCUT SCH ×4 (08:19→22:07)
[2018-09-22] MEDS: CARVEDILOL 25 MG TABLET PO SCH ×2 (08:45→17:46)
[2018-09-22] MEDS: FAMOTIDINE 20 MG TABLET PO SCH ×2 (08:45→20:40)
[2018-09-22] MEDS: ISOSORBIDE MONONITRATE 30 MG TABLET PO SCH (08:45)
[2018-09-22] MEDS: FUROSEMIDE 40 MG TABLET PO SCH ×2 (08:45→15:44)
[2018-09-22] MEDS: AMIODARONE 200 MG TABLET PO SCH (08:45)
[2018-09-22] MEDS: hydrOXYzine HCL 25 MG TABLET PO PRN (08:45)
[2018-09-22] MEDS: ASPIRIN EC 81 MG TABLET PO SCH (08:45)
[2018-09-22] MEDS: LOSARTAN 25 MG TABLET PO SCH (08:45)
[2018-09-22] MEDS: GABAPENTIN 400 MG CAPSULE PO SCH ×3 (08:45→20:40)
[2018-09-22] MEDS: TICAGRELOR 90 MG TABLET PO SCH ×2 (08:45→20:41)
[2018-09-22] MEDS: PANTOPRAZOLE 40 MG TABLET PO SCH (08:46)
[2018-09-22] MEDS: LIDOCAINE 5% PATCH TRANSDERM SCH (08:46)
[2018-09-22] MEDS: FLUTICASONE 50 MCG NASAL SPRAY 16 GM BOTTLE BOTH NARES SCH ×2 (08:47→20:42)
[2018-09-22] MEDS ORDERED: diphenhydrAMINE 50 MG/1 ML VIAL IV PRN (16:51)
[2018-09-22] MEDS ORDERED: diphenhydrAMINE 50 MG/1 ML VIAL IV ONE (16:51)
[2018-09-22] MEDS: ATORVASTATIN 40 MG TABLET PO SCH (20:40)
[2018-09-23] MEDS: MORPHINE 4 MG/1 ML VIAL IV PRN (04:09)
[2018-09-23] MEDS: INSULIN LISPRO 100 UNIT/ML SUBCUT SCH ×2 (08:36→11:57)
[2018-09-23] MEDS: ISOSORBIDE MONONITRATE 30 MG TABLET PO SCH (10:35)
[2018-09-23] MEDS: FUROSEMIDE 40 MG TABLET PO SCH ×2 (10:35→15:27)
[2018-09-23] MEDS: AMIODARONE 200 MG TABLET PO SCH (10:36)
[2018-09-23] MEDS: ASPIRIN EC 81 MG TABLET PO SCH (10:36)
[2018-09-23] MEDS: GABAPENTIN 400 MG CAPSULE PO SCH ×2 (10:36→15:27)
[2018-09-23] MEDS: TICAGRELOR 90 MG TABLET PO SCH (10:36)
[2018-09-23] MEDS: PANTOPRAZOLE 40 MG TABLET PO SCH (10:36)
[2018-09-23] MEDS: FAMOTIDINE 20 MG TABLET PO SCH (10:37)
[2018-09-23] MEDS: LOSARTAN 25 MG TABLET PO SCH (10:37)
[2018-09-23] MEDS: CARVEDILOL 25 MG TABLET PO SCH (10:37)
[2018-09-23] MEDS: LIDOCAINE 5% PATCH TRANSDERM SCH (10:44)
[2018-09-23] MEDS: FLUTICASONE 50 MCG NASAL SPRAY 16 GM BOTTLE BOTH NARES SCH (10:52)
[2018-09-23 16:45] VITALS: BP 116/64
== END 2018-09-23 17:55 | disposition home or self-care (01) | DRG 175 ==
LOC: N.EDINP 17:49 → N.ED 17:49 → SUATTDRO 20:32 → N.2E 21:11 → SUATTDRO 09-19 10:44 → N.TELES 09-20 14:57
PROVIDERS: ADMIT Internal Medicine; ATTEND Internal Medicine

== ENCOUNTER 2018-09-24 03:07 | Inpatient (IN) ==
[2018-09-24 05:00] LABS: Basophils % 0.3 % (0.0-0.8); Eosinophils % 0.3 % (0.00-10.9); Hematocrit 41.4 VOL% (42.0-52.0); Hemoglobin 12.7 GM/DL (14.0-18.0); Immature Granulocytes % 1.8 %; Immature Granulocytes Absolute 0.17 #; Lymphocytes # 3.2 10*3/uL (1.4-4.0); Lymphocytes % 33.6 % (21.2-54.2); Mean Corpuscular HGB Conc 30.7 GM/DL (32-36); Mean Corpuscular Volume 74.1 FL (87-102); Mean Platelet Volume 11.5 FL (9.6-12.0); Monocytes % 9.9 % (1.7-12.7); Neutrophils % 54.1 % (38.7-73.9); Platelet Count 236 T/CUMM (130-400); Red Blood Count 5.59 MC/CUMM (3.8-5.5); Red Cell Distribution Width 16.7 % (9.3-17.3); White Blood Count 9.7 T/CUMM (4-12)
[2018-09-24 05:13] LABS: Alanine Aminotransferase 86 U/L (16-61); Albumin 3.5 G/DL (3.4-5.0); Alkaline Phosphatase 92 U/L (45-117); Aspartate Amino Transferase 43 U/L (0-37); Bilirubin,Total < 0.39 MG/DL (0.2-1.0); Blood Urea Nitrogen 27 MG/DL (7-18); Calcium 8.7 MG/DL (8.5-10.1); Glucose 126 MG/DL (74-106); Osmolality,Calculated 281.7 MOS/KG (273-304); Total Protein 7.4 G/DL (6.4-8.3)
[2018-09-24] MEDS ORDERED: NITROGLYCERIN SL 0.4 MG TABLET SL PRN (08:58)
[2018-09-24] MEDS ORDERED: POTASSIUM CHLORIDE 20 MEQ TABLET PO PRN ×2 (08:58)
[2018-09-24] MEDS ORDERED: ONDANSETRON 4 MG/2 ML VIAL IV PRN (08:58)
[2018-09-24] MEDS ORDERED: MAGNESIUM SULF RIDER 4 GM in PREMIX 1 EACH IV PRN (08:58)
[2018-09-24] MEDS ORDERED: MAGNESIUM SULF RIDER 2 GM in PREMIX 1 EACH IV PRN (08:58)
[2018-09-24] MEDS: SODIUM CHLORIDE 0.9% 1,000 ML IV SCH (11:31)
[2018-09-24] MEDS: ASPIRIN EC 81 MG TABLET PO SCH (11:34)
[2018-09-24] MEDS: ENOXAPARIN 40 MG/0.4 ML SYRINGE SUBCUT SCH (11:34)
[2018-09-24] MEDS: ISOSORBIDE MONONITRATE 30 MG TABLET PO SCH (11:35)
[2018-09-24] MEDS: FAMOTIDINE 20 MG TABLET PO SCH ×2 (11:35→20:40)
[2018-09-24] MEDS: DICLOFENAC 1% GEL 100 GM TUBE TOP SCH ×3 (13:16→20:41)
[2018-09-24] MEDS: GABAPENTIN 400 MG CAPSULE PO SCH ×2 (15:11→20:39)
[2018-09-24] MEDS: KETOROLAC 30 MG/1 ML VIAL IV SCH ×2 (15:11→20:39)
[2018-09-24] MEDS: ATORVASTATIN 40 MG TABLET PO SCH (20:39)
[2018-09-24] MEDS: CARVEDILOL 12.5 MG TABLET PO SCH (20:40)
[2018-09-24] MEDS: TICAGRELOR 90 MG TABLET PO SCH (20:40)
[2018-09-25] MEDS: KETOROLAC 30 MG/1 ML VIAL IV SCH ×2 (02:12→11:02)
[2018-09-25 06:04] LABS: Basophils % 0.4 % (0.0-0.8); Eosinophils # 0.1 10*3/uL (0.0-0.87); Eosinophils % 1.8 % (0.00-10.9); Hematocrit 37.1 VOL% (42.0-52.0); Hemoglobin 11.3 GM/DL (14.0-18.0); Immature Granulocytes % 1.1 %; Immature Granulocytes Absolute 0.06 #; Lymphocytes # 2.1 10*3/uL (1.4-4.0); Lymphocytes % 39.2 % (21.2-54.2); Mean Corpuscular HGB Conc 30.5 GM/DL (32-36); Mean Corpuscular Volume 73.9 FL (87-102); Mean Platelet Volume 10.8 FL (9.6-12.0); Monocytes % 15.3 % (1.7-12.7); Neutrophils % 42.2 % (38.7-73.9); Platelet Count 198 T/CUMM (130-400); Red Blood Count 5.02 MC/CUMM (3.8-5.5); Red Cell Distribution Width 16.2 % (9.3-17.3); White Blood Count 5.4 T/CUMM (4-12)
[2018-09-25] MEDS: SODIUM CHLORIDE 0.9% 1,000 ML IV SCH ×2 (06:34→21:44)
[2018-09-25 06:37] LABS: Risk Ratio 4.58; VLDL CHOLESTEROL 69.6 MG/DL
[2018-09-25 06:40] LABS: Calcium 8.4 MG/DL (8.5-10.1); Osmolality,Calculated 283.4 MOS/KG (273-304)
[2018-09-25] MEDS: GABAPENTIN 400 MG CAPSULE PO SCH ×3 (10:43→21:41)
[2018-09-25] MEDS: FAMOTIDINE 20 MG TABLET PO SCH ×2 (10:43→21:41)
[2018-09-25] MEDS: POTASSIUM CHLORIDE 20 MEQ TABLET PO SCH (10:44)
[2018-09-25] MEDS: ISOSORBIDE MONONITRATE 30 MG TABLET PO SCH (10:44)
[2018-09-25] MEDS: AMIODARONE 200 MG TABLET PO SCH (10:44)
[2018-09-25] MEDS: ASPIRIN EC 81 MG TABLET PO SCH (10:45)
[2018-09-25] MEDS: FUROSEMIDE 40 MG TABLET PO SCH (10:45)
[2018-09-25] MEDS: CARVEDILOL 12.5 MG TABLET PO SCH ×2 (10:45→21:41)
[2018-09-25] MEDS: TICAGRELOR 90 MG TABLET PO SCH ×2 (10:45→21:41)
[2018-09-25] MEDS: LOSARTAN 25 MG TABLET PO SCH (10:45)
[2018-09-25] MEDS: ENOXAPARIN 40 MG/0.4 ML SYRINGE SUBCUT SCH (10:46)
[2018-09-25] MEDS: LIDOCAINE 5% PATCH TRANSDERM SCH (10:53)
[2018-09-25] MEDS: DICLOFENAC 1% GEL 100 GM TUBE TOP SCH ×5 (10:53→21:42)
[2018-09-25] MEDS ORDERED: KETOROLAC 30 MG/1 ML VIAL IV SCH (11:00)
[2018-09-25] MEDS: traMADol 50 MG TABLET PO PRN (16:49)
[2018-09-25] MEDS: KETOROLAC 15 MG/1 ML VIAL IV SCH (18:59)
[2018-09-25] MEDS: ATORVASTATIN 40 MG TABLET PO SCH (21:41)
[2018-09-26] MEDS: KETOROLAC 15 MG/1 ML VIAL IV SCH ×2 (02:55→11:34)
[2018-09-26] MEDS: traMADol 50 MG TABLET PO PRN ×2 (02:55→09:23)
[2018-09-26 05:36] LABS: Basophils % 0.5 % (0.0-0.8); Eosinophils # 0.1 10*3/uL (0.0-0.87); Eosinophils % 1.7 % (0.00-10.9); Hematocrit 37.5 VOL% (42.0-52.0); Hemoglobin 11.2 GM/DL (14.0-18.0); Immature Granulocytes % 1.5 %; Immature Granulocytes Absolute 0.09 #; Lymphocytes # 2.5 10*3/uL (1.4-4.0); Lymphocytes % 41.1 % (21.2-54.2); Mean Corpuscular HGB Conc 29.9 GM/DL (32-36); Mean Platelet Volume 11.3 FL (9.6-12.0); Monocytes % 13.4 % (1.7-12.7); Neutrophils % 41.8 % (38.7-73.9); Platelet Count 193 T/CUMM (130-400); Red Cell Distribution Width 16.3 % (9.3-17.3); White Blood Count 6.1 T/CUMM (4-12)
[2018-09-26 06:08] LABS: Calcium 8.3 MG/DL (8.5-10.1); Osmolality,Calculated 280.4 MOS/KG (273-304)
[2018-09-26] MEDS: LIDOCAINE 5% PATCH TRANSDERM SCH (09:21)
[2018-09-26] MEDS: FUROSEMIDE 40 MG TABLET PO SCH (09:22)
[2018-09-26] MEDS: DICLOFENAC 1% GEL 100 GM TUBE TOP SCH ×4 (09:22→21:58)
[2018-09-26] MEDS: ENOXAPARIN 40 MG/0.4 ML SYRINGE SUBCUT SCH (09:22)
[2018-09-26] MEDS: CARVEDILOL 12.5 MG TABLET PO SCH ×2 (09:22→21:57)
[2018-09-26] MEDS: POTASSIUM CHLORIDE 20 MEQ TABLET PO SCH (09:22)
[2018-09-26] MEDS: ASPIRIN EC 81 MG TABLET PO SCH (09:22)
[2018-09-26] MEDS: AMIODARONE 200 MG TABLET PO SCH (09:22)
[2018-09-26] MEDS: GABAPENTIN 400 MG CAPSULE PO SCH ×3 (09:23→21:57)
[2018-09-26] MEDS: TICAGRELOR 90 MG TABLET PO SCH ×2 (09:23→21:57)
[2018-09-26] MEDS: LOSARTAN 25 MG TABLET PO SCH (09:24)
[2018-09-26] MEDS: ISOSORBIDE MONONITRATE 30 MG TABLET PO SCH (09:24)
[2018-09-26] MEDS: FAMOTIDINE 20 MG TABLET PO SCH ×2 (09:24→21:57)
[2018-09-26 09:28] LABS: Troponin I < 0.015 NG/ML (0.00-0.045)
[2018-09-26 12:07] LABS: Troponin I < 0.015 NG/ML (0.00-0.045)
[2018-09-26] MEDS ORDERED: TRIAMCINOLONE ACETONIDE 40 MG/1 ML VIAL IM ONE (15:09)
[2018-09-26 15:10] LABS: Troponin I < 0.015 NG/ML (0.00-0.045)
[2018-09-26] MEDS ORDERED: ROPIVACAINE 0.5% 30 ML VIAL NERVEBLOCK ONE (15:10)
[2018-09-26] MEDS: SODIUM CHLORIDE 0.9% 1,000 ML IV SCH (15:43)
[2018-09-26] MEDS ORDERED: KETOROLAC 15 MG/1 ML VIAL IV PRN (17:45)
[2018-09-26] MEDS: ATORVASTATIN 40 MG TABLET PO SCH (21:57)
[2018-09-27 03:06] LABS: Basophils % 0.3 % (0.0-0.8); Eosinophils # 0.1 10*3/uL (0.0-0.87); Eosinophils % 1.4 % (0.00-10.9); Hemoglobin 11.6 GM/DL (14.0-18.0); Immature Granulocytes % 1.4 %; Immature Granulocytes Absolute 0.08 #; Lymphocytes # 1.4 10*3/uL (1.4-4.0); Lymphocytes % 23.4 % (21.2-54.2); Mean Corpuscular HGB Conc 30.5 GM/DL (32-36); Mean Corpuscular Volume 74.5 FL (87-102); Mean Platelet Volume 11.3 FL (9.6-12.0); Monocytes % 12.2 % (1.7-12.7); Neutrophils % 61.3 % (38.7-73.9); Platelet Count 215 T/CUMM (130-400); Red Cell Distribution Width 16.6 % (9.3-17.3); White Blood Count 5.9 T/CUMM (4-12)
[2018-09-27 03:24] LABS: Calcium 8.9 MG/DL (8.5-10.1); Osmolality,Calculated 282.4 MOS/KG (273-304)
[2018-09-27] MEDS ORDERED: PANTOPRAZOLE 40 MG TABLET PO SCH (09:00)
[2018-09-27] MEDS: GABAPENTIN 400 MG CAPSULE PO SCH (09:08)
[2018-09-27] MEDS: ASPIRIN EC 81 MG TABLET PO SCH (09:08)
[2018-09-27] MEDS: traMADol 50 MG TABLET PO PRN (09:08)
[2018-09-27] MEDS: POTASSIUM CHLORIDE 20 MEQ TABLET PO SCH (09:09)
[2018-09-27] MEDS: CARVEDILOL 12.5 MG TABLET PO SCH (09:09)
[2018-09-27] MEDS: FUROSEMIDE 40 MG TABLET PO SCH (09:09)
[2018-09-27] MEDS: ISOSORBIDE MONONITRATE 30 MG TABLET PO SCH (09:10)
[2018-09-27] MEDS: ENOXAPARIN 40 MG/0.4 ML SYRINGE SUBCUT SCH (09:10)
[2018-09-27] MEDS: AMIODARONE 200 MG TABLET PO SCH (09:10)
[2018-09-27] MEDS: LOSARTAN 25 MG TABLET PO SCH (09:10)
[2018-09-27] MEDS: TICAGRELOR 90 MG TABLET PO SCH (09:10)
[2018-09-27] MEDS: DICLOFENAC 1% GEL 100 GM TUBE TOP SCH (09:11)
[2018-09-27] MEDS: LIDOCAINE 5% PATCH TRANSDERM SCH (09:11)
[2018-09-27 10:40] VITALS: BP 174/76
== END 2018-09-27 10:47 | disposition home or self-care (01) | DRG 203 ==
LOC: EDUNIT# → N.EDINP 03:07 → N.ED 03:07 → SUATTDRO 08:58 → N.EDINP 11:15 → N.TELEN 11:21
PROVIDERS: ADMIT Internal Medicine; ATTEND Hospitalist

== ENCOUNTER 2018-11-04 15:59 | Inpatient (IN) ==
[2018-11-04] MEDS ORDERED: NITROGLYCERIN 2% OINT 1 INCH/GM PACK TOP STA (16:44)
[2018-11-04] MEDS ORDERED: ASPIRIN EC 325 MG TABLET PO STA (16:44)
[2018-11-04] MEDS ORDERED: ONDANSETRON 4 MG/2 ML VIAL IV ONE (16:45)
[2018-11-04] MEDS ORDERED: MORPHINE 4 MG/1 ML VIAL IV STA ×2 (16:45→18:12)
[2018-11-04 16:52] LABS: Basophils % 0.5 % (0.0-0.8); Eosinophils % 0.5 % (0.00-10.9); Hematocrit 40.9 VOL% (42.0-52.0); Hemoglobin 12.8 GM/DL (14.0-18.0); Immature Granulocytes % 0.9 %; Immature Granulocytes Absolute 0.06 #; Lymphocytes # 1.9 10*3/uL (1.4-4.0); Lymphocytes % 28.7 % (21.2-54.2); Mean Corpuscular HGB Conc 31.3 GM/DL (32-36); Mean Corpuscular Volume 75.3 FL (87-102); Mean Platelet Volume 10.6 FL (9.6-12.0); Monocytes % 12.2 % (1.7-12.7); Neutrophils % 57.2 % (38.7-73.9); Platelet Count 224 T/CUMM (130-400); Red Blood Count 5.43 MC/CUMM (3.8-5.5); Red Cell Distribution Width 18.2 % (9.3-17.3); White Blood Count 6.5 T/CUMM (4-12)
[2018-11-04 17:09] LABS: PT Patient Result 10.5 SECS (9.6-12.2); Partial Thromboplastin Time 25.4 SECS (20.8-36.0)
[2018-11-04 17:12] LABS: Alanine Aminotransferase 73 U/L (16-61); Albumin 3.8 G/DL (3.4-5.0); Alkaline Phosphatase 94 U/L (45-117); Aspartate Amino Transferase 26 U/L (0-37); Bilirubin,Total < 0.39 MG/DL (0.2-1.0); Blood Urea Nitrogen 16 MG/DL (7-18); Calcium 8.8 MG/DL (8.5-10.1); Estimated Glom Filtration Rate 89 ML/MIN; Glucose 96 MG/DL (74-106); Osmolality,Calculated 281.3 MOS/KG (273-304); Total Protein 7.3 G/DL (6.4-8.3)
[2018-11-04 19:21] LABS: Apearance,Urine CLEAR (Clear); Bilirubin,Urine Negative (Negative); Blood, Urine Negative (Negative); Glucose,Urine (UA) Negative (Negative); Ketones,Urine Negative (Negative); Mucus,Urine Occasional /LPF (Occasional); Nitrite,Urine Negative (Negative); Protein,Urine Negative; RBC,Urine 3 /HPF (0-4); Urine Color Yellow (Yellow); Urine Specific Gravity 1.019 (1.001-1.035); Urine Urobilinogen < 2.0 EU/DL (0.2-1.0); WBC,Urine <1 /HPF (0-6)
[2018-11-04 19:25] LABS: Barbiturates Screen,Urine Negative (Negative); Benzodiazepines Screen,Urine Negative (Negative); Cannabinoid Screen,Urine Negative (Negative); Opiate Screen,Urine Positive (Negative); Phencyclidine Screen,Urine Negative (Negative)
[2018-11-04] MEDS ORDERED: tiZANidine 4 MG TABLET PO PRN (21:49)
[2018-11-04] MEDS ORDERED: NITROGLYCERIN SL 0.4 MG TABLET SL PRN (21:49)
[2018-11-04] MEDS ORDERED: ACETAMINOPHEN 325 MG TABLET PO PRN (21:49)
[2018-11-04] MEDS ORDERED: DOCUSATE SODIUM 100 MG CAPSULE PO PRN (21:49)
[2018-11-04] MEDS ORDERED: MORPHINE 4 MG/1 ML VIAL IV PRN (21:49)
[2018-11-04] MEDS: ATORVASTATIN 40 MG TABLET PO SCH (23:26)
[2018-11-04] MEDS: carvediloL 12.5 MG TABLET PO SCH (23:26)
[2018-11-04] MEDS: GABAPENTIN 400 MG CAPSULE PO SCH (23:26)
[2018-11-04] MEDS: ENOXAPARIN 40 MG/0.4 ML SYRINGE SUBCUT SCH (23:26)
[2018-11-04] MEDS: ONDANSETRON 4 MG/2 ML VIAL IV PRN (23:27)
[2018-11-05] MEDS: ONDANSETRON 4 MG/2 ML VIAL IV PRN (03:05)
[2018-11-05 04:50] LABS: Basophils % 0.2 % (0.0-0.8); Eosinophils % 0.3 % (0.00-10.9); Hematocrit 39.5 VOL% (42.0-52.0); Hemoglobin 12.3 GM/DL (14.0-18.0); Immature Granulocytes % 0.5 %; Immature Granulocytes Absolute 0.03 #; Lymphocytes # 1.4 10*3/uL (1.4-4.0); Lymphocytes % 23.5 % (21.2-54.2); Mean Corpuscular HGB Conc 31.1 GM/DL (32-36); Mean Corpuscular Volume 75.2 FL (87-102); Mean Platelet Volume 11.1 FL (9.6-12.0); Monocytes % 12.2 % (1.7-12.7); Neutrophils % 63.3 % (38.7-73.9); Platelet Count 191 T/CUMM (130-400); Red Blood Count 5.25 MC/CUMM (3.8-5.5); Red Cell Distribution Width 17.4 % (9.3-17.3); White Blood Count 5.9 T/CUMM (4-12)
[2018-11-05 05:11] LABS: Calcium 8.9 MG/DL (8.5-10.1); Osmolality,Calculated 283.3 MOS/KG (273-304); Thyroid Stimulating Hormone 0.562 uIU/ml (0.358-3.74)
[2018-11-05] MEDS: carvediloL 12.5 MG TABLET PO SCH ×2 (08:08→16:24)
[2018-11-05] MEDS: AMIODARONE 200 MG TABLET PO SCH (08:08)
[2018-11-05] MEDS: ASPIRIN EC 81 MG TABLET PO SCH (08:08)
[2018-11-05] MEDS: FUROSEMIDE 40 MG TABLET PO SCH (08:08)
[2018-11-05] MEDS: GABAPENTIN 400 MG CAPSULE PO SCH ×3 (08:08→21:18)
[2018-11-05] MEDS: LOSARTAN 25 MG TABLET PO SCH (08:09)
[2018-11-05] MEDS ORDERED: PANTOPRAZOLE 40 MG TABLET PO SCH (09:00)
[2018-11-05] MEDS: SERTRALINE 25 MG TABLET PO SCH (10:24)
[2018-11-05] MEDS ORDERED: MAGNESIUM SULF RIDER 2 GM in PREMIX 1 EACH IV PRN (14:35)
[2018-11-05] MEDS: traMADol 50 MG TABLET PO SCH ×2 (15:26→21:19)
[2018-11-05] MEDS: ACETAMINOPHEN 325 MG TABLET PO SCH ×2 (15:26→21:18)
[2018-11-05] MEDS: LIDOCAINE 5% PATCH TRANSDERM SCH (15:26)
[2018-11-05] MEDS: ATORVASTATIN 40 MG TABLET PO SCH (21:18)
[2018-11-05] MEDS: ENOXAPARIN 40 MG/0.4 ML SYRINGE SUBCUT SCH (21:18)
[2018-11-05] MEDS: PANTOPRAZOLE 40 MG TABLET PO SCH (21:19)
[2018-11-06] MEDS: LIDOCAINE 5% PATCH TRANSDERM SCH (09:33)
[2018-11-06] MEDS: ASPIRIN EC 81 MG TABLET PO SCH (14:26)
[2018-11-06] MEDS: TICAGRELOR 90 MG TABLET PO SCH ×2 (14:26→20:16)
[2018-11-06] MEDS: carvediloL 12.5 MG TABLET PO SCH ×2 (14:26→16:36)
[2018-11-06] MEDS: SERTRALINE 25 MG TABLET PO SCH (14:26)
[2018-11-06] MEDS: ACETAMINOPHEN 325 MG TABLET PO SCH ×2 (14:27→20:16)
[2018-11-06] MEDS: AMIODARONE 200 MG TABLET PO SCH (14:27)
[2018-11-06] MEDS: traMADol 50 MG TABLET PO SCH ×2 (14:27→20:15)
[2018-11-06] MEDS: PANTOPRAZOLE 40 MG TABLET PO SCH ×2 (14:27→20:16)
[2018-11-06] MEDS: GABAPENTIN 400 MG CAPSULE PO SCH ×3 (14:27→20:15)
[2018-11-06] MEDS: LOSARTAN 25 MG TABLET PO SCH (14:27)
[2018-11-06] MEDS: FUROSEMIDE 40 MG TABLET PO SCH (14:28)
[2018-11-06] MEDS: ATORVASTATIN 40 MG TABLET PO SCH (20:16)
[2018-11-06] MEDS: ENOXAPARIN 40 MG/0.4 ML SYRINGE SUBCUT SCH (21:30)
[2018-11-07] MEDS: LIDOCAINE 5% PATCH TRANSDERM SCH (08:40)
[2018-11-07] MEDS: traMADol 50 MG TABLET PO SCH (08:41)
[2018-11-07] MEDS: ASPIRIN EC 81 MG TABLET PO SCH (08:41)
[2018-11-07] MEDS: LOSARTAN 25 MG TABLET PO SCH (08:42)
[2018-11-07] MEDS: ACETAMINOPHEN 325 MG TABLET PO SCH (08:42)
[2018-11-07] MEDS: AMIODARONE 200 MG TABLET PO SCH (08:42)
[2018-11-07] MEDS: GABAPENTIN 400 MG CAPSULE PO SCH (08:42)
[2018-11-07] MEDS: FUROSEMIDE 40 MG TABLET PO SCH (08:42)
[2018-11-07] MEDS: SERTRALINE 25 MG TABLET PO SCH (08:42)
[2018-11-07] MEDS: TICAGRELOR 90 MG TABLET PO SCH (08:42)
[2018-11-07] MEDS: PANTOPRAZOLE 40 MG TABLET PO SCH (08:42)
[2018-11-07] MEDS: carvediloL 12.5 MG TABLET PO SCH (08:43)
[2018-11-07 09:04] VITALS: BP 175/92
[2018-11-07] MEDS ORDERED: AMIODARONE 200 MG TABLET PO SCH (09:26)
== END 2018-11-07 12:00 | disposition home or self-care (01) | DRG 198 ==
LOC: N.ED 15:59 → N.EDINP 15:59 → N.TELES 21:03
PROVIDERS: ADMIT Internal Medicine; ATTEND Internal Medicine

== ENCOUNTER 2018-12-26 15:14 | Inpatient (IN) ==
[2018-12-26 17:53] LABS: Basophils % 0.3 % (0.0-0.8); Eosinophils % 0.7 % (0.00-10.9); Hematocrit 42.6 VOL% (42.0-52.0); Hemoglobin 13.2 GM/DL (14.0-18.0); Immature Granulocytes % 0.5 %; Immature Granulocytes Absolute 0.03 #; Lymphocytes % 33.2 % (21.2-54.2); Mean Corpuscular Volume 76.1 FL (87-102); Mean Platelet Volume 11.3 FL (9.6-12.0); Monocytes % 11.6 % (1.7-12.7); Neutrophils % 53.7 % (38.7-73.9); Platelet Count 215 T/CUMM (130-400); Red Cell Distribution Width 16.9 % (9.3-17.3)
[2018-12-26 17:54] LABS: Alanine Aminotransferase 54 U/L (16-61); Albumin 3.8 G/DL (3.4-5.0); Alkaline Phosphatase 84 U/L (45-117); Aspartate Amino Transferase 26 U/L (0-37); Bilirubin,Total < 0.39 MG/DL (0.2-1.0); Blood Urea Nitrogen 15 MG/DL (7-18); Calcium 8.7 MG/DL (8.5-10.1); Estimated Glom Filtration Rate 127 ML/MIN; Glucose 112 MG/DL (74-106); Osmolality,Calculated 284.1 MOS/KG (273-304); Total Protein 7.9 G/DL (6.4-8.3); Troponin I < 0.015 NG/ML (0.00-0.045)
[2018-12-26] MEDS ORDERED: NITROGLYCERIN 2% OINT 1 INCH/GM PACK TOP STA (18:32)
[2018-12-26] MEDS ORDERED: ALBUTEROL/IPRATROPIUM 3 ML NEB RESP TX STA (18:32)
[2018-12-26] MEDS ORDERED: MORPHINE 4 MG/1 ML VIAL IV STA (18:32)
[2018-12-26] MEDS ORDERED: ASPIRIN 325 MG TABLET PO STA (18:32)
[2018-12-26] MEDS ORDERED: FUROSEMIDE 40 MG/4 ML VIAL IV STA (18:32)
[2018-12-26] MEDS ORDERED: ONDANSETRON 4 MG/2 ML VIAL IV STA (18:32)
[2018-12-26] MEDS ORDERED: MAGNESIUM SULF RIDER 2 GM in PREMIX 1 EACH IV PRN (18:53)
[2018-12-26] MEDS ORDERED: MAGNESIUM SULF RIDER 4 GM in PREMIX 1 EACH IV PRN (18:53)
[2018-12-26] MEDS ORDERED: ONDANSETRON 4 MG/2 ML VIAL IV PRN (18:53)
[2018-12-26] MEDS ORDERED: hydrALAZINE 20 MG/1 ML VIAL ONE (19:49)
[2018-12-26] MEDS ORDERED: hydrALAZINE 20 MG/1 ML VIAL IV PRN (19:54)
[2018-12-26] MEDS: PANTOPRAZOLE 40 MG TABLET PO SCH (21:44)
[2018-12-26] MEDS: ENOXAPARIN 40 MG/0.4 ML SYRINGE SUBCUT SCH (21:44)
[2018-12-26] MEDS: ATORVASTATIN 40 MG TABLET PO SCH (21:44)
[2018-12-26] MEDS: INDOMETHACIN 25 MG CAPSULE PO SCH (21:44)
[2018-12-26] MEDS: GABAPENTIN 400 MG CAPSULE PO SCH (21:44)
[2018-12-26] MEDS: METOPROLOL TARTRATE 50 MG TABLET PO SCH (21:44)
[2018-12-27 05:56] LABS: Albumin 3.2 G/DL (3.4-5.0); Bilirubin,Total 0.4 MG/DL (0.2-1.0); Calcium 8.6 MG/DL (8.5-10.1); Osmolality,Calculated 279.4 MOS/KG (273-304); Total Protein 7.3 G/DL (6.4-8.3)
[2018-12-27 06:26] LABS: Risk Ratio 3.87
[2018-12-27] MEDS ORDERED: AMIODARONE 200 MG TABLET PO SCH (09:00)
[2018-12-27] MEDS ORDERED: PANTOPRAZOLE 40 MG TABLET PO SCH (09:00)
[2018-12-27] MEDS: PANTOPRAZOLE 40 MG TABLET PO SCH ×2 (10:07→22:11)
[2018-12-27] MEDS: ISOSORBIDE MONONITRATE 60 MG TABLET PO SCH (10:07)
[2018-12-27] MEDS: GABAPENTIN 400 MG CAPSULE PO SCH ×3 (10:08→22:11)
[2018-12-27] MEDS: POTASSIUM CHLORIDE 20 MEQ TABLET PO SCH (10:08)
[2018-12-27] MEDS: DULoxetine 30 MG CAPSULE PO SCH (10:08)
[2018-12-27] MEDS: LOSARTAN 50 MG TABLET PO SCH (10:09)
[2018-12-27] MEDS: FUROSEMIDE 40 MG/4 ML VIAL IV SCH ×2 (10:09→17:22)
[2018-12-27] MEDS: METOPROLOL TARTRATE 50 MG TABLET PO SCH (10:31)
[2018-12-27] MEDS: MORPHINE 4 MG/1 ML VIAL IV PRN ×2 (10:31→17:49)
[2018-12-27] MEDS: CLOPIDOGREL 75 MG TABLET PO SCH (12:24)
[2018-12-27] MEDS: ASPIRIN EC 81 MG TABLET PO SCH (12:24)
[2018-12-27] MEDS: INDOMETHACIN 25 MG CAPSULE PO SCH ×3 (12:24→22:11)
[2018-12-27] MEDS: ATORVASTATIN 40 MG TABLET PO SCH (22:11)
[2018-12-27] MEDS: ENOXAPARIN 40 MG/0.4 ML SYRINGE SUBCUT SCH (22:11)
[2018-12-28 08:00] LABS: Basophils % 0.4 % (0.0-0.8); Eosinophils % 0.8 % (0.00-10.9); Hematocrit 42.3 VOL% (42.0-52.0); Hemoglobin 13.2 GM/DL (14.0-18.0); Immature Granulocytes % 0.8 %; Immature Granulocytes Absolute 0.04 #; Lymphocytes # 1.8 10*3/uL (1.4-4.0); Lymphocytes % 34.1 % (21.2-54.2); Mean Corpuscular HGB Conc 31.2 GM/DL (32-36); Mean Corpuscular Volume 75.9 FL (87-102); Mean Platelet Volume 12.3 FL (9.6-12.0); Monocytes % 14.6 % (1.7-12.7); Neutrophils % 49.3 % (38.7-73.9); Platelet Count 218 T/CUMM (130-400); Red Blood Count 5.57 MC/CUMM (3.8-5.5); Red Cell Distribution Width 16.6 % (9.3-17.3); White Blood Count 5.2 T/CUMM (4-12)
[2018-12-28] MEDS: FUROSEMIDE 40 MG/4 ML VIAL IV SCH (08:41)
[2018-12-28] MEDS: POTASSIUM CHLORIDE 20 MEQ TABLET PO SCH (08:42)
[2018-12-28] MEDS: NEBIVOLOL 10 MG TABLET PO SCH (08:42)
[2018-12-28] MEDS: CLOPIDOGREL 75 MG TABLET PO SCH (08:43)
[2018-12-28] MEDS: INDOMETHACIN 25 MG CAPSULE PO SCH ×3 (08:43→21:42)
[2018-12-28] MEDS: ASPIRIN EC 81 MG TABLET PO SCH (08:43)
[2018-12-28] MEDS: GABAPENTIN 400 MG CAPSULE PO SCH ×3 (08:43→21:42)
[2018-12-28] MEDS: PANTOPRAZOLE 40 MG TABLET PO SCH ×2 (08:43→21:42)
[2018-12-28] MEDS: ISOSORBIDE MONONITRATE 60 MG TABLET PO SCH (08:43)
[2018-12-28] MEDS: DULoxetine 30 MG CAPSULE PO SCH (08:43)
[2018-12-28] MEDS: LOSARTAN 50 MG TABLET PO SCH (09:44)
[2018-12-28] MEDS: MORPHINE 4 MG/1 ML VIAL IV PRN ×2 (11:03→21:43)
[2018-12-28] MEDS: ALBUTEROL/IPRATROPIUM 3 ML NEB RESP TX SCH ×2 (14:00→19:25)
[2018-12-28] MEDS: FUROSEMIDE 40 MG TABLET PO SCH (16:23)
[2018-12-28] MEDS: ATORVASTATIN 40 MG TABLET PO SCH (21:42)
[2018-12-28] MEDS: ENOXAPARIN 40 MG/0.4 ML SYRINGE SUBCUT SCH (21:43)
[2018-12-29] MEDS: ALBUTEROL/IPRATROPIUM 3 ML NEB RESP TX SCH ×3 (01:47→13:00)
[2018-12-29] MEDS: INDOMETHACIN 25 MG CAPSULE PO SCH (09:34)
[2018-12-29] MEDS: POTASSIUM CHLORIDE 20 MEQ TABLET PO SCH (09:34)
[2018-12-29] MEDS: ISOSORBIDE MONONITRATE 60 MG TABLET PO SCH (09:34)
[2018-12-29] MEDS: DULoxetine 30 MG CAPSULE PO SCH (09:34)
[2018-12-29] MEDS: GABAPENTIN 400 MG CAPSULE PO SCH (09:34)
[2018-12-29] MEDS: ASPIRIN EC 81 MG TABLET PO SCH (09:34)
[2018-12-29] MEDS: CLOPIDOGREL 75 MG TABLET PO SCH (09:35)
[2018-12-29] MEDS: LOSARTAN 50 MG TABLET PO SCH (09:35)
[2018-12-29] MEDS: PANTOPRAZOLE 40 MG TABLET PO SCH (09:35)
[2018-12-29] MEDS: NEBIVOLOL 10 MG TABLET PO SCH (09:35)
[2018-12-29] MEDS: FUROSEMIDE 40 MG TABLET PO SCH (09:35)
[2018-12-29 11:42] VITALS: BP 146/77
== END 2018-12-29 14:27 | disposition home health service (06) | DRG 198 ==
LOC: N.EDINP 15:14 → N.ED 15:14 → N.2W 19:34 → N.TELES 12-27 15:04
PROVIDERS: ADMIT Internal Medicine; ATTEND Internal Medicine

== ENCOUNTER 2019-01-06 14:25 | Inpatient (IN) ==
[2019-01-06] MEDS ORDERED: ALBUTEROL/IPRATROPIUM 3 ML NEB RESP TX STA ×2 (18:48→21:19)
[2019-01-06] MEDS ORDERED: SODIUM CHLORIDE 0.9% 1,000 ML IV STA (18:48)
[2019-01-06] MEDS ORDERED: methylPREDNISolone SOD SUC 40 MG/1 ML VIAL IV STA (18:48)
[2019-01-06] MEDS ORDERED: methylPREDNISolone SOD SUC 125 MG/2 ML VIAL ONE (19:08)
[2019-01-06 19:12] LABS: Basophils % 0.3 % (0.0-0.8); Eosinophils # 0.1 10*3/uL (0.0-0.87); Hemoglobin 12.3 GM/DL (14.0-18.0); Immature Granulocytes % 0.4 %; Immature Granulocytes Absolute 0.03 #; Lymphocytes # 2.4 10*3/uL (1.4-4.0); Lymphocytes % 33.6 % (21.2-54.2); Mean Corpuscular HGB Conc 30.8 GM/DL (32-36); Mean Corpuscular Volume 77.2 FL (87-102); Monocytes % 12.6 % (1.7-12.7); Neutrophils % 52.1 % (38.7-73.9); Platelet Count 214 T/CUMM (130-400); Red Blood Count 5.18 MC/CUMM (3.8-5.5); White Blood Count 7.2 T/CUMM (4-12)
[2019-01-06 19:29] LABS: Alanine Aminotransferase 40 U/L (16-61); Albumin 3.8 G/DL (3.4-5.0); Alkaline Phosphatase 80 U/L (45-117); Aspartate Amino Transferase 20 U/L (0-37); Bilirubin,Total < 0.39 MG/DL (0.2-1.0); Blood Urea Nitrogen 15 MG/DL (7-18); Calcium 8.9 MG/DL (8.5-10.1); Estimated Glom Filtration Rate 111 ML/MIN; Glucose 97 MG/DL (74-106); Osmolality,Calculated 283.1 MOS/KG (273-304); Total Protein 7.8 G/DL (6.4-8.3)
[2019-01-06] MEDS ORDERED: LEVOFLOXACIN INJ 500 MG in PREMIX 1 EACH IV STA (21:19)
[2019-01-06] MEDS ORDERED: ALBUTEROL 2.5 MG/3 ML NEB RESP TX PRN (21:39)
[2019-01-06] MEDS: LEVOFLOXACIN INJ 750 MG in PREMIX 1 EACH IV SCH (21:55)
[2019-01-06 22:00] LABS: ABG Base Excess -1.8 MMOL/L (-2.5-2.5); ABG HCO3 22.8 MMOL/L (20-26); ABG Oxygen Saturation 96.3 % (95-100); ABG PCO2 37.8 MM HG (35-48); ABG PH 7.388 (7.35-7.45); ABG PO2 87.5 MM HG (80-95); ABG TCO2 20.1 MMOL/L (23-27); Allen Test Positive; Pt O2 Delivery Device Room Air
[2019-01-06] MEDS: BUDESONIDE 0.5 MG/2 ML NEB RESP TX SCH (22:45)
[2019-01-06] MEDS: ALBUTEROL/IPRATROPIUM 3 ML NEB RESP TX SCH (22:45)
[2019-01-07] MEDS: methylPREDNISolone SOD SUC 40 MG/1 ML VIAL IV SCH ×4 (00:01→20:20)
[2019-01-07] MEDS: ALBUTEROL/IPRATROPIUM 3 ML NEB RESP TX SCH ×6 (02:46→23:58)
[2019-01-07 06:05] LABS: Basophils % 0.1 % (0.0-0.8); Hematocrit 40.6 VOL% (42.0-52.0); Hemoglobin 12.5 GM/DL (14.0-18.0); Immature Granulocytes % 0.5 %; Immature Granulocytes Absolute 0.04 #; Lymphocytes # 0.9 10*3/uL (1.4-4.0); Lymphocytes % 12.2 % (21.2-54.2); Mean Corpuscular HGB Conc 30.8 GM/DL (32-36); Mean Corpuscular Volume 76.5 FL (87-102); Monocytes % 1.7 % (1.7-12.7); Neutrophils % 85.5 % (38.7-73.9); Platelet Count 217 T/CUMM (130-400); Red Blood Count 5.31 MC/CUMM (3.8-5.5); Red Cell Distribution Width 15.9 % (9.3-17.3); White Blood Count 7.7 T/CUMM (4-12)
[2019-01-07 06:17] LABS: Alanine Aminotransferase 39 U/L (16-61); Albumin 3.5 G/DL (3.4-5.0); Alkaline Phosphatase 81 U/L (45-117); Aspartate Amino Transferase 17 U/L (0-37); Bilirubin,Total < 0.39 MG/DL (0.2-1.0); Calcium 8.5 MG/DL (8.5-10.1); Total Protein 7.7 G/DL (6.4-8.3)
[2019-01-07 06:18] LABS: Blood Urea Nitrogen 13 MG/DL (7-18); Estimated Glom Filtration Rate 110 ML/MIN; Glucose 171 MG/DL (74-106); Osmolality,Calculated 282.4 MOS/KG (273-304)
[2019-01-07] MEDS: BUDESONIDE 0.5 MG/2 ML NEB RESP TX SCH ×2 (06:55→19:46)
[2019-01-07] MEDS: guaiFENesin/DM ER 600-30 MG TABLET PO PRN (09:06)
[2019-01-07] MEDS: DOCUSATE SODIUM 100 MG CAPSULE PO PRN (09:06)
[2019-01-07] MEDS: ENOXAPARIN 40 MG/0.4 ML SYRINGE SUBCUT SCH (09:07)
[2019-01-07] MEDS: PANTOPRAZOLE 40 MG TABLET PO SCH (09:07)
[2019-01-07] MEDS: ATORVASTATIN 40 MG TABLET PO SCH (20:19)
[2019-01-07] MEDS: GABAPENTIN 400 MG CAPSULE PO SCH (20:19)
[2019-01-07] MEDS: FUROSEMIDE 40 MG TABLET PO SCH (20:19)
[2019-01-07] MEDS: diphenhydrAMINE CAP 25 MG CAPSULE PO PRN (20:19)
[2019-01-07] MEDS: ZALEPLON 5 MG CAPSULE PO PRN (20:24)
[2019-01-07] MEDS: LEVOFLOXACIN INJ 750 MG in PREMIX 1 EACH IV SCH (21:11)
[2019-01-08] MEDS: methylPREDNISolone SOD SUC 40 MG/1 ML VIAL IV SCH ×4 (00:07→20:36)
[2019-01-08] MEDS: diphenhydrAMINE CAP 25 MG CAPSULE PO PRN ×3 (03:12→20:37)
[2019-01-08] MEDS: ALBUTEROL/IPRATROPIUM 3 ML NEB RESP TX SCH ×6 (03:26→23:55)
[2019-01-08] MEDS: diphenhydrAMINE 2% CREAM 28 GM TUBE TOP PRN ×2 (03:54→11:00)
[2019-01-08] MEDS: BUDESONIDE 0.5 MG/2 ML NEB RESP TX SCH ×2 (07:10→19:38)
[2019-01-08] MEDS: ENOXAPARIN 40 MG/0.4 ML SYRINGE SUBCUT SCH (08:18)
[2019-01-08] MEDS: FUROSEMIDE 40 MG TABLET PO SCH ×2 (08:18→20:37)
[2019-01-08] MEDS: LOSARTAN 50 MG TABLET PO SCH (08:18)
[2019-01-08] MEDS: NEBIVOLOL 10 MG TABLET PO SCH (08:18)
[2019-01-08] MEDS: POTASSIUM CHLORIDE 20 MEQ TABLET PO SCH (08:18)
[2019-01-08] MEDS: DULoxetine 30 MG CAPSULE PO SCH (08:18)
[2019-01-08] MEDS: ASPIRIN EC 81 MG TABLET PO SCH (08:18)
[2019-01-08] MEDS: PANTOPRAZOLE 40 MG TABLET PO SCH (08:19)
[2019-01-08] MEDS: GABAPENTIN 400 MG CAPSULE PO SCH ×3 (08:19→20:36)
[2019-01-08] MEDS: ATORVASTATIN 40 MG TABLET PO SCH (20:37)
[2019-01-08] MEDS: LEVOFLOXACIN INJ 750 MG in PREMIX 1 EACH IV SCH (23:08)
[2019-01-09] MEDS: ALBUTEROL/IPRATROPIUM 3 ML NEB RESP TX SCH ×6 (03:55→23:10)
[2019-01-09 06:29] LABS: Basophils % 0.2 % (0.0-0.8); Hematocrit 40.7 VOL% (42.0-52.0); Hemoglobin 12.6 GM/DL (14.0-18.0); Immature Granulocytes Absolute 0.39 #; Lymphocytes # 1.9 10*3/uL (1.4-4.0); Lymphocytes % 9.7 % (21.2-54.2); Mean Corpuscular Volume 76.2 FL (87-102); Mean Platelet Volume 12.3 FL (9.6-12.0); Monocytes % 5.7 % (1.7-12.7); Neutrophils % 82.4 % (38.7-73.9); Platelet Count 256 T/CUMM (130-400); Red Blood Count 5.34 MC/CUMM (3.8-5.5); Red Cell Distribution Width 16.3 % (9.3-17.3); White Blood Count 19.2 T/CUMM (4-12)
[2019-01-09 06:54] LABS: Calcium 8.5 MG/DL (8.5-10.1); Osmolality,Calculated 279.7 MOS/KG (273-304)
[2019-01-09] MEDS: methylPREDNISolone SOD SUC 40 MG/1 ML VIAL IV SCH ×4 (07:09→21:34)
[2019-01-09] MEDS: BUDESONIDE 0.5 MG/2 ML NEB RESP TX SCH ×2 (08:00→19:00)
[2019-01-09] MEDS: POTASSIUM CHLORIDE 20 MEQ TABLET PO SCH (08:26)
[2019-01-09] MEDS: NEBIVOLOL 10 MG TABLET PO SCH (08:26)
[2019-01-09] MEDS: PANTOPRAZOLE 40 MG TABLET PO SCH (08:26)
[2019-01-09] MEDS: FUROSEMIDE 40 MG TABLET PO SCH ×2 (08:26→21:27)
[2019-01-09] MEDS: ENOXAPARIN 40 MG/0.4 ML SYRINGE SUBCUT SCH (08:26)
[2019-01-09] MEDS: LOSARTAN 50 MG TABLET PO SCH (08:26)
[2019-01-09] MEDS: DULoxetine 30 MG CAPSULE PO SCH (08:26)
[2019-01-09] MEDS: ASPIRIN EC 81 MG TABLET PO SCH (08:26)
[2019-01-09] MEDS: GABAPENTIN 400 MG CAPSULE PO SCH ×3 (08:27→21:27)
[2019-01-09] MEDS ORDERED: NITROGLYCERIN SL 0.4 MG TABLET SL PRN (12:59)
[2019-01-09] MEDS: CLOPIDOGREL 75 MG TABLET PO SCH (14:13)
[2019-01-09] MEDS: ISOSORBIDE MONONITRATE 60 MG TABLET PO SCH (14:17)
[2019-01-09] MEDS: LEVOFLOXACIN INJ 750 MG in PREMIX 1 EACH IV SCH (21:28)
[2019-01-09] MEDS: ATORVASTATIN 40 MG TABLET PO SCH (23:11)
[2019-01-10] MEDS: methylPREDNISolone SOD SUC 40 MG/1 ML VIAL IV SCH ×4 (01:00→20:49)
[2019-01-10] MEDS: diphenhydrAMINE CAP 25 MG CAPSULE PO PRN (01:04)
[2019-01-10] MEDS: ALBUTEROL/IPRATROPIUM 3 ML NEB RESP TX SCH ×6 (03:30→23:16)
[2019-01-10 04:31] LABS: ABG Base Excess 1.4 MMOL/L (-2.5-2.5); ABG HCO3 25.6 MMOL/L (20-26); ABG Oxygen Saturation 96.4 % (95-100); ABG PCO2 38.1 MM HG (35-48); ABG PH 7.434 (7.35-7.45); ABG PO2 82.9 MM HG (80-95); ABG TCO2 22.3 MMOL/L (23-27)
[2019-01-10] MEDS: BUDESONIDE 0.5 MG/2 ML NEB RESP TX SCH ×2 (07:31→20:10)
[2019-01-10] MEDS: DULoxetine 30 MG CAPSULE PO SCH (09:21)
[2019-01-10] MEDS: NEBIVOLOL 10 MG TABLET PO SCH (09:21)
[2019-01-10] MEDS: CLOPIDOGREL 75 MG TABLET PO SCH (09:21)
[2019-01-10] MEDS: PANTOPRAZOLE 40 MG TABLET PO SCH (09:21)
[2019-01-10] MEDS: ASPIRIN EC 81 MG TABLET PO SCH (09:21)
[2019-01-10] MEDS: POTASSIUM CHLORIDE 20 MEQ TABLET PO SCH (09:21)
[2019-01-10] MEDS: FUROSEMIDE 40 MG TABLET PO SCH ×2 (09:21→20:49)
[2019-01-10] MEDS: ENOXAPARIN 40 MG/0.4 ML SYRINGE SUBCUT SCH (09:21)
[2019-01-10] MEDS: LOSARTAN 50 MG TABLET PO SCH (09:21)
[2019-01-10] MEDS: ISOSORBIDE MONONITRATE 60 MG TABLET PO SCH (09:22)
[2019-01-10] MEDS: GABAPENTIN 400 MG CAPSULE PO SCH ×3 (09:22→20:49)
[2019-01-10] MEDS: ONDANSETRON 4 MG/2 ML VIAL IV PRN (12:49)
[2019-01-10] MEDS: NICOTINE 21 MG/24 HR PATCH TRANSDERM SCH (14:53)
[2019-01-10] MEDS: ATORVASTATIN 40 MG TABLET PO SCH (20:49)
[2019-01-10] MEDS: LEVOFLOXACIN INJ 750 MG in PREMIX 1 EACH IV SCH (23:00)
[2019-01-11] MEDS: ALBUTEROL/IPRATROPIUM 3 ML NEB RESP TX SCH ×6 (02:18→23:00)
[2019-01-11] MEDS: methylPREDNISolone SOD SUC 40 MG/1 ML VIAL IV SCH ×4 (04:00→22:28)
[2019-01-11 05:20] LABS: Basophils # 0.1 10*3/uL (0.0-0.2); Basophils % 0.4 % (0.0-0.8); Hematocrit 41.3 VOL% (42.0-52.0); Hemoglobin 13.1 GM/DL (14.0-18.0); Immature Granulocytes % 4.6 %; Immature Granulocytes Absolute 0.88 #; Lymphocytes # 1.8 10*3/uL (1.4-4.0); Lymphocytes % 9.5 % (21.2-54.2); Mean Corpuscular HGB Conc 31.7 GM/DL (32-36); Mean Platelet Volume 11.6 FL (9.6-12.0); Monocytes % 6.4 % (1.7-12.7); Neutrophils % 79.1 % (38.7-73.9); Platelet Count 264 T/CUMM (130-400); Red Blood Count 5.51 MC/CUMM (3.8-5.5); Red Cell Distribution Width 16.4 % (9.3-17.3); White Blood Count 18.9 T/CUMM (4-12)
[2019-01-11 05:32] LABS: Osmolality,Calculated 278.1 MOS/KG (273-304)
[2019-01-11 06:10] LABS: Lymphocytes 8 % (20-55); Platelet Estimate Normal; Polychromasia Few; Segmented Neutrophils 86 % (50-85); Total Cells Counted 100
[2019-01-11] MEDS: BUDESONIDE 0.5 MG/2 ML NEB RESP TX SCH ×2 (08:18→19:20)
[2019-01-11] MEDS: NICOTINE 21 MG/24 HR PATCH TRANSDERM SCH (09:06)
[2019-01-11] MEDS: ENOXAPARIN 40 MG/0.4 ML SYRINGE SUBCUT SCH (09:08)
[2019-01-11] MEDS: ISOSORBIDE MONONITRATE 60 MG TABLET PO SCH (09:09)
[2019-01-11] MEDS: FUROSEMIDE 40 MG TABLET PO SCH ×2 (09:09→22:31)
[2019-01-11] MEDS: POTASSIUM CHLORIDE 20 MEQ TABLET PO SCH (09:09)
[2019-01-11] MEDS: LOSARTAN 50 MG TABLET PO SCH (09:09)
[2019-01-11] MEDS: CLOPIDOGREL 75 MG TABLET PO SCH (09:09)
[2019-01-11] MEDS: NEBIVOLOL 10 MG TABLET PO SCH (09:09)
[2019-01-11] MEDS: GABAPENTIN 400 MG CAPSULE PO SCH ×3 (09:09→22:28)
[2019-01-11] MEDS: ASPIRIN EC 81 MG TABLET PO SCH (09:09)
[2019-01-11] MEDS: PANTOPRAZOLE 40 MG TABLET PO SCH (09:10)
[2019-01-11] MEDS: DULoxetine 30 MG CAPSULE PO SCH (09:21)
[2019-01-11] MEDS: guaiFENesin/DM ER 600-30 MG TABLET PO PRN (11:54)
[2019-01-11] MEDS ORDERED: PHENOL 1.4% THROAT SPRAY 177 ML BOTTLE PO PRN (21:39)
[2019-01-11] MEDS: LEVOFLOXACIN INJ 750 MG in PREMIX 1 EACH IV SCH (22:29)
[2019-01-11] MEDS: ATORVASTATIN 40 MG TABLET PO SCH (22:32)
[2019-01-12] MEDS: ALBUTEROL/IPRATROPIUM 3 ML NEB RESP TX SCH ×5 (02:30→19:39)
[2019-01-12] MEDS: methylPREDNISolone SOD SUC 40 MG/1 ML VIAL IV SCH ×4 (02:55→22:03)
[2019-01-12 06:39] LABS: Basophils # 0.1 10*3/uL (0.0-0.2); Basophils % 0.3 % (0.0-0.8); Hematocrit 43.7 VOL% (42.0-52.0); Immature Granulocytes % 4.4 %; Immature Granulocytes Absolute 0.97 #; Lymphocytes # 1.9 10*3/uL (1.4-4.0); Lymphocytes % 8.5 % (21.2-54.2); Mean Corpuscular Volume 74.4 FL (87-102); Mean Platelet Volume 10.9 FL (9.6-12.0); Monocytes % 7.2 % (1.7-12.7); Neutrophils % 79.6 % (38.7-73.9); Platelet Count 285 T/CUMM (130-400); Red Blood Count 5.87 MC/CUMM (3.8-5.5); Red Cell Distribution Width 16.7 % (9.3-17.3)
[2019-01-12] MEDS: BUDESONIDE 0.5 MG/2 ML NEB RESP TX SCH ×2 (07:25→19:39)
[2019-01-12 07:27] LABS: Band Neutrophils 9 % (0-10); Eosinophils 1 % (0-10); Lymphocytes 11 % (20-55); Platelet Estimate Normal; Segmented Neutrophils 73 % (50-85); Total Cells Counted 100
[2019-01-12 07:28] LABS: Anisocytosis 1+
[2019-01-12] MEDS: POTASSIUM CHLORIDE 20 MEQ TABLET PO SCH (10:33)
[2019-01-12] MEDS: ENOXAPARIN 40 MG/0.4 ML SYRINGE SUBCUT SCH (10:33)
[2019-01-12] MEDS: FUROSEMIDE 40 MG TABLET PO SCH ×2 (10:34→22:03)
[2019-01-12] MEDS: LOSARTAN 50 MG TABLET PO SCH (10:34)
[2019-01-12] MEDS: CLOPIDOGREL 75 MG TABLET PO SCH (10:34)
[2019-01-12] MEDS: ISOSORBIDE MONONITRATE 60 MG TABLET PO SCH (10:34)
[2019-01-12] MEDS: DULoxetine 30 MG CAPSULE PO SCH (10:34)
[2019-01-12] MEDS: ASPIRIN EC 81 MG TABLET PO SCH (10:34)
[2019-01-12] MEDS: PANTOPRAZOLE 40 MG TABLET PO SCH (10:34)
[2019-01-12] MEDS: NEBIVOLOL 10 MG TABLET PO SCH (10:34)
[2019-01-12] MEDS: NICOTINE 21 MG/24 HR PATCH TRANSDERM SCH (10:35)
[2019-01-12] MEDS: GABAPENTIN 400 MG CAPSULE PO SCH ×3 (10:35→22:03)
[2019-01-12] MEDS: ATORVASTATIN 40 MG TABLET PO SCH (22:03)
[2019-01-13] MEDS: ALBUTEROL/IPRATROPIUM 3 ML NEB RESP TX SCH ×6 (00:14→20:40)
[2019-01-13] MEDS: methylPREDNISolone SOD SUC 40 MG/1 ML VIAL IV SCH ×3 (05:00→20:25)
[2019-01-13] MEDS: BUDESONIDE 0.5 MG/2 ML NEB RESP TX SCH ×2 (07:34→20:40)
[2019-01-13] MEDS: NICOTINE 21 MG/24 HR PATCH TRANSDERM SCH (09:05)
[2019-01-13] MEDS: DULoxetine 30 MG CAPSULE PO SCH (09:06)
[2019-01-13] MEDS: GABAPENTIN 400 MG CAPSULE PO SCH ×3 (09:06→20:25)
[2019-01-13] MEDS: LOSARTAN 50 MG TABLET PO SCH (09:06)
[2019-01-13] MEDS: CLOPIDOGREL 75 MG TABLET PO SCH (09:06)
[2019-01-13] MEDS: ISOSORBIDE MONONITRATE 60 MG TABLET PO SCH (09:06)
[2019-01-13] MEDS: FUROSEMIDE 40 MG TABLET PO SCH ×2 (09:06→20:25)
[2019-01-13] MEDS: POTASSIUM CHLORIDE 20 MEQ TABLET PO SCH (09:06)
[2019-01-13] MEDS: PANTOPRAZOLE 40 MG TABLET PO SCH (09:06)
[2019-01-13] MEDS: NEBIVOLOL 10 MG TABLET PO SCH (09:06)
[2019-01-13] MEDS: ENOXAPARIN 40 MG/0.4 ML SYRINGE SUBCUT SCH (09:06)
[2019-01-13] MEDS: ASPIRIN EC 81 MG TABLET PO SCH (09:06)
[2019-01-13] MEDS: ATORVASTATIN 40 MG TABLET PO SCH (20:25)
[2019-01-13] MEDS: ZALEPLON 5 MG CAPSULE PO PRN (23:39)
[2019-01-14] MEDS: ALBUTEROL/IPRATROPIUM 3 ML NEB RESP TX SCH ×7 (00:49→23:56)
[2019-01-14 02:51] LABS: Apearance,Urine CLEAR (Clear); Bilirubin,Urine Negative (Negative); Blood, Urine Negative (Negative); Glucose,Urine (UA) >=500 mg/dL (Negative); Hyaline Casts,Urine 1 /LPF (0-3); Ketones,Urine Negative (Negative); Mucus,Urine Occasional /LPF (Occasional); Nitrite,Urine Negative (Negative); Protein,Urine Negative; RBC,Urine 1 /HPF (0-4); Urine Color Yellow (Yellow); Urine Specific Gravity 1.017 (1.001-1.035); Urine Urobilinogen < 2.0 EU/DL (0.2-1.0); WBC,Urine <1 /HPF (0-6)
[2019-01-14] MEDS: methylPREDNISolone SOD SUC 40 MG/1 ML VIAL IV SCH (04:45)
[2019-01-14] MEDS: BUDESONIDE 0.5 MG/2 ML NEB RESP TX SCH ×2 (07:29→19:13)
[2019-01-14] MEDS: ENOXAPARIN 40 MG/0.4 ML SYRINGE SUBCUT SCH (08:39)
[2019-01-14] MEDS: ISOSORBIDE MONONITRATE 60 MG TABLET PO SCH (08:40)
[2019-01-14] MEDS: POLYETHYLENE GLYCOL POWDER 17 GM PACK PO SCH (08:40)
[2019-01-14] MEDS: GABAPENTIN 400 MG CAPSULE PO SCH ×3 (08:40→20:46)
[2019-01-14] MEDS: NEBIVOLOL 10 MG TABLET PO SCH (08:40)
[2019-01-14] MEDS: DULoxetine 30 MG CAPSULE PO SCH (08:40)
[2019-01-14] MEDS: POTASSIUM CHLORIDE 20 MEQ TABLET PO SCH (08:40)
[2019-01-14] MEDS: ASPIRIN EC 81 MG TABLET PO SCH (08:40)
[2019-01-14] MEDS: CLOPIDOGREL 75 MG TABLET PO SCH (08:41)
[2019-01-14] MEDS: LOSARTAN 50 MG TABLET PO SCH (08:41)
[2019-01-14] MEDS: PANTOPRAZOLE 40 MG TABLET PO SCH (08:41)
[2019-01-14] MEDS: NICOTINE 21 MG/24 HR PATCH TRANSDERM SCH (08:41)
[2019-01-14] MEDS: FUROSEMIDE 40 MG TABLET PO SCH ×2 (08:41→20:46)
[2019-01-14 09:43] LABS: Basophils # 0.1 10*3/uL (0.0-0.2); Basophils % 0.4 % (0.0-0.8); Hematocrit 42.8 VOL% (42.0-52.0); Hemoglobin 13.6 GM/DL (14.0-18.0); Immature Granulocytes % 4.9 %; Immature Granulocytes Absolute 1.21 #; Lymphocytes # 2.3 10*3/uL (1.4-4.0); Lymphocytes % 9.2 % (21.2-54.2); Mean Corpuscular HGB Conc 31.8 GM/DL (32-36); Mean Corpuscular Volume 74.4 FL (87-102); Mean Platelet Volume 10.3 FL (9.6-12.0); Monocytes % 7.9 % (1.7-12.7); Neutrophils % 77.6 % (38.7-73.9); Platelet Count 275 T/CUMM (130-400); Red Blood Count 5.75 MC/CUMM (3.8-5.5); Red Cell Distribution Width 16.1 % (9.3-17.3); White Blood Count 24.5 T/CUMM (4-12)
[2019-01-14] MEDS: LEVOFLOXACIN INJ 500 MG in PREMIX 1 EACH IV SCH (09:51)
[2019-01-14 10:06] LABS: Band Neutrophils 3 % (0-10); Lymphocytes 12 % (20-55); Platelet Estimate Normal; Segmented Neutrophils 82 % (50-85); Total Cells Counted 100
[2019-01-14 10:11] LABS: Osmolality,Calculated 272.4 MOS/KG (273-304)
[2019-01-14] MEDS ORDERED: ALUMINUM/MAGNES/SIMETH MAX STR 30 ML UDCUP PO ONE (16:47)
[2019-01-14] MEDS: ATORVASTATIN 40 MG TABLET PO SCH (20:46)
[2019-01-14] MEDS: guaiFENesin/DM ER 600-30 MG TABLET PO PRN (20:46)
[2019-01-14] MEDS: ACETAMINOPHEN 325 MG TABLET PO PRN (22:55)
[2019-01-14] MEDS: DOCUSATE SODIUM 100 MG CAPSULE PO PRN (22:55)
[2019-01-15] MEDS: ALBUTEROL/IPRATROPIUM 3 ML NEB RESP TX SCH ×4 (02:22→14:47)
[2019-01-15] MEDS: ACETAMINOPHEN 325 MG TABLET PO PRN (03:33)
[2019-01-15 05:09] LABS: Basophils # 0.1 10*3/uL (0.0-0.2); Basophils % 0.3 % (0.0-0.8); Eosinophils % 0.1 % (0.00-10.9); Hematocrit 43.7 VOL% (42.0-52.0); Immature Granulocytes % 3.9 %; Immature Granulocytes Absolute 0.71 #; Lymphocytes % 16.5 % (21.2-54.2); Mean Corpuscular Volume 73.8 FL (87-102); Mean Platelet Volume 10.5 FL (9.6-12.0); Neutrophils % 69.2 % (38.7-73.9); Platelet Count 245 T/CUMM (130-400); Red Blood Count 5.92 MC/CUMM (3.8-5.5); Red Cell Distribution Width 16.2 % (9.3-17.3); White Blood Count 18.3 T/CUMM (4-12)
[2019-01-15 05:40] LABS: Calcium 7.9 MG/DL (8.5-10.1); Osmolality,Calculated 271.4 MOS/KG (273-304)
[2019-01-15 05:46] LABS: Hypochromasia 1+; Lymphocytes 17 % (20-55); Microcytosis 2+; Platelet Estimate Normal; Segmented Neutrophils 76 % (50-85); Stomatocytes Slight; Target Cells Few; Total Cells Counted 100
[2019-01-15] MEDS: BUDESONIDE 0.5 MG/2 ML NEB RESP TX SCH (07:33)
[2019-01-15] MEDS ORDERED: predniSONE 20 MG TABLET PO SCH (09:00)
[2019-01-15] MEDS: FUROSEMIDE 40 MG TABLET PO SCH (09:13)
[2019-01-15] MEDS: NEBIVOLOL 10 MG TABLET PO SCH (09:13)
[2019-01-15] MEDS: ENOXAPARIN 40 MG/0.4 ML SYRINGE SUBCUT SCH (09:13)
[2019-01-15] MEDS: ISOSORBIDE MONONITRATE 60 MG TABLET PO SCH (09:13)
[2019-01-15] MEDS: ASPIRIN EC 81 MG TABLET PO SCH (09:13)
[2019-01-15] MEDS: DULoxetine 30 MG CAPSULE PO SCH (09:13)
[2019-01-15] MEDS: LOSARTAN 50 MG TABLET PO SCH (09:13)
[2019-01-15] MEDS: POTASSIUM CHLORIDE 20 MEQ TABLET PO SCH (09:13)
[2019-01-15] MEDS: GABAPENTIN 400 MG CAPSULE PO SCH (09:14)
[2019-01-15] MEDS: NICOTINE 21 MG/24 HR PATCH TRANSDERM SCH (09:14)
[2019-01-15] MEDS: POLYETHYLENE GLYCOL POWDER 17 GM PACK PO SCH (09:14)
[2019-01-15] MEDS: CLOPIDOGREL 75 MG TABLET PO SCH (09:14)
[2019-01-15] MEDS: PANTOPRAZOLE 40 MG TABLET PO SCH (09:14)
[2019-01-15] MEDS: LEVOFLOXACIN INJ 500 MG in PREMIX 1 EACH IV SCH (09:17)
[2019-01-15] MEDS: ONDANSETRON 4 MG/2 ML VIAL IV PRN (12:45)
[2019-01-15 16:03] VITALS: BP 114/82
[2019-01-15] MEDS ORDERED: NYSTATIN 500,000 UNIT/5 ML UDCUP SWISH/SWAL SCH (17:00)
== END 2019-01-15 16:49 | disposition home health service (06) | DRG 140 ==
LOC: N.EDINP 14:25 → N.ED 14:25 → SUATTDRO 21:52 → N.5E 22:23 → SUATTDRO 01-08 13:08
PROVIDERS: ADMIT Internal Medicine; ATTEND Internal Medicine

== ENCOUNTER 2019-04-09 14:11 | Observation (INO) ==
[2019-04-09] MEDS ORDERED: ASPIRIN 325 MG TABLET PO STA (14:25)
[2019-04-09 14:28] LABS: Basophils % 0.3 % (0.0-0.8); Eosinophils % 0.7 % (0.00-10.9); Hematocrit 42.2 VOL% (42.0-52.0); Hemoglobin 12.8 GM/DL (14.0-18.0); Immature Granulocytes % 0.7 %; Immature Granulocytes Absolute 0.04 #; Lymphocytes # 2.2 10*3/uL (1.4-4.0); Lymphocytes % 36.1 % (21.2-54.2); Mean Corpuscular HGB Conc 30.3 GM/DL (32-36); Mean Corpuscular Volume 78.3 FL (87-102); Mean Platelet Volume 11.2 FL (9.6-12.0); Neutrophils % 52.2 % (38.7-73.9); Platelet Count 232 T/CUMM (130-400); Red Blood Count 5.39 MC/CUMM (3.8-5.5); Red Cell Distribution Width 14.8 % (9.3-17.3)
[2019-04-09] MEDS ORDERED: NITROGLYCERIN 2% OINT 1 INCH/GM PACK TOP STA (14:30)
[2019-04-09] MEDS ORDERED: ENOXAPARIN 100 MG/ML SYRINGE SUBCUT STA (14:31)
[2019-04-09] MEDS ORDERED: MORPHINE 4 MG/1 ML VIAL IV STA (14:31)
[2019-04-09] MEDS ORDERED: ONDANSETRON 4 MG/2 ML VIAL IV STA (14:31)
[2019-04-09 14:51] LABS: Alanine Aminotransferase 37 U/L (16-61); Albumin 3.6 G/DL (3.4-5.0); Alkaline Phosphatase 85 U/L (45-117); Aspartate Amino Transferase 15 U/L (0-37); Bilirubin,Total < 0.39 MG/DL (0.2-1.0); Blood Urea Nitrogen 12 MG/DL (7-18); Calcium 9.2 MG/DL (8.5-10.1); Estimated Glom Filtration Rate 112 ML/MIN; Glucose 125 MG/DL (74-106); Osmolality,Calculated 275.7 MOS/KG (273-304); Total Protein 7.4 G/DL (6.4-8.3); Troponin I < 0.015 NG/ML (0.00-0.045)
[2019-04-09 14:55] LABS: PT Patient Result 10.7 SECS (9.6-12.2); Partial Thromboplastin Time 27.1 SECS (20.8-36.0)
[2019-04-09 15:19] LABS: Apearance,Urine CLEAR (Clear); Bilirubin,Urine Negative (Negative); Blood, Urine Small mg/dL (Negative); Glucose,Urine (UA) Negative (Negative); Ketones,Urine Negative (Negative); Mucus,Urine Occasional /LPF (Occasional); Nitrite,Urine Negative (Negative); Protein,Urine Negative; RBC,Urine 2 /HPF (0-4); Squamous Epithelial Cell,Urine Occasional /HPF (0-10); Urine Color Yellow (Yellow); Urine Specific Gravity 1.015 (1.001-1.035); Urine Urobilinogen < 2.0 EU/DL (0.2-1.0); WBC,Urine 1 /HPF (0-6)
[2019-04-09 15:34] LABS: Barbiturates Screen,Urine Negative (Negative); Benzodiazepines Screen,Urine Negative (Negative); Cannabinoid Screen,Urine Negative (Negative); Opiate Screen,Urine Positive (Negative); Phencyclidine Screen,Urine Negative (Negative)
[2019-04-09] MEDS ORDERED: ACETAMINOPHEN 325 MG TABLET PO PRN ×2 (15:54→20:42)
[2019-04-09] MEDS ORDERED: BISACODYL 5 MG TABLET PO PRN (15:54)
[2019-04-09] MEDS ORDERED: MORPHINE 4 MG/1 ML VIAL IV PRN (15:54)
[2019-04-09] MEDS ORDERED: hydrALAZINE 20 MG/1 ML VIAL IV PRN (15:54)
[2019-04-09 16:25] LABS: Risk Ratio 4.13
[2019-04-09] MEDS: NITROGLYCERIN SL 0.4 MG TABLET SL PRN ×2 (19:52→19:57)
[2019-04-09] MEDS: ALBUTEROL/IPRATROPIUM 3 ML NEB RESP TX SCH ×2 (20:25→23:50)
[2019-04-09] MEDS ORDERED: ALBUTEROL 2.5 MG/3 ML NEB RESP TX PRN (20:42)
[2019-04-09] MEDS ORDERED: ATORVASTATIN 40 MG TABLET PO SCH (21:00)
[2019-04-09] MEDS: FUROSEMIDE 40 MG TABLET PO SCH (21:16)
[2019-04-09] MEDS: GABAPENTIN 400 MG CAPSULE PO SCH (21:16)
[2019-04-10] MEDS: ALBUTEROL/IPRATROPIUM 3 ML NEB RESP TX SCH ×3 (02:59→10:53)
[2019-04-10 03:57] LABS: Basophils % 0.4 % (0.0-0.8); Eosinophils # 0.1 10*3/uL (0.0-0.87); Eosinophils % 1.1 % (0.00-10.9); Hematocrit 40.5 VOL% (42.0-52.0); Hemoglobin 12.3 GM/DL (14.0-18.0); Immature Granulocytes % 0.9 %; Immature Granulocytes Absolute 0.04 #; Lymphocytes # 1.9 10*3/uL (1.4-4.0); Mean Corpuscular HGB Conc 30.4 GM/DL (32-36); Mean Corpuscular Volume 78.5 FL (87-102); Mean Platelet Volume 12.3 FL (9.6-12.0); Monocytes % 14.5 % (1.7-12.7); Neutrophils % 41.1 % (38.7-73.9); Platelet Count 217 T/CUMM (130-400); Red Blood Count 5.16 MC/CUMM (3.8-5.5); Red Cell Distribution Width 15.1 % (9.3-17.3); White Blood Count 4.6 T/CUMM (4-12)
[2019-04-10 04:11] LABS: Calcium 8.5 MG/DL (8.5-10.1); Osmolality,Calculated 281.3 MOS/KG (273-304)
[2019-04-10] MEDS ORDERED: SERTRALINE 25 MG TABLET PO ONE (08:50)
[2019-04-10] MEDS ORDERED: DULoxetine 30 MG CAPSULE PO SCH ×2 (09:00)
[2019-04-10] MEDS ORDERED: FLUTICASONE 50 MCG NASAL SPRAY 16 GM BOTTLE BOTH NARES SCH (09:00)
[2019-04-10] MEDS ORDERED: CLOPIDOGREL 75 MG TABLET PO SCH (09:00)
[2019-04-10] MEDS ORDERED: POTASSIUM CHLORIDE 20 MEQ TABLET PO SCH (09:00)
[2019-04-10] MEDS ORDERED: ISOSORBIDE MONONITRATE 60 MG TABLET PO SCH (09:00)
[2019-04-10] MEDS ORDERED: PANTOPRAZOLE 40 MG TABLET PO SCH (09:00)
[2019-04-10] MEDS ORDERED: ASPIRIN EC 81 MG TABLET PO SCH (09:00)
[2019-04-10] MEDS ORDERED: NEBIVOLOL 10 MG TABLET PO SCH (09:00)
[2019-04-10] MEDS ORDERED: LOSARTAN 50 MG TABLET PO SCH (09:00)
[2019-04-10] MEDS: FUROSEMIDE 40 MG TABLET PO SCH (10:04)
[2019-04-10] MEDS: GABAPENTIN 400 MG CAPSULE PO SCH (10:04)
[2019-04-10 12:28] VITALS: BP 118/62
[2019-04-10] MEDS ORDERED: traZODone 50 MG TABLET PO SCH (21:00)
== END 2019-04-10 13:57 | disposition home health service (06) ==
LOC: N.ED 14:11 → N.EDINP 14:11 → N.2W 16:49
PROVIDERS: ADMIT Internal Medicine; ATTEND Internal Medicine

== ENCOUNTER 2019-10-09 15:38 | Observation (INO) ==
[2019-10-09] MEDS ORDERED: MORPHINE 4 MG/1 ML VIAL IV ONE ×2 (16:30→18:00)
[2019-10-09] MEDS ORDERED: ONDANSETRON 4 MG/2 ML VIAL IV STA (16:30)
[2019-10-09 16:58] LABS: Basophils % 0.4 % (0.0-0.8); Eosinophils % 0.8 % (0.00-10.9); Hematocrit 39.6 VOL% (42.0-52.0); Hemoglobin 12.4 GM/DL (14.0-18.0); Immature Granulocytes % 0.6 %; Immature Granulocytes Absolute 0.03 #; Lymphocytes % 39.1 % (21.2-54.2); Mean Corpuscular HGB Conc 31.3 GM/DL (32-36); Mean Corpuscular Volume 74.7 FL (87-102); Mean Platelet Volume 10.9 FL (9.6-12.0); Monocytes % 14.9 % (1.7-12.7); Neutrophils % 44.2 % (38.7-73.9); Platelet Count 209 T/CUMM (130-400); Red Cell Distribution Width 16.6 % (9.3-17.3); White Blood Count 5.2 T/CUMM (4-12)
[2019-10-09 17:06] LABS: PT Patient Result 10.8 SECS (9.8-11.9); Partial Thromboplastin Time 23.1 SECS (23.9-33.8)
[2019-10-09 17:31] LABS: Alanine Aminotransferase 35 U/L (16-61); Albumin 3.9 G/DL (3.4-5.0); Alkaline Phosphatase 115 U/L (45-117); Aspartate Amino Transferase 18 U/L (0-37); Bilirubin,Total < 0.39 MG/DL (0.2-1.0); Blood Urea Nitrogen 12 MG/DL (7-18); Estimated Glom Filtration Rate 130 ML/MIN; Glucose 93 MG/DL (74-106); Osmolality,Calculated 278.4 MOS/KG (273-304); Total Protein 7.2 G/DL (6.4-8.3); Troponin I < 0.015 NG/ML (0.00-0.045)
[2019-10-09] MEDS ORDERED: NITROGLYCERIN SL 0.4 MG TABLET SL STA (18:00)
[2019-10-09] MEDS ORDERED: MORPHINE 4 MG/1 ML VIAL IV PRN (18:51)
[2019-10-09] MEDS ORDERED: ACETAMINOPHEN 325 MG TABLET PO PRN (18:51)
[2019-10-09] MEDS ORDERED: DEXTROSE 50% 25 GM/50 ML VIAL IV PRN (18:51)
[2019-10-09] MEDS ORDERED: GLUCAGON 1 MG VIAL IM PRN (18:51)
[2019-10-09] MEDS ORDERED: traZODone 50 MG TABLET PO PRN (18:51)
[2019-10-09] MEDS ORDERED: DOCUSATE SODIUM 100 MG CAPSULE PO PRN (18:51)
[2019-10-09 18:55] LABS: Platelet Estimate Adequate
[2019-10-09] MEDS ORDERED: NITROGLYCERIN SL 0.4 MG TABLET SL PRN (18:58)
[2019-10-09] MEDS ORDERED: ALBUTEROL 2.5 MG/3 ML NEB RESP TX PRN (18:58)
[2019-10-09] MEDS: FUROSEMIDE 40 MG TABLET PO SCH (19:15)
[2019-10-09] MEDS: ENOXAPARIN 40 MG/0.4 ML SYRINGE SUBCUT SCH (19:15)
[2019-10-09] MEDS ORDERED: FUROSEMIDE 40 MG TABLET PO SCH (21:00)
[2019-10-09] MEDS ORDERED: ENOXAPARIN 40 MG/0.4 ML SYRINGE SUBCUT SCH (21:00)
[2019-10-09] MEDS: GABAPENTIN 400 MG CAPSULE PO SCH (21:15)
[2019-10-09] MEDS: RANOLAZINE 500 MG TABLET PO SCH (21:15)
[2019-10-09] MEDS: THEOPHYLLINE ER 300 MG TABLET PO SCH (21:15)
[2019-10-09] MEDS: BUDESONIDE/FORMOTEROL 160-4.5 INHALER 6 GM INH SCH (21:15)
[2019-10-09] MEDS: PANTOPRAZOLE 40 MG TABLET PO SCH (21:15)
[2019-10-09] MEDS: ATORVASTATIN 40 MG TABLET PO SCH (21:15)
[2019-10-10 04:52] LABS: Calcium 9.2 MG/DL (8.5-10.1); Osmolality,Calculated 271.8 MOS/KG (273-304)
[2019-10-10] MEDS: LOSARTAN 50 MG TABLET PO SCH (10:01)
[2019-10-10] MEDS: ISOSORBIDE MONONITRATE 60 MG TABLET PO SCH (10:01)
[2019-10-10] MEDS: PANTOPRAZOLE 40 MG TABLET PO SCH ×2 (10:01→21:36)
[2019-10-10] MEDS: RANOLAZINE 500 MG TABLET PO SCH ×2 (10:01→21:36)
[2019-10-10] MEDS: FUROSEMIDE 40 MG TABLET PO SCH ×2 (10:01→21:36)
[2019-10-10] MEDS: CLOPIDOGREL 75 MG TABLET PO SCH (10:02)
[2019-10-10] MEDS: FLUTICASONE 50 MCG NASAL SPRAY 16 GM BOTTLE BOTH NARES SCH (10:02)
[2019-10-10] MEDS: GABAPENTIN 400 MG CAPSULE PO SCH ×3 (10:02→21:36)
[2019-10-10] MEDS: ASPIRIN EC 81 MG TABLET PO SCH (10:02)
[2019-10-10] MEDS: NEBIVOLOL 10 MG TABLET PO SCH (10:02)
[2019-10-10] MEDS: DULoxetine 30 MG CAPSULE PO SCH (10:11)
[2019-10-10] MEDS: THEOPHYLLINE ER 300 MG TABLET PO SCH ×2 (10:11→21:37)
[2019-10-10] MEDS ORDERED: PNEUMOCOCCAL VACCINE (23 VALENT) 0.5 ML VIAL IM ONE (10:40)
[2019-10-10] MEDS: BUDESONIDE/FORMOTEROL 160-4.5 INHALER 6 GM INH SCH ×2 (11:51→21:37)
[2019-10-10] MEDS: ENOXAPARIN 40 MG/0.4 ML SYRINGE SUBCUT SCH (21:36)
[2019-10-10] MEDS: ATORVASTATIN 40 MG TABLET PO SCH (21:36)
[2019-10-11] MEDS: CLOPIDOGREL 75 MG TABLET PO SCH (07:59)
[2019-10-11] MEDS: NEBIVOLOL 10 MG TABLET PO SCH (07:59)
[2019-10-11] MEDS: DULoxetine 30 MG CAPSULE PO SCH (07:59)
[2019-10-11] MEDS: THEOPHYLLINE ER 300 MG TABLET PO SCH (07:59)
[2019-10-11] MEDS: ASPIRIN EC 81 MG TABLET PO SCH (08:00)
[2019-10-11] MEDS: LOSARTAN 50 MG TABLET PO SCH (08:00)
[2019-10-11] MEDS: GABAPENTIN 400 MG CAPSULE PO SCH (08:00)
[2019-10-11] MEDS: PANTOPRAZOLE 40 MG TABLET PO SCH (08:00)
[2019-10-11] MEDS: RANOLAZINE 500 MG TABLET PO SCH (08:00)
[2019-10-11] MEDS: FLUTICASONE 50 MCG NASAL SPRAY 16 GM BOTTLE BOTH NARES SCH (08:01)
[2019-10-11] MEDS: ISOSORBIDE MONONITRATE 60 MG TABLET PO SCH (08:01)
[2019-10-11] MEDS: FUROSEMIDE 40 MG TABLET PO SCH (08:01)
[2019-10-11] MEDS: BUDESONIDE/FORMOTEROL 160-4.5 INHALER 6 GM INH SCH (08:01)
[2019-10-11 08:15] VITALS: BP 132/64
== END 2019-10-11 09:19 | disposition home or self-care (01) ==
LOC: EDUNIT# → EDBD → N.EDINP 15:38 → N.ED 15:38 → N.2E 10-10 08:20
PROVIDERS: ADMIT Hospitalist; ATTEND Hospitalist

== ENCOUNTER 2019-10-24 03:34 | Observation (INO) ==
[2019-10-24] MEDS ORDERED: MORPHINE 4 MG/1 ML VIAL IV STA (04:23)
[2019-10-24] MEDS ORDERED: NITROGLYCERIN 2% OINT 1 INCH/GM PACK TOP STA (04:23)
[2019-10-24] MEDS ORDERED: ALUM/MAG/SIMETH/LIDO VISC 1:1 30 ML BOTTLE PO STA (04:23)
[2019-10-24] MEDS ORDERED: ASPIRIN 325 MG TABLET PO STA (04:23)
[2019-10-24] MEDS ORDERED: ONDANSETRON 4 MG/2 ML VIAL IV STA ×2 (04:23→05:10)
[2019-10-24 04:42] LABS: Basophils % 0.3 % (0.0-0.8); Eosinophils % 0.3 % (0.00-10.9); Hematocrit 36.8 VOL% (42.0-52.0); Hemoglobin 11.6 GM/DL (14.0-18.0); Immature Granulocytes % 0.3 %; Immature Granulocytes Absolute 0.02 #; Lymphocytes # 1.7 10*3/uL (1.4-4.0); Lymphocytes % 26.7 % (21.2-54.2); Mean Corpuscular HGB Conc 31.5 GM/DL (32-36); Mean Corpuscular Volume 74.2 FL (87-102); Mean Platelet Volume 11.4 FL (9.6-12.0); Monocytes % 12.2 % (1.7-12.7); Neutrophils % 60.2 % (38.7-73.9); Platelet Count 201 T/CUMM (130-400); Red Blood Count 4.96 MC/CUMM (3.8-5.5); Red Cell Distribution Width 16.2 % (9.3-17.3); White Blood Count 6.3 T/CUMM (4-12)
[2019-10-24 04:58] LABS: Albumin 3.6 G/DL (3.4-5.0); Bilirubin,Total 0.8 MG/DL (0.2-1.0); Calcium 8.8 MG/DL (8.5-10.1); Osmolality,Calculated 275.5 MOS/KG (273-304); Total Protein 6.8 G/DL (6.4-8.3)
[2019-10-24] MEDS ORDERED: ACETAMINOPHEN 325 MG TABLET PO PRN (05:20)
[2019-10-24] MEDS ORDERED: DEXTROSE 50% 25 GM/50 ML VIAL IV PRN (05:20)
[2019-10-24] MEDS ORDERED: ONDANSETRON 4 MG/2 ML VIAL IV PRN (05:20)
[2019-10-24] MEDS ORDERED: GLUCAGON 1 MG VIAL IM PRN (05:20)
[2019-10-24] MEDS ORDERED: NITROGLYCERIN SL 0.4 MG TABLET SL PRN (06:15)
[2019-10-24] MEDS ORDERED: NEBIVOLOL 10 MG TABLET PO SCH (09:00)
[2019-10-24] MEDS ORDERED: BUDESONIDE/FORMOTEROL 160-4.5 INHALER 6 GM INH SCH (09:00)
[2019-10-24] MEDS ORDERED: FLUTICASONE 50 MCG NASAL SPRAY 16 GM BOTTLE BOTH NARES SCH (09:00)
[2019-10-24] MEDS ORDERED: ASPIRIN EC 81 MG TABLET PO SCH (09:00)
[2019-10-24] MEDS ORDERED: LOSARTAN 50 MG TABLET PO SCH (09:00)
[2019-10-24] MEDS ORDERED: FUROSEMIDE 40 MG TABLET PO SCH ×2 (09:00→19:00)
[2019-10-24] MEDS ORDERED: ISOSORBIDE MONONITRATE 60 MG TABLET PO SCH (09:00)
[2019-10-24] MEDS ORDERED: DULoxetine 30 MG CAPSULE PO SCH (09:00)
[2019-10-24] MEDS ORDERED: CLOPIDOGREL 75 MG TABLET PO SCH (09:00)
[2019-10-24 12:12] VITALS: BP 129/62
[2019-10-24 12:54] LABS: Troponin I < 0.015 NG/ML (0.00-0.045)
[2019-10-24] MEDS: NITROGLYCERIN SL 0.4 MG TABLET SL PRN ×3 (13:26→13:38)
[2019-10-24] MEDS ORDERED: ALUM/MAG/SIMETH/LIDO VISC 1:1 30 ML BOTTLE PO ONE ×2 (13:35)
[2019-10-24 14:17] LABS: Troponin I < 0.015 NG/ML (0.00-0.045)
[2019-10-24] MEDS ORDERED: PNEUMOCOCCAL VACCINE (23 VALENT) 0.5 ML VIAL IM ONE (15:30)
[2019-10-24] MEDS ORDERED: ATORVASTATIN 40 MG TABLET PO SCH (21:00)
== END 2019-10-24 16:24 | disposition home or self-care (01) ==
LOC: N.ED 03:34 → N.EDINP 03:34 → N.TELES 06:39
PROVIDERS: ADMIT Hospitalist; ATTEND Hospitalist

== ENCOUNTER 2020-01-09 08:39 | Observation (INO) ==
[2020-01-09 09:07] LABS: Basophils % 0.2 % (0.0-0.8); Eosinophils % 0.7 % (0.00-10.9); Hematocrit 34.7 VOL% (42.0-52.0); Hemoglobin 11.2 GM/DL (14.0-18.0); Immature Granulocytes % 0.4 %; Immature Granulocytes Absolute 0.02 #; Lymphocytes # 1.7 10*3/uL (1.4-4.0); Lymphocytes % 38.9 % (21.2-54.2); Mean Corpuscular HGB Conc 32.3 GM/DL (32-36); Mean Corpuscular Volume 73.1 FL (87-102); Mean Platelet Volume 10.8 FL (9.6-12.0); Monocytes % 12.6 % (1.7-12.7); Neutrophils % 47.2 % (38.7-73.9); Platelet Count 193 T/CUMM (130-400); Red Blood Count 4.75 MC/CUMM (3.8-5.5); Red Cell Distribution Width 15.7 % (9.3-17.3); White Blood Count 4.5 T/CUMM (4-12)
[2020-01-09 09:35] LABS: Alanine Aminotransferase 39 U/L (16-61); Albumin 3.4 G/DL (3.4-5.0); Alkaline Phosphatase 113 U/L (45-117); Aspartate Amino Transferase 22 U/L (0-37); Bilirubin,Total < 0.39 MG/DL (0.2-1.0); Blood Urea Nitrogen 13 MG/DL (7-18); Calcium 8.8 MG/DL (8.5-10.1); Estimated Glom Filtration Rate 130 ML/MIN; Glucose 97 MG/DL (74-106); Osmolality,Calculated 287.7 MOS/KG (273-304); Total Protein 6.6 G/DL (6.4-8.3)
[2020-01-09] MEDS ORDERED: ALUM/MAG/SIMETH/LIDO VISC 1:1 30 ML BOTTLE PO ONE (10:09)
[2020-01-09] MEDS ORDERED: MAGNESIUM SULF RIDER 2 GM in PREMIX 1 EACH IV PRN (10:46)
[2020-01-09] MEDS ORDERED: ALUMINUM/MAGNES/SIMETH MAX STR 30 ML UDCUP PO PRN (10:46)
[2020-01-09] MEDS ORDERED: diphenhydrAMINE CAP 25 MG CAPSULE PO PRN (10:46)
[2020-01-09] MEDS ORDERED: ONDANSETRON 4 MG/2 ML VIAL IV PRN (10:46)
[2020-01-09] MEDS ORDERED: ZALEPLON 5 MG CAPSULE PO PRN (10:46)
[2020-01-09] MEDS ORDERED: MAGNESIUM SULF RIDER 4 GM in PREMIX 1 EACH IV PRN (10:46)
[2020-01-09] MEDS ORDERED: ALBUTEROL 2.5 MG/3 ML NEB RESP TX PRN (10:50)
[2020-01-09] MEDS ORDERED: NITROGLYCERIN SL 0.4 MG TABLET SL PRN (10:50)
[2020-01-09] MEDS ORDERED: ASPIRIN CHEW 81 MG TABLET PO STA (10:53)
[2020-01-09] MEDS ORDERED: CLOPIDOGREL 75 MG TABLET PO STA (10:53)
[2020-01-09] MEDS ORDERED: ISOSORBIDE MONONITRATE 60 MG TABLET PO SCH (10:55)
[2020-01-09] MEDS ORDERED: DULoxetine 30 MG CAPSULE PO SCH (10:55)
[2020-01-09] MEDS ORDERED: LOSARTAN 50 MG TABLET PO SCH (10:56)
[2020-01-09] MEDS ORDERED: NEBIVOLOL 10 MG TABLET PO SCH (10:56)
[2020-01-09] MEDS ORDERED: ENOXAPARIN 100 MG/ML SYRINGE SUBCUT SCH (12:00)
[2020-01-09] MEDS ORDERED: traMADol 50 MG TABLET PO STA (12:28)
[2020-01-09] MEDS ORDERED: KETOROLAC 30 MG/1 ML VIAL IV STA (12:28)
[2020-01-09] MEDS ORDERED: traMADol 50 MG TABLET PO PRN (12:28)
[2020-01-09] MEDS ORDERED: FUROSEMIDE 40 MG TABLET PO SCH (13:00)
[2020-01-09] MEDS ORDERED: GLUCAGON 1 MG VIAL IM PRN (13:04)
[2020-01-09] MEDS ORDERED: DEXTROSE 50% 25 GM/50 ML VIAL IV PRN (13:04)
[2020-01-09] MEDS: INSULIN REGULAR 100 UNIT/ML SUBCUT SCH ×2 (15:48→21:14)
[2020-01-09] MEDS: GABAPENTIN 400 MG CAPSULE PO SCH ×2 (16:06→21:13)
[2020-01-09] MEDS: SODIUM CHLORIDE 0.45% 1,000 ML IV SCH ×2 (16:07→21:11)
[2020-01-09] MEDS: RANOLAZINE 500 MG TABLET PO SCH (16:07)
[2020-01-09] MEDS: KETOROLAC 30 MG/1 ML VIAL IV SCH ×2 (20:24→22:32)
[2020-01-09] MEDS ORDERED: MELATONIN 3 MG TABLET PO SCH (21:00)
[2020-01-09] MEDS ORDERED: ATORVASTATIN 40 MG TABLET PO SCH (21:00)
[2020-01-09] MEDS: PANTOPRAZOLE 40 MG TABLET PO SCH (21:13)
[2020-01-09] MEDS: THEOPHYLLINE ER 300 MG TABLET PO SCH (21:14)
[2020-01-09] MEDS: BUDESONIDE/FORMOTEROL 160-4.5 INHALER 6 GM INH SCH (22:32)
[2020-01-10] MEDS: RANOLAZINE 500 MG TABLET PO SCH (03:44)
[2020-01-10] MEDS: KETOROLAC 30 MG/1 ML VIAL IV SCH (05:38)
[2020-01-10 05:47] LABS: Basophils % 0.2 % (0.0-0.8); Eosinophils # 0.1 10*3/uL (0.0-0.87); Eosinophils % 1.2 % (0.00-10.9); Hematocrit 39.1 VOL% (42.0-52.0); Hemoglobin 12.5 GM/DL (14.0-18.0); Immature Granulocytes % 0.2 %; Immature Granulocytes Absolute 0.01 #; Lymphocytes # 2.4 10*3/uL (1.4-4.0); Lymphocytes % 50.6 % (21.2-54.2); Mean Corpuscular Volume 73.9 FL (87-102); Mean Platelet Volume 11.6 FL (9.6-12.0); Monocytes % 11.2 % (1.7-12.7); Neutrophils % 36.6 % (38.7-73.9); Platelet Count 205 T/CUMM (130-400); Red Blood Count 5.29 MC/CUMM (3.8-5.5); Red Cell Distribution Width 15.4 % (9.3-17.3); White Blood Count 4.8 T/CUMM (4-12)
[2020-01-10 06:25] LABS: Atypical Lymphocytes Few; Eosinophils 2 % (0-10); Hypochromasia 1+; Lymphocytes 61 % (20-55); Microcytosis 1+; Platelet Estimate Adequate; Segmented Neutrophils 30 % (50-85); Total Cells Counted 100
[2020-01-10 06:44] LABS: Albumin 3.3 G/DL (3.4-5.0); Bilirubin,Total 0.5 MG/DL (0.2-1.0); Calcium 8.5 MG/DL (8.5-10.1); Osmolality,Calculated 275.7 MOS/KG (273-304); Risk Ratio 4.3; Total Protein 6.8 G/DL (6.4-8.3); VLDL CHOLESTEROL 32.8 MG/DL
[2020-01-10] MEDS: INSULIN REGULAR 100 UNIT/ML SUBCUT SCH ×2 (08:09→12:49)
[2020-01-10] MEDS: THEOPHYLLINE ER 300 MG TABLET PO SCH (08:51)
[2020-01-10] MEDS: GABAPENTIN 400 MG CAPSULE PO SCH (08:52)
[2020-01-10] MEDS: PANTOPRAZOLE 40 MG TABLET PO SCH (08:52)
[2020-01-10] MEDS: BUDESONIDE/FORMOTEROL 160-4.5 INHALER 6 GM INH SCH (08:53)
[2020-01-10] MEDS ORDERED: DULoxetine 30 MG CAPSULE PO SCH (09:00)
[2020-01-10] MEDS ORDERED: FLUTICASONE 50 MCG NASAL SPRAY 16 GM BOTTLE BOTH NARES SCH (09:00)
[2020-01-10] MEDS ORDERED: ASPIRIN EC 81 MG TABLET PO SCH (09:00)
[2020-01-10] MEDS ORDERED: LOSARTAN 50 MG TABLET PO SCH (09:00)
[2020-01-10] MEDS ORDERED: CLOPIDOGREL 75 MG TABLET PO SCH (09:00)
[2020-01-10] MEDS ORDERED: FUROSEMIDE 40 MG TABLET PO SCH (09:00)
[2020-01-10] MEDS ORDERED: ENOXAPARIN 40 MG/0.4 ML SYRINGE SUBCUT SCH (09:00)
[2020-01-10] MEDS ORDERED: ISOSORBIDE MONONITRATE 60 MG TABLET PO SCH (09:00)
[2020-01-10] MEDS ORDERED: PANTOPRAZOLE 40 MG TABLET PO SCH (09:00)
[2020-01-10 11:16] VITALS: BP 150/77
== END 2020-01-10 12:10 | disposition home or self-care (01) ==
LOC: N.ED 08:39 → N.EDINP 08:39 → N.TELES 14:32
PROVIDERS: ADMIT Internal Medicine Cardiovascular Disease; ATTEND Internal Medicine Cardiovascular Disease

== ENCOUNTER 2020-11-21 10:27 | Observation (INO) ==
[~2020-11-21 10:27] MED LIST: ASPIRIN 325 MG TABLET PO ONE; DIAZEPAM 5 MG TABLET PO ONE; MAGNESIUM SULF RIDER 2 GM/50 ML PREMIX IV PRN; POTASSIUM CHLORIDE RIDER 10 MEQ/100 ML PREMIX IV PRN; diphenhydrAMINE CAP 50 MG CAPSULE PO ONE
[2020-11-21] MEDS ORDERED: LIDOCAINE 1% 20 ML VIAL ONE ×2 (12:00→12:30)
[2020-11-21] MEDS ORDERED: HEPARIN/NACL 0.9% 2 UNITS/ML 0 UNIT/0 ML BAG IV ONE (12:00)
[2020-11-21] MEDS ORDERED: DIAZEPAM 5 MG TABLET ONE (12:11)
[2020-11-21] MEDS ORDERED: ASPIRIN 325 MG TABLET ONE (12:12)
[2020-11-21] MEDS ORDERED: diphenhydrAMINE CAP 50 MG CAPSULE ONE (12:12)
[2020-11-21] MEDS: SODIUM CHLORIDE 0.9% 1,000 ML IV SCH (12:14)
[2020-11-21] MEDS ORDERED: VERAPAMIL 5 MG/2 ML VIAL ONE (12:30)
[2020-11-21] MEDS ORDERED: HEPARIN/NACL 0.9% 2 UNITS/ML 2,000 UNIT/1,000 ML BAG IV ONE (12:30)
[2020-11-21] MEDS ORDERED: NITROGLYCERIN DRIP 50 MG/250 ML BOTTLE IV ONE (12:30)
[2020-11-21] MEDS ORDERED: MIDAZOLAM 2 MG/2 ML VIAL ONE ×3 (13:13→13:51)
[2020-11-21] MEDS ORDERED: fentaNYL 100 MCG/2 ML VIAL ONE ×2 (13:14→13:51)
[2020-11-21] MEDS ORDERED: methylPREDNISolone SOD SUC 125 MG/2 ML VIAL ONE (13:18)
[2020-11-21] MEDS ORDERED: HEPARIN 5,000 UNIT/1 ML VIAL ONE (13:35)
[2020-11-21] MEDS ORDERED: HEPARIN/NACL 0.9% 2 UNITS/ML 1,000 UNIT/500 ML BAG IV ONE (14:05)
[2020-11-21] MEDS ORDERED: ALBUTEROL 2.5 MG/3 ML NEB RESP TX PRN (14:40)
[2020-11-21] MEDS ORDERED: MELATONIN 3 MG TABLET PO PRN (14:40)
[2020-11-21] MEDS ORDERED: FLUTICASONE 50 MCG NASAL SPRAY 16 GM BOTTLE BOTH NARES PRN (14:40)
[2020-11-21] MEDS ORDERED: ACETAMINOPHEN/CODEINE 300-30 MG TABLET PO PRN (14:42)
[2020-11-21] MEDS ORDERED: ONDANSETRON 4 MG/2 ML VIAL IV PRN (14:42)
[2020-11-21] MEDS ORDERED: MORPHINE 2 MG/1 ML SYRINGE IV PRN (14:42)
[2020-11-21] MEDS ORDERED: ACETAMINOPHEN 325 MG TABLET PO PRN (14:42)
[2020-11-21] MEDS ORDERED: diphenhydrAMINE 50 MG/1 ML VIAL IV ONE (15:48)
[2020-11-21] MEDS: GABAPENTIN 400 MG CAPSULE PO SCH (20:59)
[2020-11-21] MEDS: RANOLAZINE 500 MG TABLET PO SCH (20:59)
[2020-11-21] MEDS: predniSONE 20 MG TABLET PO SCH (20:59)
[2020-11-21] MEDS: FAMOTIDINE 20 MG TABLET PO SCH (20:59)
[2020-11-21] MEDS: FUROSEMIDE 40 MG TABLET PO SCH (21:00)
[2020-11-21] MEDS: THEOPHYLLINE ER 300 MG TABLET PO SCH (21:00)
[2020-11-21] MEDS: PANTOPRAZOLE 40 MG TABLET PO SCH (21:00)
[2020-11-21] MEDS: diphenhydrAMINE CAP 25 MG CAPSULE PO SCH (21:07)
[2020-11-21] MEDS: BUDESONIDE/FORMOTEROL 160-4.5 INHALER 6 GM INH SCH (21:07)
[2020-11-22] MEDS: diphenhydrAMINE CAP 25 MG CAPSULE PO SCH ×4 (05:43→22:08)
[2020-11-22 06:11] LABS: Basophils % 0.1 % (0.0-0.8); Hematocrit 41.3 VOL% (42.0-52.0); Hemoglobin 12.7 GM/DL (14.0-18.0); Immature Granulocytes % 0.5 %; Immature Granulocytes Absolute 0.06 #; Lymphocytes # 1.5 10*3/uL (1.4-4.0); Mean Corpuscular HGB Conc 30.8 GM/DL (32-36); Mean Corpuscular Volume 75.9 FL (87-102); Mean Platelet Volume 11.9 FL (9.6-12.0); Monocytes % 8.2 % (1.7-12.7); Neutrophils % 79.2 % (38.7-73.9); Platelet Count 229 T/CUMM (130-400); Red Blood Count 5.44 MC/CUMM (3.8-5.5); White Blood Count 12.4 T/CUMM (4-12)
[2020-11-22 06:29] LABS: Calcium 9.1 MG/DL (8.5-10.1); Osmolality,Calculated 281.5 MOS/KG (273-304); Potassium 3.9 MMOL/L (3.5-5.1)
[2020-11-22] MEDS: SODIUM CHLORIDE 0.9% 1,000 ML IV SCH ×2 (07:33→15:08)
[2020-11-22] MEDS: NITROGLYCERIN SL 0.4 MG TABLET SL PRN ×4 (08:04→11:49)
[2020-11-22] MEDS: ASPIRIN EC 81 MG TABLET PO SCH (08:30)
[2020-11-22] MEDS: DULoxetine 30 MG CAPSULE PO SCH (08:31)
[2020-11-22] MEDS: NEBIVOLOL 10 MG TABLET PO SCH (08:31)
[2020-11-22] MEDS: predniSONE 20 MG TABLET PO SCH ×2 (08:31→20:54)
[2020-11-22] MEDS: FAMOTIDINE 20 MG TABLET PO SCH ×2 (08:31→20:54)
[2020-11-22] MEDS: ROSUVASTATIN 20 MG TABLET PO SCH (08:31)
[2020-11-22] MEDS: CLOPIDOGREL 75 MG TABLET PO SCH (08:31)
[2020-11-22] MEDS: ISOSORBIDE MONONITRATE 30 MG TABLET PO SCH (08:31)
[2020-11-22] MEDS: GABAPENTIN 400 MG CAPSULE PO SCH ×3 (08:31→20:55)
[2020-11-22] MEDS: FUROSEMIDE 40 MG TABLET PO SCH ×2 (08:31→20:54)
[2020-11-22] MEDS: LOSARTAN 50 MG TABLET PO SCH (08:31)
[2020-11-22] MEDS: PANTOPRAZOLE 40 MG TABLET PO SCH ×2 (08:32→20:54)
[2020-11-22] MEDS: BUDESONIDE/FORMOTEROL 160-4.5 INHALER 6 GM INH SCH ×2 (08:32→20:55)
[2020-11-22] MEDS: RANOLAZINE 500 MG TABLET PO SCH ×2 (08:32→20:54)
[2020-11-22] MEDS: THEOPHYLLINE ER 300 MG TABLET PO SCH ×2 (08:32→20:54)
[2020-11-22] MEDS: MONTELUKAST 10 MG TABLET PO SCH (08:32)
[2020-11-22] MEDS ORDERED: diphenhydrAMINE 50 MG/1 ML VIAL IV ONE (10:15)
[2020-11-22] MEDS ORDERED: methylPREDNISolone SOD SUC 40 MG/1 ML VIAL IV ONE (10:15)
[2020-11-23] MEDS: diphenhydrAMINE CAP 25 MG CAPSULE PO SCH ×3 (04:39→14:59)
[2020-11-23 06:09] LABS: Basophils % 0.1 % (0.0-0.8); Hemoglobin 13.2 GM/DL (14.0-18.0); Immature Granulocytes % 0.7 %; Lymphocytes # 1.4 10*3/uL (1.4-4.0); Lymphocytes % 9.1 % (21.2-54.2); Mean Corpuscular HGB Conc 31.4 GM/DL (32-36); Mean Corpuscular Volume 74.6 FL (87-102); Mean Platelet Volume 11.4 FL (9.6-12.0); Monocytes % 6.3 % (1.7-12.7); Neutrophils % 83.8 % (38.7-73.9); Platelet Count 241 T/CUMM (130-400); Red Blood Count 5.63 MC/CUMM (3.8-5.5); Red Cell Distribution Width 14.6 % (9.3-17.3); White Blood Count 15.4 T/CUMM (4-12)
[2020-11-23 06:36] LABS: Calcium 8.9 MG/DL (8.5-10.1); Osmolality,Calculated 280.8 MOS/KG (273-304); Potassium 3.9 MMOL/L (3.5-5.1)
[2020-11-23] MEDS: SODIUM CHLORIDE 0.9% 1,000 ML IV SCH ×2 (08:01→12:32)
[2020-11-23] MEDS: LOSARTAN 50 MG TABLET PO SCH (08:12)
[2020-11-23] MEDS: FUROSEMIDE 40 MG TABLET PO SCH (08:12)
[2020-11-23] MEDS: predniSONE 20 MG TABLET PO SCH (08:12)
[2020-11-23] MEDS: FAMOTIDINE 20 MG TABLET PO SCH (08:12)
[2020-11-23] MEDS: ASPIRIN EC 81 MG TABLET PO SCH (08:12)
[2020-11-23] MEDS: GABAPENTIN 400 MG CAPSULE PO SCH ×2 (08:12→14:59)
[2020-11-23] MEDS: ISOSORBIDE MONONITRATE 30 MG TABLET PO SCH (08:12)
[2020-11-23] MEDS: NEBIVOLOL 10 MG TABLET PO SCH (08:12)
[2020-11-23] MEDS: DULoxetine 30 MG CAPSULE PO SCH (08:12)
[2020-11-23] MEDS: ROSUVASTATIN 20 MG TABLET PO SCH (08:12)
[2020-11-23] MEDS: CLOPIDOGREL 75 MG TABLET PO SCH (08:12)
[2020-11-23] MEDS: PANTOPRAZOLE 40 MG TABLET PO SCH (08:12)
[2020-11-23] MEDS: RANOLAZINE 500 MG TABLET PO SCH (08:13)
[2020-11-23] MEDS: THEOPHYLLINE ER 300 MG TABLET PO SCH (08:13)
[2020-11-23] MEDS: MONTELUKAST 10 MG TABLET PO SCH (08:13)
[2020-11-23] MEDS: BUDESONIDE/FORMOTEROL 160-4.5 INHALER 6 GM INH SCH (08:13)
[2020-11-23 08:53] LABS: Risk Ratio 3.15; VLDL Cholesterol 24.8 MG/DL
[2020-11-23] MEDS ORDERED: diphenhydrAMINE 50 MG/1 ML VIAL IV ONE (12:19)
[2020-11-23 13:34] VITALS: BP 131/71
== END 2020-11-23 15:56 | disposition home or self-care (01) ==
LOC: N.CL 10:27 → N.TELEN 10:27 → N.CL 10:34 → N.TELEN 16:36
PROVIDERS: ADMIT Internal Medicine Cardiovascular Disease; ATTEND Internal Medicine Cardiovascular Disease

== ENCOUNTER 2021-05-11 08:50 | Observation (INO) ==
[2021-05-11] MEDS ORDERED: ASPIRIN 325 MG TABLET PO STA (09:10)
[2021-05-11] MEDS ORDERED: ONDANSETRON 4 MG/2 ML VIAL IV STA (09:22)
[2021-05-11] MEDS ORDERED: MORPHINE 2 MG/1 ML SYRINGE IV STA (09:22)
[2021-05-11 09:24] LABS: Basophils % 0.4 % (0.0-0.8); Eosinophils % 0.5 % (0.00-10.9); Hematocrit 40.9 VOL% (42.0-52.0); Immature Granulocytes % 0.5 %; Immature Granulocytes Absolute 0.03 #; Lymphocytes # 1.5 10*3/uL (1.4-4.0); Lymphocytes % 27.8 % (21.2-54.2); Mean Corpuscular HGB Conc 31.8 GM/DL (32-36); Mean Corpuscular Volume 73.6 FL (87-102); Mean Platelet Volume 10.7 FL (9.6-12.0); Monocytes % 10.6 % (1.7-12.7); Neutrophils % 60.2 % (38.7-73.9); Platelet Count 219 T/CUMM (130-400); Red Blood Count 5.56 MC/CUMM (3.8-5.5); Red Cell Distribution Width 15.6 % (9.3-17.3); White Blood Count 5.5 T/CUMM (4-12)
[2021-05-11 10:05] LABS: INR 1.1; PT Patient Result 12.1 SECS (10.5-12.0); Partial Thromboplastin Time 33.9 SECS (23.8-32.1)
[2021-05-11 10:08] LABS: Alanine Aminotransferase 29 U/L (16-61); Albumin 3.6 G/DL (3.4-5.0); Alkaline Phosphatase 84 U/L (45-117); Aspartate Amino Transferase 12 U/L (0-37); Bilirubin,Total < 0.39 MG/DL (0.20-1.00); Blood Urea Nitrogen 15 MG/DL (7-18); Calcium 8.9 MG/DL (8.5-10.1); Carbon Dioxide 25 MMOL/L (21-32); Estimated Glom Filtration Rate 124 ML/MIN; Glucose 114 MG/DL (74-106); Osmolality,Calculated 274.8 MOS/KG (273-304); Potassium 4.1 MMOL/L (3.5-5.1); Sodium 137 MMOL/L (136-145); Total Protein 7.3 G/DL (6.4-8.2)
[2021-05-11] MEDS ORDERED: ACETAMINOPHEN 325 MG TABLET PO PRN (11:37)
[2021-05-11] MEDS ORDERED: GLUCAGON 1 MG VIAL IM PRN (11:37)
[2021-05-11] MEDS ORDERED: NITROGLYCERIN SL 0.4 MG TABLET SL PRN (11:39)
[2021-05-11] MEDS ORDERED: ALBUTEROL/IPRATROPIUM 3 ML NEB RESP TX PRN (11:41)
[2021-05-11] MEDS ORDERED: DEXTROSE 10% 250 ML BAG IV PRN (11:46)
[2021-05-11] MEDS ORDERED: PANTOPRAZOLE 40 MG TABLET PO SCH (12:00)
[2021-05-11] MEDS: ENOXAPARIN 40 MG/0.4 ML SYRINGE SUBCUT SCH (12:30)
[2021-05-11] MEDS: MORPHINE 2 MG/1 ML SYRINGE IV PRN (13:35)
[2021-05-11] MEDS ORDERED: KETOROLAC 30 MG/1 ML VIAL IV STA (13:51)
[2021-05-11] MEDS: GABAPENTIN 300 MG CAPSULE PO SCH ×2 (14:49→21:23)
[2021-05-11] MEDS: FUROSEMIDE 40 MG TABLET PO SCH (17:59)
[2021-05-11] MEDS: INSULIN REGULAR 100 UNIT/ML SUBCUT SCH (18:13)
[2021-05-11] MEDS: ROSUVASTATIN 20 MG TABLET PO SCH (21:23)
[2021-05-11] MEDS: RANOLAZINE 500 MG TABLET PO SCH (21:23)
[2021-05-11] MEDS: PANTOPRAZOLE 40 MG TABLET PO SCH (21:23)
[2021-05-11] MEDS: THEOPHYLLINE ER 300 MG TABLET PO SCH (21:23)
[2021-05-11] MEDS: BUDESONIDE/FORMOTEROL 160-4.5 INHALER 6 GM INH SCH (21:23)
[2021-05-12] MEDS: ONDANSETRON 4 MG/2 ML VIAL IV PRN (03:29)
[2021-05-12 04:48] LABS: Basophils % 0.4 % (0.0-0.8); Eosinophils # 0.1 10*3/uL (0.0-0.87); Eosinophils % 0.9 % (0.00-10.9); Hematocrit 41.9 VOL% (42.0-52.0); Hemoglobin 13.3 GM/DL (14.0-18.0); Immature Granulocytes % 0.4 %; Immature Granulocytes Absolute 0.02 #; Lymphocytes % 36.1 % (21.2-54.2); Mean Corpuscular HGB Conc 31.7 GM/DL (32-36); Mean Corpuscular Volume 74.7 FL (87-102); Mean Platelet Volume 11.3 FL (9.6-12.0); Neutrophils % 51.2 % (38.7-73.9); Platelet Count 236 T/CUMM (130-400); Red Blood Count 5.61 MC/CUMM (3.8-5.5); Red Cell Distribution Width 15.9 % (9.3-17.3); White Blood Count 5.5 T/CUMM (4-12)
[2021-05-12 05:12] LABS: Osmolality,Calculated 276.8 MOS/KG (273-304); Potassium 3.6 MMOL/L (3.5-5.1)
[2021-05-12 06:53] LABS: % Iron Saturation 19.6 % (18-50); Ferritin 48.1 ng/mL (26-388)
[2021-05-12] MEDS: MORPHINE 2 MG/1 ML SYRINGE IV PRN ×2 (07:15→14:35)
[2021-05-12] MEDS ORDERED: ALUM/MAG/SIMETH/LIDO VISC 1:1 30 ML BOTTLE PO ONE (07:27)
[2021-05-12] MEDS ORDERED: KETOROLAC 30 MG/1 ML VIAL IV ONE (08:15)
[2021-05-12] MEDS ORDERED: CLOPIDOGREL 75 MG TABLET PO SCH (09:00)
[2021-05-12] MEDS: ASPIRIN EC 81 MG TABLET PO SCH (09:24)
[2021-05-12] MEDS: THEOPHYLLINE ER 300 MG TABLET PO SCH ×2 (09:24→20:54)
[2021-05-12] MEDS: FLUTICASONE 50 MCG NASAL SPRAY 16 GM BOTTLE BOTH NARES PRN (09:24)
[2021-05-12] MEDS: GABAPENTIN 300 MG CAPSULE PO SCH ×3 (09:24→20:54)
[2021-05-12] MEDS: BUDESONIDE/FORMOTEROL 160-4.5 INHALER 6 GM INH SCH ×2 (09:24→20:55)
[2021-05-12] MEDS: DULoxetine 30 MG CAPSULE PO SCH (09:25)
[2021-05-12] MEDS: PANTOPRAZOLE 40 MG TABLET PO SCH ×2 (09:25→20:54)
[2021-05-12] MEDS: LOSARTAN 50 MG TABLET PO SCH (09:25)
[2021-05-12] MEDS: RANOLAZINE 500 MG TABLET PO SCH ×2 (09:25→20:54)
[2021-05-12] MEDS: NEBIVOLOL 10 MG TABLET PO SCH (09:25)
[2021-05-12] MEDS: MONTELUKAST 10 MG TABLET PO SCH (09:25)
[2021-05-12] MEDS: ISOSORBIDE MONONITRATE 30 MG TABLET PO SCH (09:25)
[2021-05-12] MEDS: KETOROLAC 30 MG/1 ML VIAL IV SCH ×3 (09:26→20:55)
[2021-05-12] MEDS: INSULIN REGULAR 100 UNIT/ML SUBCUT SCH ×2 (10:25→18:03)
[2021-05-12] MEDS: ENOXAPARIN 40 MG/0.4 ML SYRINGE SUBCUT SCH (14:34)
[2021-05-12] MEDS: FUROSEMIDE 40 MG TABLET PO SCH ×2 (15:11→17:42)
[2021-05-12] MEDS: ROSUVASTATIN 20 MG TABLET PO SCH (20:54)
[2021-05-13] MEDS: KETOROLAC 30 MG/1 ML VIAL IV SCH (04:26)
[2021-05-13] MEDS: INSULIN REGULAR 100 UNIT/ML SUBCUT SCH ×2 (08:56→17:43)
[2021-05-13] MEDS: RANOLAZINE 500 MG TABLET PO SCH ×2 (10:40→20:45)
[2021-05-13] MEDS: THEOPHYLLINE ER 300 MG TABLET PO SCH ×2 (10:40→20:45)
[2021-05-13] MEDS: MONTELUKAST 10 MG TABLET PO SCH (10:40)
[2021-05-13] MEDS: NEBIVOLOL 10 MG TABLET PO SCH (10:40)
[2021-05-13] MEDS: ASPIRIN EC 81 MG TABLET PO SCH (10:40)
[2021-05-13] MEDS: LOSARTAN 50 MG TABLET PO SCH (10:41)
[2021-05-13] MEDS: GABAPENTIN 300 MG CAPSULE PO SCH ×3 (10:41→20:44)
[2021-05-13] MEDS: DULoxetine 30 MG CAPSULE PO SCH (10:41)
[2021-05-13] MEDS: PANTOPRAZOLE 40 MG TABLET PO SCH ×2 (10:41→20:45)
[2021-05-13] MEDS: ISOSORBIDE MONONITRATE 30 MG TABLET PO SCH (10:41)
[2021-05-13] MEDS: FUROSEMIDE 40 MG TABLET PO SCH ×3 (10:53→15:11)
[2021-05-13] MEDS: ENOXAPARIN 40 MG/0.4 ML SYRINGE SUBCUT SCH ×2 (10:54→11:58)
[2021-05-13] MEDS: BUDESONIDE/FORMOTEROL 160-4.5 INHALER 6 GM INH SCH ×2 (10:59→20:44)
[2021-05-13] MEDS: FLUTICASONE 50 MCG NASAL SPRAY 16 GM BOTTLE BOTH NARES PRN (10:59)
[2021-05-13] MEDS: MORPHINE 2 MG/1 ML SYRINGE IV PRN ×3 (11:02→23:40)
[2021-05-13] MEDS: ONDANSETRON 4 MG/2 ML VIAL IV PRN (11:28)
[2021-05-13] MEDS: DILTIAZEM CD 120 MG CAPSULE PO SCH (14:49)
[2021-05-13] MEDS: HYOSCYAMINE 0.125 MG TABLET PO SCH ×2 (14:49→20:45)
[2021-05-13] MEDS: ROSUVASTATIN 20 MG TABLET PO SCH (20:45)
[2021-05-14] MEDS: HYOSCYAMINE 0.125 MG TABLET PO SCH ×4 (02:44→21:47)
[2021-05-14] MEDS: MORPHINE 2 MG/1 ML SYRINGE IV PRN ×3 (05:02→21:47)
[2021-05-14 05:06] LABS: Basophils % 0.2 % (0.0-0.8); Eosinophils # 0.1 10*3/uL (0.0-0.87); Hematocrit 41.9 VOL% (42.0-52.0); Hemoglobin 12.8 GM/DL (14.0-18.0); Immature Granulocytes Absolute 0.05 #; Lymphocytes # 1.9 10*3/uL (1.4-4.0); Mean Corpuscular HGB Conc 30.5 GM/DL (32-36); Mean Platelet Volume 11.3 FL (9.6-12.0); Monocytes % 13.7 % (1.7-12.7); Neutrophils % 48.1 % (38.7-73.9); Platelet Count 223 T/CUMM (130-400); Red Blood Count 5.51 MC/CUMM (3.8-5.5); Red Cell Distribution Width 15.3 % (9.3-17.3); White Blood Count 5.2 T/CUMM (4-12)
[2021-05-14 05:20] LABS: Osmolality,Calculated 275.7 MOS/KG (273-304); Potassium 4.1 MMOL/L (3.5-5.1)
[2021-05-14 05:34] LABS: Hypochromia 1+; Microcytosis 1+; Target Cells Few
[2021-05-14 05:35] LABS: Platelet Estimate Normal
[2021-05-14] MEDS: INSULIN REGULAR 100 UNIT/ML SUBCUT SCH ×2 (08:08→15:40)
[2021-05-14] MEDS: LOSARTAN 50 MG TABLET PO SCH (09:54)
[2021-05-14] MEDS: NEBIVOLOL 10 MG TABLET PO SCH (09:54)
[2021-05-14] MEDS: PANTOPRAZOLE 40 MG TABLET PO SCH ×2 (09:54→21:46)
[2021-05-14] MEDS: ISOSORBIDE MONONITRATE 30 MG TABLET PO SCH (09:54)
[2021-05-14] MEDS: FUROSEMIDE 40 MG TABLET PO SCH ×2 (09:54→15:26)
[2021-05-14] MEDS: MONTELUKAST 10 MG TABLET PO SCH (09:54)
[2021-05-14] MEDS: DULoxetine 30 MG CAPSULE PO SCH (09:54)
[2021-05-14] MEDS: RANOLAZINE 500 MG TABLET PO SCH ×2 (09:55→21:46)
[2021-05-14] MEDS: THEOPHYLLINE ER 300 MG TABLET PO SCH ×2 (09:55→21:46)
[2021-05-14] MEDS: ASPIRIN EC 81 MG TABLET PO SCH (09:55)
[2021-05-14] MEDS: DILTIAZEM CD 120 MG CAPSULE PO SCH (09:55)
[2021-05-14] MEDS: GABAPENTIN 300 MG CAPSULE PO SCH ×3 (09:55→21:47)
[2021-05-14] MEDS: BUDESONIDE/FORMOTEROL 160-4.5 INHALER 6 GM INH SCH ×2 (09:57→21:47)
[2021-05-14] MEDS: ROSUVASTATIN 20 MG TABLET PO SCH (21:46)
[2021-05-15] MEDS: HYOSCYAMINE 0.125 MG TABLET PO SCH ×2 (01:15→10:57)
[2021-05-15] MEDS ORDERED: LACTATED RINGERS 1,000 ML IV SCH (06:30)
[2021-05-15] MEDS: INSULIN REGULAR 100 UNIT/ML SUBCUT SCH (07:48)
[2021-05-15] MEDS ORDERED: LIDOCAINE 2% 5 ML VIAL ONE (08:57)
[2021-05-15] MEDS ORDERED: propofoL 200 MG/20 ML VIAL IV ONE (08:57)
[2021-05-15 10:53] LABS: Basophils % 0.4 % (0.0-0.8); Eosinophils % 0.6 % (0.00-10.9); Hematocrit 44.1 VOL% (42.0-52.0); Hemoglobin 13.9 GM/DL (14.0-18.0); Immature Granulocytes % 0.6 %; Immature Granulocytes Absolute 0.03 #; Lymphocytes # 1.7 10*3/uL (1.4-4.0); Lymphocytes % 31.4 % (21.2-54.2); Mean Corpuscular HGB Conc 31.5 GM/DL (32-36); Mean Corpuscular Volume 74.7 FL (87-102); Mean Platelet Volume 10.3 FL (9.6-12.0); Platelet Count 245 T/CUMM (130-400); Red Cell Distribution Width 16.2 % (9.3-17.3); White Blood Count 5.3 T/CUMM (4-12)
[2021-05-15] MEDS: THEOPHYLLINE ER 300 MG TABLET PO SCH (10:57)
[2021-05-15] MEDS: MONTELUKAST 10 MG TABLET PO SCH (10:57)
[2021-05-15] MEDS: RANOLAZINE 500 MG TABLET PO SCH (10:57)
[2021-05-15] MEDS: ASPIRIN EC 81 MG TABLET PO SCH (10:58)
[2021-05-15] MEDS: DULoxetine 30 MG CAPSULE PO SCH (10:58)
[2021-05-15] MEDS: GABAPENTIN 300 MG CAPSULE PO SCH (10:58)
[2021-05-15] MEDS: PANTOPRAZOLE 40 MG TABLET PO SCH (10:59)
[2021-05-15] MEDS: LOSARTAN 50 MG TABLET PO SCH (10:59)
[2021-05-15] MEDS: DILTIAZEM CD 120 MG CAPSULE PO SCH (10:59)
[2021-05-15] MEDS: ISOSORBIDE MONONITRATE 30 MG TABLET PO SCH (10:59)
[2021-05-15] MEDS: BUDESONIDE/FORMOTEROL 160-4.5 INHALER 6 GM INH SCH (11:00)
[2021-05-15] MEDS: NEBIVOLOL 10 MG TABLET PO SCH (11:00)
[2021-05-15] MEDS: FUROSEMIDE 40 MG TABLET PO SCH (11:00)
[2021-05-15 11:11] LABS: Calcium 9.5 MG/DL (8.5-10.1); Osmolality,Calculated 272.1 MOS/KG (273-304)
[2021-05-15 12:00] VITALS: BP 102/70
== END 2021-05-15 14:12 | disposition home or self-care (01) ==
LOC: EDBD → EDUNIT# → N.ED 08:50 → N.EDINP 08:50 → SUATTDRO 11:37 → N.TELES 15:18 → SUATTDRO 05-12 15:05
PROVIDERS: ADMIT Family Medicine; ATTEND Internal Medicine

== ENCOUNTER 2021-11-26 14:31 | Inpatient (IN) ==
[2021-11-26] MEDS ORDERED: guaiFENesin/DM ER 600-30 MG TABLET PO PRN (14:34)
[2021-11-26] MEDS ORDERED: PROMETHAZINE 25 MG TABLET PO PRN (14:34)
[2021-11-26] MEDS ORDERED: DOCUSATE SODIUM 100 MG CAPSULE PO PRN (14:34)
[2021-11-26] MEDS ORDERED: hydrALAZINE 20 MG/1 ML VIAL IV PRN (14:34)
[2021-11-26] MEDS ORDERED: MAGNESIUM SULF RIDER 4 GM/100 ML PREMIX IV PRN (14:34)
[2021-11-26] MEDS ORDERED: ACETAMINOPHEN 325 MG TABLET PO PRN (14:34)
[2021-11-26] MEDS ORDERED: ALUMINUM/MAGNES/SIMETH MAX STR 30 ML UDCUP PO PRN (14:34)
[2021-11-26] MEDS ORDERED: ONDANSETRON 4 MG/2 ML VIAL IV PRN (14:34)
[2021-11-26] MEDS ORDERED: MAGNESIUM SULF RIDER 2 GM/50 ML PREMIX IV PRN (14:34)
[2021-11-26] MEDS ORDERED: POTASSIUM CHLORIDE 20 MEQ TABLET PO PRN (14:34)
[2021-11-26] MEDS ORDERED: diphenhydrAMINE CAP 25 MG CAPSULE PO PRN (14:34)
[2021-11-26] MEDS ORDERED: traZODone 50 MG TABLET PO PRN (14:34)
[2021-11-26] MEDS ORDERED: NITROGLYCERIN SL 0.4 MG TABLET SL PRN (14:38)
[2021-11-26 15:43] LABS: Basophils % 0.3 % (0.0-0.8); Eosinophils % 0.4 % (0.00-10.9); Hemoglobin 13.1 GM/DL (14.0-18.0); Immature Granulocytes % 0.9 %; Immature Granulocytes Absolute 0.06 #; Lymphocytes # 1.8 10*3/uL (1.4-4.0); Lymphocytes % 26.3 % (21.2-54.2); Mean Corpuscular Volume 74.7 FL (87-102); Mean Platelet Volume 10.7 FL (9.6-12.0); Monocytes # 0.9 10*3/uL (0.11-0.8); Neutrophils % 59.1 % (38.7-73.9); Platelet Count 214 T/CUMM (130-400); Red Blood Count 5.49 MC/CUMM (3.8-5.5); Red Cell Distribution Width 16.4 % (9.3-17.3); White Blood Count 6.7 T/CUMM (4-12)
[2021-11-26 16:01] LABS: Alanine Aminotransferase 47 U/L (16-61); Albumin 3.6 G/DL (3.4-5.0); Alkaline Phosphatase 85 U/L (45-117); Aspartate Amino Transferase 13 U/L (0-37); Bilirubin,Total < 0.39 MG/DL (0.20-1.00); Blood Urea Nitrogen 18 MG/DL (7-18); Calcium 9.5 MG/DL (8.5-10.1); Carbon Dioxide 25 MMOL/L (21-32); Chloride 106 MMOL/L (98-107); Glucose 130 MG/DL (74-106); Osmolality,Calculated 278.7 MOS/KG (273-304); Sodium 138 MMOL/L (136-145); Total Protein 7.2 G/DL (6.4-8.2)
[2021-11-26] MEDS ORDERED: FLUTICASONE 50 MCG NASAL SPRAY 16 GM BOTTLE BOTH NARES PRN (18:13)
[2021-11-26] MEDS ORDERED: KETOROLAC 30 MG/1 ML VIAL IV ONE (18:16)
[2021-11-26] MEDS ORDERED: LEVALBUTEROL 0.63 MG/3 ML NEB RESP TX PRN (18:16)
[2021-11-26] MEDS ORDERED: CYCLOBENZAPRINE 10 MG TABLET PO PRN (18:16)
[2021-11-26] MEDS ORDERED: NON-FORMULARY MEDICATION (Esomeprazole Magnesium [Nexium] 40 mg Capsule,Delayed Release(Dr PO SCH (21:00)
[2021-11-26] MEDS: THEOPHYLLINE ER 300 MG TABLET PO SCH (21:32)
[2021-11-26] MEDS: ENOXAPARIN 40 MG/0.4 ML SYRINGE SUBCUT SCH (21:32)
[2021-11-26] MEDS: FLUTICASONE/SALMETEROL 250-50 DISKUS 14 DOSE INH SCH (21:32)
[2021-11-26] MEDS: RANOLAZINE 500 MG TABLET PO SCH (21:33)
[2021-11-26] MEDS: GABAPENTIN 600 MG TABLET PO SCH (21:33)
[2021-11-26] MEDS: FUROSEMIDE 40 MG TABLET PO SCH (21:33)
[2021-11-27 05:32] LABS: Basophils % 0.2 % (0.0-0.8); Eosinophils % 0.2 % (0.00-10.9); Hematocrit 41.9 VOL% (42.0-52.0); Hemoglobin 13.2 GM/DL (14.0-18.0); Immature Granulocytes Absolute 0.09 #; Lymphocytes # 2.2 10*3/uL (1.4-4.0); Lymphocytes % 24.6 % (21.2-54.2); Mean Corpuscular HGB Conc 31.5 GM/DL (32-36); Mean Corpuscular Volume 76.2 FL (87-102); Mean Platelet Volume 10.8 FL (9.6-12.0); Monocytes % 10.9 % (1.7-12.7); Neutrophils % 63.1 % (38.7-73.9); Platelet Count 214 T/CUMM (130-400); White Blood Count 9.1 T/CUMM (4-12)
[2021-11-27 05:57] LABS: Alanine Aminotransferase 45 U/L (16-61); Albumin 3.5 G/DL (3.4-5.0); Alkaline Phosphatase 82 U/L (45-117); Aspartate Amino Transferase 10 U/L (0-37); Bilirubin,Total < 0.39 MG/DL (0.20-1.00); Blood Urea Nitrogen 17 MG/DL (7-18); Calcium 9.7 MG/DL (8.5-10.1); Carbon Dioxide 28 MMOL/L (21-32); Chloride 105 MMOL/L (98-107); Cholesterol 209 MG/DL (50-200); Glucose 111 MG/DL (74-106); HDL Cholesterol 56 MG/DL (40-60); Osmolality,Calculated 279.5 MOS/KG (273-304); Potassium 4.2 MMOL/L (3.5-5.1); Risk Ratio 3.73; Sodium 139 MMOL/L (136-145); Total Protein 7.6 G/DL (6.4-8.2); Triglycerides 189 MG/DL (2-150); VLDL Cholesterol 37.8 MG/DL
[2021-11-27] MEDS ORDERED: DILTIAZEM CD 120 MG CAPSULE PO SCH (09:00)
[2021-11-27] MEDS ORDERED: KETOROLAC 30 MG/1 ML VIAL IV ONE (10:54)
[2021-11-27] MEDS ORDERED: KETOROLAC 30 MG/1 ML VIAL IV PRN (10:54)
[2021-11-27] MEDS ORDERED: metFORMIN 500 MG TABLET PO PRN (10:56)
[2021-11-27] MEDS ORDERED: CYCLOBENZAPRINE 10 MG TABLET PO ONE (11:02)
[2021-11-27] MEDS: FLUTICASONE/SALMETEROL 250-50 DISKUS 14 DOSE INH SCH ×2 (13:40→21:55)
[2021-11-27] MEDS: DULoxetine 30 MG CAPSULE PO SCH (13:40)
[2021-11-27] MEDS: FUROSEMIDE 40 MG TABLET PO SCH ×2 (13:40→21:56)
[2021-11-27] MEDS: GABAPENTIN 600 MG TABLET PO SCH ×3 (13:40→21:55)
[2021-11-27] MEDS: BUDESONIDE/FORMOTEROL 160-4.5 INHALER 6 GM INH SCH (13:41)
[2021-11-27] MEDS: PANTOPRAZOLE 40 MG TABLET PO SCH (13:41)
[2021-11-27] MEDS: CLOPIDOGREL 75 MG TABLET PO SCH (13:41)
[2021-11-27] MEDS: RANOLAZINE 500 MG TABLET PO SCH ×2 (13:41→21:56)
[2021-11-27] MEDS: THEOPHYLLINE ER 300 MG TABLET PO SCH ×2 (15:47→21:56)
[2021-11-27] MEDS: KETOROLAC 30 MG/1 ML VIAL IV SCH ×2 (19:00→21:56)
[2021-11-27] MEDS: CYCLOBENZAPRINE 10 MG TABLET PO SCH (21:55)
[2021-11-27] MEDS: ENOXAPARIN 40 MG/0.4 ML SYRINGE SUBCUT SCH (21:56)
[2021-11-28] MEDS: KETOROLAC 30 MG/1 ML VIAL IV SCH ×4 (03:40→22:12)
[2021-11-28 05:15] LABS: Basophils % 0.3 % (0.0-0.8); Eosinophils % 0.4 % (0.00-10.9); Hematocrit 42.8 VOL% (42.0-52.0); Hemoglobin 13.5 GM/DL (14.0-18.0); Immature Granulocytes % 0.7 %; Immature Granulocytes Absolute 0.05 #; Lymphocytes # 2.6 10*3/uL (1.4-4.0); Lymphocytes % 38.1 % (21.2-54.2); Mean Corpuscular HGB Conc 31.5 GM/DL (32-36); Mean Corpuscular Volume 75.9 FL (87-102); Mean Platelet Volume 10.8 FL (9.6-12.0); Monocytes # 0.9 10*3/uL (0.11-0.8); Neutrophils % 47.5 % (38.7-73.9); Platelet Count 208 T/CUMM (130-400); Red Blood Count 5.64 MC/CUMM (3.8-5.5); Red Cell Distribution Width 16.5 % (9.3-17.3); White Blood Count 6.7 T/CUMM (4-12)
[2021-11-28 05:42] LABS: Calcium 9.3 MG/DL (8.5-10.1); Osmolality,Calculated 281.5 MOS/KG (273-304); Potassium 4.5 MMOL/L (3.5-5.1)
[2021-11-28] MEDS: THEOPHYLLINE ER 300 MG TABLET PO SCH ×2 (10:13→20:54)
[2021-11-28] MEDS: GABAPENTIN 600 MG TABLET PO SCH ×3 (10:13→20:54)
[2021-11-28] MEDS: PANTOPRAZOLE 40 MG TABLET PO SCH (10:13)
[2021-11-28] MEDS: CYCLOBENZAPRINE 10 MG TABLET PO SCH ×3 (10:13→20:54)
[2021-11-28] MEDS: ISOSORBIDE MONONITRATE 30 MG TABLET PO SCH (10:13)
[2021-11-28] MEDS: FUROSEMIDE 40 MG TABLET PO SCH (10:14)
[2021-11-28] MEDS: NEBIVOLOL 10 MG TABLET PO SCH (10:14)
[2021-11-28] MEDS: CLOPIDOGREL 75 MG TABLET PO SCH (10:14)
[2021-11-28] MEDS: ROSUVASTATIN 20 MG TABLET PO SCH (10:14)
[2021-11-28] MEDS: MONTELUKAST 10 MG TABLET PO SCH (10:14)
[2021-11-28] MEDS: DULoxetine 30 MG CAPSULE PO SCH (10:15)
[2021-11-28] MEDS: BUDESONIDE/FORMOTEROL 160-4.5 INHALER 6 GM INH SCH (10:15)
[2021-11-28] MEDS: FLUTICASONE/SALMETEROL 250-50 DISKUS 14 DOSE INH SCH ×2 (10:15→20:54)
[2021-11-28] MEDS: RANOLAZINE 500 MG TABLET PO SCH ×2 (10:15→20:54)
[2021-11-28] MEDS: SODIUM CHLORIDE 0.9% 1,000 ML IV SCH (14:16)
[2021-11-28] MEDS: ENOXAPARIN 40 MG/0.4 ML SYRINGE SUBCUT SCH (20:55)
[2021-11-29] MEDS: MORPHINE 2 MG/1 ML SYRINGE IV PRN ×4 (02:08→18:16)
[2021-11-29] MEDS: KETOROLAC 30 MG/1 ML VIAL IV SCH ×4 (04:36→22:33)
[2021-11-29 06:11] LABS: Basophils % 0.3 % (0.0-0.8); Eosinophils # 0.1 10*3/uL (0.0-0.87); Hematocrit 38.9 VOL% (42.0-52.0); Hemoglobin 12.1 GM/DL (14.0-18.0); Immature Granulocytes % 0.6 %; Immature Granulocytes Absolute 0.04 #; Lymphocytes # 2.4 10*3/uL (1.4-4.0); Lymphocytes % 38.6 % (21.2-54.2); Mean Corpuscular HGB Conc 31.1 GM/DL (32-36); Mean Corpuscular Volume 76.3 FL (87-102); Mean Platelet Volume 11.1 FL (9.6-12.0); Monocytes # 0.7 10*3/uL (0.11-0.8); Monocytes % 11.6 % (1.7-12.7); Neutrophils % 47.9 % (38.7-73.9); Platelet Count 186 T/CUMM (130-400); Red Cell Distribution Width 16.2 % (9.3-17.3); White Blood Count 6.3 T/CUMM (4-12)
[2021-11-29 06:33] LABS: Osmolality,Calculated 278.5 MOS/KG (273-304); Potassium 4.6 MMOL/L (3.5-5.1)
[2021-11-29] MEDS: THEOPHYLLINE ER 300 MG TABLET PO SCH ×3 (07:40→21:00)
[2021-11-29] MEDS: ROSUVASTATIN 20 MG TABLET PO SCH ×2 (07:41→09:43)
[2021-11-29] MEDS: ISOSORBIDE MONONITRATE 30 MG TABLET PO SCH ×2 (07:41→09:43)
[2021-11-29] MEDS: CLOPIDOGREL 75 MG TABLET PO SCH ×2 (07:41→10:26)
[2021-11-29] MEDS: RANOLAZINE 500 MG TABLET PO SCH ×3 (07:41→21:00)
[2021-11-29] MEDS: NEBIVOLOL 10 MG TABLET PO SCH ×2 (07:41→09:42)
[2021-11-29] MEDS: GABAPENTIN 600 MG TABLET PO SCH ×4 (07:42→21:01)
[2021-11-29] MEDS: DULoxetine 30 MG CAPSULE PO SCH ×2 (07:42→09:43)
[2021-11-29] MEDS: PANTOPRAZOLE 40 MG TABLET PO SCH ×2 (07:42→09:44)
[2021-11-29] MEDS: BUDESONIDE/FORMOTEROL 160-4.5 INHALER 6 GM INH SCH ×2 (07:50→09:45)
[2021-11-29] MEDS: FLUTICASONE/SALMETEROL 250-50 DISKUS 14 DOSE INH SCH ×3 (07:50→21:00)
[2021-11-29] MEDS: CYCLOBENZAPRINE 10 MG TABLET PO SCH ×5 (07:55→21:00)
[2021-11-29] MEDS: SODIUM CHLORIDE 0.9% 1,000 ML IV SCH (07:58)
[2021-11-29] MEDS ORDERED: ALUM/MAG/SIMETH/LIDO VISC 1:1 30 ML BOTTLE PO ONE (08:56)
[2021-11-29] MEDS ORDERED: MORPHINE 2 MG/1 ML SYRINGE IV ONE (08:57)
[2021-11-29] MEDS: MONTELUKAST 10 MG TABLET PO SCH (09:45)
[2021-11-29] MEDS: ENOXAPARIN 40 MG/0.4 ML SYRINGE SUBCUT SCH (21:01)
[2021-11-30] MEDS: KETOROLAC 30 MG/1 ML VIAL IV SCH ×2 (04:03→13:05)
[2021-11-30 04:31] LABS: Basophils % 0.2 % (0.0-0.8); Eosinophils # 0.1 10*3/uL (0.0-0.87); Eosinophils % 1.1 % (0.00-10.9); Hematocrit 36.9 VOL% (42.0-52.0); Hemoglobin 11.4 GM/DL (14.0-18.0); Immature Granulocytes % 0.5 %; Immature Granulocytes Absolute 0.03 #; Lymphocytes # 2.2 10*3/uL (1.4-4.0); Lymphocytes % 38.8 % (21.2-54.2); Mean Corpuscular HGB Conc 30.9 GM/DL (32-36); Mean Corpuscular Volume 78.2 FL (87-102); Monocytes # 0.7 10*3/uL (0.11-0.8); Monocytes % 12.5 % (1.7-12.7); Neutrophils % 46.9 % (38.7-73.9); Platelet Count 170 T/CUMM (130-400); Red Blood Count 4.72 MC/CUMM (3.8-5.5); Red Cell Distribution Width 16.3 % (9.3-17.3); White Blood Count 5.7 T/CUMM (4-12)
[2021-11-30 04:51] LABS: Calcium 9.1 MG/DL (8.5-10.1); Osmolality,Calculated 282.3 MOS/KG (273-304); Potassium 4.4 MMOL/L (3.5-5.1)
[2021-11-30] MEDS: SODIUM CHLORIDE 0.9% 1,000 ML IV SCH (05:13)
[2021-11-30] MEDS ORDERED: ASPIRIN EC 81 MG TABLET PO SCH (09:00)
[2021-11-30 12:32] VITALS: BP 132/72
[2021-11-30] MEDS: THEOPHYLLINE ER 300 MG TABLET PO SCH (13:03)
[2021-11-30] MEDS: MONTELUKAST 10 MG TABLET PO SCH (13:04)
[2021-11-30] MEDS: PANTOPRAZOLE 40 MG TABLET PO SCH (13:04)
[2021-11-30] MEDS: ROSUVASTATIN 20 MG TABLET PO SCH (13:04)
[2021-11-30] MEDS: ISOSORBIDE MONONITRATE 30 MG TABLET PO SCH (13:04)
[2021-11-30] MEDS: CYCLOBENZAPRINE 10 MG TABLET PO SCH (13:04)
[2021-11-30] MEDS: NEBIVOLOL 10 MG TABLET PO SCH (13:04)
[2021-11-30] MEDS: DULoxetine 30 MG CAPSULE PO SCH (13:04)
[2021-11-30] MEDS: RANOLAZINE 500 MG TABLET PO SCH (13:04)
[2021-11-30] MEDS: GABAPENTIN 600 MG TABLET PO SCH (13:04)
[2021-11-30] MEDS: FLUTICASONE/SALMETEROL 250-50 DISKUS 14 DOSE INH SCH (13:10)
[2021-11-30] MEDS: BUDESONIDE/FORMOTEROL 160-4.5 INHALER 6 GM INH SCH (13:10)
== END 2021-11-30 13:17 | disposition home health service (06) | DRG 556 ==
LOC: N.TELEN 15:02 → INTOOBSV 15:02
PROVIDERS: ADMIT Internal Medicine Cardiovascular Disease; ATTEND Internal Medicine Cardiovascular Disease